=== PATIENT | female | born 1980 | race Caucasian/White ===

== ENCOUNTER 2023-07-28 09:01 | Emergency (ER) | payer OTHER, SELFPAY ==
--- NOTE | 2023-07-28 09:12 | ED.EYEPROB ---
HPI - Eye Problem General Chief complaint: Eye Problems Stated complaint: bilateral eye irritation Time Seen by Provider: 07/28/23 09:11 Source: patient Mode of arrival: ambulatory Limitations: no limitations History of Present Illness HPI Narrative: Tabby is a 42-year-old female patient presenting to the clinic today with complaints bilateral eye irritation x1 day. She reports her son also has conjunctivitis and adduction is been treated for periorbital cellulitis as well. Patient states that her drainage and discomfort started in the left eye and now is gone to the right eye. Woke up this morning with her eyes matted shut. Related Data Home Medications Medication Instructions Recorded Confirmed bupropion HCl 150 mg 24 hr tablet, mg PO 07/28/23 extended release cholecalciferol (vitamin D3) 1,250 1,250 mcg PO WEEKLY 07/28/23 07/28/23 mcg (50,000 unit) tablet hydrocodone 7.5 mg-acetaminophen tablet 07/28/23 325 mg tablet labetalol 100 mg tablet mg 07/28/23 methocarbamol 500 mg tablet mg 07/28/23 naproxen 500 mg tablet mg 07/28/23 norethindrone 1 mg-ethinyl 1 tablet PO DAILY 07/28/23 07/28/23 estradiol 35 mcg (21) tablet Allergies Allergy/AdvReac Type Severity Reaction Status Date / Time No Known Allergies Allergy Verified 07/28/23 09:21 Review of Systems Review of Systems: Pertinent positives per HPI. Patient denies any fever, chills, rash, headache, visual changes, dizziness, cough, shortness of breath, chest pain, palpitations, nausea, vomiting, diarrhea, constipation, abdominal pain, or any urinary issues. PMFSH Comments At the time of my signature, I reviewed and agree with the nursing past medical, surgical, social, and family history. There is no relevant family history pertinent to the patient complaint. Exam Narrative: General: Well-developed, well nourished, in no apparent distress Head: Normocephalic, atraumatic Eyes: Pupils equally round and reactive to light bilaterally, EOM intact, bilateral sclera and conjunctive injected left greater than right, yellow discharge, mild lids swelling Ears: TMs intact and clear, ear canals clear, no drainage, grossly hearing normal. Nose: Nares patent, no discharge, no inflammation, no sinus tenderness. Mouth: Oral pharynx without lesions or masses, good dentition, MMM. Neck: Supple, trachea midline, no enlargement of anterior or posterior cervical nodes, no thyroid masses or goiter palpable. Cardio: Regular rate and rhythm, s1 and s2 normal, no murmur appreciated. Resp: Clear to auscultation bilaterally, no rhonchi, rales, wheezing or rubs Course Course Emergency Course: Portions of this record may have been created with voice recognition software. Level of Care: Express Care Visit Vital Signs Vital signs: Vital signs reviewed MDM - Eye Problem MDM Narrative Medical decision making narrative: At the time of visit patient is resting comfortably on the exam table. Patient appears to be nontoxic. I suspect patient has bacterial conjunctivitis. Prescription for tobramycin eyedrops was sent to the pharmacy. Supportive measures were discussed with the patient and they voiced understanding discharge instructions and agrees to treatment plan. Return precautions reviewed Differential Diagnosis Differential diagnosis: Likely corneal abrasion, conjunctivitis, acute iritis, hyphema, periorbital cellulitis, subconjunctival hemorrhage, corneal ulcer and ruptured globe Discharge Plan Discharge Clinical Impression: Bacterial conjunctivitis Patient Disposition: Home, Self-Care Condition: Stable Instructions: Antibiotic Form, Conjunctivitis (ED) Additional Instructions: Conjunctivitis is considered contagious for 24 hours while on the antibiotic. Practice good hand washing techniques Avoid touching eyes Instill eyedrops as prescribed-tobramycin May use warm moist washcloth to help remove eye discharge If eyes are
[2023-07-28 09:20] VITALS: BP 156/106; PULSE 94; RESP 18; TEMP 36.6; O2SAT 100
[2023-07-28 09:22] VITALS: BP 156/106; PULSE 94; RESP 18; TEMP 36.6; O2SAT 100
== END 2023-07-28 09:38 | disposition home or self-care (01) ==
PROVIDERS: Emergency Provider Nurse Practitioner Family; PCP Family Medicine
DX: H10.89 Other conjunctivitis (principal); Z79.891 Long term (current) use of opiate analgesic; Z79.899 Other long term (current) drug therapy; Z79.1 Long term (current) use of non-steroidal anti-inflammatories (NSAID)
CPT/HCPCS: 99213; G0463

== ENCOUNTER 2024-08-10 00:12 | Day surgery (SDC) | payer SELFPAY ==
[2024-08-06 08:27] VITALS: BMI 25.8
--- NOTE | 2024-08-06 08:37 | PC.NURSE ---
Report to the Outpatient Waiting Room, entrance under the green pavilion located off [facility], at time _0600_ on date _[id number]_. Planned Procedure Time: _0730_.? Time changes happen often and if your time is changed the preop area will call you the afternoon before. - You and your visitor will be asked to self-screen and do not enter if you have any COVID symptoms. Please call surgeon if you need to reschedule. - A mask is optional within the hospital at this time. Patients may have clear liquids (water, carbonated beverages, clear teas, apple juice) until 3 hours prior to surgery with a maximum of 20 ounces. - No food from midnight until time of surgery and no smoking. This includes no chewing gum, candy or mints. Take only the following medications with a SIP of water on the morning of surgery: ___Labetolol and if needed Hydrocodone. DO NOT STOP ANY OF YOUR OTHER PRESCRIPTION MEDICATIONS PRIOR TO SURGERY EXCEPT THE FOLLOWING Medications to discontinue per physician Vitamin D3 Date to take last sxqp___[id number]____ Discussed Naproxen which patient says will just not take until after surgery. Please no make-up, nail french, hairspray, perfume, deodorant, or body powder the day of surgery.? No jewelry (including any body piercings) or valuables the day of surgery, leave them at home.? Please take a shower or bath the night before, or the morning of, surgery with an antibacterial soap.? Wear comfortable, loose fitting clothing.? - Jewelry must be removed prior to entering the operating room.? Rings and piercings that are not removed may be cut off. - The hospital will not accept responsibility for valuables.? - Please leave all valuables, including medications, at home the day of surgery. If you are going home after surgery, a licensed dolly driver must drive you home.? - NO public transportation without another adult if you receive anesthesia. - We recommend that an adult stay with you for 24 hours following discharge. - We also recommend that you do not drive, make important decision, drink alcoholic beverages, or take any drugs that were not prescribed by your health care provider for at least 24 hours after your discharge time. Follow any additional instructions given to you from your surgeon. Telephone instructions given to _Donna___and asked if any additional questions and then verbalized understanding. Patient advised to call surgeon office or pre surgery nurse liaison [phone] if any additional questions.
[2024-08-10 06:30] VITALS: BP 176/113; PULSE 96; RESP 18; TEMP 36.3; O2SAT 98
--- NOTE | 2024-08-10 06:58 | WPDANESEPPF ---
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 Patient Data Age: 43 Gender: F Height: 1.63 m Weight: 68.2 kg Allergies Allergy/AdvReac Type Severity Reaction Status Date / Time No Known Allergies Allergy Verified 08/06/24 08:23 Home Medications ?Medication ?Instructions ?Recorded ?Confirmed ?Type cholecalciferol (vitamin D3) 1,250 1,250 mcg PO WEEKLY 07/28/23 08/06/24 History mcg (50,000 unit) tablet hydrocodone 7.5 mg-acetaminophen 1 tablet PO Q6H PRN pain 07/28/23 08/06/24 History 325 mg tablet labetalol 100 mg tablet 100 mg PO Q12H 07/28/23 08/06/24 History methocarbamol 500 mg tablet 500 mg PO QID PRN pain 07/28/23 08/06/24 History naproxen 500 mg tablet 500 mg PO Q8H PRN pain 07/28/23 08/06/24 History norethindrone 1 mg-ethinyl 1 tablet PO DAILY 07/28/23 08/06/24 History estradiol 35 mcg (21) tablet Patient hx anesthesia problems: none Family hx anesthesia problems: none Results Review: All pre-operative results and documents have been reviewed as part of the pre-operative evaluation. [facility] Social History Social History Years smoked: 20 Smoking status: Current every day smoker Tobacco type: cigarettes Alcohol intake: current Drinks per week: 14 Substance use type: marijuana Other substance usage details: Occasionally Living arrangements: with family Spiritual care concerns: No Anes - Eval Final PreProcedure Day of Procedure 08/10/24 06:58 Patient weight: normal Heart: regular rate and rhythm Lungs: decreased breath sounds Airway: Mallampati scale class II Neurological: alert and oriented Last oral intake: >/= 8 hours ASA classification: III Emergent: no Anesthetic plan: proceed Anesthesia type and monitoring: general GIVS and standard monitoring Results Review: All pre-operative results and documents have been reviewed as part of the pre-operative evaluation. Informed Consent: The patient's anesthetic plan and its attendant risks and benefits were discussed with the patient/family/POA. Questions were solicited and answers provided to the satisfaction of the patient/family/POA.
--- NOTE | 2024-08-10 07:12 | WPDHPUPDATE1 ---
History and Physical Update Update Date/Time: 08/10/24 07:12 History and Physical has been reviewed, including an updated exam of the patient. There are NO changes in the patient's condition. Risks, benefits, and alternatives have been discussed and questions answered. Patient agrees to proceed with procedure.
--- NOTE | 2024-08-10 07:12 | PM.HPGS ---
History of Present Illness History of Present Illness Consent: Risks, benefits, and alternatives have been discussed and questions answered. Patient agrees to proceed with procedure. Chief complaint: Ca In Situ III Narrative: Tabby Theodore is a 43 year old female with severe cervical dysplasia. Colposcopy revealed aceto-white epithelium the entire posterior edge biopsy at 6:00 a.m. revealed severe dysplasia. Endocervical curettings were benign with no dysplasia. It was recommended to undergo a LEEP. Risks of procedure were reviewed. Patient voices understanding and agrees to proceed. Review of Systems Review of Systems: not repeated day of surgery; patient states no changes in status [facility] Past Medical History Medical History (Updated 08/10/24 @ 07:14 by Zenaida Oliva MD) Elevated cholesterol HTN (hypertension) (normal spontaneous vaginal delivery) Social History Social History Years smoked: 20 Smoking status: Current every day smoker Tobacco type: cigarettes Alcohol intake: current Drinks per week: 14 Substance use type: marijuana Other substance usage details: Occasionally Living arrangements: with family Spiritual care concerns: No Meds Home Medications and Allergies Home Medications ?Medication ?Instructions ?Recorded ?Confirmed ?Type cholecalciferol (vitamin D3) 1,250 1,250 mcg PO WEEKLY 07/28/23 08/06/24 History mcg (50,000 unit) tablet hydrocodone 7.5 mg-acetaminophen 1 tablet PO Q6H PRN pain 07/28/23 08/06/24 History 325 mg tablet labetalol 100 mg tablet 100 mg PO Q12H 07/28/23 08/06/24 History methocarbamol 500 mg tablet 500 mg PO QID PRN pain 07/28/23 08/06/24 History naproxen 500 mg tablet 500 mg PO Q8H PRN pain 07/28/23 08/06/24 History norethindrone 1 mg-ethinyl 1 tablet PO DAILY 07/28/23 08/06/24 History estradiol 35 mcg (21) tablet Allergies Allergy/AdvReac Type Severity Reaction Status Date / Time No Known Allergies Allergy Verified 08/06/24 08:23 Exam Const: General: healthy appearing and alert Orientation/consciousness: patient oriented x3 Resp: Effort & Inspection: normal respiratory effort GI: GI Palp: Yes Soft to palpation, No Tenderness to palpation present (GI) and No Palpable mass present : External Female Exam: normal external appearance Speculum Exam - Vagina: normal appearance of the vagina and normal vaginal discharge Speculum Exam - Cervix: normal appearance of the cervix Bimanual exam- vagina & uterus: uterine size normal and consistency normal Bimanual Exam- Adnexa, other: normal adnexae and No adnexal tenderness Neuro: General: patient oriented x3 Assessment and Plan Assessment and plan (1) Severe cervical dysplasia: Code(s): D06.9 - Carcinoma in situ of cervix, unspecified Status: Acute Assessment and Plan: Plan to proceed with LEEP
[2024-08-10] MEDS: LIDO 1%/EPINEPHRINE 1:100,000 20 ML VIAL 10 ML INFILTRATE (07:32)
[2024-08-10 07:45] VITALS: BP 139/105; PULSE 89; RESP 16; O2SAT 98
[2024-08-10] MEDS: LACTATED RINGERS 1,000 ML 30 ML IV CONT (07:45)
--- NOTE | 2024-08-10 07:45 | W.PM.PROC2 ---
Procedure Note - Detailed Date of Procedure 08/10/24 Pre-op Diagnosis Severe cervical dysplasia Post-op Diagnosis Same Procedure Performed LEEP Surgeon Zenaida Oliva MD Anesthesia MAC and Local (1% lidocaine with epinephrine) Findings Aceto-white epithelium on the posterior edge Description of Procedure The patient is taken to the operating room and placed under anesthesia in the dorsal lithotomy position. Coated bivalve speculum was placed in the vagina and the cervix is bathed in acetic acid. The cervix was inspected with the colposcope and the above-stated findings are noted. The cervix was injected in each quadrant with 1% lidocaine with epinephrine. The 2x1cm loop was used to perform a LEEP. One pass posterior and 1 pass anterior. The posterior portion included the cervical os. Monsel's was applied to the cone bed. The specimens were marked at 12:00 p.m. with suture. Patient was taken down from lithotomy position and awakened from anesthesia. She was taken to recovery room in stable condition. Sponge, needle, and instrument counts are correct per the OR staff. Drains No Packing No Pathology Yes (Anterior and posterior lip of LEEP marked at 12) Complications No immediate complications Condition Stable Disposition PACU
[2024-08-10] MEDS: ACETAMINOPHEN 500 MG TABLET 1000 MG PO (08:09)
[2024-08-10 08:10] LABS: BEDSIDEPREGUCG Negative (Negative)
[2024-08-10 08:15] VITALS: BP 160/103; PULSE 78; RESP 20
[2024-08-10 08:45] VITALS: BP 167/99; PULSE 78; RESP 20
--- NOTE | 2024-08-10 08:53 | SUR.PHASEII ---
0815 - dr. daniel aware of pt's b/p 163/108 hr 78. no orders received. pt instructed to follow up with primary care doctor. pt verbalized understanding
--- OUTSIDE RECORDS SUMMARY | 2024-08-16 12:22 | XMS_ITS | Encounter Summary ---
Author Organization [facility] Address [address] [place] [address]. [place], [place] [id number] [place] [id number] Care Team Providers Care Patient Account Liaison Name Role Phone Horace Mixon MD Primary Care Provider [phone] Reason for Visit * Reason Comments Abdominal Pain Encounter Details Date Type Department Care Team (Latest Contact Info) Description 10/31/2021 12:44 PM CDT - 10/31/2021 1:14 PM CDT Hospital Encounter [facility] [address] [place] [id number] Horace Amador, PA-C [address] [id number] Abdominal Pain Discharge Disposition: Transfer to Acute Care Hospital Social History Tobacco Use Types Packs/Day Years Used Date Smoking Tobacco: Every Day Cigarettes Last attempted to quit: 06/12/2021 Smokeless Tobacco: Never Alcohol Use Standard Drinks/Week Comments Yes 0 (1 standard drink = 0.6 oz pur e alcohol) socially AUDIT-C Answer Date Recorded Frequency of Alcohol Consumption Monthly or less 07/14/2018 Average Number of Drinks Not on file 018 Frequency of Binge Drinking Not on file 07/05 Comments No Sex and Gender Information Value Date Recorded Sex Assigned at Not on file Legal Sex Female 6:18 PM CDT Gender Identity Not on file Sexual Orientation Not on file COVID-19 Exposure Response Date Recorded In the last 10 days, have yo u been in contact with someone who was confirmed or suspected to have Coronavirus/COVID-19? No / Unsure 10/31/2021 12:37 PM CDT documented as of this encounter Last Filed Vital Signs Vital Sign Reading Time Taken Comments Blood Pressure 156/111 10/31/2021 12:47 PM CDT Pulse 97 10/31/2021 12:47 PM CDT Temperature 36.7 ??C (98 ??F) 10/31/2021 12:47 PM CDT Respiratory Rate 18 10/31/2021 12:47 PM CDT Oxygen Saturation 98% 10/31/2021 12:47 PM CDT Inhaled Oxygen Concentration - - Weight 77.1 kg (170 lb) 10/31/2021 12:47 PM CDT Height 162.6 cm (5' 4 ) 10/31/2021 12:47 PM CDT Body Mass Index 29.18 10/31/2021 12:47 PM CDT documented in this encounter Discharge Instructions * Discharge Instructions* Horace Amador PA-C - 10/31/2021 1:08 PM CDT To [place] emergency room for further evaluation and treatment * Attachments The following attachments cannot be sent through Care Everywhere. * Severe Abdominal Pain Discharge Instructions, Adult ([place]) documented in this encounter Medications at Time of Discharge HYDROcodone-aceta minophen 5-325 MG tablet Take 1-2 tablets by mouth. 08/25/2021 ibuprofen 800 MG tablet Take 800 mg by mouth. 08/07/2021 labetalol 200 MG tablet Take 200 mg by mouth 2 (two) times daily. 1 06/16/2018 Norethindrone, Contraceptive, 0.35 MG tablet Take 1 tablet by mouth daily. 01/28/2021 vitamin D2, ergocalciferol, (VITAMIN D, ERGOCALCIFEROL,) 94233 UNITS capsule Take 50,000 Units by mouth once a week. 12/22/2020 documented as of this encounter ED Notes * Horace Amador PA-C - 10/31/2021 12:53 PM CDTSummary: abdominal pain ED NOTE Tabby Theodore 1980 Chief Complaint Chief Complaint Patient presents with ??? Abdominal Pain History of Present Illness 41-year-old white female patient with no previous surgical history presents ambulatory to the count includes the [facility] care complaining of epigastric and right upper quadrant abdominal pain and discomfort x5 days.Sometimes she feels it is worse with food or drink. States symptoms worse last night after eating spaghetti. She also reports associated nausea and loose nonbloody stool. She denies fever, chills, sweats, chest pain, shortness of breath, painful breathing, hemoptysis, syncope, extremity pain or edema, back pain, vomiting, urine/vaginal symptoms. No history of pancreatitis or gallstones. [id number] Pepto-Bismol without relief. Medical History ALLERGIES: No Known Allergies MEDICATIONS: Prior to Admission medications Medication Sig Start Date End Date Taking? Authorizing Provider HYDROcodone-acetaminophen 5-325 MG tablet Take 1-2 tablets by mouth. 08/25/21 Yes Doc Abstract ibuprofen 800 MG tablet Take 800 mg by mouth. 08/07/21 Yes Doc Abstract labetalol 200 MG tablet Take 200 mg by mouth 2 (two) times daily. 06/16/18 Yes Doc Abstract Norethindrone, Contraceptive, 0.35 MG tablet Take 1 tablet by mouth daily. 01/28/21 Yes Doc Abstract vitamin D2, ergocalciferol, (VITAMIN D, ERGOCALCIFEROL,) 85607 UNITS capsule Take 50,000 Units by mouth once a week. 12/22/20 Yes Doc Abstract PAST MEDICAL HISTORY: Past Medical History: Diagnosis Date ??? Hypertension PAST SURGICAL HISTORY: History reviewed. No pertinent surgical history. FAMILY HISTORY: Family History Problem Relation Name Age of Onset ??? Kidney Cancer Mother ??? Diabetes Mother ??? Hypertension Mother ??? Migraines/Headaches Mother ??? Colon Cancer Father SOCIAL HISTORY: Social History Tobacco Use ??? Smoking status: Current Every Day Smoker Packs/day: 0.50 Types: Cigarettes Last attempt to quit: 06/12/2021 Years since quittin.3 ??? Smokeless tobacco: Never Used Vaping Use ??? Vaping Use: Never used Substance Use Topics ??? Alcohol use: Yes Comment: socially ??? Drug use: Yes Types: Marijuana Comment: socially Review of Systems Review of Systems Constitutional: Negative for activity change, appetite change, fever and unexpected weight change. HENT: Negative for ear pain, sore throat and trouble swallowing. Eyes: Negative. Respiratory: Negative for cough, chest tightness and shortness of breath. Cardiovascular: Negative for chest pain, palpitations and leg swelling. Gastrointestinal: Positive for abdominal pain, diarrhea and nausea. Negative for abdominal distention, blood in stool, constipation and vomiting. Genitourinary: Negative for dysuria, flank pain and hematuria. Musculoskeletal: Negative for arthralgias, back pain, myalgias and neck pain. Skin: Negative for color change, rash and wound. Allergic/Immunologic: Negative for immunocompromised state. Neurological: Negative for dizziness, speech difficulty, weakness, light- headedness, numbness and headaches. Hematological: Negative for adenopathy. Psychiatric/Behavioral: Negative. Physical Exam Filed Vitals: 10/31/21 1247 BP: (!) 156/111 Pulse: 97 Resp: 18 Temp: 98 ??F (36.7 ??C) TempSrc: Temporal SpO2: 98% Weight: 77.1 kg (170 lb) Height: 5' 4 (1.626 m) Physical Exam Vitals and nursing note reviewed. Exam conducted with a machine stapler present. Constitutional: General: She is not in acute distress. Appearance: Normal appearance. She is well-developed and normal weight. She is not ill-appearing, toxic-appearing or diaphoretic. HENT: Head: Normocephalic and atraumatic. Right Ear: External ear normal. Left Ear: External ear normal. Nose: Nose normal. Mouth/Throat: Mouth: Mucous membranes are moist. Pharynx: Oropharynx is clear. Eyes: Extraocular Movements: Extraocular movements intact. Conjunctiva/sclera: Conjunctivae normal. Pupils: Pupils are equal, round, and reactive to light. Neck: Thyroid: No thyromegaly. Trachea: No tracheal deviation. Cardiovascular: Rate and Rhythm: Normal rate and regular rhythm. Pulses: Normal pulses. Heart sounds: Normal heart sounds. Pulmonary: Effort: Pulmonary effort is normal. No respiratory distress. Breath sounds: Normal breath sounds. Abdominal: General: Abdomen is flat. Bowel sounds are normal. There is no distension. Palpations: Abdomen is soft. There is no mass. Tenderness: There is abdominal tenderness (epigastrium/RUQ). There is no right CVA tenderness, leftCVA tenderness, guarding or rebound. Hernia: No hernia is present. Comments: Neg [place]. Musculoskeletal: General: No swelling, tenderness, deformity or signs of injury. Normal range of motion. Cervical back: Normal range of motion and neck supple. No rigidity. Right lower leg: No edema. Left lower leg: No edema. Lymphadenopathy: Cervical: No cervical adenopathy. Skin: General: Skin is warm and dry. Capillary Refill: Capillary refill takes less than 2 seconds. Findings: No rash. Neurological: General: No focal deficit present. Mental Status: She is alert and oriented to person, place, and time. Cranial Nerves: No cranial nerve deficit. Sensory: No sensory deficit. Motor: No weakness. Coordination: Coordination normal. Gait: Gait normal. Deep Tendon Reflexes: Reflexes normal. Psychiatric: Mood and Affect: Mood normal. Behavior: Behavior normal. Thought Content: Thought content normal. Judgment: Judgment normal. Diagnostic Studies / Procedures ELECTROCARDIOGRAMS: No results found for this visit on 10/31/21. LABORATORY STUDIES: No results found for this visit on 10/31/21. IMAGING STUDIES No orders to display ED Course / Medical Decision Making 1:08 PM-patient stable. Epigastric and right upper quadrant tenderness noted on physical exam. Elevated blood pressure, otherwise unremarkable vital signs. Nontoxic appearance. Patient is reporting moderate bothersome pain. Due to lack of resources at convenient care, patient transferred to [facility] emergency room for further evaluation and treatment. Patient agreeable to this plan, and signed all the appropriate transfer paperwork. She is choosing to go via POV. Accepting physician inthe ED is Dr. Raphael. All risks of transfer given including but not limited to worsening pain, intra-abdominal infection, sepsis, pancreatitis, [place], CVA, respiratory failure, cardiac arrest, disability, , MVC in route. Patient voices understanding. Medications - No data to display Clinical Impression Pain of upper abdomen (Primary) Current Discharge Medication List Disposition: Transfer to Another Facility Follow-Up: No follow-up provider specified. HORACE AMADOR PA-C 10/31/2021 Horace Amador PA-C 10/31/21 [id number] Cosigned by Eveline Mills MD at 10/31/2021 9:48 PM CDT * Donna Wahl RN - 10/31/2021 12:47 PM CDT Pt reports epigastric gas pain, pt reports having epidural shot to T5 and L1 last Saturday. Pt also states she has had loose stools x 2 weeks. Pt reports nausea with waking, no vomiting. documented in this encounter Plan of Treatment Not on file documented as of this encounter Visit Diagnoses Diagnosis Pain of upper abdomen- Primary Abdominal pain, other specified site documented in this encounter Care Teams Patient Account Liaison Relationship Specialty Start Date End Date Horace Mixon MD PCP - General FAMILY PRACTICE 06/17/21 documented as of this encounter
--- OUTSIDE RECORDS SUMMARY | 2024-08-16 12:22 | XMS_ITS | Clinical Summary ---
Author Organization [facility] Address [facility]. [place], [place] [id number] [place] [address] Care Team Providers Care Pss Delivery Professional Name Role Phone Bong Mixon MD Primary Care Provider [phone] Allergies No known active allergies Medications labetalol 200 MG tablet Take 200 mg by mouth 2 (two) times daily. 1 06/16/2018 Active ibuprofen 800 MG tablet Take 800 mg by mouth. 08/07/2021 Active vitamin D2, ergocalciferol, (VITAMIN D, ERGOCALCIFEROL, ) 90879 UNITS capsule Take 50,000 Units by mouth once a week. 12/22/2020 Active HYDROcodone-karan taminophen 5-325 MG tablet Take 1-2 tablets by mouth. 08/25/2021 Active Norethindrone, Contraceptive, 0.35 MG tablet Take 1 tablet by mouth daily. 01/28/2021 Active Family History Medical History Relation Comments Colon Cancer Father Diabetes Mother Hypertension Mother Kidney Cancer Mother Migraines/Headaches Mother Relation Status Comments Father Mother Social History Tobacco Use Types Packs/Day Years [...] on file Sexual Orientation Not on file Last Filed Vital Signs Vital Sign Reading Time Taken Comments Blood Pressure 112/68 10/31/2021 1:30 PM CDT Pulse 99 10/31/2021 1:30 PM CDT Temperature 36.7 ??C (98.1 ??F) 10/31/2021 1:30 PM CD T Respiratory Rate 18 10/31/2021 1:30 PM CDT Oxygen Saturation 100% 10/31/2021 1:30 PM CDT Inhaled Oxygen Concentration - - Weight 77.1 kg (170 lb) 10/31/2021 12:47 PM CDT Height 162.6 cm (5' 4 ) 10/31/2021 12:47 PM CDT Body Mass Index 29.18 10/31/2021 12:47 PM CDT Plan of Treatment Health Maintenance Due Date Last Done Comments Cervical Cancer Screening Pa p Smear (Age 30 to 64) Every 3 Years 1979 Annual Physical 10/02/1982 Pneumococcal Vaccine: Pediat rics (0 to 5 Years) and At-Risk Patients (6 to 64 Years) (1 of 2 - PCV) 10/02/1985 Hepatitis C 10/02/1997 Hepatitis B Vaccines (1 of 3 - 19+ 3-dose series) 10/02/1998 Cervical Cancer Screening Pa p with HPV Testing (Age 30 to 64) Every 5 Years 10/02/2009 Cervical Cancer Screening with HPV 10/02/2009 Mammogram Screening 2019 COVID-19 Vaccine (1 - 2023-2 5 season) 2024 Influenza Adult (#1) 2024 DTaP, Tdap and Td Vaccines ( 2 - Tdap) 11/17/2028 11/17/2018 HPV Vaccines Aged Out No longer eligi ble based on patient's age to complete this topic Meningococcal Vaccine Aged Out No jesse lily eligible based on patient's age to complete this topic RSV Immunizations Under 20 Months Aged Out No longer eligible based on patient's age to complete this topic Care Teams Pss Delivery Professional Relationship Specialty Start Date End Date Bong Mixon MD PCP - General FAMILY PRACTICE 06/17/21
--- OUTSIDE RECORDS SUMMARY | 2024-08-16 12:22 | XMS_ITS | Encounter Summary ---
Author Organization [facility] Address [address] [place] [address]. [place], [place] [id number] [place] [address] Care Team Providers Care Building Services Engineer Name Role Phone Bong Mixon MD Primary Care Provider [phone] Encounter Details Date Type Department Care Team (Latest Contact Info) Description 08/30/2021 Travel Social History Tobacco Use Types Packs/Day Years Used Date Smoking Tobacco: Former Cigarettes Q uit: 06/12/2021 Smokeless Tobacco: Never Alcohol Use Standard [...] Exposure Response Date Recorded In the last month, have you been in contact with someone who was confirmed or suspected to have Coronavirus / COVID-19? No / Unsure 08/30/2021 9:18 AM SHOP TAILOR documented as of this encounter Plan of Treatment Not on file documented as of this encounter Visit Diagnoses Not on filedocumented in this encounter Care Teams Building Services Engineer Relationship Specialty Start Date End Date Bong Mixon MD PCP - General FAMILY PRACTICE 06/17/21 documented as of this encounter
--- OUTSIDE RECORDS SUMMARY | 2024-08-16 12:22 | XMS_ITS | Encounter Summary ---
Author Organization [facility] Address [facility]. [place], [place] [id number] [place] [address] Care Team Providers Care Veterinarian Name Role Phone Bong Mixon MD Primary Care Provider [phone] Reason for Referral * Surgical (Routine) - Closed Specialty Diagnoses / Procedures Referred By Contac t Referred To Contact Procedures Case request operating room: INJECTION EPIDURAL TRANSFORAMINAL L5-S1 Mariajose Worley APNP Phone: tel: fax: Referral ID Status Reason Start Date Expiration Date Visits Re quested Visits Authorized [id number] Closed 08/30/2021 09/30/2022 1 1 ER OPERATOR Encounter Details Date Type Department Care Team (Late st Contact Info) Description 08/30/2021 Prep for Procedure [facility] [place] [phone] Mariajose Worley APNP [address] [place] [phone] Social History Tobacco Use Types Packs/Day Years [...] COVID-19? No / Unsure 08/30/2021 9:18 AM JEEPER OPERATOR documented as of this encounter Plan of Treatment Scheduled Orders Name Type Priority Associated Diagnoses Order Schedule Case request operating room: INJECTION EPIDURAL TRANSFORAMINAL L5-S1 Case Request Routine Once for 1 Occurrences starting 08/30/2021 until 08/30/2021 documented as of this encounter Visit Diagnoses Not on filedocumented in this encounter Care Teams Veterinarian Relationship Specialty Start Date End Date Bong Mixon MD PCP - General FAMILY PRACTICE 06/17/21 documented as of this encounter
--- OUTSIDE RECORDS SUMMARY | 2024-08-16 12:22 | XMS_ITS | Encounter Summary ---
Author Organization [facility] Address [address] [place] [address]. [place], [place] [id number] [place] [address] Care Team Providers Care High Lift Driver Name Role Phone Bong Mixon MD Primary Care Provider [phone] Encounter Details Date Type Department Care Team (Latest Contact Info) Description 10/31/2021 Travel Social History Tobacco Use Types Packs/Day [...] PM CDT documented as of this encounter Plan of Treatment Not on file documented as of this encounter Visit Diagnoses Not on filedocumented in this encounter Care Teams High Lift Driver Relationship Specialty Start Date End Date Bong iMxon MD PCP - General FAMILY PRACTICE 06/17/21 documented as of this encounter
--- OUTSIDE RECORDS SUMMARY | 2024-08-16 12:22 | XMS_ITS | Encounter Summary ---
Author Organization [facility] Address [address] [place] [address]. [place], [place] [address] [place] [address] Care Team Providers Care Jute Bag Clipper Name Role Phone Bong Mixon MD Primary Care Provider [phone] Encounter Details Date Type Department Care Team (Latest Contact Info) Description 10/25/2021 Travel Social History Tobacco Use Types Packs/Day [...] suspected to have Coronavirus/COVID-19? No / Unsure 10/25/2021 8:44 AM CDT documented as of this encounter Plan of Treatment Not on file documented as of this encounter Visit Diagnoses Not on filedocumented in this encounter Care Teams Jute Bag Clipper Relationship Specialty Start Date End Date Bong Mixon MD PCP - General FAMILY PRACTICE 06/17/21 documented as of this encounter
--- OUTSIDE RECORDS SUMMARY | 2024-08-16 12:22 | XMS_ITS | Encounter Summary ---
Author Organization [facility] Address [address] [place] [address]. [place], [place] [address] [place] [address] Care Team Providers Care Cvicu Nurse Name Role Phone Bong Mixon MD Primary Care Provider [phone] Encounter Details Date Type Department Care Team (Late st Contact Info) Description 12/01/[address] [facility] [place] [address] [phone] Mariajose Worley, NONI [address] [place] [phone] Social History Tobacco Use Types Packs/Day Years [...] on file Sexual Orientation Not on file documented as of this encounter Plan of Treatment Not on file documented as of this encounter Visit Diagnoses Not on filedocumented in this encounter Care Teams Cvicu Nurse Relationship Specialty Start Date End Date Bong Mixon MD PCP - General FAMILY PRACTICE 06/17/21 documented as of this encounter
--- OUTSIDE RECORDS SUMMARY | 2024-08-16 12:22 | XMS_ITS | Encounter Summary ---
Author Organization [facility] Address [address] [place] [address]. [place], [place] [id number] [place] [address] Care Team Providers Care Inpatient Pharmacist Name Role Phone Bong Mixon MD Primary Care Provider [phone] Reason for Visit * Reason Onset Date Comments Follow Up Call 11/28/2021 Encounter Details Date Type Department Care Team (Late st Contact Info) Description 11/28/2021 Telephone [facility] [place] [address] [phone] Marietta Cerrato RN Follow Up Call Social History Tobacco Use Types Packs/Day Years [...] PM CDT documented as of this encounter Progress Notes * Marietta Cerrato RN - 11/28/2021 1:58 PM CDT CALLED PT TO GET % OF RELIEF. SHE REPORTS THAT SHE GOT 0% RELIEF FROM THE INJECTION WE DID. SHE REPORTS SHE JUST LEFT THE OFFICE OF HER PCP WHO TOLD HER THAT SHE HAS TO FAIL ANOTHER INJECTION BEFORE THEY CAN SEND REFERRAL TO NEUROSURGERY. I ADVISED HER THAT A SECOND INJECTION OF THIS TYPE WOULD NOTBE WARRANTED OR APPROVED BY INS IF SHE GOT ABSOLUTELY NO RELIEF. PT DID CONFIRM THAT SHE GOT 0% AGAIN. I TOLD HER I WOULD SEND THIS TO [facility] TO SEE IF THERE ARE ANY OTHER TYPE OF INJECTIONS THAT CAN BE DONE. PT WANTS TO MOVE FORWARD WITH ANOTHER INJECTION AND ALSO WOULD LIKE CONSULT TO NEUROSURGERY. DR ZAPATA OFFICE WOULD BE FIND WITH PATIENT. PT ALSO STATES THAT HER INS COVERAGE CHANGES ON 12/02 BUT SHE IS NOT SURE WHAT PLAN SHE WILL HAVE . PT AWARE THAT IF SHE IS SCHEDULED FOR ANOTHER INJECTION AND INS CHANGES THAT IF NOT CONTRACTED WE WILL HAVE TO TAKE HER OFF. documented in this encounter Plan of Treatment Not on file documented as of this encounter Visit Diagnoses Not on filedocumented in this encounter Care Teams Inpatient Pharmacist Relationship Specialty Start Date End Date Bong Mixon MD PCP - General FAMILY PRACTICE 06/17/21 documented as of this encounter
--- OUTSIDE RECORDS SUMMARY | 2024-08-16 12:22 | XMS_ITS | Encounter Summary ---
Author Organization [facility] Address [address] [place] [address]. [place], [place] [id number] [place] [id number] Care Team Providers Care Balance Wheel Screw Hole Driller Name Role Phone Bong Mixon MD Primary Care Provider [phone] Reason for Visit * Auth/Cert Specialty Diagnoses / Procedures Referred By Contac t Referred To Contact Diagnoses Lumbar radiculopathy Procedures INJECTION EPIDURAL TRANSFORAMINAL L5-S1 Referral ID Status Reason Start Date Expiration Date Visits Re quested Visits Authorized [id number] 1 1 Encounter Details Date Type Department Care Team (Late st Contact Info) Description 10/25/2021 9:40 AM CDT - 10/25/2021 10:00 AM CDT Surgery [facility] Interventional [facility] [place] [address] [phone] Stephanie Frias MD [facility] [address] [place] [address] INJECTION EPIDURAL TRANSFORAMINAL L5-S1 Surgery Details Date/Time Status Location OR Service Patient Class Case Class Case Type Trauma Case? 10/25/2021 9:40 AM Posted [facility] Proc Rm Pain Medicine Short Stay/Outpa tient Surgery No Panel 1 Procedure LRB Anes Op Region Wound Class Comments INJECTION EPIDURAL TRANSFORAMINAL L5-S1 Bilateral Local Spine Lumbar Clean RTN PT - RUFINA ONLY NO BLOOD THINNERS BILATERAL INJECTION EPIDURAL TRANSFORAMINAL L5-S1 BC/BS 03/*08/2021 ADRIANA NUNES Surgeon Surgeon Role Service Panel Stephanie Frias MD Primary Pain Medicine 1 documented in this encounter Social History Tobacco Use Types Packs/Day Years [...] AM CDT documented as of this encounter Last Filed Vital Signs Vital Sign Reading Time Taken Comments Blood Pressure 173/113 10/25/2021 9:54 AM CDT Pulse 71 10/25/2021 9:54 AM CDT Temperature 36.3 ??C (97.3 ??F) 10/25/2021 9:08 AM CD T Respiratory Rate 20 10/25/2021 9:54 AM CDT Oxygen Saturation 93% 10/25/2021 9:54 AM CDT Inhaled Oxygen Concentration - - Weight 77.8 kg (171 lb 9.6 oz) 10/25/2021 9:12 A M CDT Height 162.6 cm (5' 4 ) 10/25/2021 9:12 AM CDT Body Mass Index 29.46 10/25/2021 9:12 AM CDT documented in this encounter Discharge Instructions * Discharge Instructions* Michelle Sheppard RN - 10/25/2021 9:52 AM CDT [place] Interventional Pain Management Discharge Instructions WHAT TO DO TODAY: - Limit your activity today, but bedrest is not required - You may resume your normal activity tomorrow as tolerated - Do not drive a vehicle or operate hazardous equipment for the first 24 hours after your procedure. - You may experience numbness, tingling, and weakness in your extremities for several hours after your injection. Please be careful when walking or standing so you do not fall. - You may remove your bandage in the morning and you may shower. WHAT TO EXPECT OVER THE NEXT FEW DAYS TO A WEEK: - Any weakness or tingling typically wears off after several hours but you may have some tingling for several days after some injections - It is normal that once the numbing medicine wears off that you could be sore for several days before you notice relief. Pain should get better day by day. - The steroid will start working after 2-3 days and can take up to 2 weeks for it to fully work. - Everyone has different response to the injection depending on the amount of inflammation and diagnosis. HOW TO CONTROL YOUR PAIN: - Injection site soreness is normal and will subside in a few days. We suggest ice packs to the injection site for 10-20 at a time ever 2-3 hours. After 24 hours you may use heat if preferred or you may alternate heat and ice. - Your pain may be worse for a couple of days; you may use any medications that you were using before your visit. You may also use Tylenol, Motrin or Aleve if not contraindicated by your Primary CarePhysician. If you no longer have any prescribed medicine, please get your refill from the physicianwho fist prescribed it for you. - For patients who had a Radiofrequency Ablation your pain could last for up to 2 weeks. - We are an Interventional pain management. We do not prescribe pain medicine. COMMON SIDE EFFECTS OF STEROIDS: - You may experience warm, flushing sensation with redness in your face, neck and chest. - You may feel anxious, jittery, irritable or have trouble sleeping. - You may have increased hunger or menstrual changes (for women). - If you are a diabetic you may have increased blood sugars. If you do and are unable to control please call your doctor who manages your diabetes. - All side effects are temporary and should subside in approximately a week. WHEN TO CALL THE DOCTOR AND HOW TO REACH US: Call [phone] ext. [phone] for scheduling, insurance questions or speak with a nurse. Our hours are Saturday- 8:00am-4:00pm ??? Call the number above for any bleeding/drainage/redness/swelling at the injection site, severe pain, persistent chills, fever over 101 or greater, or new or different pain or numbness. If you areunable to reach us call 911 or go to the nearest emergency room. ??? If you have shortness of breath, fast heart rate, throat/tongue swelling call 911 or go to the nearest emergency room. ANY NEW BOWEL OR BLADDER INCONTINENCE ISSUES OR NUMBNESS TO PELVIC REGION PLEASE GO TO THE EMERGENCY ROOM IMMEDIATELY! PLEASE CALL WITH YOUR PERCENTAGE OF RELIEF IN 3 WEEKS. November 15, 2021. Please call [phone] Ext. [phone] option 4. You may need to leave a message. Please leave the following information... 1. Name, date of , a number we can reach you for questions and the date you were here. 2. The amount of relief you received from your injection in NUMBER percentage and how long it has lasted or if it is still currently helping you. 3. If you still have pain where is the pain? 4. Are you taking any medications for your pain? 5. Are you doing your physical therapy exercises/stretches or any physical activity? 6. Is there any activity that you are able to do that you were unable to do prior to your injection? Please know that if we do not receive this information your next injection may not get authorized by your insurance company and your treatment could be delayed. FOR YOUR NEXT INJECTION APPOINTMENT. Please do not eat or drink anything for 4 hours prior to your appointment. Please have responsible adult with you and someone to drive you home Please shower prior to procedure to help prevent infection. Please no perfumes or scented lotions on day of your procedure. You May wear deodorant. You may take all your medications as prescribed with sips of water. documented in this encounter Medications at Time of Discharge HYDROcodone-acetami nophen 5-325 MG tablet Take 1-2 tablets by mouth. 08/25/2021 ibuprofen 800 MG tablet Take 800 mg by mouth. 08/07/2021 labetalol 200 MG tablet Take 200 mg by mouth 2 (two) times daily. 1 06/16/2018 Norethindrone, Contraceptive, 0.35 MG tablet Take 1 tablet by mouth daily. 01/28/2021 vitamin D2, ergocalciferol, (VITAMIN D, ERGOCALCIFEROL,) 71111 UNITS capsule Take 50,000 Units by mouth once a week. 12/22/2020 diazePAM 10 MG tabletIndications:L umbar radiculopathy Take 1 tablet (10 mg total) by mouth once for 1 dose. Take one tab 1 hour prior to procedure 1 tablet 10/25/2021 2 hydrocodone-acetami nophen 5-325 MG tablet Take 1 tablet by mouth daily as needed. 0 07/03/2018 2 documented as of this encounter H&P Notes * Stephanie Frias MD - 10/25/2021 9:44 AM CDT Admission Note With PreProc Assess CC: Low back pain HPI: 41-year-old female seen today as a follow-up patient was seen as a new patient on 08/30/2021. Patient is a referral from Anupam Oates. Patient denies any changes from her initial evaluation. Prior to Admission medications Medication Sig Start Date End Date Taking? Authorizing Provider hydrocodone-acetaminophen 5-325 MG tablet Take 1 tablet by mouth daily as needed. 07/03/18 Yes Doc Abstract HYDROcodone-acetaminophen 5-325 MG tablet Take 1-2 tablets by mouth. 08/25/21 Yes Doc Abstract ibuprofen 800 MG tablet Take 800 mg by mouth. 08/07/21 Yes Doc Abstract labetalol 200 MG tablet Take 200 mg by mouth 2 (two) times daily. 06/16/18 Yes Doc Abstract vitamin D2, ergocalciferol, (VITAMIN D, ERGOCALCIFEROL,) 22575 UNITS capsule Take 50,000 Units by mouth once a week. 12/22/20 Yes Doc Abstract No Known Allergies Past Medical History: Diagnosis Date ??? Hypertension History reviewed. No pertinent surgical history. Social History Socioeconomic History ??? Marital status: Spouse name: Not on file ??? Number of children: 1 ??? Years of education: Not on file ??? Highest education level: Not on file Occupational History ??? Not on file Tobacco Use ??? Smoking status: Former Smoker Packs/day: 0.50 Types: Cigarettes Quit date: 06/12/2021 Years since quittin.3 ??? Smokeless tobacco: Never Used Vaping Use ??? Vaping Use: Never used Substance and Sexual Activity ??? Alcohol use: Yes Comment: socially ??? Drug use: Yes Types: Marijuana Comment: socially ??? Sexual activity: Not on file Other Topics Concern ??? Service Not Asked ??? Blood Transfusions Not Asked ??? Caffeine Concern Not Asked ??? Occupational Exposure Not Asked ??? Hobby Hazards Not Asked ??? Sleep Concern Not Asked ??? Stress Concern Not Asked ??? Weight Concern Not Asked ??? Special Diet Not Asked ??? Back Care Not Asked ??? Exercise Not Asked ??? Bike Helmet Not Asked ??? Seat Belt Not Asked ??? Self-Exams Not Asked ??? Wheelchair No ??? Walker Not Asked ??? Upper extremity braces/slings No ??? Lower extermity braces/slings No ??? Self Care Yes Social History Narrative Lives at home with her Social Determinants of Health Financial Resource Strain: Not on file Food Insecurity: Not on file Transportation Needs: Not on file Physical Activity: Not on file Stress: Not on file Social Connections: Not on file Intimate Partner Violence: Not on file Review of Systems: no changes except specified in HPI, no bladder or bowel incontinence PHYSICAL EXAM Filed Vitals: 10/25/21 0908 10/25/21 0912 Pulse: 81 Resp: 20 Temp: 97.3 ??F (36.3 ??C) TempSrc: Tympanic SpO2: 99% Weight: 77.8 kg (171 lb 9.6 oz) Height: 5' 4 (1.626 m) General: alert, appears stated age and cooperative Skin: normal and no rash or abnormalities HEENT: neck supple with midline trachea Lungs: no respiratory distress Heart: regular rate and rhythm Abdomen: soft Neuro: Unchanged from 08/30/2021 ASSESSMENT Lumbar radiculopathy PLAN 41-year-old female seen today as a follow-up we will proceed with bilateral L5- S1 lumbar transforaminal injection. Risk, benefits, alternatives were discussed. Patient agreeable plan. Risks including, but not limited to infection, permanent neurological deficit due to nerve root injury, bleeding, anaphylaxis, flushing, cerebral spinal fluid leak, paralysis, spinal cord injury, thinning of the skin, thinning of the bones, muscle cramping. documented in this encounter OR Notes * Op Note - Stephanie Frias MD - 10/25/2021 9:55 AM CDT PROCEDURE: LUMBAR TRANSFORAMINAL EPIDURAL STEROID INJECTION UNDER FLUOROSCOPY LEVELS: Bilateral L5-S1 PREOPERATIVE DIAGNOSIS: LUMBAR RADICULOPATHY POSTOPERATIVE DIAGNOSIS: SAME PREOP SURGEON: STEPHANIE FRIAS MD RISKS, BENEFITS, ALTERNATE TREATMENTS DISCUSSED. WRITTEN CONSENT OBTAINED. PATIENT TAKEN TO PROCEDURE ROOM PLACED IN PRONE POSITION. PILLOW UNDER ABDOMEN TO REDUCE LUMBAR LORDOSIS. STERILE PREP AND DRAPE OF LUMBOSACRAL SPINE PERFORMED. ASA STANDARD MONITORS APPLIED. Risks including, but not limited to infection, permanent neurological deficit due to nerve root injury, bleeding, anaphylaxis, flushing, cerebral spinal fluid leak, paralysis, spinal cord injury, thinning of the skin, thinning of the bones, muscle cramping. PROCEDURE: VERTEBRAL BODIES WERE SQUARED.. SKIN AND SUBCUTANEOUS TISSUES ANESTHETIZED WITH 1% LIDOCAINE. 22 GAUGE CHIBA NEEDLES WITH BENT TIPS WERE USED. C ARM WAS MOVED TO THE OBLIQUE X RAY VIEW. TARGET FOR L 5-S1 NERVE ROOT IS THE 6 O???CLOCK POSITION OF THE PEDICLE SHADOW IN THE OBLIQUE X RAYVIEW AT THE LEVEL OF L 5-S1 ON THE left and right SIDE. APPROPRIATE NEEDLE TIP POSITION WAS CONFIRMED IN THE AP,OBLIQUE AND LATERAL VIEWS. AFTER NEGATIVE ASPIRATION, 5 CC OF CONTRAST SPLIT BETWEEN THE ABOVE MENTIONED LEVELS WAS INJECTED IN THE LATERAL VIEW CONFIRMING SPREAD IN THE ANTERIOR EPIDURAL SPACE. NEGATIVE ASPIRATION PRIOR TO 5 CC OF CONTRAST INJECTED IN THE AP VIEW CONFIRMING SPREAD ALONG THE APPROPRIATE NERVE ROOTS ALONG WITH EDIDURAL SPREAD. NO INTRAVASCULAR OR INTRATHECAL UPTAKE NOTED. NEGATIVE ASPIRATION PRIOR TO INJECTION OF 4OMG DEPOMEDROL AND 2 CC OF 0.25% BUPIVACAINE INJECTED PER LEVEL. NEEDLES REMOVED. NO COMPLICATIONS. POST PROCEDURE: PATIENT TOLERATED PROCEDURE WELL AND OBSERVED PRIOR TO DISCHARGE. DISCHARGED IN STABLE CONDITION WITH APPROPRIATE POST-PROCEDURE INSTRUCTIONS. PATIENT WILL BE CALLED OVER THE NEXT FEW DAYS FOR FOLLOWUP. documented in this encounter Plan of Treatment Not on file documented as of this encounter Procedures Procedure Name Priority Date/Time Associated Diagnosis Comments INJECTION EPIDURAL TRANSFORAMINAL 10/25/2021 9:47 AM CDT Lumbar radiculopathy XR PAIN CLINIC C-ARM Today 10/25/2021 9:02 AM CDT documented in this encounter Results * XR PAIN CLINIC C-ARM (10/25/2021 9:02 AM CDT) Narrative Radiology, Technologist - 10/25/2021 9:02 AM CDT This report does not contain a radiologist's interpretation. Please review associated procedure and/or operative report. us Stephanie Frias MD GENERAL IMAGING Final Result documented in this encounter Visit Diagnoses Not on filedocumented in this encounter Administered Medications Inactive Administered Medications - up to 3 most recent administrations Medication Order MAR Action Action Date Dose Rate Site BUpivacaine (MARCAINE) 0.25 % injection As needed, Starting on Sat10/25/21 at 0932, Until Sat10/25/21 at 0955, Intra-Op Given 10/25/2021 9:53 AM CDT 2 mLs Back chlorhexidine (PERIDEX) 0.12 % solution 15 mL 15 mL, Mouth/Throat, PRN, Prior to surgery, 1 dose, Starting on Sat10/25/21 at 0914, Until Sat10/25/21 at 1206, Patient to perform oral care first. Swish/Gargle in mouth for 30 seconds, and then discard, prior to going to surgery/ If ventilated use saturated swab to clean oral cavity., Pre-Op diazePAM (VALIUM) 5 MG tablet 1 dose, Starting on Sat10/25/21 at 0910, Until Sat10/25/21 at 0913, Created by cabinet override Given 10/25/2021 9:13 AM CDT 10 mg diazePAM (VALIUM) tablet 10 mg 10 mg, Oral, Once as needed, Anxiety, 1 dose, Starting on Sat10/25/21 at 0914, Until Sat10/25/21 at 1206, Pre-Op iopamidol (ISOVUE-M 300) 61 % injection As needed, Starting on Sat10/25/21 at 0932, Until Sat10/25/21 at 0955, Intra-Op Given 10/25/2021 9:53 AM CDT 5 mLs Back lidocaine (PF) (XYLOCAINE) 1 % injection As needed, Starting on Sat10/25/21 at 0932, Until Sat10/25/21 at 0955, Intra-Op Given 10/25/2021 9:50 AM CDT 2 mLs Back methylPREDNISolone acetate (DEPO-Medrol) injection As needed, Starting on Sat10/25/21 at 0933, Until Sat10/25/21 at 0955, Intra-Op Given 10/25/2021 9:53 AM CDT 80 mg Back documented in this encounter Active and Recently Administered Medications Times are shown in CDT. PRN Medication Order 10/23/2021 10/24/2021 10/25/2021 BUpivacaine (MARCAINE) 0.25 % injection (CANCELED) As needed, Starting on Sat10/25/21 at 0932, Until Sat10/25/21 at 0955, Intra-Op 0953 (Given - Provid er: Stephanie Frias MD) chlorhexidine (PERIDEX) 0.12 % solution 15 mL 15 mL, Mouth/Throat, PRN, Prior to surgery, 1 dose, Starting on Sat10/25/21 at 0914, Until Sat10/25/21 at 1206, Patient to perform oral care first. Swish/Gargle in mouth for 30 seconds, and then discard, prior to going to surgery/ If ventilated use saturated swab to clean oral cavity., Pre-Op diazePAM (VALIUM) tablet 10 mg 10 mg, Oral, Once as needed, Anxiety, 1 dose, Starting on Sat10/25/21 at 0914, Until Sat10/25/21 at 1206, Pre-Op iopamidol (ISOVUE-M 300) 61 % injection (CANCELED) As needed, Starting on Sat10/25/21 at 0932, Until Sat10/25/21 at 0955, Intra-Op 0953 (Given - Provid er: Stephanie Frias MD) lidocaine (PF) (XYLOCAINE) 1 % injection (CANCELED) As needed, Starting on Sat10/25/21 at 0932, Until Sat10/25/21 at 0955, Intra-Op 0950 (Given - Provid er: Stephanie Frias MD) methylPREDNISolone acetate (DEPO-Medrol) injection (CANCELED) As needed, Starting on Sat10/25/21 at 0933, Until Sat10/25/21 at 0955, Intra-Op 0953 (Given - Provid er: Stephanie Frias MD) No Frequency Medication Order 10/23/2021 10/24/2021 10/25/2021 diazePAM (VALIUM) 5 MG tablet (COMPLETED) 1 dose, Starting on Sat10/25/21 at 0910, Until Sat10/25/21 at 0913, Created by cabinet override 0913 (Given - Provid er: Morgan Hendricks RN) documented in this encounter Care Teams Balance Wheel Screw Hole Driller Relationship Specialty Start Date End Date Bong Mixon MD PCP - General FAMILY PRACTICE 06/17/21 documented as of this encounter
--- OUTSIDE RECORDS SUMMARY | 2024-08-16 12:22 | XMS_ITS | Encounter Summary ---
Author Organization [facility] Address [facility]. [place], [place] [id number] [place] [address] Care Team Providers Care Poly Operator Name Role Phone Bong Mixon MD Primary Care Provider [phone] Reason for Visit * Consultation/Treatment (Routine) - Closed Specialty Diagnoses / Procedures Referred By Contac t Referred To Contact PAIN MANAGEMENT / [facility] Pain Management Diagnoses Low back pain lbp Procedures consult - treat Anupam Oates PA-C [facility] [address] [address] Phone: tel: fax: Mariajose Worley APNP Phone: tel: fax: Referral ID Status Reason Start Date Expiration Date Visits Re quested Visits Authorized [id number] Closed 08/21/2021 09/21/2022 10 10 Encounter Details Date Type Department Care Team (Latest Contact Info) Description 08/30/2021 9:19 AM FILLER SPREADER - 08/30/2021 11:59 PM [facility] Hospital Encounter [facility]ventional [place] [address] [phone] Mariajose Worley APNP [address] [place] [phone] Discharge Disposition: Home or Self Care (Routine Discharge) Social History Tobacco Use Types Packs/Day Years [...] COVID-19? No / Unsure 08/30/2021 9:18 AM FILLER SPREADER documented as of this encounter Last Filed Vital Signs Vital Sign Reading Time Taken Comments Blood Pressure 145/89 08/30/2021 9:35 AM FILLER SPREADER Pulse 86 08/30/2021 9:35 AM FILLER SPREADER Temperature 36.4 ??C (97.6 ??F) 08/30/2021 9:35 AM CS T Respiratory Rate 20 08/30/2021 9:35 AM FILLER SPREADER Oxygen Saturation 98% 08/30/2021 9:35 AM FILLER SPREADER Inhaled Oxygen Concentration - - Weight 73.8 kg (162 lb 9.6 oz) 08/30/2021 9:35 A M FILLER SPREADER Height 162.6 cm (5' 4 ) 08/30/2021 9:35 AM FILLER SPREADER Body Mass Index 27.91 08/30/2021 9:35 AM FILLER SPREADER documented in this encounter Medications at Time of Discharge HYDROcodone-aceta minophen 5-325 MG tablet Take 1-2 tablets by mouth. 08/25/2021 ibuprofen 800 MG tablet Take 800 mg by mouth. 08/07/2021 labetalol 200 MG tablet Take 200 mg by mouth 2 (two) times daily. 1 06/16/2018 Norethindrone, Contraceptive, 0.35 MG tablet Take 1 tablet by mouth daily. 01/28/2021 vitamin D2, ergocalciferol, (VITAMIN D, ERGOCALCIFEROL,) 39915 UNITS capsule Take 50,000 Units by mouth once a week. 12/22/2020 hydrocodone-aceta minophen 5-325 MG tablet Take 1 tablet by mouth daily as needed. 0 07/03/2018 10/31/2021 documented as of this encounter H&P Notes * Mariajose WorleyNONI - 08/30/2021 10:15 AM CSTSummary: Low back pain that radiates to the upper buttocks, with circumferential pain to the left thigh, and posterior upper right thigh Interventional Pain Management History & Physical Referring Provider: Anupam Oates PA-C Chief Complaint: Low back pain that radiates to the upper buttocks, with circumferential pain to the left thigh, and posterior upper right thigh HPI: Tabby Theodore is a 40-year-old female who is seen today as a new patient as referred by RAMIRO Conner. She has been experiencing low back pain that radiates to the upper buttocks, above the intergluteal cleft, with circumferential pain to the left thigh, and posterior upper right thigh. She reports a history of low back pain that initially began in 2014, increased after the of her childin 2016, as well as further increase in pain following a fall in December or January of last year, states she experienced multiple falls that day after consuming some alcohol, and noticed the back pain worsened at that time. She does states she has undergone thoracic injections in the past at [facility] from 2016 through 2018 along with chiropractor treatments and physical therapy; however she said that the interventions at [facility] worsened her pain, so she did not return. She also received trigger point traction at [facility], did not notice improvement with the treatments. She rates her pain today as 7 on a 0-to-10 scale, with an overall average of 7 on a 0-to-10 scale, worst pain being 9 on a 0-to-10 scale, least pain being 3 on a 0-to-10 scale. She describes pain as shooting, sharp, aching, severe, constant, worsening over time. Associated symptoms include some numbness of the bilateral upper buttocks, with left leg weakness, states she feels as if she favors the left leg at times when she ambulates. She denies urinary or bowel incontinence, denies anesthesia in the saddle region,denies foot drop. She said her pain is worse with coughing, sitting, sneezing, moving from sitting to standing, weather changes. Factors relieve the pain include medications. Previous treatments tried: She said she underwent physical therapy, occupational therapy, direct care staffer at [facility] along with thoracic injection procedures, all of which worsened her pain. She also received trigger point injections at [facility], did not notice improvement with the treatments. She said she receives chiropractic treatment with [facility] in [place], [place], is uncertain whether or not she is benefiting from the treatments. She said she did purchase a stand-up working desk, which has been helpful. She has tried LSO bracing, which did not reduce her pain. She has tried application of heat. Medications tried for pain relief: She has tried ibuprofen, which has provided some relief. She hastried gabapentin and Flexeril, neither which were helpful. She has tried Aleve, is not sure if thismedication reduced her pain. She said she is gotten benefit with hydrocodone. Past Medical History: Diagnosis Date ??? Hypertension History reviewed. No pertinent surgical history. (Not in a hospital admission) No Known Allergies Social History Socioeconomic History ??? Marital status: Spouse name: Not on file ??? Number of children: 1 ??? Years of education: Not on file ??? Highest education level: Not on file Occupational History ??? Not on file Tobacco Use ??? Smoking status: Former Smoker Packs/day: 0.50 Types: Cigarettes Quit date: 06/12/2021 Years since quittin.2 ??? Smokeless tobacco: Never Used Vaping Use [...] file Intimate Partner Violence: Not on file Family History Problem Relation Name Age of Onset ??? Kidney Cancer Mother ??? Diabetes Mother ??? Hypertension Mother ??? Migraines/Headaches Mother ??? Colon Cancer Father Review of Systems Constitutional: Negative. HENT: Negative. Eyes: Negative. Respiratory: Negative. Cardiovascular: Negative. Gastrointestinal: Negative. Denies incontinence of bowel Endocrine: Negative. Genitourinary: Negative. Denies urinary incontinence Musculoskeletal: Low back pain that radiates to the upper buttocks, above the intergluteal cleft, with circumferential pain to the left thigh, and posterior upper right thigh Skin: Negative. Allergic/Immunologic: Negative. Neurological: Negative. Hematological: Negative. Psychiatric/Behavioral: Negative. Filed Vitals: 08/30/21 0935 BP: (!) 145/89 Pulse: 86 Resp: 20 Temp: 97.6 ??F (36.4 ??C) TempSrc: Tympanic SpO2: 98% Weight: 73.8 kg (162 lb 9.6 oz) Height: 5' 4 (1.626 m) Diagnostic Workup:: She had an MRI of the lumbar spine 06/21/2021 at [facility]. The radiologist report isreviewed and is copied below: FINDINGS: SEGMENTATION: ??The lowest fully formed intervertebral disc level is L5-S1, noting rudimentary S1-2disc. ALIGNMENT: ??Normal. VERTEBRAE: ??No MR evidence of acute-subacute fracture. ??Vertebral body heights unchanged. ??Marrow signal within normal limits. DISC HEIGHT: ??Intervertebral disc desiccation with loss of intervertebral disc height at L5-S1. HARDWARE: ??No the lumbar spine. CORD/CAUDA: ??Normal in size and signal intensity with conus medullaris termination at L1. LOWER THORACIC: ??Incompletely imaged. No stenosis demonstrated. INDIVIDUAL DISC LEVELS: T12-L1: No diffuse disc bulge or focal herniation. ??No spinal canal stenosis. ??No neural foraminal stenosis. L1-2: ??No diffuse disc bulge or focal herniation. ??No spinal canal stenosis. No neural foraminal stenosis. L2-3: ??No diffuse disc bulge or focal herniation. ??No spinal canal stenosis. No neural foraminal stenosis. L3-4: ??No diffuse disc bulge or focal herniation. ??No spinal canal stenosis. No neural foraminal stenosis. L4-5: ??No diffuse disc bulge or focal herniation. ??Mild bilateral hypertrophic facet arthropathy. ??No spinal canal stenosis. ??No neural foraminal stenosis. L5-S1: ??Annular disc bulge with small central disc protrusion with slight annular fissure. ??Mild bilateral hypertrophic facet arthropathy. ??Slight compromise of the bilateral lateral recesses, noting combination of disc and arthropathic facet slight contact with the descending bilateral S1 nerve roots. ??No spinal canal stenosis. ??Mild bilateral, right greater than left, neural foraminal stenosis. SACRUM: ??Visualized upper sacrum intact. VISUALIZED UPPER ABDOMEN: ??No significant abnormality. OTHER: ??No other significant findings. IMPRESSION: ?? 1. ??Spondylosis and degenerative disc disease of the lumbar spine as detailed level by level above, maximal at L5-S1. 2. ??L5-S1 annular disc bulge with small central disc protrusion with slight annular fissure and facet arthropathy slightly compromises the lateral recesses, noting combination of disc and arthropathic facet slight contact with the descending bilateral S1 nerve roots, in association with mild bilateral neural foraminal stenosis; no spinal canal stenosis. THIS IS AN ELECTRONICALLY VERIFIED FINAL REPORT 06/21/2021 2:42 PM - Electronically signed by Abner URBAN D: ??06/21/2021 2:42 PM T: Report ID: [id number] Reading Location: ??[id number] Physical Exam Body mass index is 27.91 kg/m??. The patient is alert and oriented x 3 and follows directions and answers questions appropriately. Her skin is warm and dry. Mood and affect: Calm, pleasant, and cooperative. General examination of her heart, lungs and abdomen was unremarkable. The patient rises fromthe seated position without difficulty. Her gait is steady, no difficulty with heel and toe walk. No scarring, redness, lesions, or sign of infection noted to the lumbar region. She denies pain to deep palpation across the lumbar facets. No pain to palpation of the SI joints. She denies pain to palpation of the iliotibial bands. Range of motion of her back is limited with left lateral flexion and extension, but is within normal limits with forward flexion and right lateral flexion. Right sitting straight leg raise was negative, left sitting straight leg raise produced pain to the upper medialleft thigh. Motor strength to lower extremities is 5/5 with hip flexion, knee extension and flexion, ankle dorsiflexion, plantar flexion and hallux extension bilaterally. No color change, redness, warmth, edema or discrepancy in calf size noted to the lower extremities. Sensation to palpation of the lower extremities is equal and intact bilaterally. No clonus and downgoing Babinski's bilaterally.Bilateral patellar wart 2/4, left Achilles reflexes 2/4, right Achilles reflex was diminished. Dorsalis pedis pulses are +2 bilaterally. Capillary refill of the lower extremities is less than 3 seconds bilaterally. Impression: Lumbar radiculopathy Recommendations: I spent 45 minutes today reviewing the patient's medical record, obtaining history, performing an exam, ordering medications, tests, and/or procedures, documenting in the medical record, counseling and educating the patient/family/caregiver, reviewing and communicating test results and coordinationof care. She has been experiencing low back pain that radiates to the upper buttocks, above the intergluteal cleft, with circumferential pain to the left thigh, and posterior upper right thigh. We discussed bilateral L5-S1 lumbar transforaminal epidural steroid injection as a treatment option. The p rocedure was described in detail as were the risks, benefits and alternative treatments, and she verbalized understanding. Risks including, but not limited to infection, elevations in blood glucose levels, permanent neurological deficit due to nerve root injury, bleeding, anaphylaxis, flushing, cerebral spinal fluid leak, paralysis, spinal cord injury, thinning of the skin, thinning of the bones,muscle cramping, were reviewed with her and she verbalized understanding. She said she would like to think about it will contact this office if she decides to move forward with lumbar transforaminal epidural steroid injection procedure.. It was my pleasure to participate in her care. Thank you for r eferring this very pleasant patient. NONI JEWELL CC: Anupam Oates PA-C Cosigned by Tita Frias MD at 08/30/2021 10:36 AM FILLER SPREADER ER SPREADER ER SPREADER documented in this encounter Plan of Treatment Not on file documented as of this encounter Visit Diagnoses Not on filedocumented in this encounter Care Teams Poly Operator Relationship Specialty Start Date End Date Bong Mixon MD PCP - General FAMILY PRACTICE 06/17/21 documented as of this encounter
--- OUTSIDE RECORDS SUMMARY | 2024-08-16 12:22 | XMS_ITS | Encounter Summary ---
Author Organization [place] Address [facility]. [place], [place] [id number] [place] [address] Care Team Providers Care Inclusion Special Education Teacher Name Role Phone Bong Mixon MD Primary Care Provider [phone] Reason for Visit * Auth/Cert Specialty Diagnoses / Procedures Referred By Contac t Referred To Contact Diagnoses Lumbar radiculopathy Procedures INJECTION EPIDURAL TRANSFORAMINAL L5-S1 Referral ID Status Reason Start Date Expiration Date Visits Re quested Visits Authorized [id number] 1 1 Encounter Details Date Type Department Care Team (Latest Contact Info) Description 10/25/2021 8:45 AM CDT - 10/25/2021 10:06 AM CDT Hospital Encounter [facility] Interventional [place] [address] [phone] Stephanie Frias MD [facility] [address] [place] [address] Discharge Disposition: Home or Self Care (Routine [...] Sign Reading Time Taken Comments Blood Pressure 150/93 10/25/2021 10:01 AM CDT Pulse 71 10/25/2021 9:54 AM [...] Sheppard RN - 10/25/2021 9:52 AM CDT [place] Interventional Pain Management Discharge Instructions WHAT TO [...] DOCTOR AND HOW TO REACH US: Call [phone] ext. [phone] for scheduling, insurance questions or speak with [...] 3 WEEKS. November 15, 2021. Please call [phone] Ext. [phone] option 4. You may need to leave [...] 01/28/2021 vitamin D2, ergocalciferol, (VITAMIN D, ERGOCALCIFEROL,) 97453 UNITS capsule Take 50,000 Units by mouth [...] Abstract vitamin D2, ergocalciferol, (VITAMIN D, ERGOCALCIFEROL,) 57330 UNITS capsule Take 50,000 Units by mouth [...] Result documented in this encounter Visit Diagnoses Diagnosis Lumbar radiculopathy- Primary Thoracic or lumbosacral neuritis or radiculitis, unspecified documented in this encounter Administered Medications Inactive Administered Medications - up to 3 most recent administrations Medication Order MAR Action Action Date Dose Rate Site chlorhexidine (PERIDEX) 0.12 % solution 15 mL [...] at 0914, Until Sat10/25/21 at 1206, Pre-Op documented in this encounter Active and Recently [...] RN) documented in this encounter Care Teams Inclusion Special Education Teacher Relationship Specialty Start Date End Date oBng Mixon MD PCP - General FAMILY PRACTICE 06/17/21 documented as of this encounter
--- OUTSIDE RECORDS SUMMARY | 2024-08-16 12:22 | XMS_ITS | Encounter Summary ---
Author Organization [facility] Address [address] [place] [address]. [place], [place] [id number] [place] [address] Care Team Providers Care Technology Assistant Name Role Phone Bong Mixon MD Primary Care Provider [phone] Reason for Visit * Reason Onset Date Comments Follow Up Call 12/04/2021 Encounter Details Date Type Department Care Team (Late st Contact Info) Description 12/04/2021 Telephone [facility] Interventional [place] [address] [phone] Michelle Sheppard, RN Follow Up Call Social History Tobacco [...] on file documented as of this encounter Progress Notes * Michelle Sheppard RN - 12/04/2021 11:48 AM CDTSummary: FOLLOW UP CALL CALLED OUT TO PATIENT PER ROSEANN ALMARAZ AND SPOKE WITH PATIENT AND ASKED PATIENT PER ROSEANN ALMARAZ IFSHE WOULD LIKE TO TRY A L5-S1 FACET JOINT INJECTION BECAUSE PER ROSEANN ALMARAZ SHE DOES HAVE L5-S1 ARTHROPATH, AND LET HER AWARE SHE CAN BE REFERRED TO A NEUROSURGEON OF HER CHOICE. SHE STATED THAT HERPCP, RAMIRO NARVAEZ REFERRED HER TO DR. BENNY ROSAS AND SHE HAS AN APPOINTMENT AND SHE STATES THAT SHE WOULD LIKE TO TRY THE FACET JOINT INJECTION BUT WILL HAVE TO CALL US WHEN SHE IS READY FOR AN APPOINTMENT BECAUSE HER INSURANCE HAS CHANGED, SHE STATES SHE USED TO HAVE BCBS AND NOW SHE WILL HAVE M[employer]/L[facility]. THIS NURSE STATED SHE CAN CALL AT ANY TIME TO SCHEDULE AND SHE VERBALIZED UNDERSTANDING. documented in this encounter Plan of Treatment Not on file documented as of this encounter Visit Diagnoses Not on filedocumented in this encounter Care Teams Technology Assistant Relationship Specialty Start Date End Date Bong Mixon MD PCP - General FAMILY PRACTICE 06/17/21 documented as of this encounter
--- OUTSIDE RECORDS SUMMARY | 2024-08-16 12:22 | XMS_ITS | Encounter Summary ---
Author Organization [facility] Address Critical access hospital6 [facility]. [place], [place] [id number] [place] [id number] Care Team Providers Care Television Engineering Teacher Name Role Phone Bong Mixon MD Primary Care Provider [phone] Reason for Referral * Imaging (Emergency) - Closed Specialty Diagnoses / Procedures Referred By Trever atkins Referred To Contact RADIOLOGY Procedures CT ABD+PEL W IV CON ONLY Lizbeth Resendiz PA [address] [place] [address] Phone: tel: fax: Referral ID Status Reason Start Date Expiration Date Visits Re quested Visits Authorized [id number] Closed 10/31/2021 12/01/2022 1 1 Reason for Visit * Reason Comments Abdominal Pain Encounter Details Date Type Department Care Team (Late st Contact Info) Description 10/31/2021 1:35 PM CDT - 10/31/2021 5:01 PM CDT Emergency [facility] [place] [address] Lizbeth Resendiz PA [address] [place] [address] Abdominal Pain Discharge Disposition: Home or Self Care (Routine [...] CDT Inhaled Oxygen Concentration - - Weight - - Height - - Body Mass Index - - documented in this encounter Discharge Instructions * Discharge Instructions* RAMIRO Byrd - 10/31/2021 4:10 PM CDT Refer to patient instruction sheets for additional information. Take Bentyl that I prescribed only as directed. Take it as needed only, it can help with stomach cramping. Take zofran as needed for nausea. Follow up with primary care in 5-7 days for re-evaluation. Return for any new or worsening symptoms. Thank you for giving us the opportunity to care for you today. If at any point you are becoming more ill, your condition worsens or you have concerns, please call your doctor or return for re-evaluation. You are always welcome back. Our practice is committed to providing you the exceptional care. We want to hear from you! Please fill out the survey you get from us. Your feedback is anonymous & helps us improve the patient experience for you and others in the community we serve. - Lizbeth Resendiz PA-C - Emergency Medicine Provider * Attachments The following attachments cannot be sent through Care Everywhere. * Viral Gastroenteritis (Surinamese) documented in this encounter Medications at Time of Discharge HYDROcodone-acetamin ophen 5-325 MG tablet Take 1-2 tablets by mouth. 08/25/2021 ibuprofen 800 MG tablet Take 800 mg by mouth. 08/07/2021 labetalol 200 MG tablet Take 200 mg by mouth 2 (two) times daily. 1 06/16/2018 Norethindrone, Contraceptive, 0.35 MG tablet Take 1 tablet by mouth daily. 01/28/2021 vitamin D2, ergocalciferol, (VITAMIN D, ERGOCALCIFEROL,) 16966 UNITS capsule Take 50,000 Units by mouth once a week. 12/22/2020 dicyclomine 20 MG tablet Take 1 tablet (20 mg total) by mouth every 6 (six) hours as needed. 20 tablet 10/31/2021 2 ondansetron 4 MG disintegrating tablet Take 1 tablet (4 mg total) by mouth every 8 (eight) hours as needed for Nausea. 15 tablet 10/31/2021 2 documented as of this encounter ED Notes * RAMIRO Byrd - 10/31/2021 1:29 PM CDT ED NOTE Chief Complaint Chief Complaint Patient presents with ??? Abdominal Pain History of Present Illness Tabby Theodore is a 41-year-old female who presents for evaluation of RUQ abdominal pain ongoing x5 days. She was sent from urgent care for further evaluation. Pain is currently a 8/10 on the pain scale, constant in nature and is nonradiating. Associated with nausea and loose stools but she denies vomiting, dysuria, frequency, hematuria or flank pain. Denies cardiac history. Also denies any surgeries in the abdomen. Medical History ALLERGIES: No Known Allergies MEDICATIONS: Prior to Admission medications Medication Sig Start Date End Date Taking? Authorizing Provider dicyclomine 20 MG tablet Take 1 tablet (20 mg total) by mouth every 6 (six) hours as needed. 10/31/21 11/05/21 Yes RAMIRO Byrd ondansetron 4 MG disintegrating tablet Take 1 tablet (4 mg total) by mouth every 8 (eight) hours asneeded for Nausea. 10/31/21 11/05/21 Yes RAMIRO Byrd HYDROcodone-acetaminophen 5-325 MG tablet Take 1-2 tablets by mouth. 08/25/21 Doc Abstract ibuprofen 800 MG tablet Take 800 mg by mouth. 08/07/21 Doc Abstract labetalol 200 MG tablet Take 200 mg by mouth 2 (two) times daily. 06/16/18 Doc Abstract Norethindrone, Contraceptive, 0.35 MG tablet Take 1 tablet by mouth daily. 01/28/21 Doc Abstract vitamin D2, ergocalciferol, (VITAMIN D, ERGOCALCIFEROL,) 64605 UNITS capsule Take 50,000 Units by mouth once a week. 12/22/20 Doc Abstract PAST MEDICAL HISTORY: Past Medical History: Diagnosis Date ??? Back pain ??? Hypertension PAST SURGICAL HISTORY: No past surgical history on file. FAMILY HISTORY: Family History Problem Relation Name [...] Systems Review of Systems Constitutional: Negative for chills and fever. Eyes: Negative for visual disturbance. Respiratory: Negative for shortness of breath. Cardiovascular: Negative for chest pain. Gastrointestinal: Positive for abdominal pain, diarrhea (loose stool) and nausea. Negative for vomiting. Genitourinary: Negative for dysuria, flank pain, frequency and hematuria. Neurological: Negative for syncope and headaches. Physical Exam Filed Vitals: 10/31/21 1330 BP: 112/68 Pulse: 99 Resp: 18 Temp: 98.1 ??F (36.7 ??C) TempSrc: Temporal SpO2: 100% Physical Exam Vitals and nursing note reviewed. Constitutional: General: She is not in acute distress. Appearance: Normal appearance. She is not ill-appearing. HENT: Head: Normocephalic and atraumatic. Nose: Nose normal. Mouth/Throat: Mouth: Mucous membranes are moist. Pharynx: Oropharynx is clear. Eyes: Conjunctiva/sclera: Conjunctivae normal. Cardiovascular: Rate and Rhythm: Normal rate and regular rhythm. Pulses: Normal pulses. Heart sounds: Normal heart sounds. No murmur heard. Pulmonary: Effort: Pulmonary effort is normal. No respiratory distress. Breath sounds: Normal breath sounds. Abdominal: General: Bowel sounds are normal. There is no distension. Palpations: Abdomen is soft. Tenderness: There is abdominal tenderness (mild RUQ). There is no guarding or rebound. Comments: Negative Moran's sign Musculoskeletal: General: Normal range of motion. Cervical back: Normal range of motion and neck supple. Skin: General: Skin is warm and dry. Neurological: General: No focal deficit present. Mental Status: She is alert and oriented to person, place, and time. Mental status is at baseline. Psychiatric: Mood and Affect: Mood normal. Behavior: Behavior normal. Diagnostic Studies / Procedures ELECTROCARDIOGRAMS: No results found for this visit on 10/31/21. LABORATORY STUDIES: Results for orders placed or performed during the hospital encounter of 10/31/21 CBC W/DIFF AUTOMATED Result Value Ref Range WBC 11.3 (H) 4.5 - 11.0 x10'3/uL RBC 4.94 4.20 - 5.40 x10'6/uL HGB 15.7 12.0 - 16.0 G/DL HCT 45.1 38.0 - 48.0 % MCV 91.3 81.0 - 99.0 FL MCH 31.8 (H) 27.0 - 31.0 PG MCHC 34.8 32.0 - 36.0 G/DL RDW 11.9 11.5 - 14.5 % PLT 267 130 - 400 x10'3/uL MPV 9.2 (L) 9.3 - 12.2 FL DIFFERENTIAL TYPE AUTOMATED DIFFERENTIAL NEUTROPHILS 72.3 % LYMPHOCYTES 20.1 % MONOCYTES 5.6 % EOSINOPHILS 1.1 % BASOPHILS 0.4 % IMMATURE GRANS 0.5 % ABS. NEUTROPHILS TOTAL 8.20 (H) 1.80 - 7.70 x10'3/uL ABS. LYMPHOCYTES 2.27 1.00 - 4.80 x10'3/uL ABS. MONOCYTES 0.63 0.24 - 0.86 x10'3/uL ABS. EOSINOPHILS 0.12 0.04 - 0.36 x10'3/uL ABS. BASOPHILS 0.04 0.01 - 0.08 x10'3/uL ABS. IMMATURE GRANULOCYTES 0.06 0.00 - 0.49 x10'3/uL COMPREHENSIVE METABOLIC PANEL Result Value Ref Range GLUCOSE 92 70 - 99 MG/DL BUN 21 (H) 7 - 18 MG/DL CREATININE S/P/B 0.86 0.55 - 1.02 MG/DL SODIUM 134 (L) 136 - 145 MMOL/L POTASSIUM 3.9 3.5 - 5.1 MMOL/L CHLORIDE S/P/B 101 100 - 108 MMOL/L CO2 27.8 21 - 32 MMOL/L CALCIUM 9.7 8.5 - 10.1 MG/DL BILIRUBIN TOTAL S/P/B 0.8 0.2 - 1.2 MG/DL TOTAL PROTEIN S/P/B 8.6 (H) 6.4 - 8.2 G/DL ALBUMIN S/P/B 4.9 3.4 - 5.0 G/DL AST 45 (H) 15 - 37 U/L ALT 46 14 - 55 U/L ALKALINE PHOSPHATASE S/P/B 53 50 - 136 U/L ANION GAP 5.2 5 - 15 MMOL/L BUN CREATININE RATIO 24.4 6 - 26 A/G RATIO 1.3 1.0 - 2.0 RATIO eGFR Non-Afr. Amer. 83 (L) >90 ML/MIN/1.73 M2 eGFR Afr. Amer. >90 >90 ML/MIN/1.73 M2 LIPASE Result Value Ref Range LIPASE 144 73 - 393 UNITS/L URINALYSIS Result Value Ref Range Specimen Type URINE CLEAN CATCH COLOR (U) YELLOW TRANSPARENCY CLEAR Specific [place] (U) 1.028 1.001 - 1.030 U PH 5.0 5.0 - 9.0 LEUKOCYTE ESTERASE NEGATIVE NEGATIVE NITRITES NEGATIVE NEGATIVE PROTEIN (U) 10 <30 MG/DL URINE GLUCOSE NORMAL NORMAL MG/DL U KETONES NEGATIVE NEGATIVE MG/DL UROBILINOGEN NORMAL NORMAL MG/DL BILIRUBIN (U) NEGATIVE NEGATIVE MG/DL BLOOD TRACE (A) NEGATIVE CULTURE & SENSITIVITY INDICATED? CULTURE IS NOT INDICATED MUCUS FEW /LPF WBC/HPF 1 <6 /HPF RBC/HPF 5 <6 /HPF SQUAMOUS EPITHELIALS MODERATE /HPF POCT urine Result Value Ref Range URINE HCG TEST NEGATIVE NEGATIVE Internal Control performed as Expected? VALID VALID IMAGING STUDIES CT ABD+PEL W IV CON ONLY Final Result by User, [id number] (10/31 1600) EXAMINATION: CT ABD+PEL W CON CLINICAL HISTORY: Right upper quadrant pain COMPARISON: None DATE/TIME: 10/31/2021 3:09 PM TECHNIQUE: Multiplanar CT images of the abdomen and pelvis were obtained. IV contrast: uneventful intravenous administration of 100 mL Isovue 370. Oral contrast: None A dose lowering technique was used for this procedure, which may include, but is not limited to, dose reduction technique, automated exposure control, the use of iterative reconstruction, and ALARA (As Low As Reasonably Achievable) / Image Gently techniques. FINDINGS: Liver is negative. Spleen is normal size. There is a homogeneous low-density lesion in the lower pole the spleen measuring 1.2 x 1.1 x 0.8 cm. This measures close to water density and is favored to represent a cyst. Spleen otherwise negative. Pancreas is negative. Gallbladder and bile ducts are negative. Adrenal glands are negative. Kidneys are negative. Bladder is decompressed and poorly evaluated. Small right ovarian cyst measuring 2.3 cm. Uterus and ovaries are otherwise unremarkable. Abdominal aorta is normal caliber with mild atherosclerotic disease. No free peritoneal air or fluid. No bowel obstruction or bowel wall thickening. Normal appendix. Stomach and duodenum appear within normal limits. Calcified pelvic phleboliths. Possible small disc bulge or herniation at L5-S1. IMPRESSION: 1. No acute abnormality identified. 2. Other chronic or nonurgent findings as described above. Referred By: Interpreted By: Norberto Verdugo MD, 10/31/2021 3:54 PM ED Course / Medical Decision Making MDM Number of Diagnoses or Management Options Abdominal pain Diagnosis management comments: Well-appearing 41-year-old female presents for evaluation of right upper quadrant abdominal pain. Presentation is concerning for cholelithiasis/cholecystitis versus viral etiology. Imaging of the abdomen without evidence of acute GI pathology. Did show a small lesion on the spleen with density similar to water favoring a cyst vs abscess; patient notified of incidental finding. Repeat evaluation benign without signs of acute abdomen or peritonitis. Pt is well appearing, tolerating PO. Discussed the degree of uncertainty for undifferentiated abdominal pain. Suspect possible viral etiology. Plan for conservative measures and f/u as OP with PCP. Strict verbal return precautions reviewed. Patient expresses verbal understanding and agreement with plan. All questions answered to the best of my ability. Nontoxic exit exam. Patient discharged home in stable condition. ED Course as of Nov 01 1804e Oct 31, 2021 1524 Patient feeling better after fluids and pain medication. Awaiting CT read. [AN] ED Course User Index [AN] RAMIRO Byrd Medications sodium chloride 0.9% bolus infusion SOLN 1,000 mL (0 mLs Intravenous Infusion Stop Time 10/31/21 1500) ondansetron (ZOFRAN) injection 4 mg (4 mg Intravenous Given 10/31/21 1355) ketorolac (TORADOL) injection 30 mg (30 mg Intravenous Given 10/31/21 1356) iopamidol (ISOVUE-370) 76 % injection 100 mL (100 mLs Intravenous Given 10/31/21 1458) Clinical Impression Abdominal pain (Primary) Discharge Medication List as of 10/31/2021 4:11 PM START taking these medications Details dicyclomine 20 MG tablet Take 1 tablet (20 mg total) by mouth every 6 (six) hours as needed., Starting Sat10/31/2021, Until 11/05/2021 at 2359, Eprescribe Class: Eprescribe Pharmacy: [address] (Ph #: [phone]) ondansetron 4 MG disintegrating tablet Take 1 tablet (4 mg total) by mouth every 8 (eight) hours asneeded for Nausea., Starting Sat10/31/2021, Until 11/05/2021 at 2359, Eprescribe Class: Eprescribe Pharmacy: [address] (Ph #: [phone]) Disposition: Discharge Follow-Up: Bong Mixon MD [address] [place] [address] In 1 week RAMIRO BYRD 11/01/2021 RAMIRO Byrd 11/01/21 1805 Cosigned by Sindy Raphael MD at 11/02/2021 1:57 PM CDT documented in this encounter Plan of Treatment Not on file documented as of this encounter Procedures Procedure Name Priority Date/Time Associated Diagnosis Comments CT ABD+PEL W CON STAT 10/31/2021 3:12 PM CDT HC URINALYSIS AUTO W/O MICRO STAT 10/31/2021 1:49 PM CDT COMPREHENSIVE METABOLIC PANEL STAT 10/31/2021 1:49 PM CDT CBC W/DIFF AUTOMATED STAT 10/31/2021 1:49 PM CDT LIPASE STAT 10/31/2021 1:49 PM CDT POCT URINE (BACK OFFICE) STAT 10/31/2021 1:47 PM CDT documented in this encounter Results * CT ABD+PEL W IV CON ONLY (10/31/2021 3:12 PM CDT) Anatomical Region Laterality Modality Abdomen Computed Tomogra phy 10/31/2021 3:54 PM CDT Impressions 10/31/2021 3:59 PM CDT IMPRESSION: 1. ??No acute abnormality identified. 2. ??Other chronic or nonurgent findings as described above. Referred By: ?? Interpreted By: Norberto Verdugo MD, 10/31/2021 3:54 PM Narrative 10/31/2021 3:59 PM CDT EXAMINATION: CT ABD+PEL W CON CLINICAL HISTORY: Right upper quadrant pain COMPARISON: None DATE/TIME: 10/31/2021 3:09 PM TECHNIQUE: Multiplanar CT images of the abdomen and pelvis were obtained. ??IV contrast: uneventful intravenous administration of 100 mL Isovue 370. ??Oral contrast: None A dose lowering technique was used for this procedure, which may include, but is not limited to, dose reduction technique, automated exposure control, the use of iterative reconstruction, and ALARA (As Low As Reasonably Achievable) / Image Gently techniques. FINDINGS: Liver is negative. ??Spleen is normal size. ??There is a homogeneous low-density lesion in the lower pole the spleen measuring 1.2 x 1.1 x 0.8 cm. ??This measures close to water density and is favored to represent a cyst. ??Spleen otherwise negative. ??Pancreas is negative. ??Gallbladder and bile ducts are negative. ??Adrenal glands are negative. ??Kidneys are negative. ??Bladder is decompressed and poorly evaluated. ??Small right ovarian cyst measuring 2.3 cm. ??Uterus and ovaries are otherwise unremarkable. Abdominal aorta is normal caliber with mild atherosclerotic disease. ??No free peritoneal air or fluid. ??No bowel obstruction or bowel wall thickening. ??Normal appendix. ??Stomach and duodenum appear within normal limits. ??Calcified pelvic phleboliths. ??Possible small disc bulge or herniation at L5-S1. Procedure Note Norberto Verdugo MD - 10/31/2021 EXAMINATION: CT ABD+PEL W CON CLINICAL HISTORY: Right upper quadrant pain COMPARISON: None DATE/TIME: 10/31/2021 3:09 PM TECHNIQUE: Multiplanar CT images of the abdomen and pelvis were obtained.IV contrast: uneventful intravenous administration of 100 mL Isovue 370.Oral contrast: None A dose lowering technique was used for this procedure, which may include,but is not limited to, dose reduction technique, automated exposurecontrol, the use of iterative reconstruction, and ALARA (As Low AsReasonably Achievable) / Image Gently techniques. FINDINGS: Liver is negative. Spleen is normal size. There is ahomogeneous low- density lesion in the lower pole the spleen measuring 1.2x 1.1 x 0.8 cm. This measures close to water density and is favored torepresent a cyst. Spleen otherwise negative. Pancreas is negative.Gallbladder and bile ducts are negative. Adrenal glands are negative.Kidneys are negative. Bladder is decompressed and poorly evaluated.Small right ovarian cyst measuring 2.3 cm. Uterus and ovaries areotherwise unremarkable. Abdominal aorta is normal caliber with mild atherosclerotic disease. Nofree peritoneal air or fluid. No bowel obstruction or bowel wallthickening. Normal appendix. Stomach and duodenum appear within normallimits. Calcified pelvic phleboliths. Possible small disc bulge orherniation at L5-S1. IMPRESSION: 1. No acute abnormality identified. 2. Other chronic or nonurgent findings as described above. Referred By: Interpreted By: Norberto Verdugo MD, 10/31/2021 3:54 PM us Lizbeth Resendiz DC CT Final Result * (ABNORMAL) URINALYSIS (10/31/2021 1:49 PM CDT) SPECIMEN TYPE URINE CLEAN CATCH 10/31/2021 1:47 PM CDT [facility] COLOR (U) YELLOW 10/31/2021 2:16 PM CDT [facility] TRANSPARENCY CLEAR 10/31/2021 2:16 PM CDT [facility] SPECIFIC GRAVITY (U) 1.028 1.001 - 1.030 10/31/2021 2:16 PM CDT [facility] U PH 5.0 5.0 - 9.0 10/31/2021 2:16 PM CDT [facility] LEUKOCYTES (U) NEGATIVE NEGATIVE 10/31/2021 2:16 PM CDT [facility] NITRITES NEGATIVE NEGATIVE 10/31/2021 2:16 PM CDT [facility] PROTEIN (U) 10 <30 MG/DL 10/31/2021 2:16 PM CDT [facility] URINE GLUCOSE NORMAL NORMAL MG/DL 10/31/2021 2:16 PM CDT [facility] KETONES MG/DL (U) NEGATIVE NEGATIVE MG/DL 10/31/2021 2:16 PM CDT [facility] UROBILINOGEN NORMAL NORMAL MG/DL 10/31/2021 2:16 PM CDT [facility] BILIRUBIN (U) NEGATIVE NEGATIVE MG/DL 10/31/2021 2:16 PM CDT [facility] BLOOD (U) TRACE(A) NEGATIVE 10/31/2021 2:16 PM CDT [facility] CULTURE & SENSITIVITY INDICATED? CULTURE IS NOT INDICATED 10/31/2021 2:16 PM CDT [facility] MUCUS FEW /LPF 10/31/2021 2:16 PM CDT [facility] WBC/HPF 1 <6 /HPF 10/31/2021 2:16 PM CDT [facility] RBC/HPF 5 <6 /HPF 10/31/2021 2:16 PM CDT [facility] SQUAMOUS EPITHELIALS MODERATE /HPF 10/31/2021 2:16 PM CDT [facility] URINE SPECIMEN OBTAINED BY CLEAN CATCH PROCEDURE / Unknown 10/31/2021 1:49 PM CDT us Lizbeth RUBIO URINE ORDERABLES Final Result [facility] [address] [place] [address], [place] [phone] * LIPASE (10/31/2021 1:49 PM CDT) LIPASE 144 73 - 393 UNITS/L 10/31/2021 2:27 PM CDT [facility] 10/31/2021 1:49 PM CDT us Lizbeth RUBIO [facility]AT[facility] Final Result [facility] [address] [place] [address], * (ABNORMAL) COMPREHENSIVE METABOLIC PANEL (10/31/2021 1:49 PM CDT) [facility] GLUCOSE 92 70 - 99 MG/DL 10/31/2021 2:27 PM CDT [facility] BUN 21(H) 7 - 18 MG/DL 10/31/2021 2:27 PM CDT [facility] CREATININE S/P/B 0.86 0.55 - 1.02 MG/DL 10/31/2021 2:27 PM CDT [facility] SODIUM S/P/B 134(L) 136 - 145 MMOL/L 10/31/2021 2:27 PM CDT [facility] POTASSIUM S/P/B 3.9 3.5 - 5.1 MMOL/L 10/31/2021 2:27 PM CDT [facility] CHLORIDE S/P/B 101 100 - 108 MMOL/L 10/31/2021 2:27 PM CDT [facility] CO2 27.8 21 - 32 MMOL/L 10/31/2021 2:27 PM CDT [facility] CALCIUM S/P/B 9.7 8.5 - 10.1 MG/DL 10/31/2021 2:27 PM CDT [facility] BILIRUBIN TOTAL S/P/B 0.8 0.2 - 1.2 MG/DL 10/31/2021 2:27 PM CDT [facility] Comment: THIS ASSAY IS NOT RECOMMENDED FOR PATIENTS UNDERGOING TREATMENT WITH ELTROMBOPAG DUE TO THE POTENTIAL FOR FALSELY ELEVATED RESULTS. TOTAL PROTEIN S/P/B 8.6(H) 6.4 - 8.2 G/DL 10/31/2021 2:27 PM CDT [facility] ALBUMIN S/P/B 4.9 3.4 - 5.0 G/DL 10/31/2021 2:27 PM CDT [facility] AST 45(H) 15 - 37 U/L 10/31/2021 2:27 PM CDT [facility] ALT 46 14 - 55 U/L 10/31/2021 2:27 PM CDT [facility] ALKALINE PHOSPHATASE S/P/B 53 50 - 136 U/L 10/31/2021 2:27 PM CDT [facility] ANION GAP 5.2 5 - 15 MMOL/L 10/31/2021 2:27 PM CDT [facility] BUN CREATININE RATIO 24.4 6 - 26 10/31/2021 2:27 PM CDT [facility] A/G RATIO 1.3 1.0 - 2.0 RATIO 10/31/2021 2:27 PM CDT [facility] EGFR NON-AFR. AMER. 83(L) >90 ML/MIN/1.7 3 M2 10/31/2021 2:27 PM CDT [facility] EGFR AFR. AMER. >90 >90 ML/MIN/1.7 3 M2 10/31/2021 2:27 PM T [facility] Comment: NOTE: eGFR is not calculated for patients <18 years of age. This is an estimated GFR (CKD EPI) and should not be used for calculating drug doses. 10/31/2021 1:49 PM CDT us Lizbeth RUBIO [facility] Final Result [facility] [address] [place] [address], [place] [phone] * (ABNORMAL) CBC W/DIFF AUTOMATED (10/31/2021 1:49 PM CDT) [facility] WBC 11.3(H) 4.5 - 11.0 x10'3/uL 10/31/2021 2:41 PM CDT [facility] RBC 4.94 4.20 - 5.40 x10'6/uL 10/31/2021 2:41 PM CDT [facility] HGB 15.7 12.0 - 16.0 G/DL 10/31/2021 2:41 PM CDT [facility] HCT 45.1 38.0 - 48.0 % 10/31/2021 2:41 PM CDT [facility] MCV 91.3 81.0 - 99.0 FL 10/31/2021 2:41 PM CDT [facility] MCH 31.8(H) 27.0 - 31.0 PG 10/31/2021 2:41 PM CDT [facility] MCHC 34.8 32.0 - 36.0 G/DL 10/31/2021 2:41 PM CDT [facility] RDW 11.9 11.5 - 14.5 % 10/31/2021 2:41 PM CDT [facility] PLT 267 130 - 400 x10'3/uL 10/31/2021 2:41 PM CDT [facility] MPV 9.2(L) 9.3 - 12.2 FL 10/31/2021 2:41 PM CDT [facility] DIFFERENTIAL TYPE AUTOMATED DIFFERENTIAL 10/31/2021 2:41 PM CDT [facility] NEUTROPHILS % 72.3 % 10/31/2021 2:41 PM CDT [facility] LYMPHOCYTES % 20.1 % 10/31/2021 2:41 PM CDT [facility] MONOCYTES % 5.6 % 10/31/2021 2:41 PM CDT [facility] EOSINOPHILS 1.1 % 10/31/2021 2:41 PM CDT [facility] BASOPHILS 0.4 % 10/31/2021 2:41 PM CDT [facility] IMMATURE GRANS % 0.5 % 11/01/19 2:41 PM CDT [facility] ABS. NEUTROPHILS TOTAL 8.20(H) 1.80 - 7.70 x10'3/uL 10/31/2021 2:41 PM CDT [facility] ABS. LYMPHOCYTES 2.27 1.00 - 4.80 x10'3/uL 10/31/2021 2:41 PM CDT [facility] ABS. MONOCYTES 0.63 0.24 - 0.86 x10'3/uL 10/31/2021 2:41 PM CDT [facility] ABS. EOSINOPHILS 0.12 0.04 - 0.36 x10'3/uL 10/31/2021 2:41 PM CDT [facility] ABS. BASOPHILS 0.04 0.01 - 0.08 x10'3/uL 10/31/2021 2:41 PM CDT [facility] ABS. IMMATURE GRANULOCYTES 0.06 0.00 - 0.49 x10'3/uL 10/31/2021 2:41 PM CDT [facility] 10/31/2021 1:49 PM CDT us Lizbeth RUBIO [facility] Final Result [facility] [address] [place] [address], * POCT urine (10/31/2021 1:47 PM CDT) URINE HCG TEST NEGATIVE NEGATIVE Internal Control performed as Expected? VALID VALID Comment:Lot#: [id number] EX: 11-02-22 us Lizbeth RUBIO POINT OF CARE TEST ORDERABLES Fi nal Result documented in this encounter Visit Diagnoses Diagnosis Abdominal pain- Primary Abdominal pain, unspecified site documented in this encounter Administered Medications Inactive Administered Medications - up to 3 most recent administrations Medication Order MAR Action Action Date Dose Rate Site iopamidol (ISOVUE-370) 76 % injection 100 mL 100 mL, Intravenous, IMG once as needed, Contrast, 1 dose, Starting on e 10/31/21 at 1458, Until Sat10/31/21 at 1458 Given 10/31/2021 2:58 PM CDT 100 mLs ketorolac (TORADOL) injection 30 mg 30 mg, Intravenous, Once, 1 dose, On e 10/31/21 at 1345, For IV administration, give over 15 seconds. Given 10/31/2021 1:56 PM CDT 30 mg ondansetron (ZOFRAN) injection 4 mg 4 mg, Intravenous, Once, 1 dose, On e 10/31/21 at 1345, IV push over 2-5 minutes. Given 10/31/2021 1:55 PM CDT 4 mg sodium chloride 0.9% bolus infusion SOLN 1,000 mL 1,000 mL, Intravenous, Administer over 15 Minutes, Once, 1 dose, On Sat10/31/21 at 1345 New Bag 10/31/2021 1:56 PM CDT 1,000 mLs documented in this encounter Active and Recently Administered Medications Times are shown in CDT. Scheduled Medication Order 10/29/2021 10/30/2021 10/31/2021 ketorolac (TORADOL) injection 30 mg (COMPLETED) 30 mg, Intravenous, Once, 1 dose, On 10/31/21 at 1345, For IV administration, give over 15 seconds. 1356 (Given - Provid er: Estephania Segal RN) ondansetron (ZOFRAN) injection 4 mg (COMPLETED) 4 mg, Intravenous, Once, 1 dose, On e 10/31/21 at 1345, IV push over 2-5 minutes. 1355 (Given - Provid er: Estephania Segal, LISE) sodium chloride 0.9% bolus infusion SOLN 1,000 mL (COMPLETED) 1,000 mL, Intravenous, Administer over 15 Minutes, Once, 1 dose, On e 10/31/21 at 1345 1356 (New Bag - Prov ider: Estephania Segal, RN)1500 (Infusion Stop Time - Provider: Emma Villa RN) PRN Medication Order 10/29/2021 10/30/2021 10/31/2021 iopamidol (ISOVUE-370) 76 % injection 100 mL (COMPLETED) 100 mL, Intravenous, IMG once as needed, Contrast, 1 dose, Starting on Sat10/31/21 at 1458, Until Sat10/31/21 at 1458 1458 (Given - Provid er: Aneta Woody, RTR) documented in this encounter Care Teams Television Engineering Teacher Relationship Specialty Start Date End Date Bong Mixon MD PCP - General FAMILY PRACTICE 06/17/21 documented as of this encounter
--- OUTSIDE RECORDS SUMMARY | 2024-08-16 12:22 | XMS_ITS | Encounter Summary ---
Author Organization [facility] Address [address] [place] [address]. [place], [place] [id number] [place] [id number] Care Team Providers Care Junior Paralegal Name Role Phone Bong Mixon MD Primary Care Provider [phone] Reason for Visit * Reason Onset Date Comments Follow Up Call 11/10/2021 Encounter Details Date Type Department Care Team (Late st Contact Info) Description 11/10/2021 Telephone [facility] [place] [address] [id number] Marietta Cerrato RN Follow Up Call Social [...] Progress Notes * Marietta Cerrato RN - 11/10/2021 2:18 PM CDT PT WAS LEFT [facility] TODAY ADVISING TO CALL OUR OFFICE AND R/S HER UPCOMING APPT. PT IS SCHEDULED ON THE DAY THAT WE NEED TO OBTAIN HER % OF RELIEF. documented in this encounter Plan of Treatment Not on file documented as of this encounter Visit Diagnoses Not on filedocumented in this encounter Care Teams Junior Paralegal Relationship Specialty Start Date End Date Bong Mixon MD PCP - General FAMILY PRACTICE 06/17/21 documented as of this encounter
--- OUTSIDE RECORDS SUMMARY | 2024-08-16 12:22 | XMS_ITS | Data Portability ---
Author Organization Tati ARANDA Address [address] [place] [address] Assessment No assessment recorded. Plan of Treatment Reminders Order Date Submit Date Provider Last Modified By Organization Details Last Modified Time Details Appointments None recorded. Lab vitamin D, 25-hydroxy, total, serum 2022 023 BRITTNEY FLORENTINO, [address], [address], [place], [address], 3 17:09:29 lipid panel, serum 2022 023 BRITTNEY FLORENTINO, [address], [address], [place], [address], 3 04:18:49 drug screen, 14 drugs (detectimed ), urine 2022 023 BRITTNEY FLORENTINO, [address], [place], [address], 3 17:09:29 CBC w/ auto diff 2022 023 BRITTNEY FLORENTINO, [address], [place], [address], 3 04:18:49 CMP, serum or plasma 2022 023 BRITTNEY FLORENTINO, [facility], [place], [address], 3 04:18:48 Referral pain management referral 2022 023 BRITTNEY Banda MD, [address], [place], [address], 3 14:32:37 pain management referral 2022 023 BRITTNEY Banda MD, [address], [place], [address], 3 14:32:37 Procedures None recorded. Surgeries None recorded. Imaging MAMMO, screening, bilateral 2022 023 [email or web address] (Registration ), [address] [facility], [place], [address], 3 10:33:13 Medication Orders methocarbam ol 500 mg tablet 2022 023 [email or web address] [facility], [address] [place] [address], [address], 3 12:02:15 hydrocodone 7.5 mg-acetamin ophen 325 mg tablet 2022 023 [facility], [address] [place], [address], 3 18:41:13 bupropion HCl XL 150 mg 24 hr tablet, extended release 2022 023 [facility], [address] [place], [address], 3 15:59:08 methocarbam ol 500 mg tablet 2022 023 [email or web address] [facility], [address] [place], [address], 3 12:35:04 atorvastati n 10 mg tablet 2022 023 [email or web address] [facility], [address] [place], [address], 3 12:35:04 hydrocodone 7.5 mg-acetamin ophen 325 mg tablet 2022 023 [facility], [address] [place], [address], 3 13:41:17 ibuprofen 800 mg tablet 2022 023 [email or web address] [facility], [address] [place], [address], 3 12:35:04 labetalol 100 mg tablet 2022 023 [facility], [address] [place] [address], [address], 4 14:41:42 ergocalcife rol (vitamin D2) 1,250 mcg (50,000 unit) capsule 2022 023 [facility], [address] [place] [address], [address], 3 11:58:08 ibuprofen 800 mg tablet 2022 023 [facility], [address] [place] [address], [address], 3 11:01:42 methocarbam ol 500 mg tablet 2022 023 [facility], [address] [place], [address], 3 20:27:38 naproxen 500 mg tablet 2022 023 [facility], [address] [place] [address], [address], 3 20:27:37 hydrocodone 7.5 mg-acetamin ophen 325 mg tablet 2022 023 [facility], [address] [place], [address], 18:31:08 hydrocodone 7.5 mg-acetamin ophen 325 mg tablet 2022 023 [facility], [address] [place], [address], 13:13:01 Patient TargetsNo targets recorded. Patient Instructions Encounter Date Encounter Id Patient Instructions Last Modified By Organization Details Last Modified Time 11/20/2022 [id number] A healthy lifestyle: care instructions Not available 11/20/2022 12:35:04 12/21/2022 [id number] A healthy lifestyle: care instructions Not available 12/21/2022 11:00:37 02/13/2023 [id number] A healthy lifestyle: care instructions Not available 02/13/2023 18:17:10 03/15/2023 [id number] A healthy lifestyle: care instructions Not available 03/15/2023 11:30:57 Reason for Referral Pain Management Referral for Degeneration of lumbar intervertebral disc Referring Physician: Bong Mixon [facility], Encounter Date: 12/21/2022 Pain Management Referral for Degeneration of lumbar intervertebral disc Referring Physician: Bong Mixon [facility], Encounter Date: 12/21/2022 Results Created Date Observation Date Name Description Value Unit Range Abnormal Flag Note LastModifiedBy Organization Detail LastModifiedTime 10/20/1910/20/2022 LIPID PANEL cholesterol, total 229.0 mg/dL 140.0- 200.0 above high normal Not Available [facility] Department [address] [place], [address], 10/20/2022 06:12:39 10/20/1910/20/2022 LIPID PANEL triglyceride s 239 mg/dL <=150 above high normal Not Available [facility] Department [address] [place], [address], 10/20/2022 06:12:39 10/20/19 23 10/20/2022 LIPID PANEL HDL cholesterol 51.0 mg/dL 40.0-1 00.0 Not Available [facility] Department [address] [place], [address], 10/20/2022 06:12:39 10/20/19 23 10/20/2022 LIPID PANEL VLDL cholesterol laura 47.80 mg/dL 5.00-4 0.00 above high normal Not Available [facility] Department [address] [place], [address], 10/20/2022 06:12:39 10/20/19 23 10/20/2022 LIPID PANEL LDL chol calc ([facility]) 135.3 Not Available [facility] Department [address] [place] [address], [address], 10/20/2022 06:12:39 10/20/19 23 10/20/2022 COMP. METAB OLIC PANEL (14) glucose 88 mg/dL 65-99 ANION GP 20.0 mmol/ L N OSMOL 277.0 mOsM/ L N REFER ENCE RANGE : 275.0 -301. 0 Not Available [facility] Department [address] [place], [address], 10/20/2022 06:12:39 10/20/19 23 10/20/2022 COMP. METAB OLIC PANEL (14) BUN 19 mg/dL 8-26 Not Available [facility] Department [address] [place], [address], 10/20/2022 06:12:39 10/20/19 23 10/20/2022 COMP. METAB OLIC PANEL (14) creatinine 0.75 mg/dL 0.50-1 .40 Not Available [facility] Department [address] [place], [address], 10/20/2022 06:12:39 10/20/19 23 10/20/2022 COMP. METAB OLIC PANEL (14) eGFR 101 mL/mi n/1.7 3 >=60 Not Available [facility] Department [address] [place], [address], 10/20/2022 06:12:39 10/20/19 23 10/20/2022 COMP. METAB OLIC PANEL (14) BUN/creatini ne ratio 25.7 Not Available [facility] Department [address] [place], [address], 10/20/2022 06:12:39 10/20/19 23 10/20/2022 COMP. METAB OLIC PANEL (14) sodium 138.0 mmol/ L 136.0- 144.0 Not Available [facility] Department [address] [place], [address], 10/20/2022 06:12:39 10/20/19 23 10/20/2022 COMP. METAB OLIC PANEL (14) potassium 4.6 mmol/ L 3.5-5. 3 Not Available [facility] Department [address] [place], [address], 10/20/2022 06:12:39 10/20/19 23 10/20/2022 COMP. METAB OLIC PANEL (14) chloride 100 mmol/ l 101-11 1 below low normal Not Available [facility] Department [address] [place], [address], 10/20/2022 06:12:39 10/20/19 23 10/20/2022 COMP. METAB OLIC PANEL (14) carbon dioxide, total 22.7 mmol/ L 21.0-3 2.0 Not Available [facility] Department [address] [place], [address], 10/20/2022 06:12:39 10/20/19 23 10/20/2022 COMP. METAB OLIC PANEL (14) calcium 10.0 mg/dL 8.2-10 .0 Not Available [facility] Department [address] [place], [address], 10/20/2022 06:12:39 10/20/19 23 10/20/2022 COMP. METAB OLIC PANEL (14) protein, total 7.4 g/dL 6.7-8. 2 Not Available [facility] Department [address] [place], [address], 10/20/2022 06:12:39 10/20/19 23 10/20/2022 COMP. METAB OLIC PANEL (14) albumin 5.0 g/dL 3.5-5. 5 Not Available [facility] Department [address] [place] [address], [address], 10/20/2022 06:12:39 10/20/19 23 10/20/2022 COMP. METAB OLIC PANEL (14) globulin, total 2.4 g/dL 1.5-4. 5 Not Available [facility] Department [address] [place] [address], [address], 10/20/2022 06:12:39 10/20/19 23 10/20/2022 COMP. METAB OLIC PANEL (14) A/G ratio 2.1 Not Available [facility] Department [address] [place], [address], 10/20/2022 06:12:39 10/20/19 23 10/20/2022 COMP. METAB OLIC PANEL (14) bilirubin, total 0.3 mg/dL 0.0-1. 2 Not Available [facility] Department [address] [place], [address], 10/20/2022 06:12:39 10/20/19 23 10/20/2022 COMP. METAB OLIC PANEL (14) alkaline phosphatase 40.2 IU/L 42.0-1 21.0 below low normal Not Available [facility] Department [address] [place] [address], [address], 10/20/2022 06:12:39 10/20/19 23 10/20/2022 COMP. METAB OLIC PANEL (14) AST (SGOT) 26.2 U/L 10.0-4 2.0 Not Available [facility] Department [address] [place], [address], 10/20/2022 06:12:39 10/20/19 23 10/20/2022 COMP. METAB OLIC PANEL (14) ALT (SGPT) 44.7 U/L 10.0-6 0.0 Not Available [facility] Department [address] [place], [address], 10/20/2022 06:12:39 10/20/19 23 10/19/2022 CBC WITH DIFFE RENTI AL/PL ATELE T WBC 8.2 K/uL 3.4-10 .8 Not Available [facility] Department [address] [place], [address], 10/20/2022 06:12:40 10/20/19 23 10/19/2022 CBC WITH DIFFE RENTI AL/PL ATELE T RBC 4.2 M/uL 4.2-5. 4 Not Available [facility] Department [address] [place], [address], 10/20/2022 06:12:40 10/20/19 23 10/19/2022 CBC WITH DIFFE RENTI AL/PL ATELE T hemoglobin 12.9 g/dL 11.5-1 5.5 Not Available [facility] Department [address] [place], [address], 10/20/2022 06:12:40 10/20/19 23 10/19/2022 CBC WITH DIFFE RENTI AL/PL ATELE T hematocrit 37.8 % 36.0-4 8.0 Not Available [facility] Department [address] [place], [address], 10/20/2022 06:12:40 10/20/19 23 10/19/2022 CBC WITH DIFFE RENTI AL/PL ATELE T MCV 90 fL 80-95 Not Available [facility] Department [address] [place], [address], 10/20/2022 06:12:40 10/20/19 23 10/19/2022 CBC WITH DIFFE RENTI AL/PL ATELE T MCH 31 pg 27-32 Not Available [facility] Department [address] [place], [address], 10/20/2022 06:12:40 10/20/1910/19/2022 CBC WITH DIFFE RENTI AL/PL ATELE T MCHC 34 g/dL 32-36 Not Available [facility] Department [address] [place], [address], 10/20/2022 06:12:40 10/20/1910/19/2022 CBC WITH DIFFE RENTI AL/PL ATELE T RDW 12.2 % 11.5-1 4.5 Not Available [facility] Department [address] [place], [address], 10/20/2022 06:12:40 10/20/19 23 10/19/2022 CBC WITH DIFFE RENTI AL/PL ATELE T platelets 208 K/uL 155-37 9 MPV 9.5 FL 8.9-1 2.7 N Not Available [facility] Department [address] [place], [address], 10/20/2022 06:12:40 10/20/1910/19/2022 CBC WITH DIFFE RENTI AL/PL ATELE T neutrophils 57.7 % 40.0-7 4.0 Not Available [facility] Department [address] [place], [address], 10/20/2022 06:12:40 10/20/1910/19/2022 CBC WITH DIFFE RENTI AL/PL ATELE T lymphs 33.6 % 14.0-4 6.0 Not Available [facility] Department [address] [place], [address], 10/20/2022 06:12:40 10/20/19 23 10/19/2022 CBC WITH DIFFE RENTI AL/PL ATELE T monocytes 5.0 % 4.0-12 .0 Not Available [facility] Department [address] [place], [address], 10/20/2022 06:12:40 10/20/19 23 10/19/2022 CBC WITH DIFFE RENTI AL/PL ATELE T eos 2 % 0-5 Not Available [facility] Department [address] [place], [address], 10/20/2022 06:12:40 10/20/1910/19/2022 CBC WITH DIFFE RENTI AL/PL ATELE T basos 0.6 % 0.0-1. 0 Not Available [facility] Department [address] [place], [address], 10/20/2022 06:12:40 10/20/19 23 10/19/2022 CBC WITH DIFFE RENTI AL/PL ATELE T neutrophils (absolute) 4.7 K/uL 1.4-7. 0 Not Available [facility] Department [address] [place], [address], 10/20/2022 06:12:40 10/20/19 23 10/19/2022 CBC WITH DIFFE RENTI AL/PL ATELE T lymphs (absolute) 2.8 K/uL 0.7-3. 1 Not Available [facility] Department [address] [place], [address], 10/20/2022 06:12:40 10/20/1910/19/2022 CBC WITH DIFFE RENTI AL/PL ATELE T monocytes(ab solute) 0.4 K/uL 0.1-0. 9 Not Available [facility] Department [address] [place], [address], 10/20/2022 06:12:40 10/20/1910/19/2022 CBC WITH DIFFE RENTI AL/PL ATELE T eos (absolute) 0.1 K/uL 0.0-0. 4 Not Available [facility] Department [address] [place], [address], 10/20/2022 06:12:40 10/20/19 23 10/19/2022 CBC WITH DIFFE RENTI AL/PL ATELE T baso (absolute) 0.1 K/uL 0.0-0. 3 Not Available [facility] Department [address] [place], [address], 10/20/2022 06:12:40 10/20/1910/19/2022 CBC WITH DIFFE RENTI AL/PL ATELE T immature granulocytes 1.5 % Not Available [facility] Department [address] [place], [address], 10/20/2022 06:12:40 10/20/19 23 10/19/2022 CBC WITH DIFFE RENTI AL/PL ATELE T immature grans (abs) 0.1 K/uL Not Available [facility] Department [address] [place], [address], 10/20/2022 06:12:40 10/20/1910/19/2022 CBC WITH DIFFE RENTI AL/PL ATELE T NRBC 0 % Not Available [facility] Department [address] [place], [address], 10/20/2022 06:12:40 10/20/1910/26/2022 COMPL IANCE DRUG AXEL SIS, UR summary report (summary) FINAL ===== ===== ===== ===== ===== ===== ===== ===== ===== ===== ===== ===== ===== === TOXAS SURE COMP DRUG AXEL SIS,U R ===== ===== ===== ===== ===== ===== ===== ===== ===== ===== ===== ===== ===== === Test Resul t Flag Units Drug Prese nt [place] codon e 2110 ng/mg creat [place] morph one 216 ng/mg creat Dihyd rocod eine 370 ng/mg creat Norhy droco done 2191 ng/mg creat Sourc es of hydro codon e inclu de sched uled presc ripti on medic ation s. [place] morph one, dihyd rocod eine and norhy droco done are expec allie metab olite s of hydro codon e. [place] morph one and dihyd rocod eine are also avail able as sched uled presc ripti on medic ation s. Aceta minop hen PRESE NT Ibupr ofen PRESE NT Diphe nhydr amine PRESE NT Dextr orpha n/Lev orpha nol PRESE NT Dextr orpha n is an expec allie metab olite of dextr ometh orpha n, an over- the-c ounte r or presc ripti on cough suppr essan t. Levor phano l is a sched uled presc ripti on medic ation . Dextr orpha n canno t be disti nguis hed from levor phano l by the metho d used for axel sis. ===== ===== ===== ===== ===== ===== ===== ===== ===== ===== ===== ===== ===== === Test Resul t Flag Units Ref Range Creat inine 103 mg/dL >=20 ===== ===== ===== ===== ===== ===== ===== ===== ===== ===== ===== ===== ===== === Decla red Medic ation s: Medic ation list was not provi ded. ===== ===== ===== ===== ===== ===== ===== ===== ===== ===== ===== ===== ===== === For dudley sanchez consu ltati on, pleas e call [phone]. ===== ===== ===== ===== ===== ===== ===== ===== ===== ===== ===== ===== ===== === Not Available [facility] ([facility]) [address] [facility], [place], [address], 10/26/2022 17:09:29 10/20/19 23 10/26/2022 COMPL IANCE DRUG AXEL SIS, UR pdf . Not Available [facility] ([facility]) [address] [facility], [place], [address], 10/26/2022 17:09:29 10/20/19 23 10/20/2022 VITAM IN D, 25-HY DROXY vitamin D, 25-hydroxy 39.5 NG/mL 30.0-1 00.0 Vitam in D defic iency has been defin ed by the Insti tute of Medic ine and an Endoc rine Socie ty pract ice guide line as a level of serum 25-OH vitam in D less than 20 ng/mL (1,2) . The Endoc rine Socie ty went on to fur er defin e vitam in D insuf ficie ncy as a level betwe en 21 and 29 ng/mL (2). 1. IOM (Inst itute of Medic ine). 2010. Dieta ry refer ence intak es for calci um and D. Loc leblanc [place]: The Natio nal [employer] . 2. Jeb beauchamp MF, Karan ey [place], Bisdianne off-F errar i SANCHEZ, et al. Evalu ation , treat ment, and preve ntion of vitam in D defic iency : an Endoc rine Socie ty clini laura pract ice guide line. JCEM. 2010; 96(7) :1911 -30. Not Available [facility] ([facility]) [address] [facility], [place], [address], 10/26/2022 17:09:29 Result Notes None recorded. Problems Name Problem SNOMED Code Status Onset Date Resolution Date Notes Provider Name and Address Organization Details Recorded Time Degeneration of lumbar intervertebral disc 00688511 Active 2022 Bong Mixon MD Attn: Mireille kramer,[address] [facility], [place], [address], [place] [facility] 3 11:47:15 Depressive disorder 18448287 Active 2022 Bong Mixon MD Attn: Mireille kramer,[address] [facility], [place], [address], [place] [facility] 3 11:47:16 Spasm of back muscles 753414412 Active 2022 Bong Mixon MD Attn: Mireille kramer,[address] [facility], [place], [address], [place] [facility] 3 11:47:20 Vitamin D deficiency 99054369 Active 2022 Bong Mixon MD Attn: Mireille kramer,[address] [facility], [place], [address], [place] [facility] 3 11:47:22 Obesity 835677520 Active 2022 Bong Mixon MD Attn: Mireille kramer,[address] [facility], [place], [address], [place] [facility] 3 11:47:25 Benign essential hypertension 1018828 Active 2022 Bong Mixon MD Attn: Mireille kramer,[address] [facility], [place], [address], [place] [facility] 3 11:47:26 Hypercholester olemia 58290826 Active 2022 Bong Mixon MD Attn: Mireille kramer,[address] [facility] [place], [address], [place] [facility] 3 12:09:32 Problem Notes None recorded. Medical Equipment None Reported. Allergies No known drug allergies Medications Name Sig Start Date Stop Date Status Note LastModified by Organization Details LastModified Time amoxicillin 500 mg capsule TAKE ONE CAPSULE BY MOUTH THREE TIMES DAILY FOR 10 DAYS 02/13 completed Not Available Not Available Not Available methocarbam ol 500 mg tablet TAKE ONE TABLET BY MOUTH TWICE DAILY active Not Available Not Available No t Available labetalol 200 mg tablet TAKE ONE TABLET BY MOUTH TWICE DAILY 02/13 completed Not Available Not Available Not Available atorvastati n 10 mg tablet TAKE ONE TABLET BY MOUTH EVERY DAY active Not Available Not Available No t Available azithromyci n 250 mg tablet TAKE 2 TABLETS (500 MG) BY ORAL ROUTE ONCE DAILY FOR 1 DAY THEN 1 TABLET (250 MG) BY ORAL ROUTE ONCE DAILY FOR 4 DAYS active Not Available Not Available No t Available ibuprofen 800 mg tablet Take 1 tablet 3 times a day by oral route as needed for 30 days. active Not Available Not Available No t Available fluconazole 150 mg tablet TAKE ONE TABLET BY MOUTH ON THE first DAY of symptoms, THEN take a 2nd tablet in THREE DAYS if symptoms continue active Not Available Not Available No t Available benzonatate 200 mg capsule TAKE ONE CAPSULE BY MOUTH THREE TIMES DAILY NEEDED FOR cough FOR UP TO 10 DAYS 02/13 completed Not Available Not Available Not Available hydrocodone 5 mg-acetamin ophen 325 mg tablet TAKE ONE TABLET BY MOUTH DAILY NEEDED active Not Available Not Available No t Available metronidazo le 0.75 % (37.5 mg/5 gram) vaginal gel INSERT ONE APPLICATO RFUL VAGINALLY AT BEDTIME FOR FIVE DAYS active Not Available Not Available No t Available moxifloxaci n 400 mg tablet TAKE ONE TABLET BY MOUTH ONCE DAILY FOR SEVEN DAYS (start AFTER completin g SEVEN DAY course of doxycycli ne) active Not Available Not Available No t Available metronidazo le 500 mg tablet TAKE ONE TABLET BY MOUTH EVERY 8 HOURS FOR 10 DAYS active Not Available Not Available No t Available ciprofloxac in 500 mg tablet TAKE ONE TABLET BY MOUTH TWICE DAILY active Not Available Not Available No t Available hydrocodone 10 mg-acetamin ophen 325 mg tablet TAKE ONE TABLET BY MOUTH TWICE DAILY 10/19 completed Not Available Not Available Not Available doxycycline monohydrate 100 mg tablet TAKE ONE TABLET BY MOUTH TWICE DAILY active Not Available Not Available No t Available tramadol 50 mg tablet TAKE ONE TABLET BY MOUTH EVERY 6 HOURS active Not Available Not Available No t Available dicyclomine 20 mg tablet TAKE ONE TABLET BY MOUTH every SIX hours as needed 10/19 completed Not Available Not Available Not Available hydrocodone 7.5 mg-acetamin ophen 325 mg tablet TAKE ONE TABLET BY MOUTH EVERY TWELVE HOURS NEEDED active Not Available Not Available No t Available tobramycin 0.3 % eye drops instill TWO drops IN EACH EYE EVERY 4 HOURS FOR 7 DAYS active Not Available Not Available No t Available lidocaine 5 % topical patch place ONE PATCH ON THE SKIN DAILY FOR SEVEN DAYS REMOVE AND discard PATCH WITHIN 12 hours OR DIRECTED by doctor 02/13 completed Not Available Not Available Not Available ergocalcife rol (vitamin D2) 1,250 mcg (50,000 unit) capsule TAKE ONE CAPSULE BY MOUTH EVERY WEEK active Not Available Not Available No t Available diazepam 10 mg tablet TAKE ONE TABLET BY MOUTH ONE HOUR prior TO procedure 10/19 completed Not Available Not Available Not Available cefuroxime axetil 500 mg tablet TAKE ONE TABLET BY MOUTH TWICE DAILY 02/13 completed Not Available Not Available Not Available methylpredn isolone 4 mg tablets in a dose pack follow package direction s active Not Available Not Available No t Available labetalol 100 mg tablet TAKE ONE TABLET BY MOUTH TWICE DAILY 2023 active Not Available Not Available Not Avai lable ondansetron 4 mg disintegrat ing tablet dissolve ONE TABLET (FOUR MG total) BY MOUTH EVERY EIGHT HOURS NEEDED FOR nausea. 10/19 completed Not Available Not Available Not Available dicyclomine 10 mg capsule TAKE 1 CAPSULE BY MOUTH THREE TIMES DAILY NEEDED active Not Available Not Available No t Available naproxen 500 mg tablet TAKE ONE TABLET BY MOUTH TWICE DAILY active Not Available Not Available No t Available amoxicillin 875 mg-potassiu m clavulanate 125 mg tablet TAKE ONE TABLET BY MOUTH TWICE DAILY FOR SEVEN DAYS active Not Available Not Available No t Available neomycin-po lymyxin-hyd rocort 3.5 mg-10,000 unit/mL-1 % ear drops,susp instill FOUR drops into affected ear(s) THREE TIMES DAILY active Not Available Not Available No t Available bupropion HCl XL 150 mg 24 hr tablet, extended release TAKE ONE TABLET BY MOUTH DAILY active Not Available Not Available No t Available varenicline tartrate 1 mg tablet TAKE ONE TABLET BY MOUTH TWICE DAILY WITH a full GLASS of water 10/19 completed Not Available Not Available Not Available varenicline tartrate 0.5 mg (11)-1 mg (42) tablets in a dose pack take as directed ON package instructi ons, try TO quit smoking AFTER ONE WEEK 10/19 completed Not Available Not Available Not Available Gema 0.35 mg tablet TAKE ONE TABLET BY MOUTH DAILY active Not Available Not Available No t Available Fish Oil 1,000 mg (120 mg-180 mg) capsule Take 2 capsules by oral route in the morning for 30 days. 2022 active Not Available Not Available Not Avai lable Vitals Date Recorded Body temperature Body height Body mass index (BMI) Body weight Oxygen saturation Oxygen saturation in Arterial blood by Pulse oximetry Heart rate Systolic blood pressure Diastolic blood pressure Provider Name and Address Organization Details Last Updated DateTime 3 97.5 [degF] 162.56 cm 31.7 kg/m2 98037.4 5 g 97 % 97 % 76 /min 132 mm[Hg] 98 mm[Hg] Isabel Cardona MA [facility] 3 11:08:56 Date Recorded Body height Body mass index (BMI) Body weight Body temperature Oxygen saturation Oxygen saturation in Arterial blood by Pulse oximetry Heart rate Systolic blood pressure Diastolic blood pressure Provider Name and Address Organization Details Last Updated DateTime 3 162.56 cm 31.4 kg/m2 64252.4 g 97.2 [degF] 99 % 99 % 71 /min 126 mm[Hg] 86 mm[Hg] Isabel Cardona MA [facility] 3 11:34:13 Date Recorded Body height Body mass index (BMI) Body weight Body temperature Oxygen saturation Oxygen saturation in Arterial blood by Pulse oximetry Heart rate Systolic blood pressure Diastolic blood pressure Provider Name and Address Organization Details Last Updated DateTime 3 162.56 cm 29.9 kg/m2 80453.0 7 g 97 [degF] 98 % 98 % 69 /min 118 mm[Hg] 82 mm[Hg] Isabel Cardona MA [facility] 3 10:16:56 Date Recorded Body height Body mass index (BMI) Body weight Oxygen saturation Oxygen saturation in Arterial blood by Pulse oximetry Heart rate Systolic blood pressure Diastolic blood pressure Provider Name and Address Organization Details Last Updated DateTime 3 162.56 cm 28.2 kg/m2 43136.9 g 98 % 98 % 74 /min 120 mm[Hg] 80 mm[Hg] Gabrielle Mejia MA [facility] SIF 3 10:03:06 Date Recorded Body height Body mass index (BMI) Body weight Body temperature Oxygen saturation Oxygen saturation in Arterial blood by Pulse oximetry Heart rate Systolic blood pressure Diastolic blood pressure Provider Name and Address Organization Details Last Updated DateTime 3 162.56 cm 26.6 kg/m2 24456.1 7 g 97 [degF] 100 % 100 % 90 /min 120 mm[Hg] 78 mm[Hg] Isabel Cardona MA [facility] SI 3 10:42:32 Social History Question Answer Notes LastModified by [employer] ion Details LastModified Time Tobacco Smoking Status Current Every Day Smoker Isabel Cardona MA null, [facility] 10/19/2022 11:07:15 What Is Your Level Of Alcohol Consumption? Occasional Information not available 10/19/2022 What Was The Date Of Your Most Recent Tobacco Screening? 03/15/2023 Information not available 03/15/2023 Do You Or Have You Ever Used Any Other Forms Of Tobacco Or Nicotine? No cheuerma Information not available 10/19/2022 Sex: Unknown Functional Status None recorded. Mental Status None recorded. Family History Relationship Description Onset Age of this Age Resolved Age Notes LastModified by Organization Details LastModified Time Father Malignant tumor of colon cheuerma Not available 2022 11:04:09 Mother Diabetes mellitus cheuerma Not available 2022 11:04:19 Mother Hypertensive disorder cheuerma Not available 2022 11:04:34 Mother Malignant tumor of kidney cheuerma Not available 2022 11:04:53 Medical History Condition Response Coronary Artery Disease N Other N Atrial Fibrillation N High Blood Pressure Y Depression N COPD N Blood Clots N Anxiety Disorder N Muscle, Joint, or Bone Problems N Acid Reflux (GERD) N Cancer N Stroke N ADHD N High Cholesterol N Liver Disease N Schizophrenia N Headaches N Thyroid Problems N Kidney or Bladder Problems N GI Problems N Eating Disorder N Skin Problems N Anemia N Heart Attack (SD) N Diabetes N Seizures/Epilepsy N Asthma N Allergies N Substance Abuse N Hepatitis N Heart Failure N Osteoporosis N Gynecological HistoryNo gynecological history recorded. Obstetrics History GPAL:G 0 P 0 0 0 0 Past Encounters Encounter ID Performer Location Encounter Start Date Encounter Closed Date Diagnosis/Indication Diagnosis SNOMED-CT Code Diagnosis ICD10 Code Diagnosis Note [id number] Bong Mixon MD [facility] [address] [place] [address] 10/19/2022 10:39:33 10/22/2022 12:45:55 Degeneration of lumbar intervertebral disc 50932254 M51.36 conditon chronic adn at goal refill the norco urine drug screen Depressive disorder 3548 9007 F32.A conditoin chronic adn at goal refill the bupropion xl order cbc, cmp Spasm of back muscles 20 8441283 M62.830 conditon chroinc and at goal refill hte methocarba mol Vitamin D deficiency 347 45037 E55.9 conditon chroinc adn at goal continue the vit d daily order vit d level Screening mammography 24 039230 Z12.31 order at e Cholesterol screening 27 6487306 Z13.220 order lipid panel Obesity 270550559 E66.9 conditon chronic and not at goal continue dietary management . Benign ess ential hypertension 5660159 I10 conditon chroinc and at goal continue the labetalol Impacted c erumen in right ear 4747396410 622619 H61.21 condition acute. clean right ear. the right external auditory canal is irrigated with normal saline and a currette is used to remove the cerumen bolus intact. [id number] Bong Mixon MD [facility] [address] [place] [address] 2 11/20/2022 11:28:16 11/21/2022 09:37:49 Benign essential hypertension 2471691 I10 conditon chroinc and at goal decrease the labetalol to 100 mg per day Degenerati on of lumbar intervertebral disc 31381475 M51.36 conditon chronic adn at goal refill the norco urine drug screen Depressive disorder 3548 9007 F32.A conditoin chronic adn at goal refill the bupropion xl Spasm of back muscles 20 5171005 M62.830 conditon chroinc and at goal refill hte methocarba mol Vitamin D deficiency 347 51200 E55.9 conditon chroinc adn at goal continue the vit d daily order vit d level Obesity 417478596 E66.9 conditon chronic and not at goal continue dietary management . Hypercholesterolemia 136 04613 E78.00 condition chroicn and at goal continue hte atorvastat in [id number] Bong Mixon MD [facility] [address] [facility] [address] [place] [address] 12/21/2022 09:49:56 12/25/2022 11:11:15 Benign essential hypertension 6735643 I10 conditon chroinc and at goal decrease the labetalol to 100 mg per day Degenerati on of lumbar intervertebral disc 63090638 M51.36 conditon chronic adn at goal refill the norco refer to dr banda pain management Depressive disorder 3548 9007 F32.A conditoin chronic adn at goal refill the bupropion xl Hypercholesterolemia 136 78974 E78.00 condition chroicn and at goal continue hte atorvastat in Spasm of back muscles 20 5297334 M62.830 conditon chroinc and at goal refill hte methocarba mol Vitamin D deficiency 347 02586 E55.9 conditon chroinc adn at goal continue the vit d daily Obesity 858989844 E66.9 conditon chronic and not at goal continue dietary management . [id number] Bong Mixon MD [facility] [address] [place] [address] [place] [address] 02/13/2023 09:57:28 02/14/2023 11:43:08 Benign essential hypertension 7961597 I10 conditon chroinc and at goal decrease the labetalol to 100 mg per day Degenerati on of lumbar intervertebral disc 10501777 M51.36 conditon chronic adn at goal refill the norco follow to dr banda pain management Depressive disorder 3548 9007 F32.A conditoin chronic adn at goal refill the bupropion xl Hypercholesterolemia 136 16270 E78.00 condition chroicn and at goal continue hte atorvastat in Spasm of back muscles 20 3442983 M62.830 conditon chroinc and at goal refill hte methocarba mol Vitamin D deficiency 347 32444 E55.9 conditon chroinc adn at goal continue the vit d daily Obesity 789981587 E66.9 conditon chronic and not at goal continue low fat diet. [id number] Bong Mixon MD [facility] [address] [address] 03/15/2023 10:30:16 03/15/2023 11:20:36 Benign essential hypertension 1904702 I10 conditon chroinc and at goal decrease the labetalol to 100 mg per day Degenerati on of lumbar intervertebral disc 96958399 M51.36 conditon chronic adn at goal refill the norco follow to dr banda pain management Depressive disorder 3548 9007 F32.A conditoin chronic adn at goal refill the bupropion xl Hypercholesterolemia 136 90621 E78.00 condition chroicn and at goal continue hte atorvastat in Spasm of back muscles 20 5760919 M62.830 conditon chroinc and at goal refill hte methocarba mol Vitamin D deficiency 347 09515 E55.9 conditon chroinc adn at goal continue the vit d daily Obesity 416016993 E66.9 conditon chronic and not at goal continue low fat diet. Health Concerns Section Related Observation LastModified by Organization Detai ls LastModified Time None Recorded Concern Status LastModified by Organization Details LastModified Time None Recorded Advance Directives Directive None Recorded Payers Encounter Date Sequence Insurance Name Policy Number Policy Ford Covered Member ID Ford Member ID Guarantor Name 10/19/2022 1 [facility] ON OR AFTER 02/02/21 (MEDICAID REPLACEMENT - HMO) Tabby Theodore [id number] Tabby Theodore 11/20/2022 1 [facility] ON OR AFTER 02/02/21 (MEDICAID REPLACEMENT - HMO) Tabby Theodore [id number] Tabby Theodore 12/21/2022 1 [facility] ON OR AFTER 21 (MEDICAID REPLACEMENT - HMO) Tabby Harms [id number] Tabby Harms 02/13/2023 1 [facility] - [facility] ON OR AFTER 21 (MEDICAID REPLACEMENT - HMO) Tabby Harms [id number] Tabby Harms 03/15/2023 1 [facility] - [facility] ON OR AFTER 21 (MEDICAID REPLACEMENT - HMO) Tabby Theodore [id number] Tabby Theodore Notes Date Note Type Note Provider Name and Address Organization Details Recorded Time 10/19/2022 text/html returns to the office for repeat evaluatoin states that hte depression and the ibs is under control hte lumbar back pain is under control continues to smoke taking the vit d daily Bong Mixon MD Attn: Accounting[address] [place], [address], [facility] - [facility] 10/19/2022 18:30:51 11/20/2022 text/html returns to the office for repeat evauaoin states that the anxiety is under control and the lipids are under control the pain is under control taking her vit d daily she is watching diet daily the triglycerides the htn is under control Bong Mixon MD Attn: Accounting[address] [place], [address], [facility] - [facility] 11/20/2022 13:31:14 12/21/2022 text/html returns to the office for repeat evaluation states that the back pain continues and the htn is under conrrol hte depression is under control has been watching the spasms are under control taking her meds as directed. mammogram is scheduled. Bong Mixon MD Attn: Accounting[address] [place], [address], [place] 12/21/2022 13:45:12 02/13/2023 text/html returns to the office for repeat evaluation the htn is under control the lumbar back pain continues and has made contact with pain management and is getting set up for appt. hte depression adn the lipids are under control has been watching her diet. the back spasms and vit d are under control hte mammogram is scheduled at [facility] Bong Mixon MD Attn: Accounting[address] [facility], [place], [address], [facility] 02/13/2023 18:17:13 03/15/2023 text/html returns to the office for repeat evaluatoin states that she has an appt with the pain management. hte htn and the lumbar back pain is udner control and the depression is under control hte chol is under control and the spasms are under control taking her vit d daily. has been watching her diet. mammogram is scheduled and will be having the colo watching diet for lipids Bong Mixon MD Attn: Accounting[address] [facility], [place], [address], [facility] 03/15/2023 11:31:00 OBGyn Episode No OBEpisode recorded.
--- OUTSIDE RECORDS SUMMARY | 2024-08-16 12:22 | XMS_ITS | Encounter Summary ---
Author Organization [facility] Address [address] [place] [address]. [place], [place] [address] [place] [address] Care Team Providers Care Ethnic Studies Professor Name Role Phone Bong Mixon MD Primary Care Provider [phone] Reason for Visit * Reason Onset Date Comments Follow Up Call 11/28/2021 Encounter Details Date Type Department Care Team (Late st Contact Info) Description 11/28/2021 Telephone [facility] [place] [address] [id number] Michelle Sheppard, RN Follow Up Call Social [...] Progress Notes * Michelle Sheppard RN - 11/28/2021 8:16 AM CDTSummary: FOLLOW UP CALL CALLED OUT TO PATIENT TO OBTAIN PERCENTAGE OF RELIEF, AND NO ANSWER. THIS NURSE LEFT A MESSAGE ON HER VOICEMAIL, AND MADE HER AWARE THAT IF WE DO NOT RECEIVE IT SHE MAY BE PULLED FROM THE SCHEDULE, EXPLAINED WE NEED A NUMBER OF RELIEF, 0-100 PERCENT, IS SHE DOING MORE OR LESS ACTIVITIES, IS SHE SLEEPING BETTER, AND TO PLEASE CALL US AND LET US KNOW THIS INFORMATION, LEFT OUR NUMBER WHERE WE COULD BE REACHED ON THE VOICEMAIL. documented in this encounter Plan of Treatment Not on file documented as of this encounter Visit Diagnoses Not on filedocumented in this encounter Care Teams Ethnic Studies Professor Relationship Specialty Start Date End Date Bong Mixon MD PCP - General FAMILY PRACTICE 06/17/21 documented as of this encounter
--- OUTSIDE RECORDS SUMMARY | 2024-08-16 12:22 | XMS_ITS | Encounter Summary ---
Author Organization [facility] Address [address] [place] [address]. [place], [place] [address] [place] [address] Care Team Providers Care Grey Tender Name Role Phone Bong Mixon MD Primary Care Provider [phone] Encounter Details Date Type Department Care Team (Latest Contact Info) Description 06/17/2021 Travel Social History Tobacco Use Types Packs/Day Years Used Date Smoking Tobacco: Every Day Cigarettes Smokeless Tobacco: Never Alcohol Use Standard Drinks/Week [...] have Coronavirus / COVID-19? No / Unsure 06/17/2021 8:01 AM RENAL DIALYSIS TECHNICIAN documented as of this encounter Plan of Treatment Not on file documented as of this encounter Visit Diagnoses Not on filedocumented in this encounter Additional Health Concerns Infection Onset Date Last Indicated Resolved Time COVID-19 Rule Out 06/17/2021 06/17/2021 06/18/2021 4:56 PM RENAL DIALYSIS TECHNICIAN documented as of this encounter Care Teams Grey Tender Relationship Specialty Start Date End Date Bong Mixon MD PCP - General FAMILY PRACTICE 06/17/21 documented as of this encounter
--- OUTSIDE RECORDS SUMMARY | 2024-08-16 12:23 | XMS_ITS | Encounter Summary ---
Author Organization [facility] Address [facility]. [place], [place] [address] [place] [address] Care Team Providers Care Hockey Scout Name Role Phone Mal Kumar MD Primary Care Provider Unav ailable Encounter Details Date Type Department Care Team (Latest Contact Info) Description 07/23/2018 Scan HEALTH INFO SRVCS Scanned, Documents Social History Tobacco Use Types Packs/Day Years Used Date Smoking Tobacco: Former Smokeless Tobacco: Never Alcohol Use Standard Drinks/Week Comments Yes 0 (1 standard drink = 0.6 oz pur e alcohol) AUDIT-C Answer Date Recorded Frequency of Alcohol Consumption Monthly or less 07/14/2018 Average Number of Drinks Not on file 018 Frequency of Binge Drinking Not on file 07/05 Comments Unknown Sex and Gender Information Value Date Recorded Sex Assigned at Not on file Legal Sex Female 6:18 PM CDT Gender Identity Not on file Sexual Orientation Not on file documented as of this encounter Plan of Treatment Not on file documented as of this encounter Visit Diagnoses Not on filedocumented in this encounter Care Teams Hockey Scout Relationship Specialty Start Date End Date Mal Kumar MD PCP - General 06/26/16 06/16/21 documented as of this encounter
--- OUTSIDE RECORDS SUMMARY | 2024-08-16 12:23 | XMS_ITS | Encounter Summary ---
Author Organization [facility] Address [facility]. [place], [place] [address] [place] [address] Care Team Providers Care Filtration Supervisor Name Role Phone Mal Kuamr MD Primary Care Provider Unav ailMal Arizmendi MD Primary Care Provider Unav ailable Mal Kumar MD Primary Care Provider Unav ailable Mal Kumar MD Primary Care Provider Unav ailable Encounter Details Date Type Department Care Team (Late st Contact Info) Description 11/05/2007 Abstract [facility] [address] [facility] [place] [address] [place] [address] [place] [address] Social History Tobacco Use Types Packs/Day Years Used Date Smoking Tobacco: Never Assessed Comments Unknown Sex and Gender Information Value Date Recorded Sex Assigned at Not on file Legal Sex Female 6:18 PM CDT Gender Identity Not on file Sexual Orientation Not on file documented as of this encounter Plan of Treatment Not on file documented as of this encounter Visit Diagnoses Not on filedocumented in this encounter Care Teams Filtration Supervisor Relationship Specialty Start Date End Date Mal Kumar MD PCP - General 06/26/16 06/16/21 Mal Kumar MD PCP - General 04/11/15 06/25/16 Mal Kumar MD PCP - General 04/13/13 04/10/15 Mal Kumar MD PCP - General 01/26/13 04/12/13 documented as of this encounter
--- OUTSIDE RECORDS SUMMARY | 2024-08-16 12:23 | XMS_ITS | Encounter Summary ---
Author Organization [facility] Address [facility]. [place], [place] [address] [place] [address] Care Team Providers Care Printer Small Print [employer] Name Role Phone Mal Iglesias MD Primary Care Provider Unav ailable Reason for Referral * Physical Medicine (Routine) - Closed Specialty Diagnoses / Procedures Referred By Trever t Referred To Contact PHYSICAL THERAPY / [facility] Physical Therapy Diagnoses Thoracolumbar back pain Ranulfo Owens MD Welsch, Torrey M, [place] [address] Phone: tel: fax: Referral ID Status Reason Start Date Expiration Date V isits Requested Visits Authorized [id number] Closed Physical Therapy 07/14/2018 08/14/2019 12 12 OFFICER Reason for Visit * Reason Comments Establish Care Back pain * Consultation/Treatment (Routine) - Closed Specialty Diagnoses / Procedures Referred By Contac t Referred To Contact NEUROSURGERY Diagnoses Chronic low back pain multiple disc protrusions Mal Iglesias MD Poulos, Nicholas E, MD Referral ID Status Reason Start Date Expiration Date Visits Re quested Visits Authorized [id number] Closed 06/12/2018 06/12/2019 100 100 Encounter Details Date Type Department Care Team (Late st Contact Info) Description 07/14/2018 10:00 AM CRA OFFICER Office Visit [facility] [address] [facility], [address] [place] [id number] Ranulfo Owens MD Establish Care (Back pain) Social History Tobacco Use Types Packs/Day Years [...] on file documented as of this encounter Last Filed Vital Signs Vital Sign Reading Time Taken Comments Blood Pressure 140/94 07/14/2018 10:35 AM CRA OFFICER Pulse 97 07/14/2018 10:35 AM CRA OFFICER Temperature - - Respiratory Rate - - Oxygen Saturation 98% 07/14/2018 10:35 AM CRA OFFICER Inhaled Oxygen Concentration - - Weight 82.2 kg (181 lb 3.2 oz) 07/14/2018 10:35 AM CRA OFFICER Height 162.6 cm (5' 4 ) 07/14/2018 10:35 AM CRA OFFICER Body Mass Index 31.1 07/14/2018 10:35 AM CRA OFFICER documented in this encounter Progress Notes * Tracy Meyer MA - 07/14/2018 10:00 AM CST PCP- DR. IGLESIAS [id number] YEAR OLD OCCUPATION-UNEMPLOYED [employer] HAND- RIGHT HANDED SMOKER-NO HISTORY DIABETIC-NO HISTORY CARDIOLOGY-NO HISTORY PT- PATIENT [id number] WEEKS OF PT WITH [facility] IN 2016 FOR HER THORACIC BACK PAIN. PT REPORTS PT MADEHER PAIN WORSE. INJECTIONS-2 SETS DONE IN Sep 2017 WITH [facility] DID STEROID INJECTIONS IN THE THORACIC BACK. PT SAYS THE INJECTIONS DID NOT HELP AT ALL. PAIN-MID RIGHT THORACIC BACK PAIN (BELOW THE BRA LINE) FOR 6 YEARS. NON INJURY RELATED. PATIENT ALSO REPORTS LOW BACK PAIN FOR ABOUT 18 MONTHS SAYS SHE THINKS THE LOW BACK PAIN STARTED BECAUSE OF HERPREGNANCY. PAIN IS WORSE WHEN BEING ACTIVE NOTHING RELIEVES THE PAIN. PATIENT DESCRIBES THE PAIN IN HER THORACIC BACK A STINGING PAIN THAT SHOTS DOWN THE MID BACK ANDSTOPS AT THE TOP OF HER LOW BACK..SAYS HER THORACIC PAIN IS WORSE THAN HER LOW BACK PAIN BY ABOUT 60%. REPORTTS HER THORACIC BACK PAIN IS CONSTANT. NUMBNESS/TINGLING- PT SAYS SHE HAS HAS SOME TINGLING IN HER RIGHT ARM STARTING AT THE ELBOW AND STOPPING AT HER FINGER TIPS. MEDS- HYDROCODONE TWICE A DAY NEEDED. PCP HAS BEEN DECREASING THE DOSAGE OVER THE LAST SIX MONTHS. MRI ON PACS 1 OFFICER * Ranulfo Owens MD - 07/14/2018 10:00 AM CST Images from the original note were not included. Neurosurgery New Patient Office Visit Note History of Present Illness Thank you for allowing us to evaluate this 37-year-old female in neurosurgical referral. . Patient is being evaluated for right thoracolumbar paraspinal pain, review of imaging. Patient has complained of right thoracolumbar paraspinal pain for nearly 5 years. Unfortunately managed with narcotic analgesics Lortab 5 twice daily. Has undergone treatment with Mobic, Flexeril, Voltaren gel,. No impact on symptoms. Chiropractic treatment, PT no impact on symptoms. Trigger point injections no impact on symptoms. Patient is very frustrated pain is focal. describes spasm with balled up muscle when she is particularly's symptomatic. No orders of the defined types were placed in this encounter. Past Medical History: Diagnosis Date ??? Hypertension No past surgical history on file. Social History Tobacco Use ??? Smoking status: Former Smoker ??? Smokeless tobacco: Never Used Substance Use Topics ??? Alcohol use: Yes Frequency: Monthly or less ??? Drug use: No Family History Problem Relation Age of Onset ??? Kidney Cancer Mother ??? Diabetes Mother ??? Hypertension Mother ??? Migraines/Headaches Mother ??? Colon Cancer Father No Known Allergies Current Outpatient Medications Medication Sig ??? Ferrous Sulfate (IRON) 325 (65 Fe) MG tablet Take 325 mg by mouth daily with breakfast. ??? hydrocodone-acetaminophen 5-325 MG tablet Take 1 tablet by mouth daily as needed. ??? labetalol 200 MG tablet Take 200 mg by mouth 2 (two) times daily. ??? vitamin D2, ergocalciferol, [address]646 UNITS capsule Take 50,000 Units by mouth daily. PHYSICAL EXAM Filed Vitals: 07/14/18 1035 BP: (!) 140/94 Pulse: 97 SpO2: 98% Weight: 82.2 kg (181 lb 3.2 oz) Height: 5' 4 (1.626 m) NEUROLOGIC EXAM Thoracic spine no tenderness over the right thoracolumbar area where she localizes pain Lumbar spine no SI tenderness, straight leg raising negative Motor examination good strength lower extremities LABS No results for input(s): WBC, RBC, HGB, HCT, MCV, MCH, MCHC, PLT, RDW, MPV, PERNEU, PERLYM, PERMON,PEREOS, PERBASO, NEUC, LYMC, MONOC, EOSC, BASOC, DTYPE in the last 168 hours. No results for input(s): NA, K, CL, CO2, AGAP, BUN, CR, BUNCREATININ, GFRNON, GFR, GLU, CA, TP, ALB, TBIL, ALKP, AST, ALT in the last 168 hours. No results for input(s): PTT, INR in the last 168 hours. Invalid input(s): PT IMAGING/DIAGNOSTICS MRI lumbar spine 05/28/2018 personally reviewed. Left L5-S1 small central disc herniation. MRI thoracic spine 05/28/2018 personally reviewed. Good alignment. Minimal disc degeneration. No compression fractures. Minor disc bulges. Canal widely patent. No structural pathology involving spinal cord or nerve roots. ENCOUNTER DIAGNOSES SNOMED CT(R) 1. Thoracolumbar back pain BACKACHE SUMMARY/DISCUSSION/PLAN Patient is a 37-year-old lady with right thoracolumbar junctional spinal pain. Failed conservative therapy. We will have her be reevaluated by PT to see if taping is an option. Follow-up in 6 weeks. No surgical lesions or structural pathology which would account for her pain. Thank you for allowingme to participate in her care. Thank you for allowing me to participate in this patient's care. RANULFO OWENS MD 07/14/2018 OFFICER documented in this encounter Plan of Treatment Scheduled Referrals Name Type Priority Associated Diagnoses Orde r Schedule Ambulatory referral to Physical Therapy Referral Routine Thoracolumbar back pain Ordered: 07/14/2018 documented as of this encounter Visit Diagnoses Diagnosis Thoracolumbar back pain- Primary Backache, unspecified documented in this encounter Care Teams Printer Small Print Shop Relationship Specialty Start Date End Date Mal Iglesias MD PCP - General 06/26/16 06/16/21 documented as of this encounter
--- OUTSIDE RECORDS SUMMARY | 2024-08-16 12:23 | XMS_ITS | Encounter Summary ---
Author Organization [facility] Address [facility]6 [facility]. [place], [place] [address] [place] [address] Care Team Providers Care Sales And Marketing Coordinator Name Role Phone Mal Kumar MD Primary Care Provider Unav Mal Verma MD Primary Care Provider Unav ailable Mal Kumar MD Primary Care Provider Unav ailable Encounter Details Date Type Department Care Team (Late st Contact Info) Description 04/13/2013 Abstract [facility] [place] [address] Michelle Britt MD Social History Tobacco Use Types Packs/Day Years Used Date Smoking Tobacco: Never Assessed Comments Unknown Sex and Gender Information Value Date Recorded Sex Assigned at Not on file Legal Sex Female 6:18 PM CDT Gender Identity Not on file Sexual Orientation Not on file documented as of this encounter Plan of Treatment Not on file documented as of this encounter Visit Diagnoses Diagnosis Vitamin D deficiency Unspecified vitamin D deficiency documented in this encounter Care Teams Sales And Marketing Coordinator Relationship Specialty Start Date End Date Mal Kumar MD PCP - General 06/26/16 06/16/21 Mal Kumar MD PCP - General 04/11/15 06/25/16 Mal Kumar MD PCP - General 04/13/13 04/10/15 documented as of this encounter
--- OUTSIDE RECORDS SUMMARY | 2024-08-16 12:23 | XMS_ITS | Encounter Summary ---
Author Organization [facility] Address [facility] [place], [place] [address] [place] [address] Care Team Providers Care Horses Or Mules Teamster Name Role Phone Mal Kumar MD Primary Care Provider Unav ailable Reason for Visit * Reason Onset Date Comments Appointment Reminder 07/11/2018 Reminded pt to bring disc with imaging Encounter Details Date Type Department Care Team (Late st Contact Info) Description 07/11/2018 Telephone [facility] Multispecialty [facility] - [facility], [address] [place] [id number] Ranulfo Owens MD Appointment Reminder (Reminded pt to bring disc with imaging) Social History Tobacco Use Types Packs/Day Years [...] on filedocumented in this encounter Care Teams Horses Or Mules Teamster Relationship Specialty Start Date End Date Mal Kumar MD PCP - General 06/26/16 06/16/21 documented as of this encounter
--- OUTSIDE RECORDS SUMMARY | 2024-08-16 12:23 | XMS_ITS | Encounter Summary ---
Author Organization [facility] Address [facility]6 [facility]. [place], [place] [address] [place] [address] Care Team Providers Care Bench Worker Name Role Phone Mal Kumar MD Primary Care Provider Unav ailMal Arizmendi MD Primary Care Provider Unav ailable Mal Kumar MD Primary Care Provider Unav ailable Mal Kumar MD Primary Care Provider Unav ailable Encounter Details Date Type Department Care Team (Late st Contact Info) Description 12/26/[address] [facility] Diagnostic Imaging [address] [place], [place] [address] Michelle Britt MD Social History Tobacco Use [...] on filedocumented in this encounter Care Teams Bench Worker Relationship Specialty Start Date End Date Mal Kumar MD PCP - General 06/26/16 06/16/21 Mal Kumar MD PCP - General 04/11/15 06/25/16 Mal Kumar MD PCP - General 04/13/13 04/10/15 Mal Kumar MD PCP - General 01/26/13 04/12/13 documented as of this encounter
--- OUTSIDE RECORDS SUMMARY | 2024-08-16 12:23 | XMS_ITS | Encounter Summary ---
Author Organization [facility] Address [facility]6 [facility]. [place], [place] [address] [place] [address] Care Team Providers Care Staffing Director Name Role Phone Mal Kumar MD Primary Care Provider Unav ailable Mal Kumar MD Primary Care Provider Unav ailable Encounter Details Date Type Department Care Team (Late st Contact Info) Description 04/11/2015 Emergency [facility] [place] [address] Daniel Carter MD Social History Tobacco Use Types Packs/Day [...] as of this encounter Visit Diagnoses Diagnosis Closed fracture of carpal bone Unspecified closed fracture of carpal bone documented in this encounter Care Teams Staffing Director Relationship Specialty Start Date End Date Mal Kumar MD PCP - General 06/26/16 06/16/21 Mal Kumar MD PCP - General 04/11/15 06/25/16 documented as of this encounter
--- OUTSIDE RECORDS SUMMARY | 2024-08-16 12:23 | XMS_ITS | Encounter Summary ---
Author Organization [facility] Address [facility]6 [facility]. [place], [place] [address] [place] [address] Care Team Providers Care Church Organist Name Role Phone Mal Kumar MD Primary Care Provider Unav ailable Encounter Details Date Type Department Care Team (Late st Contact Info) Description 08/20/[address] [facility] Physical Therapy [address] [place] [address] Troy Smith, [place] [address] Social History Tobacco Use Types Packs/Day Years [...] on filedocumented in this encounter Care Teams Church Organist Relationship Specialty Start Date End Date Mal Kumar MD PCP - General 06/26/16 06/16/21 documented as of this encounter
--- OUTSIDE RECORDS SUMMARY | 2024-08-16 12:23 | XMS_ITS | Encounter Summary ---
Author Organization [facility] Address [facility]. [place], [place] [address] [place] [address] Care Team Providers Care Java Sql Developer Name Role Phone Mal Kumar MD Primary Care Provider Unav ailable Reason for Visit * Reason Comments Back Pain * Physical Medicine (Routine) - Closed Specialty Diagnoses / Procedures Referred By Contac t Referred To Contact PHYSICAL THERAPY / [facility] Physical Therapy Diagnoses Thoracolumbar back pain Ranulfo Owens MD Welsch, Torrey M, [place] [address] Phone: tel: fax: Referral ID Status Reason Start Date Expiration Date V isits Requested Visits Authorized [id number] Closed Physical Therapy 07/14/2018 08/14/2019 12 12 Encounter Details Date Type Department Care Team (Late st Contact Info) Description 07/23/2018 10:45 AM MERCHANDISE TEAM MANAGER Office Visit [facility] [address] [place], [place] [id number] Ranulfo Owens MD Welsch, Torrey M, PT [place], [place] [id number] Back Pain Social History Tobacco Use Types Packs/Day Years [...] as of this encounter Progress Notes * Brenna Smith, PT - 07/23/2018 10:45 AM CST Physical Therapy Evaluation Date: 07/23/2018 Patient Name: Tabby Theodore : 1980 Diagnosis: The encounter diagnosis was Thoracolumbar back pain. AMB PT SUBJECTIVE EVAL: History of Present Illness: Onset date: 5-6 years ago. Mechanism of injury: Patient reports she has a very long standing history of right thoracic pain. She reports this is not from any specific injury nor incident. She reports that pain has not shown any improvement over this time. She reports that she has had physical therapy and chiropractic treatment about a year ago which made her pain worse. She reports this consisted of core strengthening, manipulation, and massage. She reports she had trigger point injections which did not help. She reportspain medication and topical agents offered partial relief but not long lasting. She reports that pain is constant but gets worse with physical activity especially twisting. 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 She reports she had a child about 18 months ago (no complications) and notes she has lumbar/sacral pain since but not as severe as the thoracic pain. She reports she has had multiple imaging studies done which were essentially unremarkable. She has seen neurosurgery which does not see her as a surgical candidate. Her PMH was reviewed and is essentially unremarkable with the exception of HTN being treated with medication. Pain: Current pain ratin At best pain ratin At worst pain ratin Location: Right thoracic; B lumbar Quality: constant, ache, sharp, throb, stab, numb-tingle. 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 Progression: No change Diagnostic Tests: Abnormal MRI: results reviewed through neurosurgery office visit. Treatments: Previous treatment: Chiropractic, injection treatment, physical therapy and medication Patient Goals: Patient goals for therapy: Decreased pain Objective TRUNK ROM Flex 75% Ext WNL% Sidebend R WNL% L WNL% Rotation R 75% L 75% *Premature thoracic extension when returning to upright from a flexed position THORACIC SCREEN Decrease mid-upper thoracic facet PA mobility. Right lower paraspinal tightness/tenderness Scapular strength 4-/5 right with pain reproduction; 4/5 on left with mild right pain reproduction POSTURE Decreased thoracic kyphosis PALPATION Tender/tight over the right lower thoracic paraspinals HIP SCREEN ROM WFL Strength TESTING SLR - SLUMP - SIJ CLUSTER - SACRAL POSITIONING mild L on R sacral torsion Physical Therapy Certification Form - Spine Treatment Today: Initial Evaluation completed with patient education on evaluation findings and plan of care Postural Education: improper sequencing of trunk flexion and extension with correction through HEP HEP instruction: segmental trunk flexion/extension Outcome tool: optimal Score: 13/56 Timed Code Tx Minutes 15 Units 1 Total Tx Time 45 15 Therapeutic Exercise Therapy Diagnosis: Low Back Pain Pain in Thoracic Spine Patient demonstrated Good understanding of above education and HEP. Rehab Potential Good Assessment: Patient is a 37 year old female with a history of back pain. Her exam shows altered mechanics with trunk motion which shows a fulcrum/hyperextension effect in the lower thoracic. She willneed to work on mechanics in the spine including lifting and bending to reduce stress to the thoracic region Therapy Goals: (Goals to be met by DC) 1. Increase ROM/ flexibility of the spine to full without pain so patient can do household work without difficulty 2. Good Posture/body Mechanics with lifting 3. Independent HEP to improve mobility and strength 4. Decrease pain to 2/10 so patient can sleep with less disturbance 5. Decrease muscle spasm/tissue tension of the thoracic spine Assessment Eval Complexity Personal Factor/Co-morbidities: 1-2 (Mod) failed prior treatments, Chronicity Examination of Body Systems Needing Addressed: 3 or more (Mod) Muscle Tension, Trunk Deficits, UE Deficits Clinical Presentation of Patient: Evolving (Mod) Evolving and changing characteristics - Varying Pain with Activity Clinical Decision Making: Mod Patient to be seen for: body mechanics education, flexibilty, home exercise program, manual therapy, posture education, ROM, strengthening Next Visit: Review HEP and patient education. Work on body mechanics. Scapular strengthening without excessive thoracic extension Frequency: 2 times per 3-6 week for 6-12 visits. Therapist: BRENNA SMITH, PT Date: 07/23/18 Time: 1:24 PM Physician Signature: Date: Time: Patient Name: Tabby Theodore : 1980 HANDISE TEAM MANAGER documented in this encounter Plan of Treatment Not on file documented as of this encounter Visit Diagnoses Diagnosis Thoracolumbar back pain- Primary Backache, unspecified documented in this encounter Care Teams Java Sql Developer Relationship Specialty Start Date End Date Mal Kumar MD PCP - General 06/26/16 06/16/21 documented as of this encounter
--- OUTSIDE RECORDS SUMMARY | 2024-08-16 12:23 | XMS_ITS | Encounter Summary ---
Author Organization [facility] Address [facility]6 [facility]. [place], [place] [address] [place] [address] Care Team Providers Care Beauty Culture Teacher Name Role Phone Horace Mixon MD Primary Care Provider [phone] Reason for Visit * Reason Comments Sore Throat Earache Encounter Details Date Type Department Care Team (Latest Contact Info) Description 06/17/2021 8:05 AM DATACAP DEVELOPER - 06/17/2021 9:05 AM [facility] Hospital Encounter [facility] [address] [place] [address] Terry Kelley MD [address] [place] [address] Sore Throat; Earache Discharge Disposition: Home or Self Care (Routine [...] COVID-19? No / Unsure 06/17/2021 8:01 AM DATACAP DEVELOPER documented as of this encounter Last Filed Vital Signs Vital Sign Reading Time Taken Comments Blood Pressure 137/84 06/17/2021 8:13 AM DATACAP DEVELOPER Pulse 81 06/17/2021 8:13 AM DATACAP DEVELOPER Temperature 36.1 ??C (97 ??F) 06/17/2021 8:13 AM DATACAP DEVELOPER Respiratory Rate 16 06/17/2021 8:13 AM DATACAP DEVELOPER Oxygen Saturation 98% 06/17/2021 8:13 AM DATACAP DEVELOPER Inhaled Oxygen Concentration - - Weight 70.3 kg (155 lb) 06/17/2021 8:13 AM DATACAP DEVELOPER Height 162.6 cm (5' 4 ) 06/17/2021 8:13 AM DATACAP DEVELOPER Body Mass Index 26.61 06/17/2021 8:13 AM DATACAP DEVELOPER documented in this encounter Discharge Instructions * Attachments The following attachments cannot be sent through Care Everywhere. * Ear Infection ED ([place]) * COVID-19 Tests ([place]) documented in this encounter Medications at Time of Discharge labetalol 200 MG tablet Take 200 mg by mouth 2 (two) times daily. 1 06/16/2018 Norethindrone, Contraceptive, 0.35 MG tablet Take 1 tablet by mouth daily. 01/28/2021 vitamin D2, ergocalciferol, (VITAMIN D, ERGOCALCIFEROL,) 95874 UNITS capsule Take 50,000 Units by mouth once a week. 12/22/2020 amoxicillin 875 MG tablet Take 1 tablet (875 mg total) by mouth 2 (two) times daily for 10 days. 20 tablet 06/17/2021 06/27/2021 hydrocodone-aceta minophen 5-325 MG tablet Take 1 tablet by mouth daily as needed. 0 07/03/2018 10/31/2021 varenicline 1 MG tablet Take 1 mg by mouth 2 (two) times daily. 08/30/2021 vitamin D2, ergocalciferol, 10917 UNITS capsule Take 50,000 Units by mouth daily. 08/30/2021 documented as of this encounter ED Notes * Terry Kelley MD - 06/17/2021 8:25 AM CST [facility] Urgent [facility] HISTORICAL INFORMATION Primary Care Doctor: HORACE MIXON MD Patient information was obtained primarily from the patient, nursing notes. History/Exam limitations: None Provider at Bedside Date/Time Event User Comments 06/17/21 0828 Provider at Bedside Assessing Patient TERRY KELLEY CHIEF COMPLAINT Sore Throat and Earache Chief Complaint Patient presents with ??? Sore Throat ??? Earache HPI Tabby Theodore is a 40-year-old female who presents 2-day history of sore throat following which she has had nasal congestion nasal drainage that has been thick and yellow. Since this morning she has had a crackling sensation in her right ear as well as some discomfort and difficulty hearing through the ear. She has not been vaccinated for COVID-19. Denies any fever chills cough or shortness of breath. Denies any nausea vomiting diarrhea or skin rash. PAST MEDICAL HISTORY Past Medical History: Diagnosis Date ??? Hypertension SURGICAL HISTORY History reviewed. No pertinent surgical history. CURRENT MEDICATIONS No current facility-administered medications for this encounter. Current Outpatient Medications: ??? varenicline 1 MG tablet, Take 1 mg by mouth 2 (two) times daily., Disp: , Rfl: ??? hydrocodone-acetaminophen 5-325 MG tablet, Take 1 tablet by mouth daily as needed., Disp: , Rfl: 0 ??? labetalol 200 MG tablet, Take 200 mg by mouth 2 (two) times daily., Disp: , Rfl: 1 ??? vitamin D2, ergocalciferol, 25203 UNITS capsule, Take 50,000 Units by mouth daily., Disp: , Rfl: ALLERGIES No Known Allergies FAMILY HISTORY Family History Problem Relation Name Age of Onset ??? Kidney Cancer Mother ??? Diabetes Mother ??? Hypertension Mother ??? Migraines/Headaches Mother ??? Colon Cancer Father SOCIAL HISTORY Social History Socioeconomic History ??? Marital status: Spouse name: Not on file ??? Number of children: Not on file ??? Years of education: Not on file ??? Highest education level: Not on file Occupational History ??? Not on file Tobacco Use ??? Smoking status: Current Every Day Smoker Types: Cigarettes ??? Smokeless tobacco: Never Used Vaping Use ??? Vaping Use: Never used Substance and Sexual Activity ??? Alcohol use: Yes Comment: socially ??? Drug use: Yes Types: Marijuana Comment: socially ??? Sexual activity: Not on file Other Topics Concern ??? Not on file Social History Narrative ??? Not on file Social Determinants of Health Financial Resource Strain: Not on file Food Insecurity: Not on file Transportation Needs: Not on file Physical Activity: Not on file Stress: Not on file Social Connections: Not on file Intimate Partner Violence: Not on file REVIEW OF SYSTEMS Constitutional: Denies fever, chills, weight loss or weakness. Skin: Denies rash. HEENT: sore throat or ear pain. And difficulty hearing Respiratory: Denies cough or shortness of breath. Cardiovascular: Denies chest pain, palpitations or swelling. GI: Denies abdominal pain, nausea, vomiting, or diarrhea. : Denies dysuria, urinary frequency. Musculoskeletal: Denies back pain. Neurologic: Denies headache, focal weakness or sensory changes. Psychiatric: Denies depression, suicidal ideation or homicidal ideation. See HPI for further details. All systems negative except as marked. Physical Exam VITAL SIGNS: Filed Vitals: 06/17/21 0813 BP: 137/84 Pulse: 81 Resp: 16 Temp: 97 ??F (36.1 ??C) TempSrc: Temporal SpO2: 98% Weight: 70.3 kg (155 lb) Height: 5' 4 (1.626 m) Constitutional: Well developed, No acute distress, Non-toxic appearance. Integument: Warm, Dry, No erythema, No rash. HEENT: Normocephalic, Atraumatic, Conjunctiva normal Mild injection the oropharynx. Tympanic membrane the right side is not visualized secondary to cerumen impaction. Left tympanic membrane EAC normal. Neck- Normal range of motion, Supple Back- Normal range of motion, No gross abnormality Respiratory: Normal breath sounds, No respiratory distress. Cardiovascular: Normal heart rate, Normal rhythm GI: Bowel sounds normal, Soft, No tenderness Musculoskeletal: Good ROM, no deformities noted Neurologic: Alert & oriented x 3, No focal deficits noted. Psychiatric: Affect normal, Judgment normal, Mood normal. EKG (interpreted by ED provider) No results found for this visit on 06/17/21. LABORATORY Labs Reviewed CORONAVIRUS (COVID 19) RADIOLOGY No orders to display PROCEDURES Procedures Irrigation attempted but not tolerated by the patient. She was dizzy and had some increased pain. She was given ibuprofen and Zofran and felt much better 15 minutes later. Examination right ear now reveals part of the tympanic membrane that can be visualized and appears to be distended dull and erythematous. MDM 40-year-old presents with URI and clinical picture consistent with acute otitis media. Due to the ongoing COVID-19 pandemic will swab for COVID-19 as patient is unvaccinated and will treat with amoxicillin and have patient follow-up with primary MD in 3 to 5 days. I have discussed today's findings with the patient and provided information regarding the likely diagnosis. The patient has been given information regarding their treatment, follow up and concerning symptoms for which they should seek urgent or emergent attention. I have expressed the the importance of seeking attention should there be any new, or worsening symptoms or persistence of their condition. The patient is stable at discharge and has verbalized understanding of these instructions. Impression/Disposition No diagnosis found. Disposition: Data Unavailable Medications - No data to display Current Discharge Medication List MD Terry VERNON MD 06/17/21 0900 CAP DEVELOPER * Jessica Kruger RN - 06/17/2021 8:10 AM CST Pt reports a sore throat, congestion, sore throat, and a Right earache for a couple of days. No known fevers. Has not been vaccinated for COVID. CAP DEVELOPER documented in this encounter Plan of Treatment Not on file documented as of this encounter Procedures Procedure Name Priority Date/Time Associated Diagnosis Comments CORONAVIRUS (COVID 19) Routine 06/17/2021 8:27 AM DATACAP DEVELOPER documented in this encounter Results * CORONAVIRUS (COVID 19) (06/17/2021 8:27 AM DATACAP DEVELOPER) SPEC DESCRIPTION NASAL 06/17/20 8:28 AM DATACAP DEVELOPER [facility] CORONAVIRUS SARS COV 2 PCR (RESP) NEGATIVE NEGATIVE 06/18/2021 4:56 PM DATACAP DEVELOPER [facility] Comment: THE SARS-CoV-2 TEST HAS BEEN AUTHORIZED BY THE FDA UNDER AN EUA FOR USE BY AUTHORIZED LABORATORIES. PERFORMED BY NUCLEIC ACID AMPLIFICATION PCR FIRST TEST UNKNOWN 06/17/2021 8:28 AM DATACAP DEVELOPER [facility] EMPLOYED IN HEALTHCARE UNKNOWN 06/17/2021 8:28 AM DATACAP DEVELOPER [facility] SYMPTOMATIC DEFINED BY CDC YES 06/17/2021 8:28 AM DATACAP DEVELOPER [facility] DATE OF SYMPTOM ONSET [id number]/17/2021 8:28 AM DATACAP DEVELOPER [facility] HOSPITALIZATION STATUS NO 06/17/2021 8:28 AM DATACAP DEVELOPER [facility] RESIDENT OF CONGREGATE CARE UNKNOWN 06/17/2021 8:28 AM DATACAP DEVELOPER [facility] UNKNOWN 06/17/2021 8:28 AM DATACAP DEVELOPER [facility] NASAL STRUCTURE / Unknown 06/17/2021 8:27 AM DATACAP DEVELOPER Terry Kelley MD MICROBIOLOGY - GENERAL ORDJaswant FLOREZ Final Result [place] [id number] [place] [id number], [facility] [address] [place] [address], documented in this encounter Visit Diagnoses Diagnosis Acute otitis media- Primary Unspecified otitis media Encounter for screening laboratory testing for COVID-19 virus Upper respiratory infection Acute upper respiratory infections of unspecified site Cerumen impaction Impacted cerumen documented in this encounter Administered Medications Inactive Administered Medications - up to 3 most recent administrations Medication Order MAR Action Action Date Dose Rate Site ibuprofen (MOTRIN) tablet 600 mg 600 mg, Oral, Once, 1 dose, On 06/17/21 at 0900 Given 06/17/2021 8:48 AM DATACAP DEVELOPER 600 mg ondansetron (ZOFRAN-ODT) disintegrating tablet 4 mg 4 mg, Oral, Once, 1 dose, On 06/17/21 at 0915 Given 06/17/2021 8:48 AM DATACAP DEVELOPER 4 mg documented in this encounter Active and Recently Administered Medications Times are shown in DATACAP DEVELOPER. Scheduled Medication Order 06/15/2021 06/16/2021 06/17/2021 ibuprofen (MOTRIN) tablet 600 mg (COMPLETED) 600 mg, Oral, Once, 1 dose, On 06/17/21 at 0900 0848 (Given - Provid er: Tracy Serrano RN) ondansetron (ZOFRAN-ODT) disintegrating tablet 4 mg (COMPLETED) 4 mg, Oral, Once, 1 dose, On 06/17/21 at 0915 0848 (Given - Provid er: Tracy Serrano RN) documented in this encounter Additional Health Concerns Infection Onset Date Last Indicated Resolved Time COVID-19 Rule Out 06/17/2021 06/17/2021 06/18/2021 4:56 PM DATACAP DEVELOPER documented as of this encounter Care Teams Beauty Culture Teacher Relationship Specialty Start Date End Date Horace Mixon MD PCP - General FAMILY PRACTICE 06/17/21 documented as of this encounter
--- OUTSIDE RECORDS SUMMARY | 2024-08-16 12:23 | XMS_ITS | Encounter Summary ---
Author Organization [facility] Address [facility]6 [facility]. [place], [place] [id number] [place] [address] Care Team Providers Care Pattern Storage Clerk Name Role Phone Mal Kumar MD Primary Care Provider Unav ailable Mal Kumar MD Primary Care Provider Unav ailable Mal Kumar MD Primary Care Provider Unav ailable Mal Kumar MD Primary Care Provider Unav ailable Encounter Details Date Type Department Care Team (Late st Contact Info) Description 11/30/2008 Abstract [facility] [address] [place] [address] Michelle Britt MD Social History Tobacco Use [...] on filedocumented in this encounter Care Teams Pattern Storage Clerk Relationship Specialty Start Date End Date Mal Kumar MD PCP - General 06/26/16 06/16/21 Mal Kumar MD PCP - General 04/11/15 06/25/16 Mal Kumar MD PCP - General 04/13/13 04/10/15 Mal Kumar MD PCP - General 01/26/13 04/12/13 documented as of this encounter
--- OUTSIDE RECORDS SUMMARY | 2024-08-16 12:23 | XMS_ITS | Encounter Summary ---
Author Organization [facility] Address [facility]6 [facility]. [place], [place] [address] [place] [address] Care Team Providers Care Digital Media Manager Name Role Phone Mal Kumar MD Primary Care Provider Unav ailable Encounter Details Date Type Department Care Team (Late st Contact Info) Description 06/08/2017 [place] [address] , Generic ConversionMD Social History Tobacco Use Types Packs/Day Years [...] on filedocumented in this encounter Care Teams Digital Media Manager Relationship Specialty Start Date End Date Mal Kumar MD PCP - General 06/26/16 06/16/21 documented as of this encounter
--- OUTSIDE RECORDS SUMMARY | 2024-08-16 12:23 | XMS_ITS | Encounter Summary ---
Author Organization [facility] Address [facility]6 [facility]. [place], [place] [address] [place] [address] Care Team Providers Care Catapult And Arresting Gear Officer Name Role Phone Mal Kumar MD Primary Care Provider Unav ailMal Arizmendi MD Primary Care Provider Unav ailable Mal Kumar MD Primary Care Provider Unav ailable Mal Kumar MD Primary Care Provider Unav ailable Encounter Details Date Type Department Care Team (Late st Contact Info) Description 01/26/2013 Abstract [facility] [address] Mal Kumar MD Social History Tobacco Use Types Packs/Day [...] as of this encounter Visit Diagnoses Diagnosis Benign essential hypertension Essential hypertension, benign documented in this encounter Care Teams Catapult And Arresting Gear Officer Relationship Specialty Start Date End Date Mal Kumar MD PCP - General 06/26/16 06/16/21 Mal Kumar MD PCP - General 04/11/15 06/25/16 Mal Kumar MD PCP - General 04/13/13 04/10/15 Mal Kumar MD PCP - General 01/26/13 04/12/13 documented as of this encounter
--- OUTSIDE RECORDS SUMMARY | 2024-08-16 12:23 | XMS_ITS | Encounter Summary ---
Author Organization [facility] Address [facility]6 [facility]. [place], [place] [address] [place] [address] Care Team Providers Care Truck Caterer Name Role Phone Mal Kumar MD Primary Care Provider Unav ailable Encounter Details Date Type Department Care Team (Late st Contact Info) Description 06/26/2016 Abstract [facility] [place] [address] Michelle Britt MD Social History Tobacco Use [...] as of this encounter Visit Diagnoses Diagnosis Other specified related conditions, first trimester (HHS/HCC) documented in this encounter Care Teams Truck Caterer Relationship Specialty Start Date End Date Mal Kumar MD PCP - General 06/26/16 06/16/21 documented as of this encounter
--- OUTSIDE RECORDS SUMMARY | 2024-08-16 12:27 | XMS_ITS | Encounter Summary ---
Author Organization [facility] Address [address] [place] [address] Care Team Providers Care Warp Hand Name Role Phone Unavailable Primary Care Provider Unavailabl e Reason for Visit * Neurology (Routine) - Closed Specialty Diagnoses / Procedures Referred By Contsatya t Referred To Contact Diagnoses Numbness and tingling in left arm Procedures EMG/NCV - Anupam Oates PA Phone: tel: fax: [facility] [address] [place] [address] Referral ID Status Reason Start Date Expiration Date Visits Re quested Visits Authorized [id number] Closed 06/25/2022 07/25/2023 1 1 Encounter Details Date Type Department Care Team (Late st Contact Info) Description 07/24/2022 12:00 PM 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 2-4 times a month 07/11/2022 Q2: How many drinks containi ng alcohol do you have on a typical day when you are drinking? 1 or 2 07/11/2022 Q3: How often do you have si x or more drinks on one occasion? 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 GRAIN OR LIVESTOCK FARM MANAGER documented in this encounter Plan of Treatment Not on file documented as of this encounter Visit Diagnoses Diagnosis Numbness and tingling in left arm documented in this encounter Orders Imaging Orders Without Results Count Last Order ed Date First Ordered Date EMG/NCV 1 07/24/2022 documented in this encounter
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
--- OUTSIDE RECORDS SUMMARY | 2024-08-16 12:27 | XMS_ITS | Encounter Summary ---
Author Organization [facility] Address [address] [place] [address] Care Team Providers Care Ruby On Rails Developer Name Role Phone Unavailable Primary Care Provider Unavailabl e Encounter Details Date Type Department Care Team (Late st Contact Info) Description 07/17/2022 Telephone [facility] Family Medicine at [address] [place] [address] Anupam Oates PA [address] [place] [address] [address] [place] [address] Social History Tobacco Use Types Packs/Day Years [...] on file Legal Sex Female 7:26 PM RAM CAR OPERATOR Gender Identity Female 04/19/2021 6:39 AM CDT Sexual Orientation Straight 04/19/2021 6: 39 AM CDT documented as of this encounter Miscellaneous Notes * Telephone Encounter - Macie Warren RN - 07/17/2022 4:12 PM RAM CAR OPERATOR New gi referral placed CAR OPERATOR * Telephone Encounter - Rachel Trujillo RN - 07/17/2022 3:42 PM RAM CAR OPERATOR Ok per VO Anupam CAR OPERATOR * Telephone Encounter - Macie Warren RN - 07/17/2022 3:21 PM RAM CAR OPERATOR I think you see her. Dr conroy? CAR OPERATOR * Telephone Encounter - Macie Warren RN - 07/17/2022 3:21 PM RAM CAR OPERATOR Good afternoon, Dr. Lan is not credentialed with [facility] at this time. Would you want to wait for testing untilhe is or prefer to refer the patient to someone else? CAR OPERATOR documented in this encounter Plan of Treatment Not on file documented as of this encounter Visit Diagnoses Diagnosis Colon cancer screening- Primary Special screening for malignant neoplasms, colon documented in this encounter
--- OUTSIDE RECORDS SUMMARY | 2024-08-16 12:27 | XMS_ITS | Encounter Summary ---
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 Name Role Phone Bong Mixon MD Primary Care Provider [phone] Reason for Referral * Consultation (Routine) - Pending Review Specialty Diagnoses / Procedures Referred By Contac t Referred To Contact Gastroenterology Diagnoses Colitis Enteritis Kellie Nolan NP [address] [place] [phone] Phone: tel: fax: Mal Goodwin MD [address] [place] [phone] Phone: tel: fax: Referral ID Status Reason Start Date Expiration Date Visits Requested Visits Authorized [id number] Pending Review Specialty Services Required 09/16/2023 10/15/2024 1 1 Question Answer Process Instructions: THE AMBULATORY REFERRAL TO GASTROENTEROLOGY IS NOT AN ORDER FOR A PROCEDURE (I.E. EGD, COLONOSCOPY.) USE THE DIRECT SCHEDULING CASE REQUEST ORDER (GI50) IF THE PATIENT REQUIRES A PROCEDURE TO BE PERFORMED. Please select the performing region: External Order [[id number]] To provider: MAL GOODWIN [[id number]] # of visits: 1 AL SERVICE ASSISTANT Reason for Visit * Reason Comments Abdominal Pain Flank Pain Encounter Details Date Type Department Care Team ([facility] Contact Info) Description 09/16/2023 3:17 PM SOCIAL SERVICE ASSISTANT - 09/16/2023 3:49 PM SOCIAL SERVICE ASSISTANT Emergency [facility] [address] [place] [address] Colitis (Primary Dx); Enteritis Discharge Disposition: Discharge to home or self care Social History Tobacco Use Types Packs/Day Years [...] on file Legal Sex Female 7:26 PM SOCIAL SERVICE ASSISTANT Gender Identity Female 04/19/2021 6:39 AM CDT Sexual Orientation Straight 04/19/2021 6: 39 AM CDT documented as of this encounter Last Filed Vital Signs Vital Sign Reading Time Taken Comments Blood Pressure 162/117 09/16/2023 2:38 PM SOCIAL SERVICE ASSISTANT Pulse 88 09/16/2023 2:38 PM SOCIAL SERVICE ASSISTANT Temperature 36.9 ??C (98.4 ??F) 09/16/2023 1 0:19 AM SOCIAL SERVICE ASSISTANT Respiratory Rate 17 09/16/2023 2:38 PM SOCIAL SERVICE ASSISTANT Oxygen Saturation 100% 09/16/2023 2:38 PM SOCIAL SERVICE ASSISTANT Inhaled Oxygen Concentration - - Weight 62.9 kg (138 lb 10.7 oz) 024 10:19 AM SOCIAL SERVICE ASSISTANT Height 162.6 cm (5' 4 ) 09/16/2023 10:1 9 AM SOCIAL SERVICE ASSISTANT Body Mass Index 23.8 09/16/2023 10:19 AM SOCIAL SERVICE ASSISTANT documented in this encounter Discharge Instructions * Discharge Instructions* Kellie Nolan NP - 09/16/2023 3:35 PM SOCIAL SERVICE ASSISTANT Please follow up with your primary care physician, as soon as possible, and ideally within 5 days regarding your elevated blood pressure today and the small lesion noted to your spleen on the CT. Radiologist recommends outpatient MRI regarding lesion. Referral provided to GI. Please take any new medications as prescribed. Please return to the emergency department for worsening of your symptoms orany new problems which may arise. It is mandatory that you follow up, as recommended, with a primary care physician or specialist, per your discharge paperwork.You have received emergency care only at your visit today, an this is nota substitute for ongoing care, further evaluation, or treatment. Therefore, follow-up as directed is not optional, but mandatory. This ensures that any incidental abnormal radiographic and laboratoryfindings are evaluated appropriately. Return immediately for any new symptoms, worsening of symptoms, or persistent symptoms. We are open25/02 and will take care of you. AL SERVICE ASSISTANT * Attachments The following attachments cannot be sent through Care Everywhere. * Colitis (AfterCare(R) Instructions(ER/ED)) (Egyptian) * Enteritis (AfterCare(R) Instructions(ER/ED)) (Egyptian) documented in this encounter Medications at Time of Discharge cefuroxime (CEFTIN) 500 mg tablet Take 1 tablet (500 mg total) by mouth 2 (two) times a day 20 tablet 09/07/2022 HYDROcodone-aceta minophen (NORCO) 7.5-325 mg per tabletIndications :Pain Take 1 tablet by mouth every 8 (eight) hours as needed for pain Must last 30 days 65 tablet 09/25/2022 ibuprofen (ADVIL,MOTRIN) 800 mg tabletIndications :Lumbar herniated disc,Sciatica of left side TAKE ONE TABLET BY MOUTH THREE TIMES DAILY NEEDED FOR PAIN 90 tablet 1 08/14/2022 labetaloL (NORMODYNE,TRANDA TE) 200 mg tabletIndications :Benign essential HTN Take 1 tablet (200 mg total) by mouth 2 (two) times a day 180 tablet 3 11/28/2021 methocarbamoL (ROBAXIN) 500 mg tablet Take 1 tablet (500 mg total) by mouth 2 (two) times a day 15 tablet 06/21/2022 naproxen (NAPROSYN) 500 mg tablet Take 1 tablet (500 mg total) by mouth 2 (two) times a day with meals 15 tablet 06/21/2022 norethindrone (MICRONOR) 0.35 mg tablet Take 1 tablet by mouth daily 01/28/2021 traMADoL (ULTRAM) 50 mg tablet Take 1 tablet (50 mg total) by mouth every 6 (six) hours 10 tablet 09/16/2023 Vitamin D2 1,250 mcg (50,000 unit) capsule Take 50,000 Units by mouth every 7 days 12/22/2020 ciprofloxacin (CIPRO) 500 mg tablet Take 1 tablet (500 mg total) by mouth 2 (two) times a day for 7 days 14 tablet 09/16/2023 09/23/2023 metroNIDAZOLE (FLAGYL) 500 mg tablet Take 1 tablet (500 mg total) by mouth 2 (two) times a day for 7 days 14 tablet 09/16/2023 09/23/2023 documented as of this encounter Ordered Prescriptions Prescription Sig Dispense Quantity Refills Last Filled Start Date End Date traMADoL (ULTRAM) 50 mg tablet Take 1 tablet (50 mg total) by mouth every 6 (six) hours 10 tablet 09/16/2023 traMADoL (ULTRAM) 50 mg tablet Take 1 tablet (50 mg total) by mouth every 6 (six) hours 10 tablet 09/16/2023 09/16/2023 metroNIDAZOLE (FLAGYL) 500 mg tablet Take 1 tablet (500 mg total) by mouth 2 (two) times a day for 7 days 14 tablet 09/16/2023 09/23/2023 ciprofloxacin (CIPRO) 500 mg tablet Take 1 tablet (500 mg total) by mouth 2 (two) times a day for 7 days 14 tablet 09/16/2023 09/23/2023 documented in this encounter Discharge Disposition Disposition Code Departure Means Destination Comment s Discharge to home or self care documented in this encounter ED Notes * Kellie Nolan NP - 09/16/2023 3:22 PM CST CHIEF COMPLAINT: Chief Complaint Patient presents with Abdominal Pain Flank Pain HPI 3:30 PM Tabby Theodore is a 42 y.o. female presenting to the ED c/o left lower abdominal pain that radiates through flank area for about 3 weeks that has been intermittent worsening this week. Reportsdiarrhea and vomiting along with the pain. Denies fever, chills, cough or cold symptoms PCP: Bong Mixon MD PAST MEDICAL HISTORY Past Medical History: Diagnosis Date Hypertension Lumbar herniated disc PAST SURGICAL HISTORY Past Surgical History: Procedure Laterality Date WISDOM TOOTH EXTRACTION FAMILY HISTORY Family History Problem Relation Age of Onset Kidney cancer Mother Hypertension Mother Diabetes Mother Colon cancer Father No Known Problems Sister No Known Problems Brother No Known Problems Son MEDICATIONS GIVEN IN THE ED Medications ioversoL (OPTIRAY 350) syringe 100 mL (100 mL intravenous Contrast Given 09/16/23 1331) dexAMETHasone (DECADRON) preservative free solution 10 mg (10 mg intravenous Given 09/16/23 1528) CURRENT HOME MEDICATIONS No current facility-administered medications for this encounter. Current Outpatient Medications: cefuroxime (CEFTIN) 500 mg tablet, Take 1 tablet (500 mg total) by mouth 2 (two) times a day, Disp:20 tablet, Rfl: 0 HYDROcodone-acetaminophen (NORCO) 7.5-325 mg per tablet, Take 1 tablet by mouth every 8 (eight) hours as needed for pain Must last 30 days, Disp: 65 tablet, Rfl: 0 ibuprofen (ADVIL,MOTRIN) 800 mg tablet, TAKE ONE TABLET BY MOUTH THREE TIMES DAILY NEEDED FOR PAIN, Disp: 90 tablet, Rfl: 1 labetaloL (NORMODYNE,TRANDATE) 200 mg tablet, Take 1 tablet (200 mg total) by mouth 2 (two) times aday, Disp: 180 tablet, Rfl: 3 lidocaine (LIDODERM) 5 %, Place 1 patch on the skin daily for 7 days Remove & discard patch within 12 hours or as directed by MD., Disp: 7 patch, Rfl: 0 methocarbamoL (ROBAXIN) 500 mg tablet, Take 1 tablet (500 mg total) by mouth 2 (two) times a day, Disp: 15 tablet, Rfl: 0 naproxen (NAPROSYN) 500 mg tablet, Take 1 tablet (500 mg total) by mouth 2 (two) times a day with meals, Disp: 15 tablet, Rfl: 0 norethindrone (MICRONOR) 0.35 mg tablet, Take 1 tablet by mouth daily, Disp: , Rfl: varenicline tartrate (CHANTIX) 1 mg tablet, Take 1 tablet (1 mg total) by mouth 2 (two) times a dayTake with full glass of water., Disp: 60 tablet, Rfl: 1 Vitamin D2 1,250 mcg (50,000 unit) capsule, Take 50,000 Units by mouth every 7 days, Disp: , Rfl: ALLERGIES No Known Allergies SOCIAL HISTORY Social History Tobacco Use Smoking status: Every Day Packs/day: .4 Types: Cigarettes Start date: 08/27/2021 Smokeless tobacco: Never Substance and Sexual Activity Drug use: Yes Types: Marijuana Sexual activity: Not on file Alcohol Use: Not At Risk (07/11/2022) AUDIT-C Frequency of Alcohol Consumption: 2-4 times a month Average Number of Drinks: 1 or 2 Frequency of Binge Drinking: Never Recent Concern: Alcohol Use - Alcohol Misuse (04/26/2022) AUDIT-C Frequency of Alcohol Consumption: 2-4 times a month Average Number of Drinks: 3 or 4 Frequency of Binge Drinking: Never PHYSICAL EXAM TRIAGE VITAL SIGNS: ED Triage Vitals [09/16/23 1019] Temp Pulse Resp BP SpO2 36.9 ??C (98.4 ??F) 90 16 (!) 192/114 100 % Temp src Heart Rate Source Patient Position BP Location FiO2 (%) Skin Pulse Oximetry Sitting Right arm -- Height Height Method Weight Weight Method 1.626 m (5' 4 ) Stated 62.9 kg (138 lb 10.7 oz) Standing scale Physical Exam Vitals and nursing note reviewed. Constitutional: General: She is not in acute distress. Appearance: Normal appearance. She is not ill-appearing or toxic-appearing. HENT: Head: Normocephalic and atraumatic. Right Ear: External ear normal. Left Ear: External ear normal. Nose: Nose normal. Eyes: Extraocular Movements: Extraocular movements intact. Pupils: Pupils are equal, round, and reactive to light. Cardiovascular: Rate and Rhythm: Normal rate and regular rhythm. Heart sounds: Normal heart sounds. No murmur heard. No friction rub. No gallop. Pulmonary: Effort: Pulmonary effort is normal. Breath sounds: Normal breath sounds. Abdominal: General: Bowel sounds are normal. There is no distension. Palpations: Abdomen is soft. There is no mass. Tenderness: There is abdominal tenderness in the left lower quadrant. There is no guarding. Musculoskeletal: General: No deformity. Normal range of motion. Skin: General: Skin is warm and dry. Capillary Refill: Capillary refill takes less than 2 seconds. Neurological: General: No focal deficit present. Mental Status: She is alert and oriented to person, place, and time. Psychiatric: Mood and Affect: Mood normal. LABS Labs Reviewed POCT HCG, URINE - Normal Result Value HCG, ur, POC Negative Lot Number [id number] QC Backgroud Clear Acceptable QC Control Line Acceptable URINALYSIS AND REFLEX TO MICROSCOPIC AND CULTURE Color, ur Yellow Clarity, ur Clear Specific gravity, ur 1.014 pH, urine 7.0 Protein, ur ql Negative Glucose, ur ql Negative Ketones, ur Negative Bilirubin, ur Negative Blood, ur Negative Urobilinogen, ur <2.0 Nitrite, ur Negative Leukocyte esterase, ur Negative UA reflex comment Value: Reflex conditions for microscopic UA and culture not met. CBC WITH AUTO DIFFERENTIAL WBC 8.5 Hgb 12.7 Hct 37.3 Plt 207 MPV 9.1 RBC 3.91 MCV 95.4 MCH 32.5 MCHC 34.0 RDW CV 12.5 RDW SD 43.5 NRBC abs 0.00 COMPREHENSIVE METABOLIC PANEL Sodium 142 Potassium, pl 3.9 Chloride 106 CO2 25 Anion gap 11 BUN 19 Creatinine 0.64 Glucose 99 Calcium 9.1 Bilirubin, total 0.4 Protein, pl 6.6 Albumin 4.4 Alk phos 46 ALT 9 AST 14 LIPASE Lipase 45 DIFFERENTIAL AUTO Neutrophil abs 6.1 Imm gran abs 0.0 Lymphocyte abs 1.9 Monocyte abs 0.4 Eosinophil abs 0.1 Basophil abs 0.0 Neutrophil pct 71.8 Imm gran pct 0.2 Lymphocyte pct 22.6 Monocyte pct 4.4 Eosinophil pct 0.8 Basophil pct 0.2 EGFR eGFR 112 RADIOLOGY Impression: Interpreted by radiologist and reviewed by this provider EXAM DESCRIPTION: CT ABDOMEN PELVIS W CONTRAST REASON FOR STUDY: Flank pain, kidney stone suspected Pt c/o left sided of abdominal pain that radiates through to her flank. Pt states pain has been intermittent for roughly three weeks but has gotten more severe this week. Pt reports two separate episodes of vomiting. Hx: HTN TECHNIQUE: CT scan of the abdomen and pelvis performed with intravenous and without oral contrast using helical scanning technique with dynamic intravenous contrast injection. Reconstructed coronal and sagittal MPR images reviewed. All images stored on PACS. Automated exposure control was used as a dose optimization technique for this examination. CONTRAST TYPE/DOSE: 100mL of IOVERSOL 350 MG IODINE/ML INTRAVENOUS SYRINGE injected via intravenous COMPARISON: None REFERENCE: Per ACR white paper recommendations, unless otherwise specified no follow-up imaging is recommended for incidental renal and adrenal lesions per consensus recommendations based on imaging criteria. Further lab evaluation could be pursued based on clinical findings. FINDINGS: LOWER CHEST: The heart size is normal. There is no definite evidence of a pericardial effusion. There are minimal to mild atherosclerotic changes of the aorta. Visualized lung bases are grossly clear. LIVER: The liver is grossly normal in size and contour without definite evidence of focal hepatic lesion. The hepatic and portal veins are grossly patent. GALLBLADDER: Grossly unremarkable. BILE DUCTS: No intrahepatic or extrahepatic ductal dilatation. SPLEEN: The spleen is grossly normal in size. There is an indeterminate hypoattenuating lesion in the lower aspect of the spleen measuring 1.8 cm (axial image 49). PANCREAS: The pancreas appears grossly unremarkable without definite evidence of pancreatic ductal dilatation, peripancreatic inflammatory changes, or peripancreatic fluid collection. ADRENALS: The bilateral adrenal glands are grossly symmetrical and unremarkable. KIDNEYS/URINARY TRACT: The bilateral kidneys enhance symmetrically. There is no definite evidence of focal renal lesion. The bilateral kidneys have extrarenal pelves, which is greater on the left than the right. There is no definite evidence of hydronephrosis or hydroureter. The urinary bladder is grossly unremarkable. GI: There is no definite evidence of a bowel obstruction. There is mild mucosal thickening of the small bowel. The appendix is visualized without definite evidence of pericecal or periappendiceal inflammatory changes to suggest appendicitis. There is mild mucosal thickening of the mid to distal transverse colon, descending colon, and sigmoid colon. There is a tiny fat containing periumbilical hernia. There is small amount of nonspecific free fluid in the pelvis. There is no definite evidence of free air in the abdomen and pelvis. There is no definite evidence of lymphadenopathy in the abdomen and pelvis. REPRODUCTIVE: There are likely follicular changes of the bilateral ovaries. There is a dominant follicle or cyst in the right ovary measuring 1.6 cm. There are prominent periuterine vessels noted with reflux of contrast into the gonadal veins, which is nonspecific, and can be seen in the setting of pelvic congestion syndrome. MUSCULOSKELETAL: There is a minimal dextroscoliotic curvature of the spine, which may be positional. There are minimal to mild degenerative changes of the spine. OTHER: No other abnormality. IMPRESSION: No definite evidence of bowel obstruction. Mild mucosal thickening of the small bowel, which raises the concern for mild enteritis of infectious or inflammatory etiology. Mild mucosal thickening of the mid to distal transverse colon, descending colon, and sigmoid colon, which may be related to underdistention versus a component of mild colitis of infectious or inflammatory etiology. Small amount of nonspecific free fluid in the pelvis. Right ovarian dominant follicle or cyst measuring 1.6 cm. Indeterminate hypoattenuating splenic lesion measuring 1.8 cm. Further evaluation with MRI with contrast on a nonemergent basis is recommended as clinically indicated. Appendix is visualized without definite evidence of pericecal or periappendiceal inflammatory changes to suggest appendicitis. THIS IS AN ELECTRONICALLY VERIFIED FINAL REPORT 09/16/2023 1:43 PM - Electronically signed by Mabel Terry D.O. PS T: Report ID: [id number] Reading Location: [id number] Specimen Collected: 09/16/23 13:39 Last Resulted: 09/16/23 13:43 EKG N/A ED COURSE/MEDICAL DECISION MAKING Differential diagnosis included but not limited to UTI, kidney stone, colitis, muscle strain Labs and CT obtained prior to my shift. Labs negative, WBC normal and UA without signs of infectionor hematuria. CT scan indicates enteritis and colitis Also noted on scan is lesion to the spleen which radiologist recommends outpatient MRI for further evaluation. Patient will be treated for colitis/enteritis with Zofran and Augmentin with GI referral and instruction to follow up with PCP regarding lesion on spleen. She verbalizes understanding and agreement with plan of care and will follow up Patient's medical records were reviewed. Procedures FINAL IMPRESSION No diagnosis found. DISPOSITION: Home All findings were discussed with patient. Pt agreeable with plan. Non toxic appearing, vitals stable. Patient stable for discharge home. Given return to ER precautions Close outpatient follow-up with a low threshold to return has been mandated, concerning symptoms have been emphasized in detail, and this patient expresses understanding PATIENT INSTRUCTED TO FOLLOW UP No follow-up provider specified. DISCHARGE MEDICATIONS Your medication list ASK your doctor about these medications Instructions Last Dose Given Next Dose Due cefuroxime 500 mg tablet Commonly known as: CEFTIN 500 mg, oral, 2 times daily HYDROcodone-acetaminophen 7.5-325 mg per tablet Doctor's comments: Fill date 06/29/2022 Commonly known as: NORCO 1 tablet, oral, Every 8 hours PRN, Must last 30 days ibuprofen 800 mg tablet Commonly known as: ADVIL,MOTRIN TAKE ONE TABLET BY MOUTH THREE TIMES DAILY NEEDED FOR PAIN labetaloL 200 mg tablet Commonly known as: NORMODYNE,TRANDATE 200 mg, oral, 2 times daily lidocaine 5 % Commonly known as: LIDODERM 1 patch, transdermal, Daily, Remove & discard patch within 12 hours or as directed by MD. methocarbamoL 500 mg tablet Commonly known as: ROBAXIN 500 mg, oral, 2 times daily naproxen 500 mg tablet Commonly known as: NAPROSYN 500 mg, oral, 2 times daily with meals (bkfst, dinner) norethindrone 0.35 mg tablet Commonly known as: MICRONOR 1 tablet, oral, Daily varenicline tartrate 1 mg tablet Commonly known as: CHANTIX 1 mg, oral, 2 times daily, Take with full glass of water. Vitamin D2 1,250 mcg (50,000 unit) capsule Generic drug: ergocalciferol 50,000 Units, oral, Every 7 days This examination was transcribed using the [employer] voice recognition system without human shipping helper. In an effort to expedite patient care, this report has not been adjusted for typographical, grammatical, and syntax by a trained medical assistant internal medicine. Kellie Nolan NP 09/16/23 [id number] Cosigned by José Miguel Simpson Jr., MD at 09/16/2023 10:24 PM SOCIAL SERVICE ASSISTANT AL SERVICE ASSISTANT AL SERVICE ASSISTANT Associated attestation - José Miguel Simpson Jr., MD - 09/16/2023 10:24 PM SOCIAL SERVICE ASSISTANT ED Attestation Based on the medical record the care appears appropriate. * Gio Salcedo RN - 09/16/2023 10:35 AM CST Pt arrives to triage with c/o left sided of abdominal pain that radiates through to her flank. Pt states pain has been intermittent for roughly three weeks but has gotten more severe this week. Pt reports two separate episodes of vomiting. AL SERVICE ASSISTANT documented in this encounter Plan of Treatment Scheduled Referrals Name Type Priority Associated Diagnoses Order Schedule Ambulatory referral to Gastroenterology Outpatient Referral Routine Colitis Enteritis Expected: 09/30/2023 (Approximate), Expires: 09/16/2024 documented as of this encounter Procedures Procedure Name Priority Date/Time Associated Diagnosis Comments CT ABDOMEN PELVIS W CONTRAST ED 09/16/2023 1:30 PM SOCIAL SERVICE ASSISTANT POCT HCG, URINE Routine 09/16/2023 11:09 AM SOCIAL SERVICE ASSISTANT URINALYSIS AND REFLEX TO MICROSCOPIC AND CULTURE STAT 09/16/2023 10:51 AM SOCIAL SERVICE ASSISTANT EGFR STAT 09/16/2023 10:50 AM SOCIAL SERVICE ASSISTANT DIFFERENTIAL AUTO STAT 09/16/2023 10: 50 AM SOCIAL SERVICE ASSISTANT CBC WITH AUTO DIFFERENTIAL STAT 09/16/2023 10:50 AM SOCIAL SERVICE ASSISTANT LIPASE STAT 09/16/2023 10:50 AM SOCIAL SERVICE ASSISTANT COMPREHENSIVE METABOLIC PANEL STAT 09/16/2023 10:50 AM SOCIAL SERVICE ASSISTANT documented in this encounter Results * CT Abdomen Pelvis W Contrast (09/16/2023 1:30 PM SOCIAL SERVICE ASSISTANT) Anatomical Region Laterality Modality Body N/A Computed Tomogra phy 09/16/2023 1:39 PM SOCIAL SERVICE ASSISTANT Narrative 09/16/2023 1:43 PM SOCIAL SERVICE ASSISTANT EXAM DESCRIPTION: ?? CT ABDOMEN PELVIS W CONTRAST REASON FOR STUDY: ?? Flank pain, kidney stone suspected ?? Pt c/o left sided of abdominal pain that radiates through to her flank. Pt states pain has been intermittent for roughly three weeks but has gotten more severe this week. Pt reports two separate episodes of vomiting. ?Hx: HTN ?? TECHNIQUE: CT scan of the abdomen and pelvis performed with intravenous and ?? without ??oral contrast using helical scanning technique with dynamic intravenous contrast injection. Reconstructed coronal and sagittal MPR images reviewed. All images stored on PACS. Automated exposure control was used as a dose optimization technique for this examination. CONTRAST TYPE/DOSE: ?? 100mL of IOVERSOL 350 MG IODINE/ML INTRAVENOUS SYRINGE ?? injected via ?? intravenous COMPARISON: ?? None REFERENCE: Per ACR white paper recommendations, unless otherwise specified no follow-up imaging is recommended for incidental renal and adrenal lesions per consensus recommendations based on imaging criteria. Further lab evaluation could be pursued based on clinical findings. FINDINGS: LOWER CHEST: ?? The heart size is normal. ??There is no definite evidence of a pericardial effusion. ??There are minimal to mild atherosclerotic changes of the aorta. ??Visualized lung bases are grossly clear. LIVER: ?? The liver is grossly normal in size and contour without definite evidence of focal hepatic lesion. ??The hepatic and portal veins are grossly patent. GALLBLADDER: ?? Grossly unremarkable. BILE DUCTS: ?? No intrahepatic or extrahepatic ductal dilatation. SPLEEN: ?? The spleen is grossly normal in size. ??There is an indeterminate hypoattenuating lesion in the lower aspect of the spleen measuring 1.8 cm (axial image 49). PANCREAS: ?? The pancreas appears grossly unremarkable without definite evidence of pancreatic ductal dilatation, peripancreatic inflammatory changes, or peripancreatic fluid collection. ?? ADRENALS: ?? The bilateral adrenal glands are grossly symmetrical and unremarkable. KIDNEYS/URINARY TRACT: ?? The bilateral kidneys enhance symmetrically. ??There is no definite evidence of focal renal lesion. ??The bilateral kidneys have extrarenal pelves, which is greater on the left than the right. ??There is no definite evidence of hydronephrosis or hydroureter. ?The urinary bladder is grossly unremarkable. GI: ?? There is no definite evidence of a bowel obstruction. ??There is mild mucosal thickening of the small bowel. ??The appendix is visualized without definite evidence of pericecal or periappendiceal inflammatory changes to suggest appendicitis. ??There is mild mucosal thickening of the mid to distal transverse colon, descending colon, and sigmoid colon. ??There is a tiny fat containing periumbilical hernia. ??There is small amount of nonspecific free fluid in the pelvis. ??There is no definite evidence of free air in the abdomen and pelvis. ??There is no definite evidence of lymphadenopathy in the abdomen and pelvis. REPRODUCTIVE: ?? There are likely follicular changes of the bilateral ovaries. ?? There is a dominant follicle or cyst in the right ovary measuring 1.6 cm. ?? There are prominent periuterine vessels noted with reflux of contrast into the gonadal veins, which is nonspecific, and can be seen in the setting of pelvic congestion syndrome. MUSCULOSKELETAL: ?? There is a minimal dextroscoliotic curvature of the spine, which may be positional. ??There are minimal to mild degenerative changes of the spine. OTHER: ?? No other abnormality. IMPRESSION: No definite evidence of bowel obstruction. Mild mucosal thickening of the small bowel, which raises the concern for mild enteritis of infectious or inflammatory etiology. Mild mucosal thickening of the mid to distal transverse colon, descending colon, and sigmoid colon, which may be related to underdistention versus a component of mild colitis of infectious or inflammatory etiology. Small amount of nonspecific free fluid in the pelvis. Right ovarian dominant follicle or cyst measuring 1.6 cm. Indeterminate hypoattenuating splenic lesion measuring 1.8 cm. Further evaluation with MRI with contrast on a nonemergent basis is recommended as clinically indicated. Appendix is visualized without definite evidence of pericecal or periappendiceal inflammatory changes to suggest appendicitis. THIS IS AN ELECTRONICALLY VERIFIED FINAL REPORT 09/16/2023 1:43 PM - Electronically signed by ??Mabel APPIAH D: ??09/16/2023 1:43 PM T: Report ID: [id number] Reading Location: ??[id number] Procedure Note Mabel Terry, DO - 09/16/2023 EXAM DESCRIPTION: CT ABDOMEN PELVIS W CONTRAST REASON FOR STUDY: Flank pain, kidney stone suspected Pt c/o left sided of abdominal pain that radiates through to her flank. Pt states pain has been intermittent for roughly three weeks but has gottenmore severe this week. Pt reports two separate episodes of vomiting. Hx: HTN TECHNIQUE: CT scan of the abdomen and pelvis performed with intravenousand without oral contrast using helical scanning technique with dynamic intravenous contrast injection. Reconstructed coronal and sagittal MPRimages reviewed. All images stored on PACS. Automated exposure control was usedas a dose optimization technique for this examination. CONTRAST TYPE/DOSE: 100mL of IOVERSOL 350 MG IODINE/ML INTRAVENOUSSYRINGE injected via intravenous COMPARISON: None REFERENCE: Per ACR white paper recommendations, unless otherwise specifiedno follow-up imaging is recommended for incidental renal and adrenal lesionsper consensus recommendations based on imaging criteria. Further labevaluation could be pursued based on clinical findings. FINDINGS: LOWER CHEST: The heart size is normal. There is no definite evidence of a pericardial effusion. There are minimal to mildatherosclerotic changes of the aorta. Visualized lung bases are grossly clear. LIVER: The liver is grossly normal in size and contour without definite evidence of focal hepatic lesion. The hepatic and portal veins aregrossly patent. GALLBLADDER: Grossly unremarkable. BILE DUCTS: No intrahepatic or extrahepatic ductal dilatation. SPLEEN: The spleen is grossly normal in size. There is an indeterminate hypoattenuating lesion in the lower aspect of the spleen measuring 1.8 cm (axial image 49). PANCREAS: The pancreas appears grossly unremarkable without definite evidence of pancreatic ductal dilatation, peripancreatic inflammatorychanges, or peripancreatic fluid collection. ADRENALS: The bilateral adrenal glands are grossly symmetrical and unremarkable. KIDNEYS/URINARY TRACT: The bilateral kidneys enhance symmetrically.There is no definite evidence of focal renal lesion. The bilateral kidneys have extrarenal pelves, which is greater on the left than the right. There isno definite evidence of hydronephrosis or hydroureter. The urinary bladderis grossly unremarkable. GI: There is no definite evidence of a bowel obstruction. There is mild mucosal thickening of the small bowel. The appendix is visualized without definite evidence of pericecal or periappendiceal inflammatory changes to suggest appendicitis. There is mild mucosal thickening of the mid todistal transverse colon, descending colon, and sigmoid colon. There is a tinyfat containing periumbilical hernia. There is small amount of nonspecificfree fluid in the pelvis. There is no definite evidence of free air in theabdomen and pelvis. There is no definite evidence of lymphadenopathy in theabdomen and pelvis. REPRODUCTIVE: There are likely follicular changes of the bilateralovaries. There is a dominant follicle or cyst in the right ovary measuring 1.6 cm. There are prominent periuterine vessels noted with reflux of contrast intothe gonadal veins, which is nonspecific, and can be seen in the setting ofpelvic congestion syndrome. MUSCULOSKELETAL: There is a minimal dextroscoliotic curvature of thespine, which may be positional. There are minimal to mild degenerative changesof the spine. OTHER: No other abnormality. IMPRESSION: No definite evidence of bowel obstruction. Mild mucosal thickening of the small bowel, which raises the concern formild enteritis of infectious or inflammatory etiology. Mild mucosal thickening of the mid to distal transverse colon, descending colon, and sigmoid colon, which may be related to underdistention versus a component of mild colitis of infectious or inflammatory etiology. Small amount of nonspecific free fluid in the pelvis. Right ovarian dominant follicle or cyst measuring 1.6 cm. Indeterminate hypoattenuating splenic lesion measuring 1.8 cm. Further evaluation with MRI with contrast on a nonemergent basis is recommended as clinically indicated. Appendix is visualized without definite evidence of pericecal or periappendiceal inflammatory changes to suggest appendicitis. THIS IS AN ELECTRONICALLY VERIFIED FINAL REPORT 09/16/2023 1:43 PM - Electronically signed by Mabel Terry D.O. PS T: Report ID: [id number] Reading Location: [place] [address] PROCEDURES Final Resul t * POCT hCG, urine (09/16/2023 11:09 AM SOCIAL SERVICE ASSISTANT) HCG, ur, POC Negative Negative Lot Number [id number] QC Backgroud Clear Acceptable QC Control Line Acceptable Urine 09/16/2023 11:0 9 AM SOCIAL SERVICE ASSISTANT us Ethel RUBIO POINT OF CARE TEST ORDERABLES Final Result * Urinalysis reflex to microscopic and culture Urine (09/16/2023 10:51 AM SOCIAL SERVICE ASSISTANT) Color, ur Yellow Yellow [facility] Clarity, ur Clear Clear [facility] Specific gravity, ur 1.014 1.003 - 1.030 [facility] pH, urine 7.0 [facility] Comment: Interpretive Data ? Urine pH is affected by diet, medications, systemic acid-base disturbances, and renal tubular function. ??pH may affect urinary stone formation. ??For example, urine pH below 6.0 may help reduce the tendency for calcium phosphate stones and pH greater than 6.0 may reduce the tendency for uric acid stone formation. Source: [facility] Current Interpretive Data was last revised on 2017 Protein, ur ql Negative Negative [facility] Glucose, ur ql Negative Negative [facility] Ketones, ur Negative Negative [facility] Bilirubin, ur Negative Negative [facility] Blood, ur Negative Negative [facility] Urobilinogen, ur <2.0 <2.0 mg/dL [facility] Nitrite, ur Negative Negative [facility] Leukocyte esterase, ur Negative Negative [facility] UA reflex comment Reflex conditions for microscopic UA and culture not met. [facility] Urine 09/16/2023 10:5 1 AM SOCIAL SERVICE ASSISTANT 09/16/2023 10:54 AM SOCIAL SERVICE ASSISTANT Ethel RUBIO LAB MICROBIOLOGY - GENERAL OR DERABLES Final Result Performing Organization Address City/State/[facility] Co il Phone Number [facility] [address] [facility] [place] [address] * eGFR (09/16/2023 10:50 AM SOCIAL SERVICE ASSISTANT) eGFR 112 mL/min/1. 73 m2 [facility] Comment: Interpretive Data Reference Interval Normal ?>/= 90 mL/min/1.73m2 Mildly decreased* ? 60 - 89 mL/min/1.73m2 Mildly to moderately decreased ?45 - 59 mL/min/1.73m2 Moderately to severely decreased ??30 - 44 mL/min/1.73m2 Severely decreased ?15 - 29 mL/min/1.73m2 Kidney Failure ?< 15 ??mL/min/1.73m2 *Relative to young adult level Estimated glomerular filtration rate is determined by the 2020 CKD-EPI equation recommended by the National Kidney [employer] (A Unifying Approach to GFR Estimation: Recommendations of the NKF-ASK Task Force on Reassessing the Inclusion of Race in Diagnosing Kidney Disease, JASN 2020). The CKD-EPI equation should not be used for patients with unstable renal function and has not been validated in children and those over 70. Current interpretive data was last reviewed 2021. Blood 09/16/2023 10:5 0 AM SOCIAL SERVICE ASSISTANT 09/16/2023 10:54 AM SOCIAL SERVICE ASSISTANT Ethel RUBIO LAB BLOOD ORDERABLES Final Re sult [facility] [address] [facility] Department of Laboratories [place], [place] [id number] * Differential, auto (09/16/2023 10:50 AM SOCIAL SERVICE ASSISTANT) Neutrophil abs 6.1 1.5 - 6.5 K/cumm [facility] Imm gran abs 0.0 0.0 - 0.1 K/cumm [facility] Lymphocyte abs 1.9 0.8 - 3.3 K/cumm [facility] Monocyte abs 0.4 0.2 - 0.8 K/cumm [facility] Eosinophil abs 0.1 0.0 - 0.5 K/cumm [facility] Basophil abs 0.0 0.0 - 0.1 K/cumm [facility] Neutrophil pct 71.8 % [facility] Comment: Interpretive Data Percent cell count reference ranges are not reported, since discordance with absolute values may lead to misinterpretation of CBC data. Current Interpretive Data was last revised on 2017. Imm gran pct 0.2 % [facility] Comment: Interpretive Data Percent cell count reference ranges are not reported, since discordance with absolute values may lead to misinterpretation of CBC data. Current Interpretive Data was last revised on 2017. Lymphocyte pct 22.6 % [facility] Comment: Interpretive Data Percent cell count reference ranges are not reported, since discordance with absolute values may lead to misinterpretation of CBC data. Current Interpretive Data was last revised on 2017. Monocyte pct 4.4 % [facility] Comment: Interpretive Data Percent cell count reference ranges are not reported, since discordance with absolute values may lead to misinterpretation of CBC data. Current Interpretive Data was last revised on 2017. Eosinophil pct 0.8 % [facility] Comment: Interpretive Data Percent cell count reference ranges are not reported, since discordance with absolute values may lead to misinterpretation of CBC data. Current Interpretive Data was last revised on 2017. Basophil pct 0.2 % [facility] Comment: Interpretive Data Percent cell count reference ranges are not reported, since discordance with absolute values may lead to misinterpretation of CBC data. Current Interpretive Data was last revised on 2017. Blood 09/16/2023 10:5 0 AM SOCIAL SERVICE ASSISTANT 09/16/2023 10:54 AM SOCIAL SERVICE ASSISTANT Ethel Carlos PA LAB BLOOD ORDERABLES Final Re sult Performing Organization Address [facility] de Phone Number [address] [address] * Lipase (09/16/2023 10:50 AM SOCIAL SERVICE ASSISTANT) [facility] Lipase 45 10 - 99 Units/L [facility] Blood (Blood, Venous) 09/16/2023 10:50 AM SOCIAL SERVICE ASSISTANT 09/16/2023 10:54 AM SOCIAL SERVICE ASSISTANT Ethel Carlos PA LAB BLOOD ORDERABLES Final Re sult Performing Organization Address [facility]/ZIP Co de Phone Number [address] [place] [address] * Comprehensive metabolic panel (09/16/2023 10:50 AM SOCIAL SERVICE ASSISTANT) [facility] Sodium 142 135 - 145 mmol/L [facility] Potassium, pl 3.9 3.3 - 4.9 mmol/L [facility] Chloride 106 97 - 110 mmol/L [facility] CO2 25 22 - 32 mmol/L [facility] Anion gap 11 2 - 15 mmol/L [facility] BUN 19 6 - 25 mg/dL [facility] Creatinine 0.64 0.60 - 1.10 mg/dL [facility] Glucose 99 70 - 199 mg/dL [facility] Comment: Interpretive Data Fasting glucose >/= 126 mg/dl is diagnostic for diabetes. ?? Fasting is defined as no caloric intake for at least 8 hours. Fasting glucose between 100 mg/dl to 125 mg/dl is diagnostic of prediabetes. In a patient with classic symptoms of hyperglycemia or hyperglycemic crisis, a random glucose >/= 200 mg/dl is diagnostic for diabetes. In the absence of unequivocal hyperglycemia, results should be confirmed by repeat testing. The classification and Diagnosis of Diabetes Diabetes Care 2021; 46: S19-S40. Current interpretive data was last revised 2022. Calcium 9.1 8.5 - 10.3 mg/dL [facility] Bilirubin, total 0.4 0.1 - 1.2 mg/dL [facility] Protein, pl 6.6 6.5 - 8.5 g/dL [facility] Albumin 4.4 3.5 - 5.0 g/dL [facility] Alk phos 46 40 - 130 Units/L [facility] ALT 9 7 - 45 Units/L [facility] AST 14 10 - 45 Units/L [facility] Blood 09/16/2023 10:5 0 AM SOCIAL SERVICE ASSISTANT 09/16/2023 10:54 AM SOCIAL SERVICE ASSISTANT us Ethel RUBIO LAB BLOOD ORDERABLES Final Re sult [facility] [address] [facility] Department [place] [address] * CBC with auto differential (09/16/2023 10:50 AM SOCIAL SERVICE ASSISTANT) [facility] WBC 8.5 3.8 - 9.9 K/cumm [facility] Hgb 12.7 11.9 - 15.5 g/dL [facility] Hct 37.3 35.6 - 45.5 % [facility] Plt 207 150 - 400 K/cumm [facility] MPV 9.1 9.1 - 12.3 fL [facility] RBC 3.91 3.90 - 5.20 M/cumm [facility] MCV 95.4 81.3 - 96.4 fL [facility] MCH 32.5 27.1 - 33.3 pg [facility] MCHC 34.0 32.3 - 35.7 g/dL [facility] RDW CV 12.5 11.1 - 14.9 % [facility] RDW SD 43.5 35.7 - 48.1 fL [facility] NRBC abs 0.00 0.00 - 0.01 K/cumm [facility] Blood (Blood, Venous) 09/16/2023 10:50 AM SOCIAL SERVICE ASSISTANT 09/16/2023 10:54 AM SOCIAL SERVICE ASSISTANT Ethel RUBIO LAB BLOOD ORDERABLES Final Re sult [facility] [address] [facility] [place] [address] documented in this encounter Visit Diagnoses Diagnosis Colitis- Primary Other and unspecified noninfectious gastroenteritis and colitis Enteritis Other and unspecified noninfectious gastroenteritis and colitis documented in this encounter Administered Medications Inactive Administered Medications - up to 3 most recent administrations Medication Order MAR Action Action Date Dose Rate Site dexAMETHasone (DECADRON) preservative free solution 10 mg 10 mg, intravenous, Administer over 2 Minutes, Once, On Sat09/16/23 at 1525, For 1 dose Given 09/16/2023 3:28 PM SOCIAL SERVICE ASSISTANT 10 mg ioversoL (OPTIRAY 350) syringe 100 mL 100 mL, intravenous, Once in imaging, contrast, Starting on Sat09/16/23 at 1331, For 1 dose Contrast Given 09/16/2023 1:31 PM SOCIAL SERVICE ASSISTANT 100 mL documented in this encounter Discontinued Medications Medication Sig Discontinue Reason Start Date End Da te traMADoL (ULTRAM) 50 mg tablet Take 1 tablet (50 mg total) by mouth every 6 (six) hours 09/16/2023 09/16/2023 documented as of this encounter Active and Recently Administered Medications Times are shown in SOCIAL SERVICE ASSISTANT. Scheduled Medication Order 09/14/2023 09/15/2023 09/16/2023 dexAMETHasone (DECADRON) preservative free solution 10 mg (COMPLETED) 10 mg, intravenous, Administer over 2 Minutes, Once, On Sat09/16/23 at 1525, For 1 dose 1528 (Given - Provid er: Anderson Coleman, RN) PRN Medication Order 09/14/2023 09/15/2023 09/16/2023 ioversoL (OPTIRAY 350) syringe 100 mL (COMPLETED) 100 mL, intravenous, Once in imaging, contrast, Starting on Sat09/16/23 at 1331, For 1 dose 1331 (Contrast Given - Provider: Misty Turner, RT) documented in this encounter Orders Nursing Count Last Ordered Date First Orde red Date MISCELLANEOUS NURSING CARE ORDER (SPECIFY) 1 09/16/2023 IV Count Last Ordered Date First Orde red Date SALINE LOCK IV 1 09/16/2023 documented in this encounter Care Teams Small Machine Bindery Operator Relationship Specialty Start Date End Date Bong Mixon MD PCP - General Family Medicine 04/15/23 documented as of this encounter
--- OUTSIDE RECORDS SUMMARY | 2024-08-16 12:27 | XMS_ITS | Encounter Summary ---
Author Organization [facility] Address [address] [place] [address] Care Team Providers Care Anesthesiology Physician Name Role Phone Bong Mixon MD Primary Care Provider [phone] Reason for Referral * Diagnostic Imaging (Routine) - Closed Specialty Diagnoses / Procedures Referred By Contac t Referred To Contact Diagnoses Left hip pain Procedures XR Hip Left 2 or 3 Views [facility]ra Banda [facility] [address] [address] Phone: tel: fax: [address] [phone] Referral ID Status Reason Start Date Expiration Date Visits Re quested Visits Authorized [id number] Closed 04/15/2023 05/14/2024 1 1 Reason for Visit * Diagnostic Imaging (Routine) - Closed Specialty Diagnoses / Procedures Referred By Contac t Referred To Contact Diagnoses Left hip pain Procedures XR Hip Left 2 or 3 Views [facility]anda MD [facility] [address] [address] Phone: tel: fax: [address] [phone] Referral ID Status Reason Start Date Expiration Date Visits Re quested Visits Authorized [id number] Closed 04/15/2023 05/14/2024 1 1 Encounter Details Date Type Department Care Team (Latest Contact Info) Description 04/15/2023 11:55 AM CDT - 04/15/2023 11:59 PM CDT Hospital Encounter [facility] Diagnostic [facility] [address] [place] [id number] Left hip pain Discharge Disposition: Discharge to home or self [...] on file 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 Gender Identity Female 04/19/2021 6:39 AM CDT Sexual Orientation Straight 04/19/2021 6: 39 AM CDT documented as of this encounter Medications at Time of Discharge [...] Take 1 tablet by mouth daily 01/28/2021 Vitamin D2 1,250 mcg (50,000 unit) capsule Take 50,000 Units by mouth every 7 days 12/22/2020 documented as of this encounter Discharge Disposition Disposition Code Departure Means Destination Discharge to home or self care documented in this encounter Plan of Treatment Not on file documented as of this encounter Procedures Procedure Name Priority Date/Time Associated Diagnosis Comments XR HIP LEFT 2 OR 3 VIEWS Schedule Routine, Read Routine (OP Routine) 04/15/2023 12:08 PM CDT Left hip pain documented in this encounter Results * XR Hip Left 2 or 3 Views (04/15/2023 12:08 PM CDT) Anatomical Region Laterality Modality Lower Extremities, Hip, Pelvis Left C omputed Radiography 04/15/2023 1:42 PM CDT Narrative 04/15/2023 1:43 PM CDT EXAM DESCRIPTION: XR HIP LEFT 2 OR 3 VIEWS REASON FOR STUDY: left si joint pain ?? 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 FINDINGS: Two views of the left hip are submitted for interpretation. ??No prior examination is available for comparison. The alignment of the left hip is anatomic. ??The left hip joint space is normal. ??Mild pubic symphysis degeneration. ??Mild left sacroiliac osteoarthritis. IMPRESSION: Mild pubic symphysis degeneration. ??Mild left sacroiliac osteoarthritis. Normal left hip joint space. 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 No prior examination is available for comparison. The alignment of the left hip is anatomic. The left hip joint space is normal. 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 IMPRESSION: Mild pubic symphysis degeneration. Mild left sacroiliacosteoarthritis. Normal left hip joint space. THIS IS AN ELECTRONICALLY VERIFIED FINAL REPORT 04/15/2023 1:43 PM - Electronically signed by Israel Shaver M.D. T: Report ID: [id number] Reading Location: [id number] Omayra Banda MD IMG XR PROCEDURES Final R esult documented in this encounter Visit Diagnoses Diagnosis Left hip pain Pain in joint, pelvic region and thigh documented in this encounter Care Teams Anesthesiology Physician Relationship Specialty Start Date End Date Bong Mixon MD PCP - General Family Medicine 04/15/23 documented as of this encounter
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
--- OUTSIDE RECORDS SUMMARY | 2024-08-16 12:27 | XMS_ITS | Encounter Summary ---
Author Organization [facility] Address [address] [place] [address] Care Team Providers Care Youth Specialist Name Role Phone Unavailable Primary Care Provider Unavailabl e Reason for Visit * Reason Onset Date Comments Transfer Care 11/02/2022 Encounter Details Date Type Department Care Team (Late st Contact Info) Description 11/02/2022 Telephone [facility] Family Medicine at [address] [place] [address] Anupam Oates [address] [place] [address] Transfer Care Social History Tobacco Use Types Packs/Day Years [...] on file Legal Sex Female 7:26 PM ACTIVITY THERAPY TEACHER Gender Identity Female 04/19/2021 6:39 AM CDT Sexual Orientation Straight 04/19/2021 6: 39 AM CDT documented as of this encounter Miscellaneous Notes * Telephone Encounter - Lesvia Velarde - 11/02/2022 1:52 PM CDT Transfer to Dr Mixon documented in this encounter Plan of Treatment Not on file documented as of this encounter Visit Diagnoses Not on filedocumented in this encounter
--- OUTSIDE RECORDS SUMMARY | 2024-08-16 12:27 | XMS_ITS | Encounter Summary ---
Author Organization [facility] Address [address] [place] [address] Care Team Providers Care Chief Development Officer Name Role Phone Unavailable Primary Care Provider Unavailabl e Encounter Details Date Type Department Care Team (Late st Contact Info) Description 09/07/2022 Telephone [facility] Family Medicine at [address] [place] [address] Anupam Oates PA [address] [place] [address] [address] [place] [address] Social History Tobacco Use Types Packs/Day Years [...] on file Legal Sex Female 7:26 PM STAFF PHYSICAL THERAPY ASSISTANT Gender Identity Female 04/19/2021 6:39 AM CDT Sexual Orientation Straight 04/19/2021 6: 39 AM CDT documented as of this encounter Ordered Prescriptions Prescription Sig Dispense Quantity Refills Last Filled Start Date End Date cefuroxime (CEFTIN) 500 mg tablet Take 1 tablet (500 mg total) by mouth 2 (two) times a day 20 tablet 09/07/2022 benzonatate (TESSALON) 200 mg capsule Take 1 capsule (200 mg total) by mouth 3 (three) times a day as needed for cough for up to 10 days 30 capsule 09/07/2022 3 documented in this encounter Miscellaneous Notes * Telephone Encounter - Rachel Trujillo RN - 09/07/2022 3:11 PM STAFF PHYSICAL THERAPY ASSISTANT Ceftin and tessalon pearls F PHYSICAL THERAPY ASSISTANT * Telephone Encounter - Rachel Trujillo RN - 09/07/2022 3:11 PM STAFF PHYSICAL THERAPY ASSISTANT ----- Message from Rachel Trujillo RN sent at 09/07/2022 3:05 PM STAFF PHYSICAL THERAPY ASSISTANT ----- Regarding: FW: Possible sinus infection Contact: ----- Message ----- From: Rachel Trujillo RN Sent: 09/07/2022 7:44 AM STAFF PHYSICAL THERAPY ASSISTANT To: RAMIRO Brar Subject: FW: Possible sinus infection ----- Message ----- From: Tabby Theodore Sent: 09/07/2022 7:28 AM STAFF PHYSICAL THERAPY ASSISTANT To: [facility] [address] [facility] Subject: Possible sinus infection Can I get a combo of antibiotic and steroid called in today I have sinus/respiratory stuff going on again Cough with flem mucus is brown,green, bloody and it is in my ears I have tried multiple combos of cold/sinus meds and added Sudafed yesterday I could use something else Thanks F PHYSICAL THERAPY ASSISTANT documented in this encounter Plan of Treatment Not on file documented as of this encounter Visit Diagnoses Not on filedocumented in this encounter
--- OUTSIDE RECORDS SUMMARY | 2024-08-16 12:28 | XMS_ITS | Encounter Summary ---
Author Organization [facility] Address [address] [place] [address] Care Team Providers Care Education Research Analyst Name Role Phone Bong Mixon MD Primary Care Provider [phone] Reason for Visit * Reason Onset Date Comments PA 08/30/2021 hydrocodone Encounter Details Date Type Department Care Team (Late st Contact Info) Description 08/30/2021 Telephone [facility] Family Medicine [address] [place] [address] Bong Mixon MD [address] [facility] [address] [place] [address] PA (hydrocodone ) Social History Tobacco Use Types Packs/Day Years Used Date Smoking Tobacco: Former Cigarettes Q uit: 03/01/2017 Smokeless Tobacco: Never Alcohol Use Standard Drinks/Week Comments Yes 0 (1 standard drink = 0.6 oz pur e alcohol) Social AUDIT-C Answer Date Recorded Q1: How often do you have a drink containing alc ohol? 2-4 times a month 04/19/2021 Q2: How many drinks containi ng alcohol do you have on a typical day when you are drinking? 3 or 4 04/19/2021 Q3: How often do you have si x or more drinks on one occasion? Never 04/19/2021 PHQ-2 Answer Date Recorded PHQ-2 Total Score (If total score is 3 or more points, staff should administer the PHQ-9) 0 11/28/2020 Comments No Sex and Gender Information Value Date Recorded Sex Assigned at Not on file Legal Sex Female 7:26 PM RUG BACKING STENCILER Gender Identity Female 04/19/2021 6:39 AM CDT Sexual Orientation Straight 04/19/2021 6: 39 AM CDT documented as of this encounter Miscellaneous Notes * Telephone Encounter - Emma Clements MA - 08/30/2021 10:25 AM RUG BACKING STENCILER Approved BACKING STENCILER * Telephone Encounter - Emma Clements MA - 08/30/2021 10:22 AM RUG BACKING STENCILER PA on hydrocodone sent to covermymeds BACKING STENCILER documented in this encounter Plan of Treatment Not on file documented as of this encounter Visit Diagnoses Not on filedocumented in this encounter Care Teams Education Research Analyst Relationship Specialty Start Date End Date Bong Mixon MD PCP - General Family Medicine 01/24/21 05/01/22 documented as of this encounter
--- OUTSIDE RECORDS SUMMARY | 2024-08-16 12:28 | XMS_ITS | Encounter Summary ---
Author Organization [facility] Healthcare Address [address] [place] [address] Care Team Providers Care Insurance Agency Manager Name Role Phone Unavailable Primary Care Provider Unavailabl e Reason for Visit * Reason Comments Numbness Encounter Details Date Type Department Care Team (Late st Contact Info) Description 06/21/2022 8:07 PM TOE CLOSING MACHINE TENDER - 06/21/2022 9:53 PM [facility] [address] [place] [address] Neck pain (Primary Dx); Cervical radiculopathy; Elevated blood pressure reading Discharge Disposition: Discharge to home or self [...] containing alc ohol? 2-4 times a month 04/26/2022 Q2: How many drinks containi ng alcohol do you have on a typical day when you are drinking? 3 or 4 04/26/2022 Q3: How often do you have si x or more drinks on one occasion? Never 04/26/2022 PHQ-2 Answer Date Recorded PHQ-2 Total Score (If total score is 3 or more points, staff should administer the PHQ-9) 0 11/28/2021 Comments No Sex and Gender Information Value Date Recorded Sex Assigned at Not on file Legal Sex Female 7:26 PM TOE CLOSING MACHINE TENDER Gender Identity Female 04/19/2021 6:39 AM CDT Sexual Orientation Straight 04/19/2021 6: 39 AM CDT documented as of this encounter Last Filed Vital Signs Vital Sign Reading Time Taken Comments Blood Pressure 134/88 06/21/2022 9:41 PM TOE CLOSING MACHINE TENDER Pulse 80 06/21/2022 9:41 PM TOE CLOSING MACHINE TENDER Temperature 36.9 ??C (98.4 ??F) 06/21/2022 7:03 PM CS T Respiratory Rate 16 06/21/2022 9:41 PM TOE CLOSING MACHINE TENDER Oxygen Saturation 97% 06/21/2022 9:41 PM TOE CLOSING MACHINE TENDER Inhaled Oxygen Concentration - - Weight 82.3 kg (181 lb 7 oz) 06/21/2022 7:03 PM TOE CLOSING MACHINE TENDER Height - - Body Mass Index 31.14 04/30/2022 10:33 AM CDT documented in this encounter Discharge Instructions * Discharge Instructions* Chasity Jeronimo PA - 06/21/2022 9:32 PM TOE CLOSING MACHINE TENDER You can take Naproxen twice daily as needed for pain. Do not take Naproxen with other NSAIDs such as Ibuprofen or Aleve. It is okay to alternate Naproxen with your [place]. Additionally, you can take Robaxin twice daily as needed for pain. Robaxin is a muscle relaxer and may make you sleepy so pleasedo not take and drive or take with alcohol. Do not take at the same time as your [place] as this can increase drowsiness. You can apply lidocaine patch to your neck. Do not leave patch on for more than12 hours at one time, and give your skin a 12 hour break in between patches. Please call your primary care provider or Dr. Bryan to schedule a follow-up appointment as you may eventually need an MRIof your neck. CLOSING MACHINE TENDER * Attachments The following attachments cannot be sent through Care Everywhere. * Cervical Radiculopathy (AfterCare(R) Instructions(ER/ED)) (Fijian) documented in this encounter Medications at Time of Discharge labetaloL (NORMODYNE,TRAND ATE) 200 mg tabletIndication s:Benign essential HTN Take 1 tablet (200 mg total) by mouth 2 (two) times a day 180 tablet 3 11/28/2021 lidocaine (LIDODERM) 5 % Place 1 patch on the skin daily for 7 days Remove & discard patch within 12 hours or as directed by 7 patch 06/21/2022 methocarbamoL (ROBAXIN) 500 mg tablet Take 1 [...] Units by mouth every 7 days 12/22/2020 HYDROcodone-acet aminophen (NORCO) 7.5-325 mg per tabletIndication s:Pain Take 1 tablet by mouth every 8 (eight) hours as needed for pain Must last 30 days 90 tablet 05/29/2022 06/25/2022 ibuprofen (ADVIL,MOTRIN) 800 mg tabletIndication s:Lumbar herniated disc,Sciatica of left side TAKE ONE TABLET BY MOUTH THREE TIMES DAILY NEEDED FOR PAIN 90 tablet 1 04/20/2022 08/14/2022 methylPREDNISolo ne (MEDROL DOSEPACK) 4 mg Dosepack Take as directed on package. 21 tablet 05/10/2022 07/11/2022 varenicline tartrate (CHANTIX MAINE) 0.5 mg (11)- 1 mg (42) tablet Use as directed on package instructions, try to quit smoking after 1 week. 53 tablet 05/16/2022 07/11/2022 documented as of this encounter Ordered Prescriptions Prescription Sig Dispense Quantity Refills Last Filled Start Date End Date naproxen (NAPROSYN) 500 mg tablet Take 1 tablet (500 mg total) by mouth 2 (two) times a day with meals 15 tablet 06/21/2022 methocarbamoL (ROBAXIN) 500 mg tablet Take 1 tablet (500 mg total) by mouth 2 (two) times a day 15 tablet 06/21/2022 lidocaine (LIDODERM) 5 % Place 1 patch on the skin daily for 7 days Remove & discard patch within 12 hours or as directed by 7 patch 06/21/2022 documented in this encounter Discharge Disposition Disposition Code Departure Means Destination Discharge to home or self care documented in this encounter ED Notes * Chasity Jeronimo PA - 06/21/2022 9:23 PM CST HPI Chief Complaint Patient presents with Numbness HPI 12:54 AM Tabby Theodore is a 41 y.o. female presenting to the ED c/o pain and pins and needles tingling to the left arm x3 weeks. Pt states that she believes that she slept on her neck wrong a few weeks ago. Was having some pain in her neck at that time, worse with movement. Otherwise denies direct trauma or injury. She has been seeing her chiropractor which has helped her neck pain but continued to experience pain radiating down the left arm with intermittent tingling/paresthesias. Denies history of similar episodes prior to this. Patient reports history of stenosis in her lower back which she is prescribed hips [place]. States she is been taking her [place] without significant improvement. She is already established with Dr. Bryan. Patient History: Past Medical History: Diagnosis Date Hypertension Lumbar herniated disc Past Surgical History: Procedure Laterality Date WISDOM TOOTH EXTRACTION Family History Problem Relation Age of Onset Kidney cancer Mother Hypertension Mother Diabetes Mother Colon cancer Father No Known Problems Sister No Known Problems Brother No Known Problems Son Social History Tobacco Use Smoking status: Every Day Packs/day: 0.40 Types: Cigarettes Start date: 08/27/2021 Smokeless tobacco: Never Substance and Sexual Activity Drug use: Yes Types: Marijuana Sexual activity: Not on file Alcohol Use: Heavy Drinker Frequency of Alcohol Consumption: 2-4 times a month Average Number of Drinks: 3 or 4 Frequency of Binge Drinking: Never Current Facility-Administered Medications: lidocaine (LIDODERM) 5 % patch 1 patch, 1 patch, transdermal, Daily, 1 patch at 06/21/22 2300 Current Outpatient Medications: HYDROcodone-acetaminophen (NORCO) 7.5-325 mg per tablet ibuprofen (ADVIL,MOTRIN) 800 mg tablet labetaloL (NORMODYNE,TRANDATE) 200 mg tablet lidocaine (LIDODERM) 5 % methocarbamoL (ROBAXIN) 500 mg tablet methylPREDNISolone (MEDROL DOSEPACK) 4 mg Dosepack naproxen (NAPROSYN) 500 mg tablet norethindrone (MICRONOR) 0.35 mg tablet varenicline tartrate (CHANTIX MAINE) 0.5 mg (11)- 1 mg (42) tablet Vitamin D2 1,250 mcg (50,000 unit) capsule Review of Systems Review of Systems Constitutional: Negative for fever. Respiratory: Negative for shortness of breath. Cardiovascular: Negative for chest pain. Gastrointestinal: Negative for vomiting. Musculoskeletal: Positive for neck pain (radiating to left upper extremity with intermittent paresthesias). All systems reviewed and are neg or non contributory for this patients presentation today other than as stated in the HPI . Physical Exam ED Triage Vitals Temp Pulse Resp BP SpO2 06/21/223 06/21/22190206/21/22190206/21/22190206/21/221902 36.9 ??C (98.4 ??F) 83 20 140/81 99 % Temp src Heart Rate Source Patient Position BP Location FiO2 (%) 06/21/22190206/21/222140 -- 06/21/222140 -- Oral Monitor Left arm Height Height Method Weight Weight Method -- -- 06/21/22190206/21/221902 82.3 kg (181 lb 7 oz) Standing scale Patient Vitals for the past 24 hrs: BP Temp Temp src Pulse Resp SpO2 Weight 06/21/222140 134/88 -- -- 80 16 97 % -- 06/21/221902 140/81 36.9 ??C (98.4 ??F) Oral 83 20 99 % 82.3 kg (181 lb 7 oz) Physical Exam Vitals and nursing note reviewed. Constitutional: General: She is not in acute distress. Appearance: Normal appearance. She is not ill-appearing or toxic-appearing. HENT: Head: Normocephalic and atraumatic. Eyes: General: No scleral icterus. Cardiovascular: Rate and Rhythm: Normal rate. Pulmonary: Effort: Pulmonary effort is normal. Musculoskeletal: Cervical back: Neck supple. Tenderness (mild tenderness left paraspinal musculature. No midline tenderness. No swelling, ecchymosis, rashes or lesions noted to the skin.) present. Comments: Left upper extremity with no appreciable swelling, ecchymosis, erythema, rashes or lesions noted to the skin. Normal active range of motion of the left upper extremity. Strong palpable radial pulse. No numbness. Strength intact Skin: General: Skin is warm and dry. Neurological: Mental Status: She is alert and oriented to person, place, and time. Comments: Ambulatory in the ED without difficulty or assistance Psychiatric: Mood and Affect: Mood normal. Behavior: Behavior normal. Procedures [facility] Labs Reviewed - No data to display CT Head WO Contrast Final Result CT Cervical Spine WO Contrast Final Result BP 134/88 (BP Location: Left arm) Pulse 80 Temp 36.9 ??C (98.4 ??F) (Oral) Resp 16 Wt 82.3kg (181 lb 7 oz) LMP 06/07/2022 (Approximate) SpO2 97% BMI 31.14 kg/m?? MDM Discussed CT findings with patient. Plan to discharge home with lidocaine patches, muscle relaxers,NSIADs. Instructed patient to follow-up with her PCP versus Dr. Bryan or persistent issues. Additionally discussed warning signs/when to return to the ED. Patient is comfortable with plan and discharge home This examination was transcribed using the [employer] voice recognition system without human furniture removalist. In an effort to expedite patient care, this report has not been adjusted for typographical, grammatical, and syntax by a trained biomedical scientist. Clinical Impression: Neck pain Cervical radiculopathy Elevated blood pressure reading Chasity Jeronimo PA 06/22/2253 Chasity Jeronimo PA 06/22/2253 Cosigned by Albert Almendarez DO at 06/22/2022 6:37 PM TOE CLOSING MACHINE TENDER CLOSING MACHINE TENDER CLOSING MACHINE TENDER CLOSING MACHINE TENDER Associated attestation - Albert Almendarez DO - 06/22/2022 6:37 PM TOE CLOSING MACHINE TENDER ED Attestation This patient was independently evaluated by the APC. I was available for immediate consultation andin-person evaluation if required but was not asked to do so. * Teodoro King RN - 06/21/2022 7:01 PM CST Pt arrived via POV with c/o intermittent left-sided arm numbness, pain x 3 wks. FAST exam negative at presentation. CLOSING MACHINE TENDER documented in this encounter Plan of Treatment Not on file documented as of this encounter Procedures Procedure Name Priority Date/Time Associated Diagnosis Comments CT CERVICAL SPINE WO CONTRAST ED 06/21/2022 7:43 PM TOE CLOSING MACHINE TENDER CT HEAD WO CONTRAST ED 06/21/2022 7 :43 PM TOE CLOSING MACHINE TENDER documented in this encounter Results * CT Cervical Spine WO Contrast (06/21/2022 7:43 PM TOE CLOSING MACHINE TENDER) Anatomical Region Laterality Modality Spine N/A Computed Tomogra phy 06/21/2022 8:02 PM TOE CLOSING MACHINE TENDER Narrative 06/21/2022 8:03 PM TOE CLOSING MACHINE TENDER EXAM DESCRIPTION: ?? CT CERVICAL SPINE WO CONTRAST REASON FOR STUDY: ?? Neck trauma, focal neuro deficit or paresthesia (Age 16-64y), subjectve LUE numbness ?? c/o intermittent left-sided arm numbness, pain x 3 wks ?? TECHNIQUE: Axial images through the cervical spine with sagittal and coronal reformatted images. Automated exposure control was used as a dose optimization technique for this examination. COMPARISON: ?? None FINDINGS: VERTEBRAE: ??Vertebral bodies are normal in height and alignment. ?? Mild midcervical disc disease. ?Facet joints and craniocervical junction are congruent. ?? No spinal fracture identified. OTHER OSSEOUS STRUCTURES: ??Visualized ribs, clavicles, and scapula are intact. Visualized skull base and mandible appear normal. SOFT TISSUES: ??Unremarkable. ?? INTRACRANIAL: ??Unremarkable. IMPRESSION: No fracture or malalignment identified. ?? THIS IS AN ELECTRONICALLY VERIFIED FINAL REPORT 06/21/2022 8:03 PM - Electronically signed by ??Dao Mcintyre M.D. AR: ALLEN D: ??06/21/2022 8:03 PM T: ??06/21/2022 8:03 PM Report ID: [id number] Reading Location: ??[id number] Procedure Note Dao Mcintyre MD - 06/21/2022 EXAM DESCRIPTION: CT CERVICAL SPINE WO CONTRAST REASON FOR STUDY: Neck trauma, focal neuro deficit or paresthesia (Age 16-64y), subjectve LUE numbness c/o intermittent left-sided arm numbness, pain x 3 wks TECHNIQUE: Axial images through the cervical spine with sagittal andcoronal reformatted images. Automated exposure control was used as a doseoptimization technique for this examination. COMPARISON: None FINDINGS: VERTEBRAE: Vertebral bodies are normal in height and alignment. Mild midcervical disc disease. Facet joints and craniocervical junction are congruent. No spinal fracture identified. OTHER OSSEOUS STRUCTURES: Visualized ribs, clavicles, and scapula areintact. Visualized skull base and mandible appear normal. SOFT TISSUES: Unremarkable. INTRACRANIAL: Unremarkable. IMPRESSION: No fracture or malalignment identified. THIS IS AN ELECTRONICALLY VERIFIED FINAL REPORT 06/21/2022 8:03 PM - Electronically signed by Dao Mcintyre M.D. AR: ALLEN Report ID: [id number] Reading Location: [place] [address] Chasity RUBIO [facility] CT PROCEDURES Final Result * CT Head WO Contrast (06/21/2022 7:43 PM TOE CLOSING MACHINE TENDER) Anatomical Region Laterality Modality Head and Neck N/A Computed Tomogra phy 06/21/2022 8:01 PM TOE CLOSING MACHINE TENDER Narrative 06/21/2022 8:02 PM TOE CLOSING MACHINE TENDER EXAM DESCRIPTION: ?? CT HEAD WO CONTRAST REASON FOR STUDY: ?? Subjective left arm numbness ?? c/o intermittent left-sided arm numbness, pain x 3 wks ?? TECHNIQUE: Axial images acquired through the brain without intravenous contrast. ??Images stored on PACS. ?? Automated exposure control was used as a dose optimization technique for this examination. COMPARISON: ?? None FINDINGS: BRAIN: ??No mass, hemorrhage, or recent infarct. ?? Normal white matter. ?? Volume within normal limits for age. VASCULAR: ??No dense vessel or obvious aneurysm. EXTRA-AXIAL SPACES: ??No mass or fluid collection. ORBITS/GLOBES: Unremarkable. SOFT TISSUES: ??Unremarkable. ?? BONES/SINUSES: ??No fracture or lesion. ?? Paranasal sinuses and other skullbase airspaces are clear. IMPRESSION: No acute abnormality identified. ?? THIS IS AN ELECTRONICALLY VERIFIED FINAL REPORT 06/21/2022 8:02 PM - Electronically signed by ??Dao Mcintyre M.D. AR: ALLEN D: ??06/21/2022 8:02 PM T: ??06/21/2022 8:02 PM Report ID: [id number] Reading Location: ??[id number] Procedure Note Dao Mcintyre MD - 06/21/2022 EXAM DESCRIPTION: CT HEAD WO CONTRAST REASON FOR STUDY: Subjective left arm numbness c/o intermittent left-sided arm numbness, pain x 3 wks TECHNIQUE: Axial images acquired through the brain without intravenous contrast. Images stored on PACS. Automated exposure control was used asa dose optimization technique for this examination. COMPARISON: None FINDINGS: BRAIN: No mass, hemorrhage, or recent infarct. Normal white matter. Volume within normal limits for age. VASCULAR: No dense vessel or obvious aneurysm. EXTRA-AXIAL SPACES: No mass or fluid collection. ORBITS/GLOBES: Unremarkable. SOFT TISSUES: Unremarkable. BONES/SINUSES: No fracture or lesion. Paranasal sinuses and otherskullbase airspaces are clear. IMPRESSION: No acute abnormality identified. THIS IS AN ELECTRONICALLY VERIFIED FINAL REPORT 06/21/2022 8:02 PM - Electronically signed by Dao Mcintyre M.D. AR: ALLEN Report ID: [id number] Reading Location: [id number] Chasity RUBIO [facility] CT PROCEDURES Final Result documented in this encounter Visit Diagnoses Diagnosis Neck pain- Primary Cervicalgia Cervical radiculopathy Brachial neuritis or radiculitis nos Elevated blood pressure reading Elevated blood pressure reading without diagnosis of hypertension documented in this encounter Administered Medications Inactive Administered Medications - up to 3 most recent administrations Medication Order MAR Action Action Date Dose Rate Site cyclobenzaprine (FLEXERIL) tablet 10 mg 10 mg, oral, Once, On Zahraa 06/21/22 at 2127, For 1 dose Given 06/21/2022 9:37 PM TOE CLOSING MACHINE TENDER 10 mg ketorolac (TORADOL) 30 mg/mL (1 mL) injection 15 mg 15 mg, intramuscular, Once, On Zahraa 06/21/22 at 2126, For 1 dose Given 06/21/2022 9:34 PM TOE CLOSING MACHINE TENDER 15 mg Left Deltoid lidocaine (LIDODERM) 5 % patch - ADS Override Pull Starting on Zahraa 06/21/22 at 2133, For 1 dose, Created by cabinet override Do not cover the holes on the top side of the patch. lidocaine (LIDODERM) 5 % patch 1 patch 1 patch, transdermal, Administer over 12 Hours, Daily, First dose (after last modification) on Zahraa 06/21/22 at 2133, For 1 dose, Do not cover the holes on the top side of the patch., Apply to affected area: neck Medication Applied 06/21/2022 9:37 PM TOE CLOSING MACHINE TENDER 1 patch Left Shoulder documented in this encounter Active and Recently Administered Medications Times are shown in TOE CLOSING MACHINE TENDER. Scheduled Medication Order 06/19/2022 06/20/2022 06/21/2022 cyclobenzaprine (FLEXERIL) tablet 10 mg (COMPLETED) 10 mg, oral, Once, On Zahraa 06/21/22 at 2126, For 1 dose 2136 (Given - Provid er: Tran Araya RN) ketorolac (TORADOL) 30 mg/mL (1 mL) injection 15 mg (COMPLETED) 15 mg, intramuscular, Once, On Zahraa 06/21/22 at 2126, For 1 dose 2133 (Given - Provid er: Tran Araya RN) lidocaine (LIDODERM) 5 % patch 1 patch 1 patch, transdermal, Administer over 12 Hours, Daily, First dose (after last modification) on Zahraa 06/21/22 at 2133, For 1 dose, Do not cover the holes on the top side of the patch., Apply to affected area: neck 2136 (Medication Nicholas lied - Provider: Tran Araya RN)2152 (Due: Medication Removed - Provider: Automatic Discharge Provider - Comment: Time automatically adjusted from order being discontinued) documented in this encounter Orders Medications Ordered That Buddy ht Not Have Been Administered Count Last Ordered Date First Ordered Date lidocaine (LIDODERM) 5 % patch 1 patch 1 documented in this encounter
--- OUTSIDE RECORDS SUMMARY | 2024-08-16 12:28 | XMS_ITS | Encounter Summary ---
Author Organization [facility] Medical Group Address [address] [place] [address] Care Team Providers Care Call Specialist Name Role Phone Bong Mixon MD Primary Care Provider [phone] Reason for Visit * Reason Onset Date Comments Overdue Results 03/27/2022 Encounter Details Date Type Department Care Team (Late st Contact Info) Description 03/27/2022 Telephone [facility] Family Medicine [address] [place] [address] [place], [place] [address] [address] Overdue Results Social History Tobacco Use Types Packs/Day Years Used Date Smoking Tobacco: Every Day Cigarettes 0.4 3 Started: 08/27/2021 Smokeless Tobacco: Never Alcohol Use Standard Drinks/Week Comments Yes 0 (1 standard drink = 0.6 oz pur e alcohol) Social AUDIT-C Answer Date Recorded Q1: How often do you have a drink containing alc ohol? 2-4 times a month 09/27/2021 Q2: How many drinks containi ng alcohol do you have on a typical day when you are drinking? 3 or 4 09/27/2021 Q3: How often do you have si x or more drinks on one occasion? Never 09/27/2021 PHQ-2 Answer Date Recorded PHQ-2 Total Score (If total score is 3 or more points, staff should administer the PHQ-9) 0 11/28/2021 Comments No Sex and Gender Information Value Date Recorded Sex Assigned at Not on file Legal Sex Female 7:26 PM MEDICAL RECORDS AUDITOR Gender Identity Female 04/19/2021 6:39 AM CDT Sexual Orientation Straight 04/19/2021 6: 39 AM CDT documented as of this encounter Miscellaneous Notes * Telephone Encounter - Juan Miguel Holm MA - 03/27/2022 4:24 PM CDT Letter sent through [email or web address] for overdue labs. * Telephone Encounter - Juan Miguel Holm MA - 03/27/2022 2:40 PM CDT Vitamin D 25 Hydroxy lab not done documented in this encounter Plan of Treatment Not on file documented as of this encounter Visit Diagnoses Not on filedocumented in this encounter Care Teams Call Specialist Relationship Specialty Start Date End Date Bong Mixon MD PCP - General Family Medicine 01/24/21 05/01/22 documented as of this encounter
--- OUTSIDE RECORDS SUMMARY | 2024-08-16 12:28 | XMS_ITS | Encounter Summary ---
Author Organization [facility] Address [address] [facility] [address] [place] [address] Care Team Providers Care Fitness Teacher Name Role Phone Bong Mixon MD Primary Care Provider [phone] Reason for Visit * Reason Comments ER Follow Up Encounter Details Date Type Department Care Team (Late st Contact Info) Description 11/28/2021 11:30 AM CDT Office Visit [facility] Family Medicine [address] [place] [address] Anupam Oates, [place] [address] [address] Foraminal stenosis of lumbar region (Primary Dx); Benign essential HTN; Abdominal pain Social History Tobacco Use Types Packs/Day Years [...] on file 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 Gender Identity Female 04/19/2021 6:39 AM CDT Sexual Orientation Straight 04/19/2021 6: 39 AM CDT documented as of this encounter Last Filed Vital Signs Vital Sign Reading Time Taken Comments Blood Pressure 138/80 11/28/2021 12:29 PM CDT Pulse 72 11/28/2021 12:29 PM CDT Temperature - - Respiratory Rate 16 11/28/2021 12:29 PM CDT Oxygen Saturation - - Inhaled Oxygen Concentration - - Weight 79.4 kg (175 lb) 11/28/2021 12:29 PM CDT Height 162.6 cm (5' 4 ) 11/28/2021 12:29 PM CDT Body Mass Index 30.04 11/28/2021 12:29 PM CDT documented in this encounter Ordered Prescriptions Prescription Sig Dispense Quantity Refills Last Filled Start Date End Date labetaloL (NORMODYNE,TRANDATE ) 200 mg tabletIndications:B enign essential HTN Take 1 tablet (200 mg total) by mouth 2 (two) times a day 180 tablet 3 11/28/2021 documented in this encounter Progress Notes * Anupam Oates, RAMIRO - 11/28/2021 11:30 AM CDT Images from the original note were not included. Subjective/Objective Patient ID: Tabby Theodore is a 41 y.o. female. Chief Complaint ER Follow Up HPI Patient is here to follow-up from ER visit where she presented with abdominal pain. She states she is doing better at this point however she still having some loose stools but no abdominal pain no fever chills. She feels like she is getting better with this. She did receive her 1st epidural injection with no relief of pain from the lumbar complications. Patient is scheduled for 2nd injection 2 days. Patient also is requesting refill of her labetalol blood pressure is well controlled she is tolerating medication well. Patient states her pain control her back and sciatic is not controlled at all with current regimen. Review of Systems Constitutional: Negative for fatigue, fever and unexpected weight change. HENT: Negative for congestion, ear pain, hearing loss, rhinorrhea and voice change. Eyes: Negative for discharge, redness and visual disturbance. Respiratory: Negative for cough, chest tightness and shortness of breath. Cardiovascular: Negative for chest pain, palpitations and leg swelling. Gastrointestinal: Negative for abdominal pain, blood in stool, constipation, diarrhea and nausea. Endocrine: Negative for polydipsia and polyuria. Genitourinary: Negative for dysuria and frequency. Skin: Negative for color change and rash. Neurological: Negative for dizziness, tremors and headaches. Hematological: Does not bruise/bleed easily. Psychiatric/Behavioral: Negative for confusion and dysphoric mood. Blood pressure 138/80, pulse 72, resp. rate 16, height 162.6 cm (5' 4 ), weight 79.4 kg (175 lb). Physical Exam Vitals reviewed. Constitutional: General: She is not in acute distress. Appearance: She is well-developed. HENT: Head: Normocephalic. Right Ear: External ear normal. Left Ear: External ear normal. Eyes: Conjunctiva/sclera: Conjunctivae normal. Pupils: Pupils are equal, round, and reactive to light. Neck: Thyroid: No thyromegaly. Comments: ROM appropriate Cardiovascular: Rate and Rhythm: Normal rate and regular rhythm. Heart sounds: Normal heart sounds. No murmur heard. No friction rub. No gallop. Pulmonary: Effort: Pulmonary effort is normal. Breath sounds: Normal breath sounds. Abdominal: General: Bowel sounds are normal. There is no distension. Palpations: Abdomen is soft. Tenderness: There is no abdominal tenderness. Musculoskeletal: Cervical back: Neck supple. Lumbar back: Tenderness present. Comments: ROM appropriate Skin: General: Skin is warm and dry. Capillary Refill: Capillary refill takes less than 2 seconds. Neurological: Mental Status: She is alert and oriented to person, place, and time. Psychiatric: Behavior: Behavior normal. Assessment/Plan Diagnoses and all orders for this visit: Foraminal stenosis of lumbar region (M48.061) (Primary) Assessment & Plan: Chronic condition not responding to conservative management or to her 1st epidural injection. Will continue with pain management injections if no improvement after her next injection will refer to neuro surgical for consultation Benign essential HTN (I10) Assessment & Plan: Chronic conditions stable well controlled Refill labetalol Orders: - labetaloL (NORMODYNE,TRANDATE) 200 mg tablet; Take 1 tablet (200 mg total) by mouth 2 (two) timesa day Abdominal pain (R10.9) Comments: Likely viral improving called in any concerns or worsening of symptoms Small cyst spleen this not require further workup RAMIRO Brar documented in this encounter Miscellaneous Notes * Assessment & Plan Note - Anupam Oates PA - 11/28/2021 1:21 PM CDTAssociated Problem(s): Benign essential HTN Chronic conditions stable well controlled Refill labetalol * Assessment & Plan Note - Anupam Oates PA - 11/28/2021 1:21 PM CDTAssociated Problem(s): Foraminal stenosis of lumbar region Chronic condition not responding to conservative management or to her 1st epidural injection. Will continue with pain management injections if no improvement after her next injection will refer to neuro surgical for consultation documented in this encounter Plan of Treatment Not on file documented as of this encounter Visit Diagnoses Diagnosis Foraminal stenosis of lumbar region- Primary Benign essential HTN Abdominal pain Abdominal pain, unspecified site documented in this encounter Discontinued Medications Medication Sig Discontinue Reason Start Date End Da te labetaloL (NORMODYNE,TRANDATE) 200 mg tabletIndications:Benign essential HTN Take 1 tablet (200 mg total) by mouth 2 (two) times a day Reorder 11/28/2020 11/28/2021 documented as of this encounter Care Teams Fitness Teacher Relationship Specialty Start Date End Date Bong Mixon MD PCP - General Family Medicine 01/24/21 05/01/22 documented as of this encounter
--- OUTSIDE RECORDS SUMMARY | 2024-08-16 12:28 | XMS_ITS | Encounter Summary ---
Author Organization [facility] Address [address] [facility] [address] [place] [address] Care Team Providers Care Fancy Stitcher Name Role Phone Unavailable Primary Care Provider Unavailabl e Reason for Visit * Reason Onset Date Comments Sore Throat 05/10/2022 Encounter Details Date Type Department Care Team (Late st Contact Info) Description 05/10/2022 Telephone [facility] Family Medicine at [address] [place] [address] Anupam Oates PA [address] [place] [address] [address] [place] [address] Sore Throat Social History Tobacco Use Types Packs/Day Years [...] on file 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 21 tablet 05/10/2022 2 amoxicillin (AMOXIL) 500 mg tablet/capsule Take 1 tablet/capsule (500 mg total) by mouth 3 (three) times a day for 10 days 30 tablet/capsule 05/10/2022 2 documented in this encounter Miscellaneous Notes * Telephone Encounter - Rachel Trujillo RN - 05/10/2022 2:59 PM CDT Amoxicillin mdp Script has been sent * Telephone Encounter - Rachel Trujillo RN - 05/10/2022 2:59 PM CDT ----- Message from RAMIRO Brar sent at 05/10/2022 1:47 PM CDT ----- Regarding: FW: Prescription ----- Message ----- From: Rachel Trujillo RN Sent: 05/10/2022 7:05 AM CDT To: RAMIRO Brar Subject: FW: Prescription ----- Message ----- From: Tabby Theodore Sent: 05/10/2022 6:59 AM CDT To: [facility] [address] Clinical Subject: Prescription Good Morning, Can I get another round of antibiotic and steroids?? I was all healed up from the last infection but they are getting crops all around us and I have started to experience a sore throat, hoarseness and green snot, i want to catch this one ealry if possible Thanks,Tabby documented in this encounter Plan of Treatment Not on file documented as of this encounter Visit Diagnoses Not on filedocumented in this encounter
--- OUTSIDE RECORDS SUMMARY | 2024-08-16 12:28 | XMS_ITS | Encounter Summary ---
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 53 tablet 03/30/2022 documented in this encounter Miscellaneous Notes * Telephone Encounter - Rachel Trujillo RN - 03/30/2022 1:15 PM CDT Per VO ok for chantix starter maine * Telephone Encounter - Rachel Trujillo RN - 03/30/2022 1:14 PM CDT ----- Message from RAMIRO Marquis sent at 03/30/2022 1:08 PM CDT ----- Regarding: FW: Prescription ----- Message ----- From: Rachel Trujillo RN Sent: 03/30/2022 11:21 AM CDT To: RAMIRO Marquis Subject: FW: Prescription ----- Message ----- From: Tabby Theodore Sent: 03/30/2022 10:48 AM CDT To: [facility] [address] Clinical Subject: Prescription Hi Anupam Can you refill my pain medication today? Also my was in to see Dr Mixon this week and he got a script for a quit smoking medication that replaced chantex, was wondering if I can get that too or if I needed to schedule an appointment for that request...... Thanks have a great weekend Tabby documented in this encounter Plan of Treatment Not on file documented as of this encounter Visit Diagnoses Not on filedocumented in this encounter Care Teams Hog Dropper Relationship Specialty Start Date End Date Bong Mixon MD PCP - General Family Medicine 01/24/21 05/01/22 documented as of this encounter
--- OUTSIDE RECORDS SUMMARY | 2024-08-16 12:28 | XMS_ITS | Encounter Summary ---
Author Organization [facility] Address [address] [facility] [address] [place] [address] Care Team Providers Care Billing Manager Name Role Phone Unavailable Primary Care Provider Unavailabl e Reason for Visit * Reason Comments Follow-up Benign essential HTN Encounter Details Date Type Department Care Team (Late st Contact Info) Description 07/11/2022 10:45 AM STRINGER MACHINE TENDER Office Visit [facility] Family Medicine at [address] [place] [address] Ilya Carrillo MD [address] [facility] [address] [address] Benign essential HTN (Primary Dx); Colon cancer screening Social History Tobacco Use Types Packs/Day Years [...] on file 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 Gender Identity Female 04/19/2021 6:39 AM CDT Sexual Orientation Straight 04/19/2021 6: 39 AM CDT documented as of this encounter Last Filed Vital Signs Vital Sign Reading Time Taken Comments Blood Pressure 130/90 07/11/2022 10:51 AM STRINGER MACHINE TENDER Pulse 86 07/11/2022 10:51 AM STRINGER MACHINE TENDER Temperature 37.2 ??C (99 ??F) 07/11/2022 10:51 AM STRINGER MACHINE TENDER Respiratory Rate 18 07/11/2022 10:51 AM STRINGER MACHINE TENDER Oxygen Saturation 98% 07/11/2022 10:51 AM STRINGER MACHINE TENDER Inhaled Oxygen Concentration - - Weight 81.9 kg (180 lb 8 oz) 07/11/2022 10:51 AM STRINGER MACHINE TENDER Height 162.6 cm (5' 4.02 ) 07/11/2022 10:[address] Body Mass Index 30.97 07/11/2022 10:51 AM STRINGER MACHINE TENDER documented in this encounter Ordered Prescriptions Prescription Sig Dispense Quantity Refills Last Filled Start Date End Date varenicline tartrate (CHANTIX) 1 mg tabletIndications:S moking Cessation Take 1 tablet (1 mg total) by mouth 2 (two) times a day Take with full glass of water. 60 tablet 1 07/11/2022 documented in this encounter Progress Notes * Ilya Carrillo MD - 07/11/2022 10:45 AM CST Images from the original note were not included. Subjective/Objective Patient ID: Tabby Theodore is a 41 y.o. female. Chief Complaint Follow-up (Benign essential HTN) 41-year-old female. She doing pretty good. Smoker. Wants to try Chantix. Weight stable. Due for herroutine labs. Has seen Gynecology. Mammograms she keeps up-to-date. Current Outpatient Medications Medication Sig Dispense Refill HYDROcodone-acetaminophen (NORCO) 7.5-325 mg per tablet Take 1 tablet by mouth every 8 (eight) hours as needed for pain Must last 30 days 90 tablet 0 ibuprofen (ADVIL,MOTRIN) 800 mg tablet TAKE ONE TABLET BY MOUTH THREE TIMES DAILY NEEDED FOR PAIN 90 tablet 1 labetaloL (NORMODYNE,TRANDATE) 200 mg tablet Take 1 tablet (200 mg total) by mouth 2 (two) times a day 180 tablet 3 lidocaine (LIDODERM) 5 % Place 1 patch on the skin daily for 7 days Remove & discard patch within 12 hours or as directed by . 7 patch 0 methocarbamoL (ROBAXIN) 500 mg tablet Take 1 tablet (500 mg total) by mouth 2 (two) times a day 15 tablet 0 naproxen (NAPROSYN) 500 mg tablet Take 1 tablet (500 mg total) by mouth 2 (two) times a day with meals 15 tablet 0 norethindrone (MICRONOR) 0.35 mg tablet Take 1 tablet by mouth daily Vitamin D2 1,250 mcg (50,000 unit) capsule Take 50,000 Units by mouth every 7 days varenicline tartrate (CHANTIX) 1 mg tablet Take 1 tablet (1 mg total) by mouth 2 (two) times a day Take with full glass of water. 60 tablet 1 No current facility-administered medications for this visit. Review of Systems Constitutional: Negative for fatigue and fever. Respiratory: Negative for cough and shortness of breath. Cardiovascular: Negative for chest pain and leg swelling. Gastrointestinal: Negative for abdominal pain and nausea. Musculoskeletal: Negative for back pain and neck pain. Neurological: Negative for seizures and headaches. Psychiatric/Behavioral: Negative for confusion. The patient is not nervous/anxious. No results found for this or any previous visit (from the past 336 hour(s)). Vitals BP 130/90 (BP Location: Left arm, Patient Position: Sitting) Pulse 86 Temp 37.2 ??C (99 ??F) (Oral) Resp 18 Ht 162.6 cm (5' 4.02 ) Wt 81.9 kg (180 lb 8 oz) SpO2 98% BMI 30.97 kg/m?? Physical Exam Constitutional: Appearance: She is well-developed. Cardiovascular: Rate and Rhythm: Normal rate and regular rhythm. Heart sounds: Normal heart sounds. Pulmonary: Effort: Pulmonary effort is normal. Breath sounds: Normal breath sounds. Abdominal: General: Bowel sounds are normal. Palpations: Abdomen is soft. Skin: General: Skin is warm and dry. Neurological: Mental Status: She is alert and oriented to person, place, and time. Psychiatric: Speech: Speech normal. Assessment/Plan Diagnoses and all orders for this visit: Benign essential HTN (I10) (Primary) - we discussed low-salt diet weight loss exercise. Her BMI is 30.9. Goal below 30. 12 hour fasting labs including CBC Chem 12 and lipid profile. She has vitamin-D ordered. Continue current labetalol dosing. Could consider better options in the future. Is on control pills and not interested inmore children Smoker - resume Chancyndie Carrillo MD Orders Placed This Encounter varenicline tartrate (CHANTIX) 1 mg tablet Sig: Take 1 tablet (1 mg total) by mouth 2 (two) times a day Take with full glass of water. Dispense: 60 tablet Refill: 1 NGER MACHINE TENDER documented in this encounter Miscellaneous Notes * Addendum Note - Macie Putnam RN - 07/11/2022 10:45 AM CSTAddended by: MACIE PUTNAM on: 07/11/2022 11:44 AM Modules accepted: Orders NGER MACHINE TENDER documented in this encounter Plan of Treatment Not on file documented as of this encounter Visit Diagnoses Diagnosis Benign essential HTN- Primary Colon cancer screening Special screening for malignant neoplasms, colon documented in this encounter Discontinued Medications Medication Sig Discontinue Reason Start Date End Da te varenicline tartrate (CHANTIX MAINE) 0.5 mg (11)- 1 mg (42) tablet Use as directed on package instructions, try to quit smoking after 1 week. Therapy completed 05/16/2022 07/11/2022 methylPREDNISolone (MEDROL DOSEPACK) 4 mg Dosepack Take as directed on package. Therapy completed 05/10/2022 07/11/2022 documented as of this encounter
--- OUTSIDE RECORDS SUMMARY | 2024-08-16 12:28 | XMS_ITS | Encounter Summary ---
Author Organization [facility] Address [address] [place] [address] Care Team Providers Care Gas Pumping Station Supervisor Name Role Phone Bong Mixon MD Primary Care Provider [phone] Reason for Referral * MRI/CAT/PET Scan (Routine) - Closed Specialty Diagnoses / Procedures Referred By Contac t Referred To Contact Radiology Diagnoses Foraminal stenosis of lumbar region Procedures MRI Lumbar Spine WO Contrast Bong Mixon MD Phone: tel: fax: [facility] [address] [place] [address] Referral ID Status Reason Start Date Expiration Date Visits Re quested Visits Authorized [id number] Closed 03/28/2022 03/28/2023 1 1 Reason for Visit * Reason Onset Date Comments need mri lumbar / [facility] 03/14/2022 Encounter Details Date Type Department Care Team (Late st Contact Info) Description 03/14/2022 Telephone [facility] Medical 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 Bryan office sent message pt. Has an appointment Apr2021, she does need a more recent Mri Lumbar spine without before she can see him. Pt. Is aware she will go to [facility] documented in this encounter Plan of Treatment Not on file documented as of this encounter Results * MRI Lumbar Spine WO Contrast (04/18/2022 2:08 PM CDT) Anatomical Region Laterality Modality Spine N/A Magnetic Resonan ce 04/19/2022 7:34 AM CDT Narrative 04/19/2022 8:29 AM CDT EXAM DESCRIPTION: ?? MRI LUMBAR SPINE WO CONTRAST REASON FOR STUDY: ?? Back pain or radiculopathy, > 6 wks, low back pain ?? Chronic lower back pain since 2015, radiating to bilateral lower extremities. No surgery, no trauma. ? TECHNIQUE: ??Sagittal and Axial imaging includes T1, T2, STIR sequences. ? COMPARISON: ?? Lumbar spine MRI dated 06/21/2021. ??Lumbar spine radiographs dated 12/22/2020. FINDINGS: SEGMENTATION: ?? In keeping with the nomenclature used on the lumbar spine MRI of 06/21/2021 the last well-formed disc space seen on series 801, image 3 will be labeled L5-S1. ??In this system of nomenclature rudimentary 12th ribs and a T2 hyperintense disc at S1-S2. ALIGNMENT: ?? Anterior posterior alignment is maintained. VERTEBRAE: ?? No acute compression fracture in the lumbar spine. ??Lower lumbar predominant facet arthropathy with STIR hyperintense signal in the L3-L4 through L5-S1 facet joints compatible with synovitis in the proper clinical scenario. DISC HEIGHT: ?? Disc desiccation and height loss at L5-S1. HARDWARE: ?? None in the spine. CORD/CAUDA: ?? Conus medullaris terminates at L1. LOWER THORACIC: ?? Incompletely imaged. No high-grade spinal canal stenosis. INDIVIDUAL DISC LEVELS: L1-L2: No significant disc bulge, spinal canal or neural foraminal narrowing. ?? L2-L3: No significant disc bulge, spinal canal or neural foraminal narrowing. ?? L3-L4: Disc bulge along the neural foramen on both sides. ??Thickened ligamentum flavum and facet arthropathy. ??No significant spinal canal or neural foraminal narrowing. L4-L5: Disc bulge and a superimposed left foraminal/extraforaminal disc protrusion with an annular fissure. ??Thickened ligamentum flavum and facet arthropathy. ??Flattening of the ventral thecal sac. ??Mild left and no significant right neural foraminal narrowing. L5-S1: Disc bulge and a superimposed central disc protrusion with an annular fissure. ??Bilateral facet arthropathy. ??No significant spinal canal stenosis. ?? Minor lateral recess effacement with disc approaching the descending S1 nerve roots. ??Mild bilateral neural foraminal narrowing. IMPRESSION: ?? 1. ?? The mild lumbar degenerative changes are similar when compared to the previous MRI of 06/21/2021 as described. ??There is no high-grade spinal canal stenosis. 2. ?? Additional findings as above. THIS IS AN ELECTRONICALLY VERIFIED FINAL REPORT 04/19/2022 8:29 AM - Electronically signed by ??Nirmal REYES D: ??04/19/2022 8:29 AM T: Report ID: [id number] Reading Location: ??[id number] Procedure Note Nirmal Goodwin, DO - 04/19/2022 EXAM DESCRIPTION: MRI LUMBAR SPINE WO CONTRAST REASON FOR STUDY: Back pain or radiculopathy, > 6 wks, low back pain Chronic lower back pain since 2014, radiating to bilateral lowerextremities. No surgery, no trauma. TECHNIQUE: Sagittal and Axial imaging includes T1, T2, STIR sequences. COMPARISON: Lumbar spine MRI dated 06/21/2021. Lumbar spine radiographs dated 12/22/2020. FINDINGS: SEGMENTATION: In keeping with the nomenclature used on thelumbar spine MRI of 06/21/2021 the last well-formed disc space seen on , image 3 will be labeled L5-S1. In this system of nomenclature rudimentary 12th ribs and a T2 hyperintense disc at S1-S2. ALIGNMENT: Anterior posterior alignment is maintained. VERTEBRAE: No acute compression fracture in the lumbar spine. Lowerlumbar predominant facet arthropathy with STIR hyperintense signal in the L3-L4 through L5-S1 facet joints compatible with synovitis in the properclinical scenario. DISC HEIGHT: Disc desiccation and height loss at L5-S1. HARDWARE: None in the spine. CORD/CAUDA: Conus medullaris terminates at L1. LOWER THORACIC: Incompletely imaged. No high-grade spinal canalstenosis. INDIVIDUAL DISC LEVELS: L1-L2: No significant disc bulge, spinal canal or neural foraminalnarrowing. L2-L3: No significant disc bulge, spinal canal or neural foraminalnarrowing. L3-L4: Disc bulge along the neural foramen on both sides. Thickened ligamentum flavum and facet arthropathy. No significant spinal canal or neural foraminal narrowing. L4-L5: Disc bulge and a superimposed left foraminal/extraforaminal disc protrusion with an annular fissure. Thickened ligamentum flavum and facet arthropathy. Flattening of the ventral thecal sac. Mild left and no significant right neural foraminal narrowing. L5-S1: Disc bulge and a superimposed central disc protrusion with anannular fissure. Bilateral facet arthropathy. No significant spinal canalstenosis. Minor lateral recess effacement with disc approaching the descending P1kevkq roots. Mild bilateral neural foraminal narrowing. IMPRESSION: 1. The mild lumbar degenerative changes are similar when compared to the previous MRI of 06/21/2021 as described. There is no high-grade spinalcanal stenosis. 2. Additional findings as above. THIS IS AN ELECTRONICALLY VERIFIED FINAL REPORT 04/19/2022 8:29 AM - Electronically signed by Nirmal REYES T: Report ID: [id number] Reading Location: [place] [address] Bong Mixon MD IMG MRI PROCEDURES Final Result documented in this encounter Visit Diagnoses Diagnosis Foraminal stenosis of lumbar region- Primary Foraminal stenosis of lumbar region documented in this encounter Care Teams Gas Pumping Station Supervisor Relationship Specialty Start Date End Date Bong Mixon MD PCP - General Family Medicine 01/24/21 05/01/22 documented as of this encounter
--- OUTSIDE RECORDS SUMMARY | 2024-08-16 12:28 | XMS_ITS | Encounter Summary ---
Author Organization [facility] Address [address] [place] [address] Care Team Providers Care Bilingual Social Worker Name Role Phone Bong Mixon MD Primary Care Provider [phone] Reason for Referral * MRI/CAT/PET Scan (Routine) - Closed Specialty Diagnoses / Procedures Referred By Contac t Referred To Contact Radiology Diagnoses Foraminal stenosis of lumbar region Procedures MRI Lumbar Spine WO Contrast Bong Mixon MD Phone: tel: fax: [address] [address] Referral ID Status Reason Start Date Expiration Date Visits Re quested Visits Authorized [id number] Closed 03/28/2022 03/28/2023 1 1 Reason for Visit * MRI/CAT/PET Scan (Routine) - Closed Specialty Diagnoses / Procedures Referred By Contac t Referred To Contact Radiology Diagnoses Foraminal stenosis of lumbar region Procedures MRI Lumbar Spine WO Contrast Bong Mixon MD Phone: tel: fax: [address] [address] Referral ID Status Reason Start Date Expiration Date Visits Re quested Visits Authorized [id number] Closed 03/28/2022 03/28/2023 1 1 Encounter Details Date Type Department Care Team (Latest Contact Info) Description 04/18/2022 12:44 PM CDT - 04/18/2022 11:59 PM CDT Hospital Encounter 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 Gender Identity Female 04/19/2021 6:39 AM CDT Sexual Orientation Straight 04/19/2021 6: 39 AM CDT documented as of this encounter Medications at Time of Discharge labetaloL (NORMODYNE,TRAND ATE) 200 mg tabletIndication s:Benign essential HTN Take 1 tablet (200 mg total) by mouth 2 (two) times a day 180 tablet 3 11/28/2021 norethindrone (MICRONOR) 0.35 mg tablet Take 1 tablet by mouth daily 01/28/2021 Vitamin D2 1,250 mcg (50,000 unit) capsule Take 50,000 Units by mouth every 7 days 12/22/2020 HYDROcodone-acet aminophen (NORCO) 7.5-325 mg per tabletIndication s:Pain Take 1 tablet by mouth every 8 (eight) hours as needed for pain Must last 30 days 90 tablet 03/30/2022 04/29/2022 ibuprofen (ADVIL,MOTRIN) 800 mg tabletIndication s:Lumbar herniated disc,Sciatica of left side Take 1 tablet (800 mg total) by mouth 3 (three) times a day as needed for pain 90 tablet 1 01/02/2022 04/20/2022 pregabalin (LYRICA) 75 mg capsuleIndicatio ns:Sciatica of left side Take 1 capsule (75 mg total) by mouth 2 (two) times a day 60 capsule 5 08/30/2021 04/26/2022 varenicline (CHANTIX MAINE) 0.5 mg (11)- 1 mg (42) tablet Use as directed on package instructions, try to quit smoking after 1 week. 53 tablet 03/30/2022 05/16/2022 documented as of this encounter Discharge Disposition Disposition Code Departure Means Destination Discharge to home or self care documented in this encounter Plan of Treatment Not on file documented as of this encounter Procedures Procedure Name Priority Date/Time Associated Diagnosis Comments MRI LUMBAR SPINE WO CONTRAST Schedule Routine, Read Routine (OP Routine) 04/18/2022 2:08 PM CDT Foraminal stenosis of lumbar region documented in this encounter Results * MRI Lumbar Spine WO Contrast (04/18/2022 2:08 PM CDT) Anatomical Region Laterality Modality Spine N/A Magnetic Resonan ce 04/19/2022 7:34 AM CDT Narrative 04/19/2022 8:29 AM CDT EXAM DESCRIPTION: ?? MRI LUMBAR SPINE WO CONTRAST REASON FOR STUDY: ?? Back pain or radiculopathy, > 6 wks, low back pain ?? Chronic lower back pain since 2014, radiating to bilateral lower extremities. No surgery, [...] D: ??04/19/2022 8:29 AM T: Report ID: [id number] Reading Location: ??[id number] Procedure Note Nirmal Goodwin, DO - 04/19/2022 [...] the last well-formed disc space seen on [id number], image 3 will be labeled L5-S1. In [...] recess effacement with disc approaching the descending X3oaolm roots. Mild bilateral neural foraminal narrowing. IMPRESSION: 1. The mild lumbar degenerative changes are similar when compared to the previous MRI of 06/21/2021 as described. There is no high-grade spinalcanal stenosis. 2. Additional findings as above. THIS IS AN ELECTRONICALLY VERIFIED FINAL REPORT 04/19/2022 8:29 AM - Electronically signed by Nirmal GarciaO. AP T: Report ID: [id number] Reading Location: [id number] Bong Mixon MD IMG MRI PROCEDURES Final Result documented in this encounter Visit Diagnoses Diagnosis Foraminal stenosis of lumbar region documented in this encounter Care Teams Bilingual Social Worker Relationship Specialty Start Date End Date Bong Mixon MD PCP - General Family Medicine 01/24/21 05/01/22 documented as of this encounter
--- OUTSIDE RECORDS SUMMARY | 2024-08-16 12:28 | XMS_ITS | Encounter Summary ---
Author Organization [facility] Address [address] [place] [address] Care Team Providers Care Television Mechanic Name Role Phone Bong Mixon MD Primary Care Provider [phone] Encounter Details Date Type Department Care Team (Late st Contact Info) Description 10/31/2021 Orders Only 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 Gender Identity Female 04/19/2021 6:39 AM CDT Sexual Orientation Straight 04/19/2021 6: 39 AM CDT documented as of this encounter Plan of Treatment Not on file documented as of this encounter Procedures Procedure Name Priority Date/Time Associated Diagnosis Comments SCAN - RADIOLOGY/IMAGING 10/31/2021 documented in this encounter Results * SCAN - RADIOLOGY/IMAGING (10/31/2021) Anatomical Region Laterality Modality Other us Provider Scanning Final Result documented in this encounter Visit Diagnoses Not on filedocumented in this encounter Care Teams Television Mechanic Relationship Specialty Start Date End Date Bong Mixon MD PCP - General Family Medicine 01/24/21 05/01/22 documented as of this encounter
--- OUTSIDE RECORDS SUMMARY | 2024-08-16 12:28 | XMS_ITS | Encounter Summary ---
Author Organization [facility] Address [address] [place] [address] Phone Care Team Providers Care Fish Seiner Name Role Phone Unavailable Primary Care Provider Unavailabl e Encounter Details Date Type Department Care Team (Late st Contact Info) Description 05/02/2022 Telephone [facility] [address] Advanced Medicine 6th [place] [address] [place] [address] Julian Bryan Ud, MD [address] [place], [place] [id number] Social History Tobacco Use Types Packs/Day Years [...] on file 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 She also told me that [facility] does and that they have an outpt therapy facility in the [facility]. This may be the only option but I will await [facility]'s call back. * Telephone Encounter - Peggy Mcdaniel RN - 05/03/2022 11:08 AM CDT I checked for any other PT facilities around [place] and only found one other location, [facility]. I called AT and was informed that they do not take [employer] insurance. I called and spoke with [facility] in [place], they do take [employer] but first it must be approved by their billing dept before scheduling any appts. I will await their return call. I also left a message on [facility] Outpt PT to checkif they take [employer]. I will also wait for a return call from this facility. I will call her to update her on the therapy facility as soon as I have a response from these two PT's. * Telephone Encounter - Marcela Donaldson - 05/02/2022 8:30 AM CDT RETURNING THERAPY REF SENT- THEY DON'T ACCEPT [facility] - see media documented in this encounter Plan of Treatment Not on file documented as of this encounter Visit Diagnoses Not on filedocumented in this encounter
--- OUTSIDE RECORDS SUMMARY | 2024-08-16 12:28 | XMS_ITS | Encounter Summary ---
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
--- OUTSIDE RECORDS SUMMARY | 2024-08-16 12:28 | XMS_ITS | Encounter Summary ---
Author Organization [facility] Address 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 female. Chief Complaint Back Pain HPI Patient coming in office to be seen Review of Systems Constitutional: Negative for fatigue, [...] polyuria. Genitourinary: Negative for dysuria and frequency. Musculoskeletal: Positive for back pain. Skin: Negative for color change and rash. Neurological: Negative for dizziness, tremors and headaches. Hematological: Does not bruise/bleed easily. Psychiatric/Behavioral: Negative for confusion and dysphoric mood. There were no vitals taken for this visit. Physical Exam Assessment/Plan There are no diagnoses linked to this encounter. This was a telemedicine visit with Tabby Theodore alone which took place via real-time video connection with [email or web address]. During the visit, I was located in the office and the patient was located at home in the state of [place]. The patient visit started at The patient has been informed that the visit may not be secure and acknowledged the information. I have explained the option of participating in a telephone or video visit during the COVID-19 public health emergency to the patient. After being given an opportunity to ask questions about and discuss this type of visit, the patient verbally consented to proceeding with the telephone/video visit.The patient understands that this service replaces an office visit and they may be billed and/or responsible for any applicable copayments. BURNISHER UPPERS documented in this encounter Plan of Treatment Not on file documented as of this encounter Visit Diagnoses Diagnosis Lumbar herniated disc- Primary documented in this encounter Care Teams Resident Care Director Relationship Specialty Start Date End Date Bong Mixon MD PCP - General Family Medicine 01/24/21 05/01/22 documented as of this encounter
--- OUTSIDE RECORDS SUMMARY | 2024-08-16 12:28 | XMS_ITS | Encounter Summary ---
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
--- OUTSIDE RECORDS SUMMARY | 2024-08-16 12:28 | XMS_ITS | Encounter Summary ---
Author Organization [facility] Medical Group Address [address] [place] [address] Care Team Providers Care Emergency Communications Officer Name Role Phone Bong Mixon MD Primary Care Provider [phone] Reason for Visit * Reason Comments Follow-up Lumbar pain with rad iation down both legs Encounter Details Date Type Department Care Team (Late st Contact Info) Description 09/27/2021 9:45 AM BAR EXAMINER Office Visit [facility] Family Medicine [address] [place] [address] Anupam Oates PA [address] [address] Benign essential HTN (Primary Dx); Vitamin D deficiency; Lumbar herniated disc; Foraminal stenosis of lumbar region; Annual physical exam Social History Tobacco Use Types Packs/Day Years [...] on file 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 Gender Identity Female 04/19/2021 6:39 AM CDT Sexual Orientation Straight 04/19/2021 6: 39 AM CDT documented as of this encounter Last Filed Vital Signs Vital Sign Reading Time Taken Comments Blood Pressure 122/84 09/27/2021 10:20 AM BAR EXAMINER Pulse 84 09/27/2021 10:20 AM BAR EXAMINER Temperature 36.4 ??C (97.6 ??F) 09/27/2021 10:[address] Respiratory Rate 18 09/27/2021 10:20 AM BAR EXAMINER Oxygen Saturation 99% 09/27/2021 10:20 AM BAR EXAMINER Inhaled Oxygen Concentration - - Weight 76.5 kg (168 lb 9.6 oz) 09/27/2021 10:20 AM BAR EXAMINER Height 162.6 cm (5' 4 ) 09/27/2021 10:20 AM BAR EXAMINER Body Mass Index 28.94 09/27/2021 10:20 AM BAR EXAMINER documented in this encounter Ordered Prescriptions Prescription Sig Dispense Quantity Refills Last Filled Start Date End Date HYDROcodone-acetam inophen (NORCO) 10-325 mg per tabletIndications: Pain Take 1 tablet by mouth 2 (two) times a day 60 tablet 09/27/2021 10/06/2021 documented in this encounter Progress Notes * Anupam Oates PA - 09/27/2021 9:45 AM CST Images from the original note were not included. Subjective/Objective Patient ID: Tabby Theodore is a 40 y.o. female. Chief Complaint Follow-up (Lumbar pain with radiation down both legs ) HPI Patient is here to follow-up on lumbar pain. MRI indicates that she has foraminal stenosis secondary to disc material as well as arthropathic material. Patient remains symptomatic daily. She has increasing pain with sitting on hard surfaces or sitting for too long. She does have intermittent sciatic down both legs. She did see pain management she is recommended to have a transforaminal injection.Patient is unsure of how she wants to proceed at this time. Patient's blood pressures been well controlled she has been compliant with labetalol. She continues take vitamin-D supplement Review of Systems Constitutional: Negative for fatigue, [...] for confusion and dysphoric mood. Blood pressure 122/84, pulse 84, temperature 36.4 ??C (97.6 ??F), temperature source Oral, resp. rate 18, height 162.6 cm (5' 4 ), weight 76.5 kg (168 lb 9.6 oz), SpO2 99 %. Physical Exam Vitals reviewed. Constitutional: General: She is not in acute distress. Appearance: Normal appearance. She is not ill-appearing. HENT: Head: Normocephalic. Eyes: Extraocular Movements: Extraocular movements intact. Conjunctiva/sclera: Right eye: Right conjunctiva is not injected. Left eye: Left conjunctiva is not injected. Cardiovascular: Rate and Rhythm: Normal rate and regular rhythm. Pulses: Normal pulses. Heart sounds: Normal heart sounds. Pulmonary: Effort: Pulmonary effort is normal. No respiratory distress. Breath sounds: Normal breath sounds. Neurological: General: No focal deficit present. Mental Status: She is alert. Psychiatric: Attention and Perception: Attention normal. Mood and Affect: Mood normal. Speech: Speech normal. Behavior: Behavior normal. Behavior is cooperative. Thought Content: Thought content normal. Assessment/Plan Diagnoses and all orders for this visit: Benign essential HTN (I10) (Primary) Assessment & Plan: Chronic conditions stable At goal Continue labetalol Orders: - CBC with auto differential; Future - Comprehensive metabolic panel; Future - Lipid panel; Future Vitamin D deficiency (E55.9) Assessment & Plan: Order vit d level in 3mo Orders: - Vitamin D 25 hydroxy; Future Lumbar herniated disc (M51.26) Assessment & Plan: Chronic condition Continue with current regimen. Patient is asking for increasing pain medications, I ask her to proceed with epidural injections for more diagnostic information on her potential need for surgical intervention D/c norco Start norco 10/325 bid prn #60 Orders: - HYDROcodone-acetaminophen (NORCO) 10-325 mg per tablet; Take 1 tablet by mouth 2 (two) times a day Foraminal stenosis of lumbar region (M48.061) Assessment & Plan: Chronic condition persistent symptoms Encourage patient to proceed with transforaminal injections with pain management. Advised this is the next step in deciding whether surgical intervention may be necessary. Annual physical exam (Z00.00) Comments: order wellness labs in 3 mo at [facility] Orders: - CBC with auto differential; Future - Comprehensive metabolic panel; Future - Lipid panel; Future RAMIRO Brar EXAMINER documented in this encounter Miscellaneous Notes * Assessment & Plan Note - nAupam Oates PA - 09/27/2021 10:48 AM BAR EXAMINER Associated Problem(s): Lumbar herniated disc Chronic condition Continue with current regimen. Patient is asking for increasing pain medications, I ask her to proceed with epidural injections for more diagnostic information on her potential need for surgical intervention D/c norco Start norco 10/325 bid prn #60 EXAMINER EXAMINER * Assessment & Plan Note - Anupam Oates PA - 09/27/2021 10:47 AM BAR EXAMINER Associated Problem(s): Foraminal stenosis of lumbar region Chronic condition persistent symptoms Encourage patient to proceed with transforaminal injections with pain management. Advised this is the next step in deciding whether surgical intervention may be necessary. EXAMINER * Assessment & Plan Note - Anupam Oates PA - 09/27/2021 10:47 AM BAR EXAMINER Associated Problem(s): Benign essential HTN Chronic conditions stable At goal Continue labetalol EXAMINER * Assessment & Plan Note - Anupam Oates PA - 09/27/2021 10:47 AM BAR EXAMINER Associated Problem(s): Vitamin D deficiency Order vit d level in 3mo EXAMINER documented in this encounter Plan of Treatment Not on file documented as of this encounter Visit Diagnoses Diagnosis Benign essential HTN- Primary Vitamin D deficiency Lumbar herniated disc Foraminal stenosis of lumbar region Annual physical exam Routine general medical examination at a health care facility documented in this encounter Discontinued Medications Medication Sig Discontinue Reason Start Date End Da te HYDROcodone-acetaminophe n (NORCO) 7.5-325 mg per tabletIndications:Pain Take 1 tablet by mouth every 8 (eight) hours as needed for pain Must last 30 days 09/11/2021 09/27/2021 documented as of this encounter Care Teams Emergency Communications Officer Relationship Specialty Start Date End Date Bong Mixon MD PCP - General Family Medicine 01/24/21 05/01/22 documented as of this encounter
--- OUTSIDE RECORDS SUMMARY | 2024-08-16 12:28 | XMS_ITS | Encounter Summary ---
Author Organization [facility] Healthcare Address [address] [place] [address] Care Team Providers Care Intake Specialist Name Role Phone Bong Mixon MD Primary Care Provider [phone] Reason for Visit * Reason Comments Back Pain Here low back plain has been going on for 10years progressively getting worse numbness and tingling across low back and left butt cheek sharp pains down right leg. Rather stand then sit painful when sitsSees chiropractor 1 x a week PT in past no help * Consultation (Routine) - Canceled Specialty Diagnoses / Procedures Referred By Contsatya t Referred To Contact Neurosurgery Diagnoses Foraminal stenosis of lumbar region Anupam Oates PA Phone: tel: fax: [facility] [address] [place] [address] Phone: tel: fax: Referral ID Status Reason Start Date Expiration Date Visits Requested Visits Authorized [id number] Canceled Specialty Services Required 12/01/2021 12/31/2022 1 1 Encounter Details Date Type Department Care Team (Late st Contact Info) Description 04/30/2022 10:30 AM CDT Office Visit [facility] [place] [address] Julian Bryan Ud, MD [address] [facility] [address] [place] [address] Other spondylosis with radiculopathy, lumbar region (Primary Dx); Degenerative disc disease, lumbar Social History Tobacco Use Types Packs/Day Years [...] on file 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 Gender Identity Female 04/19/2021 6:39 AM CDT Sexual Orientation Straight 04/19/2021 6: 39 AM CDT documented as of this encounter Last Filed Vital Signs Vital Sign Reading Time Taken Comments Blood Pressure 152/102 04/30/2022 10:33 AM CDT Pulse 76 04/30/2022 10:33 AM CDT Temperature - - Respiratory Rate - - Oxygen Saturation - - Inhaled Oxygen Concentration - - Weight 72.6 kg (160 lb) 04/30/2022 10:33 AM CDT Height 162.6 cm (5' 4 ) 04/30/2022 10:33 AM CDT Body Mass Index 27.46 04/30/2022 10:33 AM CDT documented in this encounter Patient Instructions * Patient Instructions* Peggy Saini RN - 04/30/2022 10:30 AM CDT REFERRAL FOR PHYSICAL THERAPY AT [facility]. THE FACILITY WILL CALL TO SCHEDULE APPOINTMENTS. documented in this encounter Progress Notes * Julian Bryan Ud, MD - 04/30/2022 10:30 AM CDT Images from the original note were not included. NEUROSURGERY OUTPATIENT CLINIC NOTE Chief Complaint: Chief Complaint Patient presents with Back Pain Here low back plain has been going on for 10years progressively getting worse numbness and tinglingacross low back and left butt cheek sharp pains down right leg. Rather stand then sit painful when sits Sees chiropractor 1 x a week PT in past no help Tabby Theodore is a 41 y.o. female who presented with the symptoms of lower back pain with radiationto bilateral lower extremities. Patient describes low back pain symptoms for almost 10 years. Pain distribution of the lower extremity is mainly in left butt cheek which radiates down to the leg. Pain symptoms aching in character, constant frequency, 8/10 in intensity, no significant aggravating factor or relieving factor. Sometimes standing helps with the pain symptoms. 60% lower back pain, and 40% radicular symptoms. No other history of loss of consciousness, recent trauma, dizziness, vertigo, headaches, nausea, emesis, recent visual change, diplopia, nystagmus, tremors, seizures, motor or sensory symptoms, saddle anesthesia, loss of bowel and bladder dysfunction. Patient has a past medical history of Hypertension and Lumbar herniated disc. Patient reports that she has been smoking cigarettes. She started smoking about 8 months ago. She has been smoking an average of .4 packs per day. She has never used smokeless tobacco. She reports current drug use. Drug: Marijuana. Patient reports consuming alcoholic drinks , with a daily consumption of drinks. Patient denies daily consumption of 6 or more alcoholic drinks at one occasion. Patient's family history includes Colon cancer in her father; Diabetes in her mother; Hypertension in her mother; Kidney cancer in her mother; No Known Problems in her brother, sister, and son. Patient has a past surgical history that includes [place] tooth extraction. Review of Systems: Constitutional: Negative for appetite change, fatigue and fever. HENT: Negative for hearing loss, nosebleeds, sinus pain and tinnitus. Eyes: Negative for redness and visual disturbance. Respiratory: Negative for cough. Cardiovascular: Negative for chest pain and palpitations. Gastrointestinal: Negative for nausea and vomiting. Genitourinary: Negative for enuresis and hematuria. Musculoskeletal: Negative for arthralgias and joint swelling. Skin: Negative for pallor and wound. Neurological: Negative for seizures, syncope and headaches. Hematological: Negative for adenopathy. Psychiatric/Behavioral: Negative for behavioral problems and suicidal ideas. Examination: BP (!) 152/102 (BP Location: Left arm) Pulse 76 Ht 162.6 cm (5' 4 ) Wt 72.6 kg (160 lb) BMI27.46 kg/m?? General Inspection: Well nourished, age appropriate. HENT: Head: Normocephalic and atraumatic. Nose: No rhinorrhea. Mouth/Throat: Uvula is midline, oropharynx is clear and moistand mucous membranes Eyes: Conjunctiva clear Neck: Neck supple. No JVD present. Cardiovascular:Normal rate, regular rhythm, normal heart sounds Pulmonary/Chest: Effort normal and breath sounds normal. Clear to auscultation bilaterally Neurological Examination Mental Status: Awake, alert, and well oriented Recent and remote memory appear intact Normal attention span with good concentration Speech is fluent, and non aphasic Good fund of knowledge Pupils are 3 mm and brisk with conjugate extraoculars Fundoscopic exam: Did not perform Cranial nerves CN II: SHARON CN III: conjugate gaze CN IV: normal extraoculars CN V: normal facial sensations in V1 to V3 distribution CN : normal extraoculars CN VII: symmetric face bilaterally CN VIII: normal hearing CN: IX, X: normal palatal elevation CN XI: symmetric shoulder shrug CN XII: tongue is midline Motor exam: Tone and bulk is symmetric No atrophy or fasiculations Motor strength appears 5 out of 5 in bilateral upper and lower extremities No pronator drift appreciated Sensory exam: intact to touch and proprioception bilaterally in upper and lower extremities DTR Reflexes: Upper: 2/4 Lower: 2/4 Nicole sign: negative Lhermitte's sign: negative Spurling sign: negative Las??yoselin Test: negative LAYLA maneuver: unequivocal Ganeslen's maneuver: unequivocal No ankle clonus appreciated Plantar responses are downgoing bilaterally Cerebellar exam: Intact to coordination on finger to nose examination No signs of dysdiadochokinesia Gait: able to rise from chair without assistance Gait is normal with reduced stride distance, no festination Normal heel and toe rise Tandem gait Romberg's sign = negative No spinal or paraspinal tenderness appreciated Normal range of cervical spine motion in flexion, extension, and axial rotation Decrease range of lumbar spine motion in flexion, extension, and lateral bending Labs Lab Results Component Value Date SODIUM 140 12/14/2020 POTASSIUM 4.3 12/14/2020 BUN 17 12/14/2020 CREATININE 0.6 12/14/2020 GLUCOSE 105 (H) 12/14/2020 CALCIUM 9.8 12/14/2020 BILITOT 0.4 12/26/2020 PROT 6.8 12/26/2020 ALBUMIN 4.7 12/26/2020 AST 17 12/26/2020 ALT 24 12/26/2020 ALKPHOS 42 12/26/2020 WBC 7.5 12/14/2020 HGB 13.9 12/14/2020 HCT 40.7 12/14/2020 LABPLAT 176 12/14/2020 HGBA1C 5.0 12/14/2020 Imaging L5-S1 (The above imaging has been reviewed personally) Assessment Encounter Diagnoses Name Primary? Other spondylosis with radiculopathy, lumbar region Yes Degenerative disc disease, lumbar Plan Tabby Theodore is a 41 y.o. female who presented with the symptoms of lower back pain with radiationto bilateral lower extremities. Patient describes low back pain symptoms for almost 10 years. Pain distribution of the lower extremity is mainly in left butt cheek which radiates down to the leg. Pain symptoms aching in character, constant frequency, 8/10 in intensity, no significant aggravating factor or relieving factor. Sometimes standing helps with the pain symptoms. 60% lower back pain, and 40% radicular symptoms. No other history of loss of consciousness, recent trauma, dizziness, vertigo, headaches, nausea, emesis, recent visual change, diplopia, nystagmus, tremors, seizures, motor or sensory symptoms, saddle anesthesia, loss of bowel and bladder dysfunction. On my review of MRI lumbar spine without contrast obtained on 04/18/2022. I can appreciate degenerative disc disease moderate L5-S1 level. There appears to be central disc desiccation with mild central disc bulge without any central canal or lateral recess stenosis. Mainly symptoms are lower back pain with some overlap of radicular symptoms in S1 dermatome. There is good disc height with very small central disc bulge and I do not appreciate any compression of the S1 nerves. Therefore, no activesurgical intervention at this point - recommended physical therapy with core strengthening and lower extremity range of motion exercises. I had a detailed discussion regarding my neurological examination, imaging findings, and the initial assessment. Patient is very comfortable with the recommendations made, all questions answered to the best level of satisfaction. Orders Placed This Encounter Ambulatory referral order to Physical Therapy - Julian Bryan MD Leather Repairer of Neurosurgery [facility] documented in this encounter Miscellaneous Notes * Addendum Note - Peggy Saini RN - 04/30/2022 10:30 AM CDTAddended by: PEGGY SAINI on: 04/30/2022 11:31 AM Modules accepted: Orders documented in this encounter Plan of Treatment Not on file documented as of this encounter Visit Diagnoses Diagnosis Other spondylosis with radiculopathy, lumbar region- Primary Degenerative disc disease, lumbar documented in this encounter Care Teams Intake Specialist Relationship Specialty Start Date End Date Bong Mixon MD PCP - General Family Medicine 01/24/21 05/01/22 documented as of this encounter
--- OUTSIDE RECORDS SUMMARY | 2024-08-16 12:28 | XMS_ITS | Encounter Summary ---
Author Organization [facility] Medical [facility] Address [address] [place] [address] Care Team Providers Care Advanced Nursing Professor Name Role Phone Bong Mixon MD Primary Care Provider [phone] Reason for Visit * Reason Comments Cough Head congestion, sor e throat Encounter Details Date Type Department Care Team (Late st Contact Info) Description 04/26/2022 1:45 PM CDT Telemedicine [facility] Medical [facility] [address] [place] [address] Anupam Oates, PA [address] [address] Upper respiratory tract infection, unspecified type (Primary Dx) Social History Tobacco Use Types [...] on file 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 Gender Identity Female 04/19/2021 6:39 AM CDT Sexual Orientation Straight 04/19/2021 6: 39 AM CDT documented as of this encounter Last Filed Vital Signs Vital Sign Reading Time Taken Comments Blood Pressure - - Pulse - - Temperature - - Respiratory Rate - - Oxygen Saturation - - Inhaled Oxygen Concentration - - Weight 72.6 kg (160 lb) 04/26/2022 1:57 PM CDT Height 162.6 cm (5' 4 ) 04/26/2022 1:57 PM CDT Body Mass Index 27.46 04/26/2022 1:57 PM CDT documented in this encounter Ordered Prescriptions Prescription Sig Dispense Quantity Refills Last Filled Start Date End Date methylPREDNISolone (MEDROL DOSEPACK) 4 mg DosepackIndication s:Upper respiratory tract infection, unspecified type Take as directed on package. 21 tablet 04/26/2022 2 azithromycin (ZITHROMAX) 250 mg tabletIndications: Upper respiratory tract infection, unspecified type Take 2 tabs (500 mg) by mouth today, than 1 daily for 4 days. 6 tablet 04/26/2022 2 documented in this encounter Progress Notes * Anupam Oates PA - 04/26/2022 1:45 PM CDT Images from the original note were not included. Answers submitted by the patient for this visit: Sore Throat Questionnaire (Submitted on 04/25/2022) Chief Complaint: Sore throat Chronicity: new Onset: in the past 7 days Progression since onset: waxing and waning Pain worse on: neither Fever: no fever Pain - numeric: 5/10 hoarse voice: Yes plugged ear sensation: Yes swollen glands: Yes strep: No mono: No Subjective/Objective Patient ID: Tabby Theodore is a 41 y.o. female. Visit Date: 04/26/2022 Chief Complaint Cough (Head congestion, sore throat) HPI Patient completed telemedicine visit via video audio. She states she has 7-8 days of head congestion cold sore throat. She has no fever chills no body aches. She has had some headaches in the 1st fewdays she had sore throat or neck was kind of stiff and tight. She currently has no tender lymph nodes in the neck. Patient is having yellow to brown nasal mucus. Review of Systems Constitutional: Negative for fatigue, fever and unexpected weight change. HENT: Positive for congestion, sore throat and trouble swallowing. Negative for drooling, ear discharge, ear pain, hearing loss, rhinorrhea and voice change. Eyes: Negative for discharge, redness and visual disturbance. Respiratory: Positive for cough and stridor. Negative for chest tightness and shortness of breath. Cardiovascular: Negative for chest pain, palpitations and leg swelling. Gastrointestinal: Negative for abdominal pain, blood in stool, constipation, diarrhea, nausea and vomiting. Endocrine: Negative for polydipsia and polyuria. Genitourinary: Negative for dysuria and frequency. Musculoskeletal: Negative for neck pain. Skin: Negative for color change and rash. Neurological: Positive for headaches. Negative for dizziness and tremors. Hematological: Does not bruise/bleed easily. Psychiatric/Behavioral: Negative for confusion and dysphoric mood. Physical Exam Vitals reviewed. Constitutional: General: She is not in acute distress. Appearance: Normal appearance. She is not ill-appearing. HENT: Head: Normocephalic. Eyes: Extraocular Movements: Extraocular movements intact. Conjunctiva/sclera: Right eye: Right conjunctiva is not injected. Left eye: Left conjunctiva is not injected. Pulmonary: Effort: Pulmonary effort is normal. No respiratory distress. Neurological: General: No focal deficit present. Mental Status: She is alert. Psychiatric: Attention and Perception: Attention normal. Mood and Affect: Mood normal. Speech: Speech normal. Behavior: Behavior normal. Behavior is cooperative. Thought Content: Thought content normal. Assessment/Plan This was a telemedicine visit with Tabby grijalva which took place via real-time video connection with [employer]. During the visit, I was located in the office and the patient was located at home in the [facility]. The patient visit started at 310 a p.m. and ended at 3:16 p.m.. The patient has been informed that the [...] billed and/or responsible for any applicable copayments. Diagnoses and all orders for this visit: Upper respiratory tract infection, unspecified type (J06.9) (Primary) Comments: acute start zpak start mdp Orders: - azithromycin (ZITHROMAX) 250 mg tablet; Take 2 tabs (500 mg) by mouth today, than 1 daily for 4 days. - methylPREDNISolone (MEDROL DOSEPACK) 4 mg Dosepack; Take as directed on package. RAMIRO Brar Cosigned by Bong Mixon MD at 04/26/2022 3:23 PM CDT documented in this encounter Plan of Treatment Not on file documented as of this encounter Visit Diagnoses Diagnosis Upper respiratory tract infection, unspecified type- Primary documented in this encounter Discontinued Medications Medication Sig Discontinue Reason Start Date End Da te pregabalin (LYRICA) 75 mg capsuleIndications:Sciat ica of left side Take 1 capsule (75 mg total) by mouth 2 (two) times a day Therapy completed 08/30/2021 04/26/2022 documented as of this encounter Care Teams Advanced Nursing Professor Relationship Specialty Start Date End Date Bong Mixon MD PCP - General Family Medicine 01/24/21 05/01/22 documented as of this encounter
--- OUTSIDE RECORDS SUMMARY | 2024-08-16 12:28 | XMS_ITS | Encounter Summary ---
Author Organization [facility] Medical [facility] Address [address] [place] [address] Care Team Providers Care Motor Racer Name Role Phone Bong Mixon MD Primary Care Provider [phone] Reason for Visit * Reason Onset Date Comments Med Dose Change 12/04/2021 Encounter Details Date Type Department Care Team (Late st Contact Info) Description 12/04/2021 Telephone [facility] Family Medicine [address] [place] [phone] Anupam Oates, PA [address] [address] Med Dose Change Social History Tobacco Use Types Packs/Day Years [...] on file Legal 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 Gender Identity Female 04/19/2021 6:39 AM CDT Sexual Orientation Straight 04/19/2021 6: 39 AM CDT documented as of this encounter Ordered Prescriptions Prescription Sig Dispense Quantity Refills Last Filled Start Date End Date HYDROcodone-acetam inophen (NORCO) 7.5-325 mg per tabletIndications: Pain Take 1 tablet by mouth every 8 (eight) hours as needed for pain Must last 30 days 90 tablet 12/04/2021 01/02/2022 documented in this encounter Miscellaneous Notes * Telephone Encounter - Rachle Trujillo RN - 12/04/2021 7:12 AM CDT 7.5 tid prn * Telephone Encounter - Rachel Trujillo RN - 12/04/2021 7:11 AM CDT ----- Message from RAMIRO Brar sent at 12/03/2021 8:52 PM CDT ----- Regarding: FW: Prescription Refill ----- Message ----- From: Rachel Trujillo RN Sent: 12/01/2021 2:24 PM CDT To: RAMIRO Brar Subject: FW: Prescription Refill ----- Message ----- From: Tabby Theodore Sent: 12/01/2021 1:22 PM CDT To: [facility] 4646 Clinical Subject: Prescription Refill Dr Grossman's office said they were going to do referral and didnt recommend 2nd round of injections if I had no relief not refill from 1st ones, I just don't want you guys stepping on each others toesbut thank you Anupam and I also discussed increasing current pain meds to 3 a day or possibly going back to the 7.5's what did he decide about that? Tabby documented in this encounter Plan of Treatment Not on file documented as of this encounter Visit Diagnoses Diagnosis Foraminal stenosis of lumbar region- Primary documented in this encounter Discontinued Medications Medication Sig Discontinue Reason Start Date End Da te HYDROcodone-acetaminophe n (NORCO) 10-325 mg per tabletIndications:Pain Take 1 tablet by mouth 2 (two) times a day Must last 30 days 11/04/2021 12/04/2021 documented as of this encounter Care Teams Motor Racer Relationship Specialty Start Date End Date Bong Mixon MD PCP - General Family Medicine 01/24/21 05/01/22 documented as of this encounter
--- OUTSIDE RECORDS SUMMARY | 2024-08-16 12:28 | XMS_ITS | Encounter Summary ---
Author Organization [facility] Address [address] [facility] [facility] [address] [place] [address] Care Team Providers Care Field Horticultural Specialty Grower Name Role Phone Unavailable Primary Care Provider Unavailabl e Reason for Referral * Neurology (Routine) - Closed Specialty Diagnoses / Procedures Referred By Contac t Referred To Contact Diagnoses Numbness and tingling in left arm Procedures EMG/NCV - Anupam Oates PA Phone: tel: fax: [address] [address] Referral ID Status Reason Start Date Expiration Date Visits Re quested Visits Authorized [id number] Closed 06/25/2022 07/25/2023 1 1 TIE MACHINE OPERATOR AUTOMATIC Encounter Details Date Type Department Care Team (Late st Contact Info) Description 06/25/2022 Telephone [facility] Family Medicine at [place] [address] [facility] [address] [place] [address] Anupam Oates PA [address] [place] [address] [address] [place] [address] Social History Tobacco Use Types Packs/Day Years [...] on file Legal Sex Female 7:26 PM TIN TIE MACHINE OPERATOR AUTOMATIC Gender Identity Female 04/19/2021 6:39 AM CDT Sexual Orientation Straight 04/19/2021 6: 39 AM CDT documented as of this encounter Miscellaneous Notes * Telephone Encounter - Rachel Trujillo RN - 06/25/2022 10:10 AM TIN TIE MACHINE OPERATOR AUTOMATIC Order placed TIE MACHINE OPERATOR AUTOMATIC * Telephone Encounter - Rachel Trujillo RN - 06/25/2022 8:51 AM TIN TIE MACHINE OPERATOR AUTOMATIC Nothing on ct scan to indicate a neck problem . Order ncs/emg upper extremity and we cango from there TIE MACHINE OPERATOR AUTOMATIC * Telephone Encounter - Rachel Trujillo RN - 06/25/2022 8:51 AM TIN TIE MACHINE OPERATOR AUTOMATIC ----- Message from RAMIRO Brar sent at 06/24/2022 10:11 PM TIN TIE MACHINE OPERATOR AUTOMATIC ----- Regarding: FW: ER visit Contact: ----- Message ----- From: Rachel Trujillo RN Sent: 06/22/2022 8:11 AM TIN TIE MACHINE OPERATOR AUTOMATIC To: RAMIRO Brar Subject: FW: ER visit ----- Message ----- From: Tabby Theodore Sent: 06/22/2022 6:40 AM TIN TIE MACHINE OPERATOR AUTOMATIC To: [facility] [address] Clinical Subject: ER visit Good morning I have been having pain,numbness, tingling in my left arm for 3+ weeks now I visited er last night and got ct scan It is recommended that I have an mri to see if I have pinched nerve Can you send an order for one please Tabby TIE MACHINE OPERATOR AUTOMATIC documented in this encounter Plan of Treatment Scheduled Orders Name Type Priority Associated Diagnoses Orde r Schedule EMG/NCV - Neurology Routine Numbness and tingling in left arm 1 Occurrences starting 06/25/2022 until 06/25/2023 documented as of this encounter Visit Diagnoses Diagnosis Numbness and tingling in left arm- Primary documented in this encounter
--- OUTSIDE RECORDS SUMMARY | 2024-08-16 12:28 | XMS_ITS | Encounter Summary ---
Author Organization [facility] Medical [facility] Address [address] [place] [address] Care Team Providers Care Employee Adviser Name Role Phone Bong Mixon MD Primary Care Provider [phone] Reason for Visit * Reason Comments Back Pain Encounter Details Date Type Department Care Team (Late st Contact Info) Description 08/30/2021 2:45 PM ESTABLISHMENT GUIDE Telemedicine [facility] [address] [place] [address] Anupam Oates PA [address] [address] Lumbar herniated disc (Primary Dx); Sciatica of left side; Benign essential HTN Social History Tobacco Use Types Packs/Day Years [...] on file Legal Sex Female 7:26 PM ESTABLISHMENT GUIDE Gender Identity Female 04/19/2021 6:39 AM CDT Sexual Orientation Straight 04/19/2021 6: 39 AM CDT documented as of this encounter Ordered Prescriptions Prescription Sig Dispense Quantity Refills Last Filled Start Date End Date pregabalin (LYRICA) 75 mg capsuleIndications :Sciatica of left side Take 1 capsule (75 mg total) by mouth 2 (two) times a day 60 capsule 5 08/30/2021 2 documented in this encounter Progress Notes * Anupam Oates PA - 08/30/2021 2:45 PM CST Subjective/Objective Patient ID: Tabby Theodore is a 40 y.o. female. Chief Complaint Back Pain HPI Patient completed telemedicine visit via video audio today. Patient states she did see pain management today they recommended trying an epidural injection where there is compression of the S1 nerve root particularly symptomatic to her left with newer onset of right symptoms. Patient denies any lossof bowel or bladder control. Patient was unable to tolerate gabapentin due to mood changes. She is on [place] currently. As well as NSAIDs. If patient fails epidural injection will proceed with surgical consultation at that time. Patient's blood pressure slightly elevated her doctor's office today and then 148 over 88 per patient. She states she has been compliant with her labetalol. Review of Systems Constitutional: Negative for fatigue, [...] Endocrine: Negative for polydipsia and polyuria. Genitourinary: Positive for pelvic pain. Negative for dysuria and frequency. Musculoskeletal: Positive for back pain. Skin: Negative for color change and rash. Neurological: Positive for weakness and numbness. Negative for dizziness, tremors and headaches. Hematological: Does not bruise/bleed easily. Psychiatric/Behavioral: Negative for confusion and dysphoric mood. There were no vitals taken for this visit. Physical Exam Vitals reviewed. Constitutional: General: She [...] Diagnoses and all orders for this visit: Lumbar herniated disc (M51.26) (Primary) Assessment & Plan: Chronic uncontrolled Continue with progression to epidural injections through Pain Management Sciatica of left side (M54.32) Assessment & Plan: Chronic uncontrolled Start lyrica 75mg qhs for 3 days then bid Orders: - pregabalin (LYRICA) 75 mg capsule; Take 1 capsule (75 mg total) by mouth 2 (two) times a day Benign essential HTN (I10) Assessment & Plan: Chronic uncontrolled Continue labetalol Start hctz 12.5mg This was a telemedicine visit with Tabby grijalva which took place via real-time video connection with [employer]. During the visit, I was located in the office and the patient was located at home in the [facility]. The patient visit started at 3:05 p.m. and ended at 3:16 p.m.. The [...] billed and/or responsible for any applicable copayments. Answers for HPI/ROS submitted by the patient on 08/30/2021 Chronicity: chronic Onset: more than 1 year ago Frequency: constantly Progression since onset: gradually worsening Pain location: gluteal, lumbar spine, sacro-iliac Pain quality: aching, shooting, stabbing Radiates to: left thigh, right thigh Pain - numeric: 7/10 Pain is: worse during the day Aggravated by: bending, coughing, position, lying down, sitting Stiffness is present: all day bladder incontinence: No bowel incontinence: No leg pain: Yes paresis: No paresthesias: Yes perianal numbness: Yes tingling: Yes weight loss: No BLISHMENT GUIDE documented in this encounter Miscellaneous Notes * Assessment & Plan Note - Anupam Oates PA - 08/30/2021 3:16 PM CSTAssociated Problem(s): Lumbar herniated disc Chronic uncontrolled Continue with progression to epidural injections through Pain Management BLISHMENT GUIDE * Assessment & Plan Note - Anupam Oates PA - 08/30/2021 3:16 PM CSTAssociated Problem(s): Sciatica of left side Chronic uncontrolled Start lyrica 75mg qhs for 3 days then bid BLISHMENT GUIDE BLISHMENT GUIDE * Assessment & Plan Note - Anupam Oates PA - 08/30/2021 3:10 PM CSTAssociated Problem(s): Benign essential HTN Chronic uncontrolled Continue labetalol Start hctz 12.5mg BLISHMENT GUIDE documented in this encounter Plan of Treatment Not on file documented as of this encounter Visit Diagnoses Diagnosis Lumbar herniated disc- Primary Sciatica of left side Benign essential HTN documented in this encounter Discontinued Medications Medication Sig Discontinue Reason Start Date End Da te gabapentin (NEURONTIN) 100 mg capsule Take 1 capsule (100 mg total) by mouth 3 (three) times a day Therapy completed 08/24/2021 08/30/2021 documented as of this encounter Care Teams Employee Adviser Relationship Specialty Start Date End Date Bong Mixon MD PCP - General Family Medicine 01/24/21 05/01/22 documented as of this encounter
--- OUTSIDE RECORDS SUMMARY | 2024-08-16 12:29 | XMS_ITS | Encounter Summary ---
Author Organization [facility] Medical [facility] Address [address] [facility] [address] [facility] [address] [place] [address] Care Team Providers Care Lead Burner Name Role Phone Bong Mixon MD Primary Care Provider [phone] Reason for Visit * Reason Comments New Patient Encounter Details Date Type Department Care Team (Late st Contact Info) Description 08/18/2019 1:00 PM ENROLLMENT SPECIALIST Office Visit [facility] Family Medicine [address] [place] [address] Anupam Oates PA [address] [address] Benign essential HTN (Primary Dx); Vitamin D deficiency; Annual physical exam Social History Tobacco Use Types Packs/Day Years Used Date Smoking Tobacco: Former Smokeless Tobacco: Never Alcohol Use Standard Drinks/Week Comments Yes 0 (1 standard drink = 0.6 oz pur e alcohol) Social AUDIT-C Answer Date Recorded Frequency of Alcohol Consumption Never 11/18/2018 Average Number of Drinks Not on file 019 Frequency of Binge Drinking Not on file 11/03 PHQ-2 Answer Date Recorded PHQ-2 Score 0 08/18/2019 Comments No Sex and Gender Information Value Date Recorded Sex Assigned at Not on file Legal Sex Female 7:26 PM ENROLLMENT SPECIALIST Gender Identity Female 04/19/2021 6:39 AM CDT Sexual Orientation Straight 04/19/2021 6: 39 AM CDT documented as of this encounter Last Filed Vital Signs Vital Sign Reading Time Taken Comments Blood Pressure 132/80 08/18/2019 1:28 PM ENROLLMENT SPECIALIST Pulse 78 08/18/2019 1:28 PM ENROLLMENT SPECIALIST Temperature 36.6 ??C (97.8 ??F) 08/18/2019 1:28 PM CS T Respiratory Rate 16 08/18/2019 1:28 PM ENROLLMENT SPECIALIST Oxygen Saturation - - Inhaled Oxygen Concentration - - Weight 81.4 kg (179 lb 6.4 oz) 08/18/2019 1:28 P M ENROLLMENT SPECIALIST Height 162.6 cm (5' 4 ) 08/18/2019 1:28 PM ENROLLMENT SPECIALIST Body Mass Index 30.79 08/18/2019 1:28 PM ENROLLMENT SPECIALIST documented in this encounter Ordered Prescriptions Prescription Sig Dispense Quantity Refills Last Filled Start Date End Date labetalol (NORMODYNE,TRANDAT E) 200 mg tabletIndications: Benign essential HTN Take 1 tablet (200 mg total) by mouth 2 (two) times a day 60 tablet 2 08/18/2019 11/24/2019 documented in this encounter Progress Notes * Anupam Oates, RAMIRO - 08/18/2019 1:00 PM CST Subjective/Objective Patient ID: Tabby Theodore is a 38 y.o. female. Chief Complaint New Patient HPI Patient is here to establish care. She has a longstanding history of hypertension. She has been on level labetalol for several years at this point. She has been well controlled and tolerating well without side effects. She states last time she had an type wellness done it was couple to 3 years she has no chest pain or shortness of breath changes. She does follow with OBGYN. Review of Systems Constitutional: Negative for fatigue, [...] for confusion and dysphoric mood. Blood pressure 132/80, pulse 78, temperature 36.6 ??C (97.8 ??F), temperature source Oral, resp. rate 16, height 162.6 cm (5' 4 ), weight 81.4 kg (179 lb 6.4 oz). Physical Exam Vitals signs reviewed. Constitutional: General: She is not in acute distress. Appearance: She is well-developed. HENT: Head: Normocephalic. Right Ear: External ear normal. Left Ear: External ear normal. Eyes: Conjunctiva/sclera: Conjunctivae normal. Pupils: Pupils are equal, round, and reactive to light. Neck: Musculoskeletal: Neck supple. Thyroid: No thyromegaly. Comments: ROM appropriate Cardiovascular: Rate and Rhythm: Normal rate and regular rhythm. Heart sounds: Normal heart sounds. No murmur. No friction rub. No gallop. Pulmonary: Effort: Pulmonary effort is normal. Breath sounds: Normal breath sounds. Abdominal: General: Bowel sounds are normal. There is no distension. Palpations: Abdomen is soft. Tenderness: There is no tenderness. Musculoskeletal: Comments: ROM appropriate Skin: General: Skin is warm and dry. Capillary Refill: Capillary refill takes less than 2 seconds. Neurological: Mental Status: She is alert and oriented to person, place, and time. Psychiatric: Behavior: Behavior normal. Assessment/Plan Diagnoses and all orders for this visit: Benign essential HTN (I10) (Primary) - CBC with auto differential; Future - Comprehensive metabolic panel; Future - labetalol (NORMODYNE,TRANDATE) 200 mg tablet; Take 1 tablet (200 mg total) by mouth 2 (two) timesa day Vitamin D deficiency (E55.9) - Vitamin D 25 hydroxy; Future Annual physical exam (Z00.00) - CBC with auto differential; Future - Comprehensive metabolic panel; Future - Lipid panel; Future - Vitamin D 25 hydroxy; Future LLMENT SPECIALIST documented in this encounter Plan of Treatment Scheduled Orders Name Type Priority Associated Diagnoses Orde r Schedule CBC with auto differential Lab Routine Benign essential HTN Annual physical exam Expected: 08/18/2019, Expires: 08/18/2020 Comprehensive metabolic panel Lab Routine Benign essential HTN Annual physical exam Expected: 08/18/2019, Expires: 08/18/2020 Lipid panel Lab Routine Annual physical exam Expected: 08/18/2019, Expires: 08/18/2020 Vitamin D 25 hydroxy Lab Routine Vitamin D deficiency Annual physical exam Expected: 08/18/2019, Expires: 08/18/2020 documented as of this encounter Visit Diagnoses Diagnosis Benign essential HTN- Primary Vitamin D deficiency Annual physical exam Routine general medical examination at a health care facility documented in this encounter Discontinued Medications Medication Sig Discontinue Reason Start Date End Da te ibuprofen (ADVIL,MOTRIN) 600 mg tablet Take 1 tablet (600 mg total) by mouth every 6 (six) hours as needed for pain Therapy completed 11/18/2018 08/18/2019 HYDROcodone-acetaminoph en (NORCO) 5-325 mg per tabletIndications:Pain Take 1-2 tablets by mouth every 4 (four) hours as needed for pain (1 tablet for mild to moderate pain or 2 tablets for severe pain) Do not exceed 8 tablets/day. Therapy completed 11/18/2018 08/18/2019 labetalol (NORMODYNE,TRANDATE) 200 mg tablet Take 200 mg by mouth 2 (two) times a day Reorder 10/18/2018 08/18/2019 documented as of this encounter Historical Medications * This list may reflect changes made after this encounter. DASETTA 1/35, 28, 1-35 mg-mcg per tablet Take 1 tablet by mouth daily 08/16/2019 02/01/2021 added in this encounter Care Teams Lead Burner Relationship Specialty Start Date End Date Bong Mixon MD PCP - General Family Medicine 08/14/19 12/28/20 documented as of this encounter
--- OUTSIDE RECORDS SUMMARY | 2024-08-16 12:29 | XMS_ITS | Encounter Summary ---
Author Organization [facility] Healthcare Address [address] [place] [address] Care Team Providers Care Boom Cat Operator Name Role Phone Bong Mixon MD Primary Care Provider [phone] Encounter Details Date Type Department Care Team (Late st Contact Info) Description 12/14/2020 10:08 AM CDT Hospital Encounter [facility]IM Zenaida Oliva MD [address] [address] Social History Tobacco Use Types Packs/Day Years Used Date Smoking Tobacco: Every Day Cigarettes Last attempted to quit: 03/01/2017 Smokeless Tobacco: Never Alcohol Use Standard Drinks/Week Comments Yes 0 (1 standard drink = 0.6 oz pur e alcohol) Social AUDIT-C Answer Date Recorded Q1: How often do you have a drink containing alc ohol? 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 MANAGER Gender Identity Female 04/19/2021 6:39 AM CDT Sexual Orientation Straight 04/19/2021 6: 39 AM CDT documented as of this encounter Medications at Time of Discharge DASETTA 1/35, 28, 1-35 mg-mcg per tablet Take 1 tablet by mouth daily 08/16/2019 02/01/2021 labetaloL (NORMODYNE,TRANDA TE) 200 mg tabletIndications :Benign essential HTN Take 1 tablet (200 mg total) by mouth 2 (two) times a day 180 tablet 3 11/28/2020 11/28/2021 documented as of this encounter Plan of Treatment Not on file documented as of this encounter Procedures Procedure Name Priority Date/Time Associated Diagnosis Comments VITAMIN D 25 HYDROXY Routine 12/14/2020 11:39 AM CDT TSH Routine 12/14/2020 11:01 AM CDT HEMOGLOBIN A1C Routine 12/14/2020 11:01 AM CDT VITAMIN B12 Routine 12/14/2020 11:01 AM CDT documented in this encounter Results * Vitamin D 25 hydroxy (12/14/2020 11:39 AM CDT) 25-OH Vitamin D Total 30 30 - 80 ng/mL [facility] 12/14/2020 11:3 9 AM CDT 12/14/2020 12:11 PM CDT Narrative Resulting Agency Comment CLI us Zenaida Oliva MD LAB BLOOD ORDERABLES Fin al Result [address] [phone] * TSH (12/14/2020 11:01 AM CDT) TSH 1.55 0.27 - 4.20 uIU/mL [facility] 12/14/2020 11:0 1 AM CDT 12/14/2020 11:16 AM CDT Narrative Resulting Agency Comment CLI Zenaida Oliva MD LAB BLOOD ORDERABLES Fin al Result Performing Organization Address [facility] Co de Phone Number [address] [phone] * Vitamin B12 (12/14/2020 11:01 AM CDT) Vitamin B12 385 230 - 1,250 pg/mL [facility] 12/14/2020 11:0 1 AM CDT 12/14/2020 11:16 AM CDT Narrative Resulting Agency Comment CLI Zenaida Oliva MD LAB BLOOD ORDERABLES Fin al Result Performing Organization Address [facility] de Phone Number [address] [phone] * Hemoglobin A1c (12/14/2020 11:01 AM CDT) Pathologist [facility] Hemoglobin A1c % 5.0 4.0 - 5.6 % [facility] Comment: ADA 2016 GUIDELINES: ??Initial Diagnostic Criteria ? HbA1c Result: ?Interpretation: ?<5.7% ? Normal ?5.7-6.4% ?At risk for diabetes mellitus ?>=6.5% ?Consistent with diabetes mellitus ??Diabetes monitoring ? Target value (ADA Recommended) ?? <7% 12/14/2020 11:0 1 AM CDT 12/14/2020 11:16 AM CDT Narrative Resulting Agency Comment CLI Zenaida Oliva MD LAB BLOOD ORDERABLES Fin al Result Performing Organization Address [facility] de Phone Number [address] [phone] documented in this encounter Visit Diagnoses Not on filedocumented in this encounter Care Teams Boom Cat Operator Relationship Specialty Start Date End Date Bong Mixon MD PCP - General Family Medicine 08/14/19 12/28/20 documented as of this encounter
--- OUTSIDE RECORDS SUMMARY | 2024-08-16 12:29 | XMS_ITS | Encounter Summary ---
Author Organization [facility] Address [address] [facility] [facility] [address] [place] [address] Care Team Providers Care Tester Printed Circuit Boards Name Role Phone Bong Mixon MD Primary Care Provider [phone] Reason for Visit * Reason Onset Date Comments Overdue Results 10/06/2019 Encounter Details Date Type Department Care Team (Late st Contact Info) Description 10/06/2019 Telephone [facility] Family Medicine [address] [place] [address] Anupam Oates, PA [address] [address] Overdue Results Social History Tobacco Use Types [...] on file Legal Sex Female 7:26 PM ART CONSULTANT Gender Identity Female 04/19/2021 6:39 AM CDT Sexual Orientation Straight 04/19/2021 6: 39 AM CDT documented as of this encounter Miscellaneous Notes * Telephone Encounter - Rachel Trujillo RN - 10/06/2019 12:54 PM ART CONSULTANT Forgot to get, will come in and get done CONSULTANT * Telephone Encounter - Rachel Trujillo RN - 10/06/2019 9:31 AM ART CONSULTANT Labs not done, LMTCB CONSULTANT documented in this encounter Plan of Treatment Not on file documented as of this encounter Visit Diagnoses Not on filedocumented in this encounter Care Teams Tester Printed Circuit Boards Relationship Specialty Start Date End Date Bong Mixon MD PCP - General Family Medicine 08/14/19 12/28/20 documented as of this encounter
--- OUTSIDE RECORDS SUMMARY | 2024-08-16 12:29 | XMS_ITS | Encounter Summary ---
Author Organization [facility] Address [address] [facility] [address] [place] [address] Care Team Providers Care Exec. Creative Director Name Role Phone Bong Mixon MD Primary Care Provider Reason for Visit * Reason Onset Date Comments CHIROPRACTOR DATES 02/10/2021 Encounter Details Date Type Department Care Team (Late st Contact Info) Description 02/10/2021 Telephone [facility] Family Medicine [address] [place] [address] Bong Mixon MD [address] [place] [address] [address] [place] [address] CHIROPRACTOR DATES Social History Tobacco Use Types Packs/Day Years Used Date Smoking Tobacco: Every Day Cigarettes Last attempted to quit: 03/01/2017 Smokeless Tobacco: Never Alcohol Use Standard Drinks/Week Comments Yes 0 (1 standard drink = 0.6 oz pur e alcohol) Social AUDIT-C Answer Date Recorded Q1: How often do you have a drink containing alc ohol? 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 IS AWARE * Telephone Encounter - Katherine Blanchard - 02/14/2021 10:42 AM CDT Case still pending * Telephone Encounter - Katherine Blanchard - 02/10/2021 2:23 PM CDT Couldn't upload information- faxed it to ray * Telephone Encounter - Katherine Blanchard - 02/10/2021 2:19 PM CDT PT. CALLED BACK WITH HER CHIROPRACTOR DATES, SHE SAW DR. KEYON SPRINGER 01/12/21, 01/19/21 01/25/21, 02/02/21 AND 02/09/21 UPLOADED INFORMATION TO [facility] documented in this encounter Plan of Treatment Not on file documented as of this encounter Visit Diagnoses Not on filedocumented in this encounter Care Teams Exec. Creative Director Relationship Specialty Start Date End Date Bong Mixon MD PCP - General Family Medicine 01/24/21 05/01/22 documented as of this encounter
--- OUTSIDE RECORDS SUMMARY | 2024-08-16 12:29 | XMS_ITS | Encounter Summary ---
Author Organization [facility] Care Team Providers Care Sleever Name Role Phone Mal Kumar MD Primary Care Provider [phone] Encounter Details Date Type Department Care Team (Latest Contact Info) Description 11/24/2018 Travel Social History Tobacco Use Types Packs/Day Years Used Date Smoking Tobacco: Former Smokeless Tobacco: Never Alcohol Use Standard Drinks/Week Comments Never 0 (1 standard drink = 0.6 oz pur e alcohol) Social AUDIT-C Answer Date Recorded Frequency of Alcohol Consumption Never 11/18/2018 Average Number of Drinks Not on file 019 Frequency of Binge Drinking Not on file 11/03 Comments No Sex and Gender Information Value Date Recorded Sex Assigned at Not on file 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
--- OUTSIDE RECORDS SUMMARY | 2024-08-16 12:29 | XMS_ITS | Encounter Summary ---
Author Organization [facility] Address [address] [facility] [address] [place] [address] Care Team Providers Care Analytical Lead Name Role Phone Bong Mixon MD Primary Care Provider [phone] Reason for Referral * Diagnostic Imaging (Routine) - Closed Specialty Diagnoses / Procedures Referred By Contac t Referred To Contact Diagnoses Elevated LFTs Procedures RU Anupam Oates PA Phone: tel: fax: [facility] [address] [place] [address] Referral ID Status Reason Start Date Expiration Date Visits Re quested Visits Authorized [id number] Closed 12/14/2020 01/13/2022 1 1 Encounter Details Date Type Department Care Team (Late st Contact Info) Description 12/14/2020 Orders Only [facility] Family Medicine [address] [place] [address] Anupam Oates PA [address] [address] Elevated LFTs (Primary Dx) Social History Tobacco Use Types [...] on file 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 Anupam Oates PA Kloess, Krystle M., RN Repeat lft, hepatiti panel and ultrasound liver. documented in this encounter Plan of Treatment Not on file documented as of this encounter Procedures Procedure Name Priority Date/Time Associated Diagnosis Comments HEPATITIS PANEL, ACUTE Routine 12/26/2020 10:41 AM CDT Elevated LFTs HEPATIC FUNCTION PANEL Routine 12/26/2020 10:41 AM CDT Elevated LFTs documented in this encounter Results * Hepatitis panel, acute (12/26/2020 10:41 AM CDT) HepBsAg NONREACT NONREACTIVE [facility] Comment: Siemens CentaurXP using KUN (chemiluminescent immunoassay) technology. NONREACTIVE: IgM antibodies to Hepatitis B Surface antigen not detected. REACTIVE: IgM antibodies to Hepatitis B Surface antigen detected. Reactive results will be confirmed by neutralization testing. HBsAb qn 6.64 mIU/mL [facility] Comment: Siemens CentaurXP using KUN (chemiluminescent immunoassay) technology. 9.99 IU/L or less.....NONREACTIVE: IgM antibodies to Hepatitis B Surface antibody are not detected. 10.00 IU/L or greater..REACTIVE: IgM antibodies to Hepatitis B Surface antibody are detected. Hep B core IgM NONREACT NONREACTIVE [facility] Comment: Siemens CentaurXP using KUN (chemiluminescent immunoassay) technology. NONREACTIVE: IgM antibodies to Hepatitis B Core antigen not detected. EQUIVOCAL: IgM antibodies to Hepatitis B Core antigen may or may not be present. Obtain a ??new specimen and retest. REACTIVE: IgM antibodies to Hepatitis B Core antigen detected. Hep A IgM NONREACT NONREACTIVE [facility] Comment: Siemens CentaurXP using KUN (chemiluminescent immunoassay) technology. NONREACTIVE: IgM antibodies to Hepatitis A not detected. This does not exclude possibility of exposure to Hepatitis A or early acute infection. EQUIVOCAL:IgM antibodies to Hepatitis A may or may not be present. Suggest recollection and retest. REACTIVE: Antibodies to Hepatitis A detected. Hep C Ab NONREACT NONREACTIVE [facility] Comment: Siemens CentaurXP using KUN (chemiluminescent immunoassay) [...] us Anupam [facility] MICROBIOLOGY - GENERAL ORDJaswant FLOREZ Final Result [facility] [address] [place] [address], [facility] [phone] * (ABNORMAL) Hepatic function panel (12/26/2020 10:41 AM CDT) Total Protein 6.8 6.4 - 8.3 g/dL [facility] Albumin 4.7 3.5 - 5.0 g/dL [facility] Globulin 2.1(L) 2.3 - 3.5 gm/dL [facility] Albumin/Globulin Ratio 2.2(H) 1.1 - 1.8 [facility] Total Bilirubin 0.4 0.0 - 1.2 mg/dL [facility] Direct Bilirubin <0.20 0.00 - 0.25 mg/dL [facility] AST 17 0 - 32 U/L [facility] ALT 24 0 - 33 U/L [facility] Alkaline Phosphatase 42 35 - 104 U/L [facility] Blood specimen (specimen) 12/26/2020 10:41 AM CDT 12/26/2020 10:58 AM CDT Narrative Resulting Agency Comment CLI us Anupam [facility] BLOOD ORDERABLES Final Resu lt [facility] [address] [phone] * US RUQ (12/26/2020 9:30 AM CDT) Anatomical Region Laterality Modality Abdomen N/A Ultrasound 12/26/2020 9:56 AM CDT Narrative 12/26/2020 10:04 AM CDT Patient Name: TABBY THEODORE ?Ordering Dr: Anupam Oates PA-C ?? D.O.B: 1980 ? Exam Date: 12/26/20 ?? 0930 ?? Age: 40 ?Sex: Female ? MR#: [id number] ?? Loc: ? RADIOLOGY REPORT ?? Order #[id number] ?? Ultrasound ? US Abd/Right Upper Quadrant ? Signed ?? EXAM DESCRIPTION: ?? US Abd/Right Upper Quadrant ? REASON FOR STUDY: ?? Elevated LFTs ? TECHNIQUE: ??Ultrasound of the right upper quadrant of the abdomen was ?? performed with grayscale and color doppler. ? COMPARISON: ?? None ? FINDINGS: ? PANCREAS: ??Visualized portions of the pancreas are within normal limits. ?? Portions of the pancreatic body and tail are obscured due to bowel gas. ? LIVER: ??The liver appears normal in echotexture and echogenicity. No focal ?? lesion identified. The main portal vein is patent with antegrade flow. ? GALLBLADDER: ??The gallbladder appears unremarkable. No cholelithiasis. ??No ?? gallbladder wall thickening or pericholecystic fluid. No positive sonographic ?? Moran's sign reported. ? BILIARY: ??There is no intrahepatic or extrahepatic biliary ductal dilatation. ?? Common bile duct measures ??2 mm in diameter. ? RIGHT KIDNEY: ??Normal size. Normal echogenicity. No solid mass or cyst. ??No ?? hydronephrosis. Measures ??11.3 cm in length. ? OTHER: ??No other significant findings. ? IMPRESSION: ?? No acute abnormality. ? THIS IS AN ELECTRONICALLY VERIFIED FINAL REPORT ?? 12/26/2020 10:04 AM - Electronically signed by Kassandra Valentin ?? Kassandra Valentin ? AB ?? D: ??12/26/2020 10:04 AM ?? T: ? Report ID: [id number] ?? Reading Location: ??[id number] ? REPORT ELECTRONICALLY SIGNED IN OTHER VENDOR SYSTEM ?? Resulting Agency Comment O Procedure Note Kassandra Valentin MD - 12/26/2020 Patient Name: TABBY THEODOREfady Dr: Anupam Oates PA-C, D.O.B: 1980 Exam Date: 12/26/20929 Age: 40 Sex: Female MR#: [id number] Loc: RADIOLOGY REPORT Order #[id number] Ultrasound US Abd/Right Upper Quadrant Signed EXAM DESCRIPTION: US Abd/Right Upper Quadrant REASON FOR STUDY: Elevated LFTs TECHNIQUE: Ultrasound of the right upper quadrant of the abdomen was performed with grayscale and color doppler. COMPARISON: None FINDINGS: PANCREAS: Visualized portions of the pancreas are within normal limits. Portions of the pancreatic body and tail are obscured due to bowel gas. LIVER: The liver appears normal in echotexture and echogenicity. Nofocal lesion identified. The main portal vein is patent with antegrade flow. GALLBLADDER: The gallbladder appears unremarkable. No cholelithiasis.No gallbladder wall thickening or pericholecystic fluid. No positivesonographic Moran's sign reported. BILIARY: There is no intrahepatic or extrahepatic biliary ductaldilatation. Common bile duct measures 2 mm in diameter. RIGHT KIDNEY: Normal size. Normal echogenicity. No solid mass or cyst.No hydronephrosis. Measures 11.3 cm in length. OTHER: No other significant findings. IMPRESSION: No acute abnormality. THIS IS AN ELECTRONICALLY VERIFIED FINAL REPORT 12/26/2020 10:04 AM - Electronically signed by Kassandra BORJA T: Report ID: [id number] Reading Location: [id number] REPORT ELECTRONICALLY SIGNED IN OTHER VENDOR SYSTEM us Anupam RUBIO IMPhan US PROCEDURES Final Result documented in this encounter Visit Diagnoses Diagnosis Elevated LFTs- Primary Other abnormal blood chemistry Elevated LFTs Other abnormal blood chemistry documented in this encounter Care Teams Analytical Lead Relationship Specialty Start Date End Date Bong Mixon MD PCP - General Family Medicine 08/14/19 12/28/20 documented as of this encounter
--- OUTSIDE RECORDS SUMMARY | 2024-08-16 12:29 | XMS_ITS | Encounter Summary ---
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
--- OUTSIDE RECORDS SUMMARY | 2024-08-16 12:29 | XMS_ITS | Encounter Summary ---
Author Organization [facility] Address [address] [place] [address] Care Team Providers Care Territory Manager Name Role Phone Bong Mixon MD Primary Care Provider [phone] Reason for Visit * Reason Comments Nail Problem fungus great toe mathew l Encounter Details Date Type Department Care Team (Late st Contact Info) Description 03/01/2020 10:30 AM CDT Office Visit 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 Gender Identity Female 04/19/2021 6:39 AM CDT Sexual Orientation Straight 04/19/2021 6: 39 AM CDT documented as of this encounter Last Filed Vital Signs Vital Sign Reading Time Taken Comments Blood Pressure 126/80 03/01/2020 10:50 AM CDT Pulse 80 03/01/2020 10:50 AM CDT Temperature 37.1 ??C (98.7 ??F) 03/01/2020 10:50 AM C DT Respiratory Rate 19 03/01/2020 10:50 AM CDT Oxygen Saturation 99% 03/01/2020 10:50 AM CDT Inhaled Oxygen Concentration - - Weight 75.3 kg (166 lb) 03/01/2020 10:50 AM CDT Height 162.6 cm (5' 4 ) 03/01/2020 10:50 AM CDT Body Mass Index 28.49 03/01/2020 10:50 AM CDT documented in this encounter Progress Notes * Anupam Oates PA - 03/01/2020 10:30 AM CDT Images from the original note were not included. Subjective/Objective Patient ID: Tabby Theodore is a 39 y.o. female. Chief Complaint Nail Problem (fungus great toe nail) HPI Patient reports the office today with concerns of the thickening discolored and fragile nails. She states has been going on for couple years at this point. The right great toenail seems to peel off. She did wear leather boots daily for work for years. She has multiple nails and ball that this point. Patient reports tolerating her labetalol well she has no chest pain palpitations shortness of breath. Review of Systems Constitutional: Negative for fatigue, [...] Skin: Negative for color change and rash. Fungus great toe nail right foot Neurological: Negative for dizziness, tremors and headaches. Hematological: Does not bruise/bleed easily. Psychiatric/Behavioral: Negative for confusion and dysphoric mood. Blood pressure 126/80, pulse 80, temperature 37.1 ??C (98.7 ??F), temperature source Oral, resp. rate 19, height 162.6 cm (5' 4 ), weight 75.3 kg (166 lb), SpO2 99 %. Physical Exam Vitals signs reviewed. Constitutional: General: [...] Tenderness: There is no abdominal tenderness. Musculoskeletal: Feet: Comments: ROM appropriate Skin: General: Skin is warm and dry. Capillary Refill: Capillary refill takes less than 2 seconds. Neurological: Mental Status: She is alert and oriented to person, place, and time. Psychiatric: Behavior: Behavior normal. Assessment/Plan Diagnoses and all orders for this visit: Benign essential HTN (I10) (Primary) Assessment & Plan: Well controlled on current regimen, no rx changes needed. Continue lifestyle modifications Onychomycosis of toenail (B35.1) Comments: Will start Lamisil of liver function tests are within normal limits. Patient advised to 6 months togrow out with 50% recurrence. RAMIRO Brar documented in this encounter Miscellaneous Notes * Assessment & Plan Note - Anupam Oates PA - 03/01/2020 12:00 PM CDT Associated Problem(s): Benign essential HTN Well controlled on current regimen, no rx changes needed. Continue lifestyle modifications documented in this encounter Plan of Treatment Not on file documented as of this encounter Visit Diagnoses Diagnosis Benign essential HTN- Primary Onychomycosis of toenail documented in this encounter Care Teams Territory Manager Relationship Specialty Start Date End Date Bong Mixon MD PCP - General Family Medicine 08/14/19 12/28/20 documented as of this encounter
--- OUTSIDE RECORDS SUMMARY | 2024-08-16 12:29 | XMS_ITS | Encounter Summary ---
Author Organization [facility] Address [address] [place] [address] Care Team Providers Care School Age Teacher Name Role Phone Bong Mixon MD Primary Care Provider [phone] Reason for Visit * Reason Comments Test Results MRI Encounter Details Date Type Department Care Team (Late st Contact Info) Description 07/05/2021 2:30 PM FRUIT PEELER Telemedicine 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 female. Chief Complaint Test Results (MRI) HPI Patient is completing a telemedicine visit via video audio today. Patient has had an MRI run results. She does have L5-S1 disc herniation bulging disc annular fissure and compression of S1 bilateral.Patient still having symptomatic. She is seeing chiropractics she has been doing this for several weeks she gets temporary relief with the treatment. Patient has a primary pain down the left leg but occasionally gets to the right upper portion of the leg. No saddle paresthesias no loss of bowel or bladder controlled Review of Systems Constitutional: Negative for fatigue, [...] this visit: Lumbar herniated disc (M51.26) (Primary) Comments: refill norco d/c gabapentin Assessment & Plan: Chronic condiiton Not well controlled Orders: - HYDROcodone-acetaminophen (NORCO) 5-325 mg per tablet; Take 1-2 tablets by mouth every 8 (eight) hours as needed for pain Sciatica of left side (M54.32) Comments: refer to dr andre Orders: - HYDROcodone-acetaminophen (NORCO) 5-325 mg per tablet; Take 1-2 tablets by mouth every 8 (eight) hours as needed for pain - Ambulatory referral to Pain Management; Future This was a telemedicine visit with Tabby Collier Arben grijalva which took place via real-time video connection with [employer] During the visit, I was located in the office and the patient was located at home in the [facility]. The patient visit started at 4:00 p.m. and ended at 4:10 p.m.. The patient has been informed that the visit may not be secure and acknowledged the information. I have explained the option of participating in a telephone or video visit during the [facility] to the patient. After being given an opportunity to ask questions about and discuss this type of visit, the patient verbally consented to proceeding with the telephone/video visit.The patient understands that this service replaces an office visit and they may be billed and/or responsible for any applicable copayments. T PEELER documented in this encounter Miscellaneous Notes * Assessment & Plan Note - Anupam Oates PA - 07/05/2021 4:08 PM CSTAssociated Problem(s): Lumbar herniated disc Chronic condiiton Not well controlled T PEELER documented in this encounter Plan of Treatment Not on file documented as of this encounter Visit Diagnoses Diagnosis Lumbar herniated disc- Primary Sciatica of left side documented in this encounter Discontinued Medications Medication Sig Discontinue Reason Start Date End Da te LORazepam (ATIVAN) 1 mg tabletIndications:Claust rophobia Take 1 tablet (1 mg total) by mouth once for 1 dose Take one hour prior to proc. Therapy completed 02/01/2021 07/05/2021 HYDROcodone-acetaminophe n (NORCO) 5-325 mg per tabletIndications:Pain Take 1-2 tablets by mouth every 8 (eight) hours as needed for pain Reorder 06/16/2021 07/05/2021 gabapentin (NEURONTIN) 100 mg capsuleIndications:Lumba r pain with radiation down both legs Take 1 capsule (100 mg total) by mouth 3 (three) times a day 04/19/2021 07/05/2021 documented as of this encounter Care Teams School Age Teacher Relationship Specialty Start Date End Date Bong Mixon MD PCP - General Family Medicine 01/24/21 05/01/22 documented as of this encounter
--- OUTSIDE RECORDS SUMMARY | 2024-08-16 12:29 | XMS_ITS | Encounter Summary ---
Author Organization [facility] Address [address] [place] [address] Care Team Providers Care Retort Setter Name Role Phone Bong Mixon MD Primary Care Provider [phone] Reason for Referral * MRI/CAT/PET Scan (Routine) - Closed Specialty Diagnoses / Procedures Referred By Contac t Referred To Contact Radiology Diagnoses Lumbar pain with radiation down both legs Procedures MRI Lumbar Spine WO Contrast Anupam Oates PA Phone: tel: fax: [address] [address] Referral ID Status Reason Start Date Expiration Date Visits Re quested Visits Authorized [id number] Closed 05/25/2021 08/13/2021 1 1 LE MOLDER HAND Reason for Visit * MRI/CAT/PET Scan (Routine) - Closed Specialty Diagnoses / Procedures Referred By Contac t Referred To Contact Radiology Diagnoses Lumbar pain with radiation down both legs Procedures MRI Lumbar Spine WO Contrast Anupam Oates PA Phone: tel: fax: [address] [address] Referral ID Status Reason Start Date Expiration Date Visits Re quested Visits Authorized [id number] Closed 05/25/2021 08/13/2021 1 1 Encounter Details Date Type Department Care Team (Latest Contact Info) Description 06/21/2021 1:16 PM CANDLE MOLDER HAND - 06/21/2021 11:59 PM CANDLE MOLDER HAND Hospital Encounter [facility] MRI [address] [place] [address] Lumbar pain with radiation down both legs Discharge Disposition: Discharge to home or self [...] on file Legal Sex Female 7:26 PM CANDLE MOLDER HAND Gender Identity Female 04/19/2021 6:39 AM CDT Sexual Orientation Straight 04/19/2021 6: 39 AM CDT documented as of this encounter Medications at Time of Discharge norethindrone (MICRONOR) 0.35 mg tablet Take 1 tablet by mouth daily 01/28/2021 Vitamin D2 1,250 mcg (50,000 unit) capsule Take 50,000 Units by mouth every 7 days 12/22/2020 gabapentin (NEURONTIN) 100 mg capsuleIndication s:Lumbar pain with radiation down both legs Take 1 capsule (100 mg total) by mouth 3 (three) times a day 90 capsule 2 04/19/2021 07/05/2021 HYDROcodone-aceta minophen (NORCO) 5-325 mg per tabletIndications :Pain Take 1-2 tablets by mouth every 8 (eight) hours as needed for pain 90 tablet 06/16/2021 07/05/2021 ibuprofen (ADVIL,MOTRIN) 800 mg tablet Take 1 tablet (800 mg total) by mouth 3 (three) times a day as needed for pain (pain) 90 tablet 06/16/2021 08/07/2021 labetaloL (NORMODYNE,TRANDA TE) 200 mg tabletIndications :Benign essential HTN Take 1 tablet (200 mg total) by mouth 2 (two) times a day 180 tablet 3 11/28/2020 11/28/2021 LORazepam (ATIVAN) 1 mg tabletIndications :Claustrophobia Take 1 tablet (1 mg total) by mouth once for 1 dose Take one hour prior to proc. 1 tablet 02/01/2021 07/05/2021 documented as of this encounter Discharge Disposition Disposition Code Departure Means Destination Discharge to home or self care documented in this encounter Plan of Treatment Not on file documented as of this encounter Procedures Procedure Name Priority Date/Time Associated Diagnosis Comments MRI LUMBAR SPINE WO CONTRAST Schedule Routine, Read Routine (OP Routine) 06/21/2021 2:35 PM CANDLE MOLDER HAND Lumbar pain with radiation down both legs documented in this encounter Results * MRI Lumbar Spine WO Contrast (06/21/2021 2:35 PM CANDLE MOLDER HAND) Anatomical Region Laterality Modality Spine N/A Magnetic Resonan ce 06/21/2021 2:38 PM CANDLE MOLDER HAND Narrative 06/21/2021 2:42 PM CANDLE MOLDER HAND EXAM DESCRIPTION: ?? MRI LUMBAR SPINE WO CONTRAST REASON FOR STUDY: ??Chronic lower back pain radiating to the left leg for 3 years with increased sacral and lower back pain after multiple falls January 2021. TECHNIQUE: ?? Sagittal and axial imaging of the lumbar spine includes T1, T2, STIR sequences. ?? COMPARISON: ?? Lumbar spine radiograph 12/22/2020 FINDINGS: SEGMENTATION: ??The lowest fully formed intervertebral disc level is L5-S1, noting rudimentary S1-2 disc. ALIGNMENT: ??Normal. VERTEBRAE: ??No MR evidence of [...] or focal herniation. ??No spinal canal stenosis. ?? No neural foraminal stenosis. L1-2: ??No diffuse disc bulge or focal herniation. ??No spinal canal stenosis. ?? No neural foraminal stenosis. L2-3: ??No diffuse disc bulge or focal herniation. ??No spinal canal stenosis. ?? No neural foraminal stenosis. L3-4: ??No diffuse disc bulge or focal herniation. ??No spinal canal stenosis. ?? No neural foraminal stenosis. L4-5: ??No diffuse [...] 2:42 PM - Electronically signed by Abner Yan M.D. WILMAR D: ??06/21/2021 2:42 PM T: Report ID: [id number] Reading Location: ??[id number] Procedure Note Abner Yan MD - 06/21/2021 EXAM DESCRIPTION: MRI LUMBAR SPINE WO CONTRAST REASON FOR STUDY: Chronic lower back pain radiating to the left leg for 3 years with increased sacral and lower back pain after multiple falls January 2021. TECHNIQUE: Sagittal and axial imaging of the lumbar spine includes T1,T2, STIR sequences. COMPARISON: Lumbar spine radiograph 12/22/2020 FINDINGS: SEGMENTATION: The lowest fully formed intervertebral disc level is L5-S1, noting rudimentary S1-2 disc. ALIGNMENT: Normal. VERTEBRAE: No MR evidence of acute-subacute fracture. Vertebral bodyheights unchanged. Marrow signal within normal limits. DISC HEIGHT: Intervertebral disc desiccation with loss of intervertebraldisc height at L5-S1. HARDWARE: No the lumbar spine. CORD/CAUDA: Normal in size and signal intensity with conus medullaris termination at L1. LOWER THORACIC: Incompletely imaged. No stenosis demonstrated. INDIVIDUAL DISC LEVELS: T12-L1: No diffuse disc bulge or focal herniation. No spinal canalstenosis. No neural foraminal stenosis. L1-2: No diffuse disc bulge or focal herniation. No spinal canalstenosis. No neural foraminal stenosis. L2-3: No diffuse disc bulge or focal herniation. No spinal canalstenosis. No neural foraminal stenosis. L3-4: No diffuse disc bulge or focal herniation. No spinal canalstenosis. No neural foraminal stenosis. L4-5: No diffuse disc bulge or focal herniation. Mild bilateralhypertrophic facet arthropathy. No spinal canal stenosis. No neural foraminalstenosis. L5-S1: Annular disc bulge with small central disc protrusion with slight annular fissure. Mild bilateral hypertrophic facet arthropathy. Slight compromise of the bilateral lateral recesses, noting combination of discand arthropathic facet slight contact with the descending bilateral S1 nerve roots. No spinal canal stenosis. Mild bilateral, right greater thanleft, neural foraminal stenosis. SACRUM: Visualized upper sacrum intact. VISUALIZED UPPER ABDOMEN: No significant abnormality. OTHER: No other significant findings. IMPRESSION: 1. Spondylosis and degenerative disc disease of the lumbar spine asdetailed level by level above, maximal at L5-S1. 2. L5-S1 annular disc bulge with small central disc protrusion withslight annular fissure and facet arthropathy slightly compromises the lateral recesses, noting combination of disc and arthropathic facet slight contact with the descending bilateral S1 nerve roots, in association with mild bilateral neural foraminal stenosis; no spinal canal stenosis. THIS IS AN ELECTRONICALLY VERIFIED FINAL REPORT 06/21/2021 2:42 PM - Electronically signed by Abner Yan M.D. WILMAR T: Report ID: [id number] Reading Location: [id number] Anupam RUBIO IMPhan MRI PROCEDURES Final Result documented in this encounter Visit Diagnoses Diagnosis Lumbar pain with radiation down both legs Lumbago documented in this encounter Care Teams Retort Setter Relationship Specialty Start Date End Date Bong Mixon MD PCP - General Family Medicine 01/24/21 05/01/22 documented as of this encounter
--- OUTSIDE RECORDS SUMMARY | 2024-08-16 12:29 | XMS_ITS | Encounter Summary ---
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 Gender Identity Female 04/19/2021 6:39 AM CDT Sexual Orientation Straight 04/19/2021 6: 39 AM CDT documented as of this encounter Medications at Time of Discharge Vitamin D2 1,250 mcg (50,000 unit) capsule Take 50,000 Units by mouth every 7 days 12/22/2020 DASETTA 1/35, 28, 1-35 mg-mcg per tablet [...] Associated Diagnosis Comments SCREENING MAMMOGRAM BILATERAL W ANDREW 12/29/2020 12:18 PM CDT GENERAL RADIOLOGY REPORT 12/29/2020 12:00 AM CDT documented in this encounter Results * Screening Mammogram Bilateral W Andrew (12/29/2020 12:18 PM CDT) Anatomical Region Laterality Modality Breast Bilateral Mammography 12/29/2020 12:4 0 PM CDT Narrative 12/29/2020 1:22 PM CDT Patient Name: TABBY THEODORE ?Ordering Dr: Zenaida Oliva MD ?? D.O.B: 1980 ? Exam Date: 12/29/20 ?? 1218 ?? Age: 40 ?Sex: Female ? MR#: [id number] ?? Loc: ? RADIOLOGY REPORT ?? Order #[id number] ?? [facility] ? Carolyne Bilat Screening 3D ? [...] age 39, based on guidelines of the [place] [employer] ?? [employer] (ACR Practice Parameter for the Performance of Screening and ?? Diagnostic Mammography) and [place] [employer] and ?? Gynecologists. For women with an elevated risk of breast cancer, please refer ?? to the ACR Practice Parameter for specific screening recommendations. ? The patient will be entered into a reminder system with a target due date of 1 ?? year for her next screening exam. ? Electronically signed by: ?Saroj Narvaez M.D. ? /yadi:12/29/2020 13:22:07 ? Drawing In Machine Tender: Mariama DELGADO(R)(M), [facility] ?? letter sent: Normal Exam ? Reading location: ?? BI-RADS: 1 Negative ? REPORT ELECTRONICALLY SIGNED IN OTHER VENDOR SYSTEM ?? Resulting Agency Comment O Procedure Note Saroj Narvaez MD - 12/29/2020 Patient Name: TABBY THEODORE Dr: Zenaida Oliva MD D.O.B: 1980 Exam Date: 12/29/20 1218 Age: 40 Sex: Female MR#: [id number] Loc: RADIOLOGY REPORT Order #[id number] [facility] Carolyne Bilat Screening 3D Signed - [...] age 39, based on guidelines of the [place] [employer] (ACR Practice Parameter for the Performance of Screening and Diagnostic Mammography) and [place] [employer]. For women with an elevated risk of breast cancer, pleaserefer to the ACR Practice Parameter for specific screening recommendations. The patient will be entered into a reminder system with a target due dateof 1 year for her next screening exam. Electronically signed by: Saroj Narvaez M.D., md/yadi:12/29/2020 13:22:07 Drawing In Machine Tender: Mariama MCCARTHY)(Tim), [facility] letter sent: Normal Exam Reading location: BI-RADS: 1 Negative REPORT ELECTRONICALLY SIGNED IN OTHER VENDOR SYSTEM us Zenaida Oliva MD IMG MAMMO PROCEDURES Fin al Result * GENERAL RADIOLOGY REPORT (12/29/2020 12:00 AM CDT) Anatomical Region Laterality Modality Radiographic Ammy ging Narrative 12/29/2020 12:00 AM CDT Ordered by an unspecified provider. us Historical Provider MD FIGUEROA XR PROCEDURES Final R esult documented in this encounter Visit Diagnoses Not on filedocumented in this encounter Care Teams Bartenders Relationship Specialty Start Date End Date Anupam Oates PA PCP - General 12/29/20 01/23/21 documented as of this encounter
--- OUTSIDE RECORDS SUMMARY | 2024-08-16 12:29 | XMS_ITS | Encounter Summary ---
Author Organization [facility] Facility Care Team Providers Care High School Math Teacher Name Role Phone Bong Mixon MD Primary Care Provider [phone] Encounter Details Date Type Department Care Team (Latest Contact Info) Description 08/18/2019 Travel Social History Tobacco Use Types Packs/Day [...] on file Legal Sex Female 7:26 PM FIRST BEATER Gender Identity Female 04/19/2021 6:39 AM CDT Sexual Orientation Straight 04/19/2021 6: 39 AM CDT documented as of this encounter Plan of Treatment Not on file documented as of this encounter Visit Diagnoses Not on filedocumented in this encounter Care Teams High School Math Teacher Relationship Specialty Start Date End Date Bong Mixon MD PCP - General Family Medicine 08/14/19 12/28/20 documented as of this encounter
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
--- OUTSIDE RECORDS SUMMARY | 2024-08-16 12:29 | XMS_ITS | Encounter Summary ---
Author Organization [facility] Address 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 female. Chief Complaint Hypertension HPI Patient completed telemedicine visit via video audio today. Patient states overall she is doing well except that she has been changing jobs about the last 6 months she has been required to carry heavy her trays. She states the day after she works he has significant amount of muscle aches as well asfatigue. She has no family history of autoimmune disease of her knowledge. She has been compliant with her labetalol she does report good control of her palpitations and blood pressure with this. Otherwise no new concerns today. Review of Systems Constitutional: Negative for fatigue, [...] HTN (I10) (Primary) Assessment & Plan: Chronic condition well-controlled Refill labetalol Orders: - labetaloL (NORMODYNE,TRANDATE) 200 mg tablet; Take 1 tablet (200 mg total) by mouth 2 (two) timesa day - CBC with auto differential; Future - Comprehensive metabolic panel; Future - Lipid panel; Future Vitamin D deficiency (E55.9) Assessment & Plan: Chronic condition with unknown control currently taking vitamin-D supplement order vitamin-D level Annual physical exam (Z00.00) Comments: Order labs Orders: - CBC with auto differential; Future - Comprehensive metabolic panel; Future - Lipid panel; Future Myalgia (M79.10) Comments: order gaetano, sed rate, rf, sed rate Orders: - GAETANO Screen,IFA w/Reflex Titer Pattern; Future - Erythrocyte sedimentation rate; Future - Rheumatoid factor; Future This was a telemedicine visit with Tabby grijalva which took place via real-time video connection with [employer]. During the visit, I was located in the office and the patient was located at home in the [facility]. The patient visit started at the 10:30 a.m. and ended at 10:38 a.m.. The patient has been informed that the [...] billed and/or responsible for any applicable copayments. documented in this encounter Miscellaneous Notes * Assessment & Plan Note - Anupam Oates PA - 11/28/2020 10:39 AM CDT Associated Problem(s): Vitamin D deficiency Chronic condition with unknown control currently taking vitamin-D supplement order vitamin-D level * Assessment & Plan Note - Anupam Oates PA - 11/28/2020 10:39 AM CDT Associated Problem(s): Benign essential HTN Chronic condition well-controlled Refill labetalol documented in this encounter Plan of Treatment Not on file documented as of this encounter Procedures Procedure Name Priority Date/Time Associated Diagnosis Comments GAETANO SCREEN REFLEX TITER/PATTERN, REFLEX MULTIPLEX ANTIBODY CASCADE Routine 12/14/2020 11:00 AM CDT Myalgia CBC WITH AUTO DIFFERENTIAL Routine 12/14/2020 11:00 AM CDT Benign essential HTN Annual physical exam ERYTHROCYTE SEDIMENTATION RATE Routine 12/14/2020 11:00 AM CDT Myalgia RHEUMATOID FACTOR Routine 12/14/2020 11: 00 AM CDT Myalgia LIPID PANEL Routine 12/14/2020 11:00 AM CDT Benign essential HTN Annual physical exam COMPREHENSIVE METABOLIC PANEL Routine 12/14/2020 11:00 AM CDT Benign essential HTN Annual physical exam documented in this encounter Results * Rheumatoid factor (12/14/2020 11:00 AM CDT) Rheumatoid Factor <10.0 0.0 - 13.9 IU/mL [facility] Blood specimen (specimen) 12/14/2020 11:00 AM CDT 12/14/2020 11:16 AM CDT Narrative Resulting Agency Comment CLI us Anupam RUBIO LAB BLOOD ORDERABLES Final Resu lt [address] [address], [facility] [phone] * (ABNORMAL) Erythrocyte sedimentation rate (12/14/2020 11:00 AM CDT) ESR <1(L) 1 - 20 mm/hr [facility] Blood specimen (specimen) 12/14/2020 11:00 AM CDT 12/14/2020 11:16 AM CDT Narrative Resulting Agency Comment CLI us Anupam RUBIO LAB BLOOD ORDERABLES Edited Res ult - Final Performing Organization Address City/[facility]/ZIP Co de Phone Number [address] [address], [facility] [phone] * GAETANO Screen,IFA w/Reflex Titer Pattern (12/14/2020 11:00 AM CDT) GAETANO by Mavis, IgG None Detected None Detected [facility] Comment: If suspicion of connective tissue disease is strong and GAETANO EIA is negative, consider testing for GAETANO by IFA ([id number]). INTERPRETIVE INFORMATION: Anti-Nuclear Antibodies (GAETANO), IgG by MAVIS Antinuclear Antibodies (GAETANO), IgG by MAVIS: GAETANO specimens are screened using enzyme-linked immunosorbent assay (MAVIS) methodology. All MAVIS results reported as Detected are further tested by indirect fluorescent assay (IFA) using HEp-2 substrate with an IgG-specific conjugate. The GAETANO MAVIS screen is designed to detect antibodies against dsDNA, histones, SS-A (Ro), SS-B (La), Carter, Carter/SIFTER AND MILLER, Scl-70, Libby-1, centromeric proteins, other antigens extracted from the HEp-2 cell nucleus. GAETANO MAVIS assays have been reported to have lower sensitivities than GAETANO IFA for systemic autoimmune rheumatic diseases (SARD). Negative results do not necessarily rule out SARD. Performed By: [facility] [address] [place] [id number] Convention Services Manager: Vanessa Falcon MD Blood specimen (specimen) 12/14/2020 11:00 AM CDT 12/14/2020 11:16 AM CDT Narrative Resulting Agency Comment CLI us Anupam RUBIO LAB BLOOD ORDERABLES Final Resu lt RODNEY Walker [place] [id number], [facility] [phone] * (ABNORMAL) Lipid panel (12/14/2020 11:00 AM CDT) Triglycerides 155(H) 0 - 149 mg/dL [facility] Comment: National Lipid Association/NCEP Guidelines: ?? Normal ?< 150 mg/dL ?? Borderline high ?? 150-199 mg/dL ?? High ?200-499 mg/dL ?? Very High ? >=500 mg/dL Cholesterol 200(H) 0 - 199 mg/dL [facility] Comment: National Lipid Association/NCEP Guidelines: Desirable ? < 200 mg/dL Borderline high: ??200-239 mg/dL High Risk: ?>=240 mg/dL HDL Cholesterol 58 mg/dL [facility] Comment: Reference Ranges: ? Males: >=40 mg/dL ? Females: >=50 mg/dL LDL Cholesterol, Calc 111 0 - 129 mg/dL [facility] Comment: National Lipid Association/NCEP Guidelines: ??Optimal ? < 100 mg/dL ??Near Optimal ?100-129 mg/dL ??Borderline high 130-159 mg/dL ??High ?>=160 mg/dL Cholesterol/HDL Ratio 3.4 [facility] Comment: Optimal ??< 3.5:1 High ? > 5:1 Blood specimen (specimen) 12/14/2020 11:00 AM CDT 12/14/2020 11:16 AM CDT Narrative Resulting Agency Comment CLI us Anupam RUBIO LAB BLOOD ORDERABLES Final Resu lt [facility] [address] [place] [address], [facility] [phone] * (ABNORMAL) Comprehensive metabolic panel (12/14/2020 11:00 AM CDT) Sodium 140 135 - 145 mmol/L [facility] Potassium 4.3 3.3 - 5.1 mmol/L [facility] Chloride 104 96 - 108 mmol/L [facility] Carbon Dioxide 26 22 - 32 mmol/L [facility] Anion Gap 10 7 - 16 [facility] Glucose 105(H) 70 - 100 mg/dL [facility] BUN 17 8 - 25 mg/dL [facility] Creatinine 0.6 0.5 - 1.1 mg/dL [facility] Comment: NOTE: Estimated GFR (Cockroft-Gault) will NOT be calculated unless patient Height and Weight were entered. Also, Kidney Disease Stage (GFR) and Estimated GFR (Cockroft-Gault) will NOT be calculated if Creatinine result is <0.2. Kidney Disease Stage >90 mL/MIN [facility] Comment: NOTE; ??The GFR is an estimated value using the creatinine, sex, age, and race of the patient. THE Estimated Kidney Disease GFR is validated for AGES 18-70 YEARS STAGE ?mL/Min ?DESCRIPTION ??1 ?90 mL/min or more ?Normal or elevated GFR ??2 ? 60-89 mL/min ?Mildly decreased GFR ??3 ? 30-59 mL/min ?Moderately decreased GFR ??4 ? 15-29 mL/min ?Severely decreased GFR ??5 ? <15 mL/min ? Kidney failure or on dialysis Calcium 9.8 8.6 - 10.3 mg/dL [facility] Total Protein 7.1 6.4 - 8.3 g/dL [facility] Albumin 4.9 3.5 - 5.0 g/dL [facility] Globulin 2.2(L) 2.3 - 3.5 gm/dL [facility] Albumin/Globulin Ratio 2.2(H) 1.1 - 1.8 [facility] Total Bilirubin 0.5 0.0 - 1.2 mg/dL [facility] AST 34(H) 0 - 32 U/L [facility] ALT 48(H) 0 - 33 U/L [facility] Alkaline Phosphatase 36 35 - 104 U/L [facility] Blood specimen (specimen) 12/14/2020 11:00 AM CDT 12/14/2020 11:16 AM CDT Narrative Resulting Agency Comment CLI us Anupam RUBIO LAB BLOOD ORDERABLES Final Resu lt [facility] [address] [place] [address], [facility] [phone] * CBC with auto differential (12/14/2020 11:00 AM CDT) WBC 7.5 3.8 - 9.9 X10 3/ul [facility] RBC 4.51 3.90 - 5.20 x10 6/ul [facility] Hemoglobin 13.9 11.9 - 15.5 g/dL [facility] Hct 40.7 35.6 - 45.5 % [facility] MCV 90.2 81.3 - 96.4 fl [facility] MCH 30.8 27.1 - 33.3 pg [facility] MCHC 34.2 32.3 - 35.7 g/dl [facility] RDW 12.7 11.1 - 14.9 % [facility] Plt Count 176 150 - 400 x10 3/ul [facility] MPV 9.2 9.1 - 12.3 fl [facility] Neut % 63.8 % [facility] Immature Gran % 0.5 % [facility] Lymph % 28.8 % [facility] Garrard % 4.8 % [facility] Eos % 1.7 % [facility] AUTO BASO % 0.4 % [facility] NEUTROPHIL ABS # 4.8 1.7 - 6.5 x10 3/ul [facility] Immature Gran # 0.0 0.0 - 0.1 x10 3/ul [facility] Absolute Lymphs (auto) 2.2 0.8 - 3.3 x10 3/ul [facility] Absolute Monos (auto) 0.4 0.2 - 0.8 x10 3/ul [facility] Absolute Eos (auto) 0.1 0.0 - 0.5 x10 3/ul [facility] BASOPHIL ABS # 0.0 0.0 - 0.1 x10 3/ul [facility] Nucleat RBC Rel Count 0.0 #/100WBC [facility] NRBC abs 0.00 0.00 - 0.01 x10 3/ul [facility] Absolute Neutrophils 4,800 200 - 8,000 /ul [facility] Blood specimen (specimen) 12/14/2020 11:00 AM CDT 12/14/2020 11:16 AM CDT Narrative Resulting Agency Comment CLI us Anupam RUBIO LAB BLOOD ORDERABLES Final Resu lt [facility] [address] [phone] documented in this encounter Visit Diagnoses Diagnosis Benign essential HTN- Primary Vitamin D deficiency Annual physical exam Routine general medical examination at a health care facility Myalgia Unspecified myalgia and myositis documented in this encounter Discontinued Medications Medication Sig Discontinue Reason Start Date End Da te labetaloL (NORMODYNE,TRANDATE) 200 mg tabletIndications:Benign essential HTN TAKE ONE TABLET BY MOUTH TWICE DAILY Reorder 07/27/2020 11/28/2020 documented as of this encounter Care Teams Urologist Relationship Specialty Start Date End Date Bong Mixon MD PCP - General Family Medicine 08/14/19 12/28/20 documented as of this encounter
--- OUTSIDE RECORDS SUMMARY | 2024-08-16 12:29 | XMS_ITS | Encounter Summary ---
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 Gender Identity Female 04/19/2021 6:39 AM CDT Sexual Orientation Straight 04/19/2021 6: 39 AM CDT documented as of this encounter Ordered Prescriptions Prescription Sig Dispense Quantity Refills Last Filled Start Date End Date gabapentin (NEURONTIN) 100 mg capsule Take 1 capsule (100 mg total) by mouth 3 (three) times a day 90 capsule 5 08/24/2021 2 documented in this encounter Plan of Treatment Not on file documented as of this encounter Visit Diagnoses Not on filedocumented in this encounter Care Teams Water Mechanic Relationship Specialty Start Date End Date Bong Mixon MD PCP - General Family Medicine 01/24/21 05/01/22 documented as of this encounter
--- OUTSIDE RECORDS SUMMARY | 2024-08-16 12:29 | XMS_ITS | Encounter Summary ---
Author Organization [facility] Medical [facility] Address [address] [place] [address] Care Team Providers Care Video Production Assistant Name Role Phone Bong Mixon MD Primary Care Provider [phone] Reason for Visit * Reason Onset Date Comments peer to peer mri l spine wo 05/03/2021 Encounter Details Date Type Department Care Team (Late st Contact Info) Description 05/03/2021 Telephone [facility] Family Medicine [address] [place] [address] Sai Oates, [place] [address] [address] peer to peer mri l spine wo Social History Tobacco Use Types Packs/Day Years [...] on file 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 Had it in April 2021 LINER * Telephone Encounter - Rachel Trujillo RN - 05/25/2021 8:19 AM CDT Letter printed and put on your desk * Telephone Encounter - Sai Oates PA - 05/24/2021 9:53 PM CDT Just send the same letter * Telephone Encounter - Katherine Blanchard - 05/24/2021 7:52 AM CDT If sai wants to appeal this another letter will have to be typed up and faxed to [employer] [employer]. * Telephone Encounter - Rachel Trujillo RN - 05/12/2021 9:18 AM CDT Spoke to Caea B Ref #[id number] Can no longer dur peer-peer, time for that has . Appeal has to be done through [facility] at . Is this something you do or Sai has to do? * Telephone Encounter - Katherine Blanchard - 05/03/2021 12:59 PM CDT Peer to peer need to be scheduled by calling [facility] at for mri l spine wo contrast - CASE# [id number]. THIS IS THE 2ND TIME IT'S GOTTEN DENIED. DENIAL REASON IN Epic THE CHIROP[employer]ORS OFFICE WAS SUPPOSE TO SEND OVER NOTES AND DATES- I NEVER RECEIVED THEM - BUT THE DATES ONLY OF CEMETERY COUNSELOR WAS GIVEN LAST TIME TEST WAS DENIED. documented in this encounter Plan of Treatment Not on file documented as of this encounter Visit Diagnoses Not on filedocumented in this encounter Care Teams Video Production Assistant Relationship Specialty Start Date End Date Bong Mixon MD PCP - General Family Medicine 01/24/21 05/01/22 documented as of this encounter
--- OUTSIDE RECORDS SUMMARY | 2024-08-16 12:29 | XMS_ITS | Encounter Summary ---
Author Organization 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
--- OUTSIDE RECORDS SUMMARY | 2024-08-16 12:29 | XMS_ITS | Encounter Summary ---
Author Organization [facility] Medical Group Address [address] [place] [address] Care Team Providers Care Senior Ssis Developer Name Role Phone Bong Mixon MD Primary Care Provider [phone] Reason for Visit * Reason Comments Test Results Back Pain Encounter Details Date Type Department Care Team (Late st Contact Info) Description 02/01/2021 1:30 PM CDT Office Visit [facility] Medical [facility] Family Medicine [address] [place] [address] Anupam Oates, [place] [address] [address] Lumbar pain with radiation down both legs (Primary Dx); Claustrophobia; Onychomycosis of toenail Social History Tobacco Use [...] on file 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 Gender Identity Female 04/19/2021 6:39 AM CDT Sexual Orientation Straight 04/19/2021 6: 39 AM CDT documented as of this encounter Last Filed Vital Signs Vital Sign Reading Time Taken Comments Blood Pressure 152/96 02/01/2021 1:54 PM CDT Pulse 96 02/01/2021 1:54 PM CDT Temperature - - Respiratory Rate 16 02/01/2021 1:54 PM CDT Oxygen Saturation - - Inhaled Oxygen Concentration - - Weight 76.7 kg (169 lb 3.2 oz) 02/01/2021 1:54 P M CDT Height 162.6 cm (5' 4 ) 02/01/2021 1:54 PM CDT Body Mass Index 29.04 02/01/2021 1:54 PM CDT documented in this encounter Ordered Prescriptions Prescription Sig Dispense Quantity Refills Last Filled Start Date End Date terbinafine (LamiSIL) 250 mg tabletIndications: Onychomycosis of toenail Take 1 tablet (250 mg total) by mouth daily 90 tablet 02/01/2021 1 LORazepam (ATIVAN) 1 mg tabletIndications: Claustrophobia Take 1 tablet (1 mg total) by mouth once for 1 dose Take one hour prior to proc. 1 tablet 02/01/2021 1 ibuprofen (ADVIL,MOTRIN) 800 mg tabletIndications: Lumbar pain with radiation down both legs Take 1 tablet (800 mg total) by mouth 3 (three) times a day as needed for pain (pain) 180 tablet 02/01/2021 1 HYDROcodone-acetam inophen (NORCO) 5-325 mg per tabletIndications: Pain Take 1-2 tablets by mouth every 8 (eight) hours as needed for pain 30 tablet 02/01/2021 1 documented in this encounter Progress Notes * Anupam Oates PA - 02/01/2021 1:30 PM CDT Images from the original note were not included. Subjective/Objective Patient ID: Tabby Theodore is a 40 y.o. female. Chief Complaint Results and Back Pain HPI Patient is here today for lumbar sacral pain after a fall roughly 7 weeks ago. Patient has been seeing chiropractic as well as doing home stretches strengthening using ice and rest p.r.n.. Patient has had x-rays which I reviewed with her of the LS spine. She did have partial sacralization of S1. Patient has persistent pain low back as well as sacrum. She is having radiation to bilateral lumbar sacral region. Pain extends to the body of the buttocks. Pain is worse with use. She is also having pain with lying flat. Review of Systems Constitutional: Negative for fatigue, [...] for confusion and dysphoric mood. Blood pressure 152/96, pulse 96, resp. rate 16, height 162.6 cm (5' 4 ), weight 76.7 kg (169 lb 3.2oz). Physical Exam Vitals reviewed. Constitutional: General: She [...] Musculoskeletal: Cervical back: Neck supple. Lumbar back: Spasms, tenderness and bony tenderness present. Comments: ROM appropriate Skin: General: Skin is warm and dry. Capillary Refill: Capillary refill takes less than 2 seconds. Neurological: Mental Status: She is alert and oriented to person, place, and time. Psychiatric: Behavior: Behavior normal. Assessment/Plan Diagnoses and all orders for this visit: Lumbar pain with radiation down both legs (M54.5) (Primary) Comments: failed > 6 weeks xrays, p.t. /chiro, and nsaids. order mri l/s spine. start norco 5/325 q8 prn #30 start ibp 800mg tid prn Orders: - MRI Lumbar Spine WO Contrast; Future - HYDROcodone-acetaminophen (NORCO) 5-325 mg per tablet; Take 1-2 tablets by mouth every 8 (eight) hours as needed for pain - ibuprofen (ADVIL,MOTRIN) 800 mg tablet; Take 1 tablet (800 mg total) by mouth 3 (three) times a day as needed for pain (pain) Claustrophobia (F40.240) Comments: ativan 1mg 1 hr prior to procedure Orders: - LORazepam (ATIVAN) 1 mg tablet; Take 1 tablet (1 mg total) by mouth once for 1 dose Take one hourprior to proc. Onychomycosis of toenail (B35.1) Comments: start lamisil 12 weeks Orders: - terbinafine (LamiSIL) 250 mg tablet; Take 1 tablet (250 mg total) by mouth daily RAMIRO Brar documented in this encounter Plan of Treatment Not on file documented as of this encounter Visit Diagnoses Diagnosis Lumbar pain with radiation down both legs- Primary Lumbago Claustrophobia Other isolated or specific phobias Onychomycosis of toenail documented in this encounter Discontinued Medications Medication Sig Discontinue Reason Start Date End Da te DASETTA , 28, 1-35 mg-mcg per tablet Take 1 tablet by mouth daily 08/16/2019 02/01/2021 documented as of this encounter Historical Medications * This list may reflect changes made after this encounter. norethindrone (MICRONOR) 0.35 mg tablet Take 1 tablet by mouth daily 01/28/2021 Vitamin D2 1,250 mcg (50,000 unit) capsule Take 50,000 Units by mouth every 7 days 12/22/2020 varenicline (CHANTIX) 1 mg tabletIndications :Smoking Cessation Take 1 mg by mouth 2 (two) times a day Take with full glass of water. 04/19/2021 added in this encounter Care Teams Senior Ssis Developer Relationship Specialty Start Date End Date Bong Mixon MD PCP - General Family Medicine 01/24/21 05/01/22 documented as of this encounter
--- OUTSIDE RECORDS SUMMARY | 2024-08-16 12:29 | XMS_ITS | Encounter Summary ---
Author Organization [facility] Medical [facility] Address [address] [place] [address] Care Team Providers Care Fan Mail Editor Name Role Phone Bong Mixon MD Primary Care Provider [phone] Reason for Visit * Reason Onset Date Comments peer to peer mri l spkristin wo 02/07/2021 Encounter Details Date Type Department Care Team (Late st Contact Info) Description 02/07/2021 Telephone [facility] Medical [facility] Family Medicine [address] [place] [address] Bong Mixon MD [address] [place] [address] [address] [place] [address] peer to peer mri l spne wo Social History Tobacco Use Types Packs/Day [...] on file 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 for lumbar pain * Telephone Encounter - Katherine Blanchard - 02/07/2021 7:53 AM CDT Peer to peer is needed by calling [facility] at , CASE# [id number] For Denied Mri l spine w/o contrast. They mentioned no p.therapy- But they will be faxing the denial reason documented in this encounter Plan of Treatment Not on file documented as of this encounter Visit Diagnoses Diagnosis Lumbar pain with radiation down both legs- Primary Lumbago documented in this encounter Care Teams Fan Mail Editor Relationship Specialty Start Date End Date Bong Mixon MD PCP - General Family Medicine 01/24/21 05/01/22 documented as of this encounter
--- OUTSIDE RECORDS SUMMARY | 2024-08-16 12:29 | XMS_ITS | Encounter Summary ---
Author Organization [facility] Address [address] [place] [address] Care Team Providers Care Curb Setter Name Role Phone Bong Mixon MD Primary Care Provider [phone] Reason for Referral * Diagnostic Imaging (Routine) - Closed Specialty Diagnoses / Procedures Referred By Contac t Referred To Contact Diagnoses Lumbar pain Procedures XR Sacrum Coccyx 2 or More Views Anupam Oates PA Phone: tel: fax: [address] [address] Referral ID Status Reason Start Date Expiration Date Visits Re quested Visits Authorized [id number] Closed 12/22/2020 01/21/2022 1 1 * Diagnostic Imaging (Routine) - Closed Specialty Diagnoses / Procedures Referred By Contac t Referred To Contact Diagnoses Lumbar pain Procedures XR Spine Lumbar 2 Or 3 Vw Anupam Oates PA Phone: tel: fax: [address] [address] Referral ID Status Reason Start Date Expiration Date Visits Re quested Visits Authorized [id number] Closed 12/22/2020 01/21/2022 1 1 Encounter Details Date Type Department Care Team (Late st Contact Info) Description 12/22/2020 11:46 AM CDT Hospital Encounter [facility] INTERIM Anupam Oates, RAMIRO [address] [facility] [address] [place] [address] [place] [address] Lumbar pain Social History Tobacco Use Types Packs/Day [...] on file 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 Gender Identity Female 04/19/2021 6:39 AM CDT [...] Name Priority Date/Time Associated Diagnosis Comments XR SACRUM COCCYX 2 OR MORE VIEWS Schedule Routine, Read Routine (OP Routine) 12/22/2020 11:49 AM CDT Lumbar pain XR SPINE LUMBAR 2 OR 3 VIEWS Schedule Routine, Read Routine (OP Routine) 12/22/2020 11:49 AM CDT Lumbar pain documented in this encounter Results * XR Sacrum Coccyx 2 or More Views (12/22/2020 11:49 AM CDT) Anatomical Region Laterality Modality Pelvis, Body N/A Radiographic Ammy ging 12/23/2020 10:5 1 AM CDT Narrative 12/23/2020 10:54 AM CDT Patient Name: TABBY THEODORE ?Ordering Dr: Anupam Oates PA-C ?? D.O.B: 1980 ? Exam Date: 12/22/20 ?? 1149 ?? Age: 40 ?Sex: Female ? MR#: [id number] ?? Loc: ? RADIOLOGY REPORT ?? Order #[id number] ?? Radiology ? Sacrum and Coccyx 2 [...] 10:54 AM ?? T: ? Report ID: [id number] ?? Reading Location: ??[id number] ? REPORT ELECTRONICALLY SIGNED IN OTHER VENDOR SYSTEM ?? Resulting Agency Comment O Procedure Note Carlos Manuel Kearney MD - 12/23/2020 Patient Name: TABBY THEODORE Dr: Anupam Oates PA-CO.B: 1980 Exam Date: 12/22/20 1149 Age: 40 Sex: Female MR#: [id number] Loc: RADIOLOGY REPORT Order #[id number] Radiology Sacrum and Coccyx 2 View Min [...] by Carlos Manuel CULVER T: Report ID: [id number] Reading Location: [place] [address] REPORT ELECTRONICALLY SIGNED IN OTHER VENDOR SYSTEM us Anupam RUBIO IMG XR PROCEDURES Final Result * XR Spine Lumbar 2 Or 3 Vw (12/22/2020 11:49 AM CDT) Anatomical Region Laterality Modality Spine N/A Radiographic Ammy ging 12/23/2020 9:15 AM CDT Narrative 12/23/2020 9:16 AM CDT Patient Name: TABBY THEODORE ?Ordering : Anupam Oates PA-C ?? D.O.B: 1980 ? Exam Date: 12/22/20 ?? 1149 ?? Age: 40 ?Sex: Female ? MR#: [id number] ?? Loc: ? RADIOLOGY REPORT ?? Order #[id number] ?? Radiology ? Lumbar Spine 2 or [...] 9:16 AM ?? T: ? Report ID: [id number] ?? Reading Location: ??[id number] ? REPORT ELECTRONICALLY SIGNED IN OTHER VENDOR SYSTEM ?? Resulting Agency Comment O Procedure Note Nirmal Goodwin DO - 12/23/2020 Patient Name: TABBY THEODORE Dr: Anupam Oates PA-COPaulB: 1980 Exam Date: 12/22/20 1149 Age: 40 Sex: Female MR#: [id number] Loc: RADIOLOGY REPORT Order #[id number] Radiology Lumbar Spine 2 or 3 View [...] signed by Nirmal REYES T: Report ID: [id number] Reading Location: [place] [address] REPORT ELECTRONICALLY SIGNED IN OTHER VENDOR SYSTEM Anupam RUBIO IMG XR PROCEDURES Final Result documented in this encounter Visit Diagnoses Diagnosis Lumbar pain Lumbago documented in this encounter Care Teams Curb Setter Relationship Specialty Start Date End Date Bong Mixon MD PCP - General Family Medicine 08/14/19 12/28/20 documented as of this encounter
--- OUTSIDE RECORDS SUMMARY | 2024-08-16 12:29 | XMS_ITS | Encounter Summary ---
Author Organization [facility] Medical [facility] Address [address] [place] [address] Care Team Providers Care Digital Sales Director Name Role Phone Bong Mixon MD Primary Care Provider [phone] Reason for Referral * MRI/CAT/PET Scan (Routine) - Closed Specialty Diagnoses / Procedures Referred By Contac t Referred To Contact Radiology Diagnoses Lumbar pain with radiation down both legs Procedures MRI Lumbar Spine WO Contrast Anupam Oates PA Phone: tel: fax: [facility] [address] [place] [address] Referral ID Status Reason Start Date Expiration Date Visits Re quested Visits Authorized [id number] Closed 05/25/2021 08/13/2021 1 1 Reason for Visit * Reason Comments Follow-up Lumbar pain with rad ioation down both legs, not better Encounter Details Date Type Department Care Team (Late st Contact Info) Description 04/19/2021 7:45 AM CDT Telemedicine [facility] Family Medicine [address] [place] [address] Anupam Oates PA [address] [address] Lumbar pain with radiation down both legs (Primary Dx) Social History Tobacco Use Types [...] on file 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 Gender Identity Female 04/19/2021 6:39 AM CDT Sexual Orientation Straight 04/19/2021 6: 39 AM CDT documented as of this encounter Ordered Prescriptions Prescription Sig Dispense Quantity Refills Last Filled Start Date End Date gabapentin (NEURONTIN) 100 mg capsuleIndications :Lumbar pain with radiation down both legs Take 1 capsule (100 mg total) by mouth 3 (three) times a day 90 capsule 2 04/19/2021 1 HYDROcodone-acetam inophen (NORCO) 5-325 mg per tabletIndications: Pain Take 1-2 tablets by mouth every 8 (eight) hours as needed for pain 90 tablet 04/19/2021 1 documented in this encounter Progress Notes * Anupam Oates PA - 04/19/2021 7:45 AM CDT Images from the original note were not included. Subjective/Objective Patient ID: Tabby Theodore is a 40 y.o. female. Chief Complaint Follow-up (Lumbar pain with radioation down both legs, not better ) HPI Patient is completing a telemedicine visit via video audio today. Patient is following up for persistent lumbar pain. She is not getting good enough relief with her anti-inflammatories nor [place] at this time. She has persistent low back pain with radiation on bilateral legs with left being significantly worse than the right. Patient has been through chiropractic adjustments in exercises for greater than 6 weeks without improvement symptoms. She has completed her x-ray at this time. She has beenusing rest ice heat as well without any recent resolution of symptoms. Reviewed x-ray with patient. Review of Systems Constitutional: Negative for fatigue, [...] radiation down both legs (M54.5) (Primary) Comments: order mri l/s spine [facility] norco #90 start gabapentin 100mg tid Orders: - MRI Lumbar Spine WO Contrast; Future - HYDROcodone-acetaminophen (NORCO) 5-325 mg per tablet; Take 1-2 tablets by mouth every 8 (eight) hours as needed for pain - gabapentin (NEURONTIN) 100 mg capsule; Take 1 capsule (100 mg total) by mouth 3 (three) times a day Patient has completed x-ray of the lumbar spine. Patient and has been on ibuprofen for greater than 12 weeks of in failing Patient has been treated with narcotics without any significant relief of pain. Patient has been seeing chiropractic in doing chiropractic physical therapy recommendations for greater than 6 weeks without improvement of symptoms. RAMIRO Brar This was a telemedicine visit with Tabby grijalva which took place via real-time video connection with [employer]. During the visit, I was located in the office and the patient was located at home in the state [facility]. The patient visit started at 8:18 a.m. and ended at 8:25 a.m.. The patient has been informed that the visit may not be secure and acknowledged the information. I have explained the option of participating in a telephone or video visit during the COVID-19 public [facility] emergency to the patient. After being given an opportunity to ask questions about and discuss this type of visit, the patient verbally consented to proceeding with the telephone/video visit.The patient understands that this service replaces an office visit and they may be billed and/or responsible for any applicable copayments. documented in this encounter Plan of Treatment Not on file documented as of this encounter Results * MRI Lumbar Spine WO Contrast (06/21/2021 2:35 PM WHEEL AND CASTER REPAIRER) Anatomical Region Laterality Modality Spine N/A Magnetic Resonan ce 06/21/2021 2:38 PM WHEEL AND CASTER REPAIRER Narrative 06/21/2021 2:42 PM WHEEL AND CASTER REPAIRER EXAM DESCRIPTION: ?? MRI LUMBAR SPINE WO [...] D: ??06/21/2021 2:42 PM T: Report ID: [id number] Reading Location: ??[id number] Procedure Note Abner Yan MD - 06/21/2021 [...] PM - Electronically signed by Abner URBAN T: Report ID: [id number] Reading Location: [place] [address] Anupam RUBIO IM MRI PROCEDURES Final Result documented in this encounter Visit Diagnoses Diagnosis Lumbar pain with radiation down both legs- Primary Lumbago Lumbar pain with radiation down both legs Lumbago documented in this encounter Discontinued Medications Medication Sig Discontinue Reason Start Date End Da te varenicline (CHANTIX) 1 mg tabletIndications:Smokin g Cessation Take 1 mg by mouth 2 (two) times a day Take with full glass of water. Therapy completed 04/19/2021 HYDROcodone-acetaminophe n (NORCO) 5-325 mg per tabletIndications:Pain Take 1-2 tablets by mouth every 8 (eight) hours as needed for pain Reorder 04/13/2021 04/19/2021 documented as of this encounter Care Teams Digital Sales Director Relationship Specialty Start Date End Date Bong Mixon MD PCP - General Family Medicine 01/24/21 05/01/22 documented as of this encounter
--- OUTSIDE RECORDS SUMMARY | 2024-08-16 12:29 | XMS_ITS | Encounter Summary ---
Author Organization [facility] Address [address] [place] [address] Care Team Providers Care Sales Review Clerk Name Role Phone Bong Mixon MD Primary Care Provider [phone] Reason for Referral * Diagnostic Imaging (Routine) - Closed Specialty Diagnoses / Procedures Referred By Contac t Referred To Contact Diagnoses Elevated LFTs Procedures RU Anupam Oates PA Phone: tel: fax: [address] [phone] Referral ID Status Reason Start Date Expiration Date Visits Re quested Visits Authorized [id number] Closed 12/14/2020 01/13/2022 1 1 Encounter Details Date Type Department Care Team (Late st Contact Info) Description 12/26/2020 9:25 AM CDT Hospital Encounter [facility] INTERIM Anupam Oates PA [address] [phone] Elevated LFTs Social History Tobacco Use Types Packs/Day Years [...] on file 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 D.O.B: 1980 ? Exam Date: 12/26/21 ?? 0930 ?? Age: 40 ?Sex: Female ? MR#: [id number] ?? Loc: ? RADIOLOGY REPORT ?? Order #[id number] ?? Ultrasound ? US Abd/Right Upper Quadrant [...] 10:04 AM ?? T: ? Report ID: [id number] ?? Reading Location: ??[id number] ? REPORT ELECTRONICALLY SIGNED IN OTHER VENDOR SYSTEM ?? Resulting Agency Comment O Procedure Note Kassandra Valentin MD - 12/26/2020 Patient Name: TABBY THEODORE Shanae Dr: Anupam Oates PA-C, D.O.B: 1980 Exam Date: 12/26/20929 Age: 40 Sex: Female MR#: [id number] Loc: [facility]#: [id number] RADIOLOGY REPORT Order #[id number] Ultrasound US Abd/Right Upper Quadrant Signed EXAM [...] signed by Kassandra BORJA T: Report ID: [id number] Reading Location: [place] [address] REPORT ELECTRONICALLY SIGNED IN OTHER VENDOR SYSTEM us Anupam RUBIO IMG US PROCEDURES Final Result documented in this encounter Visit Diagnoses Diagnosis Elevated LFTs Other abnormal blood chemistry documented in this encounter Care Teams Sales Review Clerk Relationship Specialty Start Date End Date Bong Mixon MD PCP - General Family Medicine 08/14/19 12/28/20 documented as of this encounter
--- OUTSIDE RECORDS SUMMARY | 2024-08-16 12:30 | XMS_ITS | Encounter Summary ---
Author Organization [facility] Healthcare Address [address] [place] [address] Care Team Providers Care Shoe Repairer Helper Name Role Phone Unavailable Primary Care Provider Unavailabl e Encounter Details Date Type Department Care Team (Latest Contact Info) Description 05/11/2015 3:01 PM CDT - 06/04/2015 3:01 PM CDT Hospital Encounter [facility] Babcock MD [address] [address] Encounter for other orthopedic aftercare; Nondisplaced fracture of proximal phalanx of left index finger with routine healing Social History Tobacco Use Types Packs/Day Years Used Date Smoking Tobacco: Never Assessed Comments Unknown Sex and Gender Information Value Date Recorded Sex Assigned at Not on file 

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
--- OUTSIDE RECORDS SUMMARY | 2024-08-16 12:30 | XMS_ITS | Encounter Summary ---
Author Organization [facility] Facility Care Team Providers Care Nurse Educator Name Role Phone Mal Kumar MD Primary Care Provider [phone] Bong Mixon MD Primary Care Provider [phone] Anupam Oates Primary Care Provider [phone] Bong Mixon MD Primary Care Provider [phone] Bong Mixon MD Primary Care Provider [phone] Encounter Details Date Type Department Care Team (Latest Contact Info) Description 11/30/2015 Orders Only [facility]INCONV Provider, MD Jacinta [address] [place] [address] Social History Tobacco Use Types Packs/Day Years Used Date Smoking Tobacco: Never Assessed Comments Unknown Sex and Gender Information Value Date Recorded Sex Assigned at Not on file 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 us Historical Provider Final Res ult documented in this encounter Visit Diagnoses Not on filedocumented in this encounter Care Teams Nurse Educator Relationship Specialty Start Date End Date Mal Kumar MD [address] [place] [address] PCP - General 11/17/18 08/13/19 Bong Mixon MD [address] [place] [address] PCP - General Family Medicine 08/14/19 12/28/20 Anupam Oates PA [address] [place] [address] PCP - General 12/29/20 01/23/21 Bong Mixon MD [address] [place] [address] PCP - General Family Medicine 01/24/21 05/01/22 Bong Mixon MD [address] [place] [id number] PCP - General Family Medicine 04/15/23 documented as of this encounter
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
--- OUTSIDE RECORDS SUMMARY | 2024-08-16 12:30 | XMS_ITS | Encounter Summary ---
Author Organization [facility] Healthcare Address [address] [place] [address] Care Team Providers Care Gas Main And Line Fitter Name Role Phone Unavailable Primary Care Provider Unavailabl e Encounter Details Date Type Department Care Team (Latest Contact Info) Description 12/21/2015 4:00 PM CDT - 01/03/2016 4:00 PM CDT Hospital Encounter [facility] [address] Babcock MD [facility] [address] [address] Pain of right hand; Encounter for other specified aftercare Social History Tobacco Use Types Packs/Day Years Used Date Smoking Tobacco: Never Assessed Comments Unknown Sex and Gender Information Value Date Recorded Sex Assigned at Not on file 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
--- OUTSIDE RECORDS SUMMARY | 2024-08-16 12:30 | XMS_ITS | Encounter Summary ---
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 Thanks Belia Deluna MD documented in this encounter Plan of Treatment Not on file documented as of this encounter Visit Diagnoses Not on filedocumented in this encounter Care Teams Admissions Rn Relationship Specialty Start Date End Date Mal Kumar MD [address] [place] [address] PCP - General 11/17/18 08/13/19 documented as of this encounter
--- OUTSIDE RECORDS SUMMARY | 2024-08-16 12:30 | XMS_ITS | Encounter Summary ---
Author Organization [facility] Healthcare Address [address] [place] [address] Care Team Providers Care Vice President Sales Name Role Phone Mal Kumar MD Primary Care Provider +1- [phone] Encounter Details Date Type Department Care Team (Late st Contact Info) Description 11/19/2018 Telephone [facility] Emergency Department [address] [place] [address] Sarahi Mondragon, RN Social History Tobacco Use Types Packs/Day Years [...] on file Legal Sex Female 7:[address] REPORTER Gender Identity Female 04/19/2021 6:39 AM CDT Sexual Orientation Straight 04/19/2021 6: 39 AM CDT documented as of this encounter Plan of Treatment Not on file documented as of this encounter Visit Diagnoses Not on filedocumented in this encounter Care Teams Vice President Sales Relationship Specialty Start Date End Date Mal Kumar MD [address] [place] [address] PCP - General 11/17/18 08/13/19 documented as of this encounter
--- OUTSIDE RECORDS SUMMARY | 2024-08-16 12:30 | XMS_ITS | Encounter Summary ---
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
--- OUTSIDE RECORDS SUMMARY | 2024-08-16 12:30 | XMS_ITS | Encounter Summary ---
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
--- OUTSIDE RECORDS SUMMARY | 2024-08-16 12:33 | XMS_ITS | Continuity of Care Document ---
Author Organization [facility] Address [address] [place] [address] Phone Care Team Providers Care Scrub Nurse Name Role Phone Unavailable Unavailable Unavailable Advance Directives Directive Yes / No Effective Date File Name No Information Encounters Encounter Description Practice Location Reason(s) For Visit Diagnoses Date Provider Providers Copied on Encounter [facility], [address] [facility], [place], [place], [id number], [place] tel:[phone] [facility] No Information No Information Referring Provider: RIGOBERTO Tarango, [address], [place], [address]. tel:[phone] Family History Family Member Type Diagnosis Age At Onset No Information Payers Payer name Insurance type Covered constitution party ID Authorromainea thelma(s) [facility] PPO [id number] Social History Type Description Quantity Date Captured Comments Sex Female Smoking Status No Information Chief Complaint And Reason For Visit No Information History Of Present Illness Encounter Date Complaint History Of Prese nt Illness No Information Instructions Date Instruction Additional Infor mation No Information Assessments Type Assessment Date No Information
--- OUTSIDE RECORDS SUMMARY | 2024-08-16 12:33 | XMS_ITS | Encounter Summary ---
Author Organization [facility] Address [address] [place] [address] Care Team Providers Care Pill Coater Name Role Phone Mal Kumar MD Primary Care Provider [phone] Reason for Referral * Outpatient Services (Routine) - Closed Specialty Diagnoses / Procedures Referred By Contac t Referred To Contact Diagnoses size accords with dates, second trimester Procedures US OB FOLLOW UP PER FETUS Zenaida Oliva MD [address] [place] [address] Referral ID Status Reason Start Date Expiration Date Visits Re quested Visits Authorized [id number] Closed 10/29/2016 11/29/2017 1 1 Reason for Visit * Outpatient Services (Routine) - Closed Specialty Diagnoses / Procedures Referred By Contac t Referred To Contact Diagnoses size accords with dates, second trimester Procedures US OB FOLLOW UP PER FETUS Zenaida Oliva MD [address] [place] [address] Referral ID Status Reason Start Date Expiration Date Visits Re quested Visits Authorized [id number] Closed 10/29/2016 11/29/2017 1 1 Encounter Details Date Type Department Care Team (Late st Contact Info) Description 11/26/2016 2:23 PM CDT - 11/26/2016 11:59 PM CDT Hospital Encounter [facility] Maternal and [facility] [address] [place] [address] Zenaida Oliva MD [address] [place] [address] Discharge Disposition: Home or Self Care Social History Tobacco Use Types Packs/Day Years Used Date Smoking Tobacco: Never Assessed Sex and Gender Information Value Date Recorded Sex Assigned at Not on file Gender Identity Not on file Sexual Orientation Not on file documented as of this encounter Plan of Treatment Not on file documented as of this encounter Procedures Procedure Name Priority Date/Time Associated Diagnosis Comments US OB FOLLOW UP PER FETUS Routine 11/26/2016 2:50 PM CDT size accords with dates, second trimester documented in this encounter Results * US OB FOLLOW UP PER FETUS (11/26/2016 2:50 PM CDT) Anatomical Region Laterality Modality Pelvis Ultrasound 11/26/2016 2:25 PM CDT Impressions 11/26/2016 2:42 PM CDT IMPRESSION ----- Normal interval growth EFW = 31st %'ile Limited anatomic survey is reassuring for the gestational age AFV normal Normal posterior placentation. Narrative 11/26/2016 2:42 PM CDT Follow Up Basic ----- Pat. Name: TABBY THEODORE Study Date: 11/26/2016 2:25pm Pat. NO: [id number] Referring ??: ZENAIDA OLIVA MD Site: [place] Flight Inspector: Haylee Jones RDMS : 1980 Age: 36 ----- INDICATION ----- Advanced Maternal Age - Primigravida ? Normal NIPT Maternal Hypertension, Chronic ? Labetalol CODING ----- Diagnosis ? O09.513: Supervision of elderly primigravida. ?O10.013: Pre-existing essential hypertension complicating . ?Z3A.32: Weeks Gestation of . Procedures ?95361: OB follow-up/Target per fetus. HISTORY ----- OB History ?: 1. METHOD ----- Transabdominal ultrasound examination. ----- Edmond . Number of fetuses: 1. DATING ----- Ultrasound examination on: 11/26/2016 GA by U/S based upon: AC, BPD, EFW, Femur, HC GA by U/S 32 w + 4 d MERLIN by U/S: 01/17/2017 Assigned: Dating performed on 09/03/2016, based on the LMP Assigned GA 32 w + 5 d Assigned MERLIN: 01/16/2017 BIOMETRY ----- Main Biometry: BPD ?83.3 ? mm ?67% ? 33w 4d ? Hadlock HC ? 297.9 ?mm ?20% ? 33w 0d ? Hadlock AC ? 280.7 ?mm ?32% ? 32w 1d ? Hadlock Femur ?62.5 ? mm ?29% ? 32w 3d ? Hadlock Humerus ?56.3 ? mm ?60% ? 32w 5d ? Kanwal Weight Calculation: EFW ?1,965 ?g ? 31% ? 32w 0d ? Hadlock EFW (lb,oz) ?4 lb 5 ? oz Calculated by ?Hadlock (CSH-CR-OD-FL) Proportionality Ratios: HC / AC ?1.06 ? 55% ?Nicolaides FL / BPD ? 0.75 ? FL / AC ?0.22 ? GENERAL EVALUATION ----- Cardiac activity: present. FHR 128 bpm. movements: visualized. Presentation: cephalic. Placenta: Placental site: posterior. Umbilical cord: Cord vessels: 3 vessel cord. Amniotic fluid: Amount of AF: normal amount. MVP 4.6 cm. JUNIE 13.4 cm. Q1 3.1 cm, Q2 4.6 cm, Q3 3.5 cm, Q4 2.2 cm. ANATOMY ----- The following structures were visualized with normal appearance: Head ?Head size. Head shape. Thorax ?Diaphragm. Heart ? Four chamber view. Left ventricular outflow tract. Right ventricular outflow tract. Cardiac rhythm. Stomach Kidneys ? Right kidney. Left kidney. Bladder Other findings: Brain: previously seen. Spine: previously seen. Upper extremities: previously seen. Lower extremities: previously seen. Procedure Note Bong Mar MD - 11/26/2016 Follow Up Basic ----- Pat. Name:Lopez THEODORE Date:11/26/2016 2:25pm Pat. NO: [id number] :ZENAIDA OLIVA MD [facility]Haylee Jones [facility] :1980Age:36 ----- INDICATION ----- Advanced Maternal Age - Primigravida Normal NIPT Maternal Hypertension, Chronic Labetalol CODING ----- Diagnosis O09.513: Supervision of elderly primigravida. O10.013: Pre-existing essential hypertensioncomplicating . Z3A.32: Weeks Gestation of . Procedures 55595: OB follow-up/Target per fetus. HISTORY ----- OB History : 1. METHOD ----- Transabdominal ultrasound examination. ----- Edmond . Number of fetuses: 1. DATING ----- Ultrasound examination on:11/26/2016 GA by U/S based upon:AC, BPD, EFW, Femur, HC GA by U/S32 w + 4 d MERLIN by U/S:01/17/2017 Assigned:Dating performed on 09/03/2016, based on the LMP Assigned GA32 w + 5 d Assigned MERLIN:01/16/2017 BIOMETRY ----- Main Biometry: BPD 83.3 mm 67% 33w 4dHadlock HC 297.9 mm 20% 33w 0dHadlock AC 280.7 mm 32% 32w 1dHadlock Femur 62.5 mm 29% 32w 3dHadlock Humerus 56.3 mm 60% 32w 5dJeanty Weight Calculation: EFW 1,965 g 31% 32w 0dHadlock EFW (lb,oz) 4 lb 5 oz Calculated by Jose Guadalupe ([id number]-FL) Proportionality Ratios: HC / AC 1.06 55%Nicolaides FL / BPD 0.75 FL / AC 0.22 GENERAL EVALUATION ----- Cardiac activity: present. FHR 128 bpm. movements: visualized. Presentation: cephalic. Placenta: Placental site: posterior. Umbilical cord: Cord vessels: 3 vessel cord. Amniotic fluid: Amount of AF: normal amount. MVP 4.6 cm. JUNIE 13.4 cm. Q13.1 cm, Q2 4.6 cm, Q3 3.5 cm, Q4 2.2 cm. ANATOMY ----- The following structures were visualized with normal appearance: Head Head size. Head shape. Thorax Diaphragm. Heart Four chamber view. Left ventricular outflow tract.Right ventricular outflow tract. Cardiac rhythm. Stomach Kidneys Right kidney. Left kidney. Bladder Other findings: Brain: previously seen. Spine: previously seen. Upper extremities:previously seen. Lower extremities: previously seen. IMPRESSION IMPRESSION ----- Normal interval growth EFW = 31st %'ile Limited anatomic survey is reassuring for the gestational age AFV normal Normal posterior placentation. Zenaida Oliva MD ORDERABLES documented in this encounter Visit Diagnoses Diagnosis size accords with dates, second trimester documented in this encounter Care Teams Pill Coater Relationship Specialty Start Date End Date Mal Kumar MD [address] [place] [phone] PCP - General Family Practice 07/06/16 documented as of this encounter
--- OUTSIDE RECORDS SUMMARY | 2024-08-16 12:33 | XMS_ITS | Encounter Summary ---
Author Organization [facility] Address [address] [place] [address] Care Team Providers Care Financial Consultant Name Role Phone Mal Kumar MD Primary Care Provider [phone] Reason for Referral * Outpatient Services (Routine) - Closed Specialty Diagnoses / Procedures Referred By Contac t Referred To Contact Diagnoses size accords with dates, second trimester Procedures US OB FOLLOW UP PER FETUS Zenaida Oliva MD [address] [place] [address] Referral ID Status Reason Start Date Expiration Date Visits Re quested Visits Authorized [id number] Closed 09/03/2016 10/04/2017 1 1 OR NET DEVELOPER Reason for Visit * Outpatient Services (Routine) - Closed Specialty Diagnoses / Procedures Referred By Contac t Referred To Contact Diagnoses size accords with dates, second trimester Procedures US OB FOLLOW UP PER FETUS Zenaida Oliva MD [address] [place] [address] Referral ID Status Reason Start Date Expiration Date Visits Re quested Visits Authorized [id number] Closed 09/03/2016 10/04/2017 1 1 Encounter Details Date Type Department Care Team (Late st Contact Info) Description 10/01/2016 2:45 PM JUNIOR NET DEVELOPER - 10/01/2016 11:59 PM JUNIOR NET DEVELOPER Hospital Encounter [facility] Maternal and [facility] [address] [place] [address] Zenaida Oliva MD [address] [place] [address] Discharge Disposition: Home or Self [...] US OB FOLLOW UP PER FETUS Routine 10/01/2016 3:22 PM JUNIOR NET DEVELOPER size accords with dates, second trimester documented in this encounter Results * US OB FOLLOW UP PER FETUS (10/01/2016 3:22 PM JUNIOR NET DEVELOPER) Anatomical Region Laterality Modality Pelvis Ultrasound 10/01/2016 2:48 PM JUNIOR NET DEVELOPER Impressions 10/01/2016 6:34 PM JUNIOR NET DEVELOPER IMPRESSION ----- Interval growth is appropriate. There are no structural malformations identified. Normal fluid and placentation. Narrative 10/01/2016 6:34 PM JUNIOR NET DEVELOPER Follow Up Basic ----- Pat. Name: DANIELE THEODORE Study Date: 10/01/2016 2:48pm Pat. NO: [id number] Referring ??: ZENAIDA OLIVA MD Site: [facility] Assistant: Minerva GrossANNA : 1980 Age: 35 ----- INDICATION ----- Advanced Maternal Age - Primigravida ? Normal NIPT Maternal Hypertension, Chronic ? Labetalol CODING ----- Diagnosis ? O09.512: Supervision of elderly primigravida. ?O10.012: Pre-existing essential hypertension complicating . ?Z3A.24: Weeks Gestation of . Procedures ?00294: OB follow-up/Target per fetus. HISTORY ----- OB History ?: 1. METHOD ----- Transabdominal ultrasound examination. ----- Edmond . Number of fetuses: 1. DATING ----- LMP on: 04/11/2016 GA by LMP 24 w + 5 d MERLIN by LMP: 01/16/2017 Ultrasound examination on: 10/01/2016 GA by U/S based upon: AC, BPD, EFW, Femur, HC GA by U/S 24 w + 5 d MERLIN by U/S: 01/16/2017 Assigned: Dating performed on 09/03/2016, based on the LMP Assigned GA 24 w + 5 d Assigned MERLIN: 01/16/2017 BIOMETRY ----- Main Biometry: BPD ?61.7 ? mm ?55% ? 25w 0d ? Hadlock HC ? 226.2 ?mm ?27% ? 24w 5d ? Hadlock AC ? 201.8 ?mm ?44% ? 24w 6d ? Hadlock Femur ?44.5 ? mm ?35% ? 24w 5d ? Hadlock Weight Calculation: EFW ?730 ?g ? 41% ? 24w 4d ? Hadlock EFW (lb,oz) ?1 lb ? oz ? 10 Calculated by ?Hadlock (JHS-ST-LE-FL) Proportionality Ratios: HC / AC ?1.12 ? 44% ?Nicolaides FL / BPD ? 0.72 ? FL / AC ?0.22 ? Amniotic Fluid / FHR: AF MVP ? 4.7 ?cm ? JUNIE ?16.5 ? cm ?65% ?Cruz FHR ?133 ?bpm ? GENERAL EVALUATION ----- Cardiac activity: present. FHR 133 bpm. movements: visualized. Presentation: transverse. Placenta: Placental site: posterior. Umbilical cord: Cord vessels: 3 vessel cord. Amniotic fluid: MVP 4.7 cm. JUNIE 16.5 cm. Q1 4.7 cm, Q2 3.5 cm, Q3 4.6 cm, Q4 3.7 cm. ANATOMY ----- The following structures were visualized with normal appearance: Head: Head shape and size appear normal. Brain. Thorax: No thoracic abnormalities detected. Heart: Four chamber view of the heart and outflow tracts appear normal. Abdominal wall: Abdominal wall and cord insertion appear normal. Stomach: Stomach size and situs appear normal. Kidneys: Kidneys and adrenal glands appear normal bilaterally. Bladder: size and shape. The following structures were visualized: Upper extremities. Lower extremities. Other findings: Spine: previously seen. FOLLOW-UP ----- Followup is scheduled in 4 weeks. Procedure Note Nedra Hyde DO - 10/01/2016 Follow Up Basic ----- Pat. Name:Lopez THEODORE Date:10/01/2016 2:48pm Pat. NO: [id number] :ZENAIDA OLIVA MD [facility]Minerva Gross RDMS :1980Age:35 ----- INDICATION ----- Advanced Maternal Age - Primigravida Normal NIPT Maternal Hypertension, Chronic Labetalol CODING ----- Diagnosis O09.512: Supervision of elderly primigravida. O10.012: Pre-existing essential hypertensioncomplicating . Z3A.24: Weeks Gestation of . Procedures 67149: OB follow-up/Target per fetus. HISTORY ----- OB History : 1. METHOD ----- Transabdominal ultrasound examination. ----- Edmond . Number of fetuses: 1. DATING ----- LMP on:04/11/2016 GA by LMP24 w + 5 d MERLIN by LMP:01/16/2017 Ultrasound examination on:10/01/2016 GA by U/S based upon:AC, BPD, EFW, Femur, HC GA by U/S24 w + 5 d MERLIN by U/S:01/16/2017 Assigned:Dating performed on 09/03/2016, based on the LMP Assigned GA24 w + 5 d Assigned MERLIN:01/16/2017 BIOMETRY ----- Main Biometry: BPD 61.7 mm 55% 25w 0dHadlock HC 226.2 mm 27% 24w 5dHadlock AC 201.8 mm 44% 24w 6dHadlock Femur 44.5 mm 35% 24w 5dHadlock Weight Calculation: EFW 730 g 41% 24w 4dHadlock EFW (lb,oz) 1 lb oz 10 Calculated by Jose Guadalupe ([id number]-FL) Proportionality Ratios: HC / AC 1.12 44%Nicolaides FL / BPD 0.72 FL / AC 0.22 Amniotic Fluid / FHR: AF MVP 4.7 cm JUNIE 16.5 cm 65%Cruz FHR 133 bpm GENERAL EVALUATION ----- Cardiac activity: present. FHR 133 bpm. movements: visualized. Presentation: transverse. Placenta: Placental site: posterior. Umbilical cord: Cord vessels: 3 vessel cord. Amniotic fluid: MVP 4.7 cm. JUNIE 16.5 cm. Q1 4.7 cm, Q2 3.5 cm, Q3 4.6 cm,Q4 3.7 cm. ANATOMY ----- The following structures were visualized with normal appearance: Head: Head shape and size appear normal. Brain. Thorax: No thoracic abnormalities detected. Heart: Four chamber view of the heart and outflow tracts appear normal. Abdominal wall: Abdominal wall and cord insertion appear normal. Stomach: Stomach size and situs appear normal. Kidneys: Kidneys and adrenal glands appear normal bilaterally. Bladder: size and shape. The following structures were visualized: Upper extremities. Lower extremities. Other findings: Spine: previously seen. FOLLOW-UP ----- Followup is scheduled in 4 weeks. IMPRESSION IMPRESSION ----- Interval growth is appropriate. There are no structural malformations identified. Normal fluid and placentation. Zenaida Oliva MD ORDERABLES documented in this encounter Visit Diagnoses Diagnosis size accords with dates, second trimester documented in this encounter Care Teams Financial Consultant Relationship Specialty Start Date End Date Mal Kumar MD [address] [place] [address] PCP - General Family Practice 07/06/16 documented as of this encounter
--- OUTSIDE RECORDS SUMMARY | 2024-08-16 12:33 | XMS_ITS | Clinical Summary ---
Author Organization [facility] Address [address] [place] [address] Phone Care Team Providers Care Crop [place] Name Role Phone Mal Kumar MD Primary Care Provider [phone] Social History Tobacco Use Types Packs/Day Years Used Date Smoking Tobacco: Never Assessed Sex and Gender Information Value Date Recorded Sex Assigned at Not on file Gender Identity Not on file Sexual Orientation Not on file Plan of Treatment Health Maintenance Due Date Last Done Comments DTAP/TDAP/TD VACCINES (1 - Tdap) 10/02/1998 HEPATITIS B VACCINES (1 of 3 - 19+ 3-dose series) 10/02/1998 CERVICAL CANCER SCREENING 10/02/2009 BREAST CANCER SCREENING 2019 INFLUENZA VACCINE (#1) 2024 HPV VACCINES Aged Out No longer eligi ble based on patient's age to complete this topic PNEUMOCOCCAL VACCINE 0-64 YEARS Aged Out No longer eligible based on patient's age to complete this topic Care Teams Crop [place] Relationship Specialty Start Date End Date Mal Kumar MD [address] [place] [address] PCP - General Family Practice 07/06/16
--- OUTSIDE RECORDS SUMMARY | 2024-08-16 12:33 | XMS_ITS | Encounter Summary ---
Author Organization [facility] Address [address] [place] [address] Care Team Providers Care Legal Billing Analyst Name Role Phone Mal Kumar MD Primary Care Provider [phone] Reason for Referral * Outpatient Services (Routine) - Closed Specialty Diagnoses / Procedures Referred By Contac t Referred To Contact Diagnoses Maternal chronic hypertension in third trimester Procedures US OB FOLLOW UP PER FETUS Bong Mar MD [address], [place] [address] Referral ID Status Reason Start Date Expiration Date Visits Re quested Visits Authorized [id number] Closed 11/26/2016 12/27/2017 1 1 Reason for Visit * Outpatient Services (Routine) - Closed Specialty Diagnoses / Procedures Referred By Contac t Referred To Contact Diagnoses Maternal chronic hypertension in third trimester Procedures US OB FOLLOW UP PER FETUS Bong Mar MD [address], [place] [address] Referral ID Status Reason Start Date Expiration Date Visits Re quested Visits Authorized [id number] Closed 11/26/2016 12/27/2017 1 1 Encounter Details Date Type Department Care Team (Latest Contact Info) Description 12/24/2016 2:15 PM CDT - 12/24/2016 11:59 PM CDT Hospital Encounter [facility] Maternal and Health [facility] [address] [place] [address] Bong Mar MD [address] [place] [address] [place] [id number] Discharge Disposition: Home or Self Care Social [...] US OB FOLLOW UP PER FETUS Routine 12/24/2016 2:52 PM CDT Maternal chronic hypertension in third trimester documented in this encounter Results * US OB FOLLOW UP PER FETUS (12/24/2016 2:52 PM CDT) Anatomical Region Laterality Modality Pelvis Ultrasound 12/24/2016 2:33 PM CDT Impressions 12/24/2016 3:09 PM CDT IMPRESSION ----- Single intrauterine Interval growth is normal overall at 31%. Normal AFV movement is noted No further follow up has been scheduled Patient is scheduled for twice weekly NST's in OB's office Induction of labor scheduled for 01/09/2017. Thank you for allowing us to participate in the care of your patient. Narrative 12/24/2016 3:09 PM CDT Follow Up Basic ----- Pat. Name: TABBY THEODORE Study Date: 12/24/2016 2:33pm Pat. NO: [id number] Referring ??MD: RIGOBERTO THOMAS MD Site: [place] [employer] Maker: Haylee Jones [facility] : 1980 Age: 36 ----- INDICATION ----- Advanced Maternal Age - Primigravida ? Normal NIPT Maternal Hypertension, Chronic ? Labetalol CODING ----- Diagnosis ? O09.513: Supervision of elderly primigravida. ?O10.013: Pre-existing essential hypertension complicating . ?Z3A.36: Weeks Gestation of . Procedures ?44794: OB follow-up/Target per fetus. HISTORY ----- OB History ?: 1. METHOD ----- Transabdominal ultrasound examination. Good view. ----- Edmond . Number of fetuses: 1. DATING ----- Ultrasound examination on: 12/24/2016 GA by U/S based upon: AC, BPD, EFW, Femur, HC GA by U/S 35 w + 5 d MERLIN by U/S: 01/23/2017 Assigned: Dating performed on 09/03/2016, based on the LMP Assigned GA 36 w + 5 d Assigned MERLIN: 01/16/2017 BIOMETRY ----- Main Biometry: BPD ?88.9 ? mm ?42% ? 36w 0d ? Hadlock HC ? 312.8 ?mm ?3% ?35w 0d ? Hadlock AC ? 322.8 ?mm ?48% ? 36w 1d ? Hadlock Femur ?68.7 ? mm ?15% ? 35w 2d ? Hadlock Humerus ?62.3 ? mm ?60% ? 36w 0d ? Kanwal Weight Calculation: EFW ?2,773 ?g ? 31% ? 35w 6d ? Hadlock EFW (lb,oz) ?6 lb 2 ? oz Calculated by ?Hadlock ([id number]-FL) Proportionality Ratios: HC / AC ?0.97 ? 23% ?Nicolaides FL / BPD ? 0.77 ? FL / AC ?0.21 ? GENERAL EVALUATION ----- Cardiac activity: present. FHR 139 bpm. movements: visualized. Presentation: cephalic. Placenta: Placental site: posterior. Umbilical cord: Cord vessels: previously seen. Amniotic fluid: Amount of AF: normal amount. MVP 5.9 cm. JUNIE 15.0 cm. Q1 3.3 cm, Q2 5.9 cm, Q3 4.1 cm, Q4 1.6 cm. ANATOMY ----- The following structures were visualized with normal appearance: Head: Head shape and size appear normal. Thorax: Diaphragm appears to be within normal limits. Heart: Four chamber view of the heart appears normal. Stomach. Kidneys. Bladder. Other findings: Brain ? previously seen. Spine ? previously seen. Heart ? Left ventricular outflow tract: previously seen. Right ventricular outflow tract: previously seen. Upper extrem. ? previously seen. Lower extrem. ? previously seen. Procedure Note Bong Jenkins, - 12/24/2016 Follow Up Basic ----- Pat. Name:Lopez THEODORE Date:12/24/2016 2:33pm Pat. NO: [id number] MD:RIGOBERTO THOMAS [place]:Haylee Jones [facility] :1980Age:36 ----- INDICATION ----- Advanced Maternal Age - Primigravida Normal NIPT Maternal Hypertension, Chronic Labetalol CODING ----- Diagnosis O09.513: Supervision of elderly primigravida. O10.013: Pre-existing essential hypertensioncomplicating . Z3A.36: Weeks Gestation of . Procedures 30592: OB follow-up/Target per fetus. HISTORY ----- OB History : 1. METHOD ----- Transabdominal ultrasound examination. Good view. ----- Edmond . Number of fetuses: 1. DATING ----- Ultrasound examination on:12/24/2016 GA by U/S based upon:AC, BPD, EFW, Femur, HC GA by U/S35 w + 5 d MERLIN by U/S:01/23/2017 Assigned:Dating performed on 09/03/2016, based on the LMP Assigned GA36 w + 5 d Assigned MERLIN:01/16/2017 BIOMETRY ----- Main Biometry: BPD 88.9 mm 42% 36w 0dHadlock HC 312.8 mm 3% 35w 0dHadlock AC 322.8 mm 48% 36w 1dHadlock Femur 68.7 mm 15% 35w 2dHadlock Humerus 62.3 mm 60% 36w 0dJeanty Weight Calculation: EFW 2,773 g 31% 35w 6dHadlock EFW (lb,oz) 6 lb 2 oz Calculated by Jose Guadalupe ([id number]-OT-[id number]-FL) Proportionality Ratios: HC / AC 0.97 23%Nicolaides FL / BPD 0.77 FL / AC 0.21 GENERAL EVALUATION ----- Cardiac activity: present. FHR 139 bpm. movements: visualized. Presentation: cephalic. Placenta: Placental site: posterior. Umbilical cord: Cord vessels: previously seen. Amniotic fluid: Amount of AF: normal amount. MVP 5.9 cm. JUNIE 15.0 cm. Q13.3 cm, Q2 5.9 cm, Q3 4.1 cm, Q4 1.6 cm. ANATOMY ----- The following structures were visualized with normal appearance: Head: Head shape and size appear normal. Thorax: Diaphragm appears to be within normal limits. Heart: Four chamber view of the heart appears normal. Stomach. Kidneys. Bladder. Other findings: Brain previously seen. Spine previously seen. Heart Left ventricular outflow tract: previously seen.Right ventricular outflow tract: previously seen. Upper extrem. previously seen. Lower extrem. previously seen. IMPRESSION IMPRESSION ----- Single intrauterine Interval growth is normal overall at 31%. Normal AFV movement is noted No further follow up has been scheduled Patient is scheduled for twice weekly NST's in OB's office Induction of labor scheduled for 01/09/2017. Thank you for allowing us to participate in the care of your patient. Bong Mar MD ORDERABLES documented in this encounter Visit Diagnoses Diagnosis Maternal chronic hypertension in third trimester documented in this encounter Care Teams Legal Billing Analyst Relationship Specialty Start Date End Date Mal Kumar MD [address] [place] [address] PCP - General Family Practice 07/06/16 documented as of this encounter
--- OUTSIDE RECORDS SUMMARY | 2024-08-16 12:33 | XMS_ITS | Encounter Summary ---
Author Organization [facility] Address [address] [place] [address] Care Team Providers Care Enterostomal Nurse Name Role Phone Mal Kumar MD Primary Care Provider [phone] Reason for Visit * Outpatient Services (Routine) - Closed Specialty Diagnoses / Procedures Referred By Trever atkins Referred To Contact Genetics Diagnoses Supervision of elderly primigravida in first trimester Procedures [id number] Genetic Counseling [facility] ID# [id number] Group # [id number] Zenaida Oliva MD [address] [address] Referral ID Status Reason Start Date Expiration Date Visits Requested Visits Authorized [id number] Closed Performing Department To Schedule (STL) 06/27/2016 06/28/2017 1 1 Encounter Details Date Type Department Care Team (Late st Contact Info) Description 07/09/2016 2:59 PM SLIP COVER MAKER - 07/09/2016 11:59 PM SLIP COVER MAKER Hospital Encounter [facility] Maternal and Health [facility] [address] [place] [address] Mal Kumar MD [address] [place] [address] [facility], Genetic Counseling Discharge Disposition: Home or Self Care Social History Tobacco Use Types Packs/Day Years Used Date Smoking Tobacco: Never Assessed Sex and Gender Information Value Date Recorded Sex Assigned at Not on file Gender Identity Not on file Sexual Orientation Not on file documented as of this encounter Consult Notes * Rita Abad RN - 07/09/2016 2:57 PM CST Telehealth Visit This is a telehealth visit and the patient is [facility] with bi-directional real time audio/video. Genetics Consultation with Nadja from [phone]; patient consent obtainted. Rita Abad RN COVER MAKER documented in this encounter Plan of Treatment Not on file documented as of this encounter Visit Diagnoses Not on filedocumented in this encounter Care Teams Enterostomal Nurse Relationship Specialty Start Date End Date Mal Kumar MD [address] [place] [address] PCP - General Family Practice 07/06/16 documented as of this encounter
--- OUTSIDE RECORDS SUMMARY | 2024-08-16 12:33 | XMS_ITS | Encounter Summary ---
Author Organization [employer] [facility] Address [address] [place] [address] Care Team Providers Care Tool Smith Name Role Phone Mal Kumar MD Primary Care Provider [phone] Reason for Referral * Outpatient Services (Routine) - Closed Specialty Diagnoses / Procedures Referred By Contac t Referred To Contact Radiology Diagnoses Advanced maternal age in multigravida, second trimester Procedures US OB DETAIL SINGLE Zenaida Henderson MD [address] [place] [address] [facility] Maternal And Hc Ground Fl [address] [place] [address] Referral ID Status Reason Start Date Expiration Date Visits Re quested Visits Authorized [id number] Closed 08/16/2016 09/16/2017 1 1 DOWN MAN Reason for Visit * Outpatient Services (Routine) - Closed Specialty Diagnoses / Procedures Referred By Contac t Referred To Contact Radiology Diagnoses Advanced maternal age in multigravida, second trimester Procedures US OB DETAIL SINGLE Zenaida Henderson MD [address] [place] [address] [facility] Fl [address] [place] [address] Referral ID Status Reason Start Date Expiration Date Visits Re quested Visits Authorized [id number] Closed 08/16/2016 09/16/2017 1 1 Encounter Details Date Type Department Care Team (Late st Contact Info) Description 09/03/2016 3:00 PM TEAR DOWN MAN - 09/03/2016 11:59 PM TEAR DOWN MAN Hospital Encounter [facility] Maternal and Health [facility] [address] [place] [address] Zenaida Oliva MD [address] [facility] [address] [place] [address] Discharge Disposition: Home or Self [...] Priority Date/Time Associated Diagnosis Comments US OB DETAIL SINGLE GEST Routine 09/03/2016 4:24 PM TEAR DOWN MAN Advanced maternal age in multigravida, second trimester documented in this encounter Results * US OB DETAIL SINGLE GEST (09/03/2016 4:24 PM TEAR DOWN MAN) Anatomical Region Laterality Modality Pelvis Ultrasound 09/03/2016 3:06 PM TEAR DOWN MAN Impressions 09/03/2016 4:14 PM TEAR DOWN MAN IMPRESSION ----- The biometry is consistent with the menstrual age No structural malformations or markers of aneuploidy identified AFV normal Normal posterior placentation confirmed by transvaginal ultrasound Normal cervical length. Narrative 09/03/2016 4:14 PM TEAR DOWN MAN Comprehensive/Cervix ----- Pat. Name: TABBY THEODORE Study Date: 09/03/2016 3:06pm Pat. NO: [id number] Referring ??MD: ZENAIDA OLIVA MD Site: [facility] Architect: Minerva Gross RDMS : 1980 Age: 35 ----- INDICATION ----- Encounter for anatomic survey ?Normal NIPT Advanced Maternal Age - Primigravida Maternal Hypertension, Chronic ? Labetalol CODING ----- Diagnosis ? Z36: Encounter for screening of mother. ?O09.512: Supervision of elderly primigravida. ?O10.012: Pre-existing essential hypertension complicating . ?Z3A.20: Weeks Gestation of . Procedures ?86584: OB with Detail (Comprehensive). ?74912: OB Transvaginal - Cervical length. HISTORY ----- OB History ?: 1. MATERNAL ASSESSMENT ----- Physical Exam ? Weight 73 kg. BMI 27.46 kg/m?. METHOD ----- Transabdominal and transvaginal ultrasound examination. ----- Edmond . Number of fetuses: 1. DATING ----- LMP on: 04/11/2016 GA by LMP 20 w + 5 d MERLIN by LMP: 01/16/2017 Ultrasound examination on: 09/03/2016 GA by U/S based upon: AC, BPD, EFW, Femur, HC GA by U/S 20 w + 5 d MERLIN by U/S: 01/16/2017 Assigned: Dating performed on 09/03/2016, based on the LMP Assigned GA 20 w + 5 d Assigned MERLIN: 01/16/2017 BIOMETRY ----- Main Biometry: BPD ?49.1 ? mm ?55% ? 20w 6d ? Hadlock HC ? 181.0 ?mm ?32% ? 20w 4d ? Hadlock AC ? 152.0 ?mm ?34% ? 20w 3d ? Hadlock Femur ?35.9 ? mm ?65% ? 21w 3d ? Hadlock Cerebellum tr ?20.7 ? mm ?37% ? 20w 3d ? Devonte CM ? 4.3 ?mm ?23% ?Nicolaides Nuchal fold ?4.19 ? mm ? Humerus ?32.7 ? mm ?59% ? 21w 0d ? Kanwal Weight Calculation: EFW ?380 ?g ? 50% ? 20w 5d ? Hadlock EFW (lb,oz) ?0 lb ? oz ? 13 Calculated by ?Hadlock ([id number]-FL) Proportionality Ratios: HC / AC ?1.19 ? 64% ?Nicolaides FL / BPD ? 0.73 ? 64% ?Hadlock FL / AC ?0.24 ? 88% ?Hadlock Head / Face / Neck Biometry: Outer IOD ?30.00 ?mm ?7% ?19w 3d ? Kanwal Extremities / Bony Struc Biometry: Tibia ?30.0 ? mm ?63% ? 21w 0d ? Kanwal GENERAL EVALUATION ----- Cardiac activity: present. FHR 135 bpm. movements: visualized. Presentation: cephalic. Placenta: Placental site: posterior. 2.6cm from cervial os, transvaginally. Umbilical cord: Cord vessels: 3 vessel cord. Cord insertion: placental insertion: normal. Amniotic fluid: MVP 5.2 cm. ANATOMY ----- The following structures were visualized with normal appearance: Head ?Head shape and size appear normal. Brain ? Cerebellum, choroid plexus, cisterna magna, lateral cerebral ventricles, midline falx and cavum septi ?pellucidi appear normal. Face ?Profile, orbits, nose, upper lip and palate appear normal. Neck Spine ? Cervical, thoracic, lumbar and sacral spine appear normal. Thorax ?No thoracic abnormalities detected. Heart ? Four chamber view of the heart and outflow tracts appear normal. ?3-vessel - trachea view. Bicaval view. Aortic arch view. Ductal arch view. Abdominal wall ?Abdominal wall and cord insertion appear normal. Stomach ? Stomach size and situs appear normal. GI tract ? stomach and intestines appear normal. Kidneys ? Kidneys and adrenal glands appear normal bilaterally. Bladder ? size and shape. Upper extrem. ? Both upper extremities are seen and appear normal. Lower extrem. ? Both lower extremities are seen and appear normal. Skeleton ?Skeletal structures appear normal. Gender: male. MATERNAL STRUCTURES ----- Cervix ?Visualized, Patient states she is not allergic to latex and a latex probe cover was used. ?Approach - Transvaginal: Cervical length 3.40 cm. Right Ovary ? Not visualized. Left Ovary ?Size 2.2 cm x 2.2 cm x 1.7 cm. Mean 2.0 cm. Vol. 4.3 cm?. FOLLOW-UP ----- A follow-up ultrasound scheduled in 4 weeks to follow growth due to hypertension. Procedure Note Bong Mar MD - 09/03/2016 Comprehensive/Cervix ----- Pat. Name:Lopez THEODORE Date:09/03/2016 3:06pm Pat. NO: [id number] :ZENAIDA OLIVA MD [facility]Minerva Gross RDMS :1980Age:35 ----- INDICATION ----- Encounter for anatomic survey Normal NIPT Advanced Maternal Age - Primigravida Maternal Hypertension, Chronic Labetalol CODING ----- Diagnosis Z36: Encounter for screening ofmother. O09.512: Supervision of elderly primigravida. O10.012: Pre-existing essential hypertensioncomplicating . Z3A.20: Weeks Gestation of . Procedures 90893: OB with Detail (Comprehensive). 97609: OB Transvaginal - Cervical length. HISTORY ----- OB History : 1. MATERNAL ASSESSMENT ----- Physical Exam Weight 73 kg. BMI 27.46 kg/m?. METHOD ----- Transabdominal and transvaginal ultrasound examination. ----- Edmond . Number of fetuses: 1. DATING ----- LMP on:04/11/2016 GA by LMP20 w + 5 d MERLIN by LMP:01/16/2017 Ultrasound examination on:09/03/2016 GA by U/S based upon:AC, BPD, EFW, Femur, HC GA by U/S20 w + 5 d MERLIN by U/S:01/16/2017 Assigned:Dating performed on 09/03/2016, based on the LMP Assigned GA20 w + 5 d Assigned MERLIN:01/16/2017 BIOMETRY ----- Main Biometry: BPD 49.1 mm 55% 20w 6dHadlock HC 181.0 mm 32% 20w 4dHadlock AC 152.0 mm 34% 20w 3dHadlock Femur 35.9 mm 65% 21w 3dHadlock Cerebellum tr 20.7 mm 37% 20w 3dGoldstein CM 4.3 mm 23%Nicolaides Nuchal fold 4.19 mm Humerus 32.7 mm 59% 21w 0dJeanty Weight Calculation: EFW 380 g 50% 20w 5dHadlock EFW (lb,oz) 0 lb oz 13 Calculated by Jose Guadalupe ([id number]-FL) Proportionality Ratios: HC / AC 1.19 64%Nicolaides FL / BPD 0.73 64%Hadlock FL / AC 0.24 88%Hadlock Head / Face / Neck Biometry: Outer IOD 30.00 mm 7% 19w 3dJeanty Extremities / Bony Struc Biometry: Tibia 30.0 mm 63% 21w 0dJeanty GENERAL EVALUATION ----- Cardiac activity: present. FHR 135 bpm. movements: visualized. Presentation: cephalic. Placenta: Placental site: posterior. 2.6cm from cervial os,transvaginally. Umbilical cord: Cord vessels: 3 vessel cord. Cord insertion: placentalinsertion: normal. Amniotic fluid: MVP 5.2 cm. ANATOMY ----- The following structures were visualized with normal appearance: Head Head shape and size appear normal. Brain Cerebellum, choroid plexus, cisterna magna,lateral cerebral ventricles, midline falx and cavum septi pellucidi appear normal. Face Profile, orbits, nose, upper lip and palate appearnormal. Neck Spine Cervical, thoracic, lumbar and sacral spine appearnormal. Thorax No thoracic abnormalities detected. Heart Four chamber view of the heart and outflow tractsappear normal. 3-vessel - trachea view. Bicaval view. Aortic archview. Ductal arch view. Abdominal wall Abdominal wall and cord insertion appearnormal. Stomach Stomach size and situs appear normal. GI tract stomach and intestines appear normal. Kidneys Kidneys and adrenal glands appear normalbilaterally. Bladder size and shape. Upper extrem. Both upper extremities are seen and appearnormal. Lower extrem. Both lower extremities are seen and appearnormal. Skeleton Skeletal structures appear normal. Gender: male. MATERNAL STRUCTURES ----- Cervix Visualized, Patient states she is not allergic tolatex and a latex probe cover was used. Approach - Transvaginal: Cervical length 3.40cm. Right Ovary Not visualized. Left Ovary Size 2.2 cm x 2.2 cm x 1.7 cm. Mean 2.0 cm. Vol.4.3 cm?. FOLLOW-UP ----- A follow-up ultrasound scheduled in 4 weeks to follow growth due tohypertension. IMPRESSION IMPRESSION ----- The biometry is consistent with the menstrual age No structural malformations or markers of aneuploidy identified AFV normal Normal posterior placentation confirmed by transvaginal ultrasound Normal cervical length. Zenaida Oliva MD US ORDERABLES documented in this encounter Visit Diagnoses Diagnosis Advanced maternal age in multigravida, second trimester documented in this encounter Care Teams Tool Smith Relationship Specialty Start Date End Date Mal Kumar MD [address] [place] [address] PCP - General Family Practice 07/06/16 documented as of this encounter
--- OUTSIDE RECORDS SUMMARY | 2024-08-16 12:33 | XMS_ITS | Encounter Summary ---
Author Organization [facility] Address [address] [place] [address] Care Team Providers Care Acute Care Registered Nurse Name Role Phone Mal Kumar MD Primary Care Provider [phone] Reason for Referral * Outpatient Services (Routine) - Closed Specialty Diagnoses / Procedures Referred By Contac t Referred To Contact Diagnoses size accords with dates, second trimester Procedures US OB FOLLOW UP PER FETUS Zenaida Oliva MD [address] [place] [address] Referral ID Status Reason Start Date Expiration Date Visits Re quested Visits Authorized [id number] Closed 10/01/2016 11/01/2017 1 1 Reason for Visit * Outpatient Services (Routine) - Closed Specialty Diagnoses / Procedures Referred By Contac t Referred To Contact Diagnoses size accords with dates, second trimester Procedures US OB FOLLOW UP PER FETUS Zenaida Oliva MD [address] [place] [address] Referral ID Status Reason Start Date Expiration Date Visits Re quested Visits Authorized [id number] Closed 10/01/2016 11/01/2017 1 1 Encounter Details Date Type Department Care Team (Late st Contact Info) Description 10/29/2016 2:46 PM CDT - 10/29/2016 11:59 PM CDT Hospital Encounter [facility] [address] [place] [address] Zenaida Oliva MD [address] [place] [address] Discharge Disposition: Home or Self [...] US OB FOLLOW UP PER FETUS Routine 10/29/2016 3:37 PM CDT size accords with dates, second trimester documented in this encounter Results * US OB FOLLOW UP PER FETUS (10/29/2016 3:37 PM CDT) Anatomical Region Laterality Modality Pelvis Ultrasound 10/29/2016 3:17 PM CDT Impressions 10/29/2016 3:56 PM CDT IMPRESSION ----- IUP consistent with prior dating. Normal interval growth is demonstrated. EFW is at the 50th percentile. There is normal limited anatomy seen. There is normal amniotic fluid volume. Narrative 10/29/2016 3:56 PM CDT Follow Up Basic ----- Pat. Name: TABBY THEODORE Study Date: 10/29/2016 3:17pm Pat. NO: [id number] Referring ??: ZENAIDA OLIVA MD Site: [place] [employer] Inspector: Minerva Gross RDMS : 1980 Age: 36 ----- INDICATION ----- Advanced Maternal Age - Primigravida ? Normal NIPT Maternal Hypertension, Chronic ? Labetalol CODING ----- Diagnosis ? O09.513: Supervision of elderly primigravida. ?O10.013: Pre-existing essential hypertension complicating . ?Z3A.28: Weeks Gestation of . Procedures ?66949: OB follow-up/Target per fetus. HISTORY ----- OB History ?: 1. METHOD ----- Transabdominal ultrasound examination. ----- [place] . Number of fetuses: 1. DATING ----- LMP on: 04/11/2016 GA by LMP 28 w + 5 d MERLIN by LMP: 01/16/2017 Ultrasound examination on: 10/29/2016 GA by U/S based upon: AC, BPD, EFW, Femur, HC GA by U/S 29 w + 1 d MERLIN by U/S: 01/13/2017 Assigned: Dating performed on 09/03/2016, based on the LMP Assigned GA 28 w + 5 d Assigned MERLIN: 01/16/2017 BIOMETRY ----- Main Biometry: BPD ?74.3 ? mm ?73% ? 29w 6d ? Hadlock HC ? 261.5 ?mm ?13% ? 28w 3d ? Hadlock AC ? 243.1 ?mm ?39% ? 28w 4d ? Hadlock Femur ?56.9 ? mm ?68% ? 29w 6d ? Hadlock Weight Calculation: EFW ?1,330 ?g ? 50% ? 28w 5d ? Hadlock EFW (lb,oz) ?2 lb ? oz ? 15 Calculated by ?Hadlock ([id number]) Proportionality Ratios: HC / AC ?1.08 ? 40% ?Nicolaides [place] / BPD ? 0.77 ? FL / AC ?0.23 ? GENERAL EVALUATION ----- Cardiac activity: present. FHR 138 bpm. movements: visualized. Presentation: cephalic. Placenta: Placental site: posterior. Umbilical cord: Cord vessels: 3 vessel cord. Amniotic fluid: MVP 6.1 cm. JUNIE 18.2 cm. Q1 4.3 cm, Q2 4.8 cm, Q3 2.9 cm, Q4 6.1 cm. ANATOMY ----- The following structures were visualized with normal appearance: Head: Head shape and size appear normal. Thorax: No thoracic abnormalities detected. Heart: Four chamber view of the heart and outflow tracts appear normal. Stomach: Stomach size and situs appear normal. Kidneys: Kidneys and adrenal glands appear normal bilaterally. Bladder: size and shape. The following structures were visualized: Upper extremities. Lower extremities. Other findings: Brain: previously seen. Face: previously seen. Spine: previously seen. Abdominal wall: previously seen. FOLLOW-UP ----- Follow up growth is scheduled in 4 weeks. Procedure Note Priscilla Alfaro MD - 10/29/2016 Follow Up Basic ----- Pat. Name:Lopez THEODORE Date:10/29/2016 3:17pm Pat. NO: [id number] MD:ZENAIDA OLIVA MD [facility]:Minerva Gross RDMS :1980Age:36 ----- INDICATION ----- Advanced Maternal Age - Primigravida Normal NIPT Maternal Hypertension, Chronic Labetalol CODING ----- Diagnosis O09.513: Supervision of elderly primigravida. O10.013: Pre-existing essential hypertensioncomplicating . Z3A.28: Weeks Gestation of . Procedures 74051: OB follow-up/Target per fetus. HISTORY ----- OB History : 1. METHOD ----- Transabdominal ultrasound examination. ----- [place] . Number of fetuses: 1. DATING ----- LMP on:04/11/2016 GA by LMP28 w + 5 d MERLIN by LMP:01/16/2017 Ultrasound examination on:10/29/2016 GA by U/S based upon:AC, BPD, EFW, Femur, HC GA by U/S29 w + 1 d MERLIN by U/S:01/13/2017 Assigned:Dating performed on 09/03/2016, based on the LMP Assigned GA28 w + 5 d Assigned MERLIN:01/16/2017 BIOMETRY ----- Main Biometry: BPD 74.3 mm 73% 29w 6dHadlock HC 261.5 mm 13% 28w 3dHadlock AC 243.1 mm 39% 28w 4dHadlock Femur 56.9 mm 68% 29w 6dHadlock Weight Calculation: EFW 1,330 g 50% 28w 5dHadlock EFW (lb,oz) 2 lb oz 15 Calculated by Jose Guadalupe ([id number]) Proportionality Ratios: HC / AC 1.08 40%Nicolaides [place] / BPD 0.77 FL / AC 0.23 GENERAL EVALUATION ----- Cardiac activity: present. FHR 138 bpm. movements: visualized. Presentation: cephalic. Placenta: Placental site: posterior. Umbilical cord: Cord vessels: 3 vessel cord. Amniotic fluid: MVP 6.1 cm. JUNIE 18.2 cm. Q1 4.3 cm, Q2 4.8 cm, Q3 2.9 cm,Q4 6.1 cm. ANATOMY ----- The following structures were visualized with normal appearance: Head: Head shape and size appear normal. Thorax: No thoracic abnormalities detected. Heart: Four chamber view of the heart and outflow tracts appear normal. Stomach: Stomach size and situs appear normal. Kidneys: Kidneys and adrenal glands appear normal bilaterally. Bladder: size and shape. The following structures were visualized: Upper extremities. Lower extremities. Other findings: Brain: previously seen. Face: previously seen. Spine: previously seen.Abdominal wall: previously seen. FOLLOW-UP ----- Follow up growth is scheduled in 4 weeks. IMPRESSION IMPRESSION ----- IUP consistent with prior dating. Normal interval growth is demonstrated. EFW is at the 50th percentile. There is normal limited anatomy seen. There is normal amniotic fluid volume. Zenaida Oliva MD US ORDERABLES documented in this encounter Visit Diagnoses Diagnosis size accords with dates, second trimester documented in this encounter Care Teams Acute Care Registered Nurse Relationship Specialty Start Date End Date Mal Kumar MD [address] [place] [address] PCP - General Family Practice 07/06/16 documented as of this encounter
== END 2024-08-10 08:48 | disposition home or self-care (01) ==
PROVIDERS: PCP Family Medicine; Visit Provider Obstetrics & Gynecology Gynecology
PROC: 0UBC7ZZ Excision of Cervix, Via Natural or Artificial Opening (ICD-10-PCS; CPT 57522; principal; 2024-08-10 07:30)
DX: D06.0 Carcinoma in situ of endocervix (principal); N88.8 Other specified noninflammatory disorders of cervix uteri; I10 Essential (primary) hypertension; E78.00 Pure hypercholesterolemia, unspecified; F17.210 Nicotine dependence, cigarettes, uncomplicated; F12.90 Cannabis use, unspecified, uncomplicated; Z79.891 Long term (current) use of opiate analgesic; Z79.1 Long term (current) use of non-steroidal anti-inflammatories (NSAID)
CPT/HCPCS: 57522; 88307; A9270; J2004; J2250; J2704; J3010; J7120